=== PATIENT | male | born 1990 | race American Indian/Alaskan Native ===

== ENCOUNTER 2022-11-25 15:42 | Outpatient (CLI) | payer MEDICAID, SELFPAY | END 2022-11-25 15:43 | disposition home or self-care (01) | LOC: AMB 11-27 09:21 | PROVIDERS: Visit Provider Family Medicine | DX: F10.129 Alcohol abuse with intoxication, unspecified (principal) | CPT/HCPCS: A0425; A0429 ==

== ENCOUNTER 2022-11-25 16:01 | Emergency (ER) | payer MEDICAID, SELFPAY ==
[2022-11-25 16:06] VITALS: BP 152/95; PULSE 106; RESP 20; TEMP 36.8; O2SAT 96; BMI 63.7
--- NOTE | 2022-11-25 16:23 | ED_ITS ---
HPI - Alcohol General Chief Complaint: Alcohol/Intoxication Stated Complaint: ETOH Withdrawal Time Seen by Provider: 11/25/22 16:15 History of Present Illness HPI narrative: 32-year-old man presenting to the emergency department with concern of alcohol withdrawal. Is rather committed to alcohol and drinking nearly 2 L of rum a day. Last treatment was last year March. He is not interested in cessation at this time as he says it just does not work. Lives alone in [facility] apartments locally. Family in [place] mother in [place]. Other diagnoses include hypertension. Last drink was yesterday evening. He started to have some shakes and feeling nauseated, tremulous and due to history also of seizures with withdrawal he thought he should contact us and come to the ER. He has run out of alcohol. I asked him again about pain, he just says that he has a little nausea as noted above. I discussed potential plan and he acknowledges that magnesium has been off in the past as well as calcium. Did have a little loose to diarrheal stools. Clarifying further it sounds like episodic alcohol binges. Most recently was 3- 4 days. Prior to that had probably been alcohol free about a week. He says he drinks out of boredom in maybe some mental health difficulties. Later conversation he does have some pain particular in his right knee. Has had surgery on it before. Anticipating knee replacement at some point. Describes [id number]. Used to have a provider in [place] who prescribed him naproxen which he admits did help. Related Data Home Medications Medication Instructions Recorded Confirmed buspirone .ROUTE 11/25/22 lisinopril .ROUTE 11/25/22 metoprolol succinate PO 11/25/22 venlafaxine besylate PO 11/25/22 Previous Rx's Medication Instructions Recorded magnesium oxide 400 mg PO DAILY #45 caps 11/25/22 naproxen 500 mg tablet 500 mg PO BID PRN pain #60 tabs 11/25/22 prenat.vits,jamar,hzq-bpic-aatiw 1 tab PO DAILY #90 tabs 11/25/22 Allergies Allergy/AdvReac Type Severity Reaction Status Date / Time No Known Drug Allergies Allergy Verified 11/25/22 16:10 Review of Systems Status of ROS Reports: 6 or more systems reviewed and unremarkable except as noted in History and below PFSH PFS Social History Do you use any of these nicotine containing products: None How often do you have a drink containing alcohol: 4 or more times a week How many standard drinks containing alcohol do you have on a typical day: 10 or more How often do you have six or more drinks on one occasion: Daily or almost daily AUDIT-C Alcohol total score: 12 Non-prescribed substance use: denies use service: No Exam Narrative: Exam Narrative: Is pleasant. Little tremulous. Cranial nerves 2-12 look to be intact there is some mild ptosis of the right eye. Large maroon polo is broadly stained. Skin is warm and dry. Are scratches and excoriations consistent with mild picking. Otherwise tattoo on the inner right forearm looks like dream catcher of sorts. Abdomen in is obese soft and nontender. Heart with elevated to tachycardic rate appears to be in regular rhythm. Rather distant though. Lungs appear to be clear. Oropharynx is sticky. Extremities are thick consistent with obesity with mild lower extremity dependent edema. Const: Vital Signs, click to edit/add: Vital Signs - 24 hr 11/25/22 16:06 11/25/22 16:52 Temperature 98.2 F Pulse Rate [Pulse Oximeter] 106 H Respiratory Rate 20 Blood Pressure [Ri ght Upper Arm] 152/95 H Pulse Oximetry 96 93 Oxygen Delivery Me thod Room Air Documenting provider has reviewed patient's vital signs: yes Course Vital Signs Vital signs: Initial Vital Signs Temperature 98.2 F 11/25/22 16:06 Temperature Source Oral 11/25/22 16:06 Pulse Rate 106 H 11/25/22 16:06 Pulse Rhythm 11/25/22 16:06 Respiratory Rate 20 11/25/22 16:06 Blood Pressure 152/95 H 11/25/22 16:06 Blood Pressure Mean 114 11/25/22 16:06 Blood Pressure Position Sitting 11/25/22 16:06 Pulse Oximetry 96 11/25/22 16:06 Oxygen Delivery Method 11/25/22 16:06 Vital Signs Temperature 98.2 F 11/25/22 16:06 Pulse Rate 106 H 11/25/22 16:06 Respiratory Rate 20 11/25/22 16:06 Blood Pressure 152/95 H 11/25/22 16:06 Pulse Oximetry 96 11/25/22 16:06 Oxygen Delivery Method 11/25/22 16:06 Temperature 97.9 F 11/25/22 19:23 Pulse Rate 99 11/25/22 19:23 Respiratory Rate 20 11/25/22 19:23 Blood Pressure 148/62 H 11/25/22 19:23 Pulse Oximetry 95 11/25/22 19:23 Oxygen Delivery Method 11/25/22 19:23 MDM - Alcohol MDM Narrative Medical decision making narrative: Presumably still significant alcohol in system. Would think that would not be pending seizure then. Will check alcohol level. Hydrate, vitamins. Monitor. Continue to discuss treatment/detox if perhaps he might change his mind. Have further clarified drinking behavior as noted in HPI. etoh level is undetectable. Banana bag given. Already reports feeling better mid-bag. Replacing low magnesium as well. wanted a little pain relief for right knee. ordered initially for naproxen but changed to ketorolac as more readily available in department. overall improved. prescribing naproxen on discharge. some further concerns of chronic nsaids in someone with some degree of alcoholism. options should be discussed in primary care. Lab Data Attestation: I reviewed the patient's lab results. Labs: Lab Results 11/25/22 11/25/22 11/25/22 Range/Units 16:20 16:20 16:20 WBC 7.11 (4.50-11.00) K/uL RBC 5.47 (4.30-5.90) m/uL Hgb 16.8 (13.5-17.5) gm/dL Hct 50.6 (37.0-53.0) % MCV 93 (80-100) fL MCH 31 (26-34) pg MCHC 33 (32-36) gm/dL RDW Coeff of Dhara 13.1 (11.5-15.5) % Plt Count 270 (140-440) K/uL Neut % (Auto) 58.0 (42.0-72.0) % Lymph % (Auto) 34.7 (20-44) % [place] % (Auto) 6.9 (0.0-11.0) % Eos % (Auto) 0.3 (0.0-7.0) % Baso % (Auto) 0.0 (0.0-3.0) % Neut # (Auto) 4.12 (1.7-7.0) K/uL Lymph # (Auto) 2.47 (0.90-2.90) K/uL [place] # (Auto) 0.50 (0.00-0.90) K/UL Eos # (Auto) 0.02 (0.00-0.50) K/uL Baso # (Auto) 0.00 (0.00-0.30) K/uL Sodium 139 (135-149) mmol/L Potassium 3.9 (3.6-5.1) mmol/L Chloride 107 (96-114) mmol/L Carbon Dioxide 20 (20-32) mmol/L BUN 9 (5-24) mg/dL Creatinine 0.9 (0.5-1.5) mg/dL Estimated Creat Clear 138.23 Estimated GFR 115 ml/min Glucose 128 H (60-115) mg/dL Calcium 8.7 (8.4-10.6) mg/dL Magnesium 1.3 L Cancelled (1.5-2.6) mg/dL Total Bilirubin 0.7 (0.1-1.5) mg/dL Direct Bilirubin 0.2 (0.0-0.5) mg/dL AST 61 H (12-35) U/L ALT 50 (4-50) U/L Alkaline Phosphatase 64 (40-150) U/L C-Reactive Protein 0.5 (0.5-1.0) mg/dL NT-Pro-B Natriuret Pep 139 Cancelled pg/mL Total Protein 8.0 (6.0-8.3) g/dL Albumin 4.3 (3.3-5.0) g/dL Lipase 108 Cancelled (23-300) U/L Ethyl Alcohol 0.01 (0.01-0.03) % Discharge Plan Discharge Clinical Impression: Alcohol withdrawal, Osteoarthritis, Chronic knee pain, Dehydration, Hypomagnesemia Patient Disposition: Home w/ Parent or Adult Condition: Improved Additional Instructions: Do focus on hydration; non-alcoholic please. I think it would be a good idea to take a multivitamin. I've also prescribed some magnesium. Even though it is here and there, that is a lot of alcohol you're putting away. Do what you can to markedly decrease that. It might be helpful to reconnect with AA. I would also consider reestablishing in primary care and staying in touch with orthopaedics given what you've told me. Prescriptions: Kun seymour.vits,jamar,efd-zlxd-foxbf Tablet 1 tab PO DAILY Qty: 90 0RF naproxen 500 mg tablet 500 mg PO BID PRN (Reason: pain) Qty: 60 0RF Rx Instructions: take with a little food magnesium oxide 400 mg magnesium capsule 400 mg PO DAILY Qty: 45 0RF Rx Instructions: take 400mg pain for 2 weeks and then to once daily dosing No Action lisinopril .ROUTE metoprolol succinate PO venlafaxine besylate PO buspirone .ROUTE Follow Up/Referrals: Provider,Not a Local [Primary Care Provider] - Stand Alone Forms: [employer] Info Instructions
[2022-11-25] MEDS: ONDANSETRON 2 MG/ML inj 4 MG IVP (16:50)
[2022-11-25 16:52] VITALS: O2SAT 93
[2022-11-25 16:52] LABS: Eosinophils Absolute Auto 0.02 K/uL (0.00-0.50); Eosinophils Percent Auto 0.3 % (0.0-7.0); Hematocrit 50.6 % (37.0-53.0); Hemoglobin* 16.8 gm/dL (13.5-17.5); Immature Granulocytes Abs Auto 0.01 K/uL (0.00-0.30); Immature Granulocytes Pct Auto 0.1 %; Lymphocytes Absolute Auto 2.47 K/uL (0.90-2.90); Lymphocytes Percent Auto 34.7 % (20-44); Mean Corpuscular HGB Conc 33 gm/dL (32-36); Mean Corpuscular Hemoglobin 31 pg (26-34); Mean Corpuscular Volume 93 fL (80-100); Monocytes Percent Auto 6.9 % (0.0-11.0); Neutrophils Absolute Auto 4.12 K/uL (1.7-7.0); Platelet Count* 270 K/uL (140-440); RDW Coefficient of Variation % 13.1 % (11.5-15.5); Red Blood Count 5.47 m/uL (4.30-5.90); White Blood Count* 7.11 K/uL (4.50-11.00)
[2022-11-25 16:53] LABS: Albumin* 4.3 g/dL (3.3-5.0); Chloride* 107 mmol/L (96-114); Sodium* 139 mmol/L (135-149)
[2022-11-25 16:54] LABS: Potassium* 3.9 mmol/L (3.6-5.1)
[2022-11-25 16:56] LABS: Creatinine* 0.9 mg/dL (0.5-1.5); Est. Creatinine Clearance* 138.23; Estimated Glomerular Filt Rate 115 ml/min
[2022-11-25 16:57] LABS: Alanine Aminotransferase* 50 U/L (4-50); Alkaline Phosphatase* 64 U/L (40-150); Aspartate Amino Transferase* 61 U/L (12-35); Bilirubin Direct* 0.2 mg/dL (0.0-0.5); Bilirubin Total* 0.7 mg/dL (0.1-1.5); Blood Urea Nitrogen* 9 mg/dL (5-24); Carbon Dioxide* 20 mmol/L (20-32); Glucose* 128 mg/dL (60-115); Lipase* 108 U/L (23-300)
[2022-11-25 16:58] LABS: Calcium* 8.7 mg/dL (8.4-10.6); Ethanol* 0.01 % (0.01-0.03); Magnesium* 1.3 mg/dL (1.5-2.6)
[2022-11-25 17:00] LABS: C Reactive Protein* 0.5 mg/dL (0.5-1.0)
[2022-11-25 17:07] LABS: NT Pro B Type NatriureticPept* 139 pg/mL; Slide Review Reflex No
[2022-11-25] MEDS: MAGNESIUM IV 2 GM/50 ML PIGGYBACK IVPB (17:56)
[2022-11-25] MEDS: KETOROLAC 30 MG/ML inj IVP (18:54)
[2022-11-25 19:23] VITALS: BP 148/62; PULSE 99; RESP 20; TEMP 36.6; O2SAT 95
== END 2022-11-25 19:25 | disposition home or self-care (01) ==
PROVIDERS: Emergency Provider Family Medicine
DX: F10.129 Alcohol abuse with intoxication, unspecified (principal); E83.42 Hypomagnesemia
CPT/HCPCS: 36415; 80048; 80076; 82077; 83690; 83735; 83880; 85025; 86140; 94761; 96372; 96374; 96375; 99283; 99284; J1885; J2060; J2405; J3411; J3475; J7030

== ENCOUNTER 2022-11-25 20:02 | Emergency (ER) | payer MEDICAID, SELFPAY ==
[2022-11-25 20:13] VITALS: BP 153/84; PULSE 80; RESP 20; TEMP 36.4; O2SAT 98
[2022-11-25] MEDS: LORazepam 2 MG/ML inj 1.5 MG IM (20:45)
[2022-11-25 21:13] VITALS: PULSE 86; RESP 20; O2SAT 98
--- NOTE | 2022-11-27 09:45 | ED.GENADULT ---
HPI - General Adult General Chief complaint: Shortness of Breath/Dyspnea Stated complaint: Trouble breathing shaking tingling Time Seen by Provider: 11/25/22 20:15 History of Present Illness HPI narrative: 32-year-old man returns to the emergency department accompanied by his mother with concern of general shakiness trouble breathing tingliness in his face hands, some lightheadedness. This started after leaving this department where I had just evaluated him. His concern is that this is how he felt before he had a seizure once in the past. This was the same concern they brought him to the department earlier today. Mr. Tejeda does drink episodically. He did not have any detectable alcohol in his system earlier. They were on their way to get the prescribed medication's. No chest pain. Related Data Home Medications Medication Instructions Recorded Confirmed buspirone .ROUTE 11/25/22 lisinopril .ROUTE 11/25/22 metoprolol succinate PO 11/25/22 venlafaxine besylate PO 11/25/22 Previous Rx's Medication Instructions Recorded magnesium oxide 400 mg PO DAILY #45 caps 11/25/22 naproxen 500 mg tablet 500 mg PO BID PRN pain #60 tabs 11/25/22 prenat.vits,jamar,cuh-jarn-pgted 1 tab PO DAILY #90 tabs 11/25/22 Allergies Allergy/AdvReac Type Severity Reaction Status Date / Time No Known Drug Allergies Allergy Verified 11/25/22 16:10 Review of Systems Status of ROS: Reports: 6 or more systems reviewed and unremarkable except as noted in History and below [facility] Social History Do you use any of these nicotine containing products: None How often do you have a drink containing alcohol: 4 or more times a week How many standard drinks containing alcohol do you have on a typical day: 10 or more How often do you have six or more drinks on one occasion: Daily or almost daily AUDIT-C Alcohol total score: 12 Non-prescribed substance use: denies use service: No Exam Narrative: Exam Narrative: Pleasant. Obese. Able to speak in full sentences. Mildly tachypneic though. Mildly labored. Moving all extremities without difficulty. Well-perfused. Lungs are clear. Heart is with regular rate and rhythm. Cranial nerves two through 12 looked to be intact. Sensation intact. Course Vital Signs Vital signs: Initial Vital Signs Temperature 97.6 F 11/25/22 20:13 Temperature Source Temporal Artery Scan 11/25/22 20:13 Pulse Rate 80 11/25/22 20:13 Pulse Rhythm 11/25/22 20:13 Respiratory Rate 20 11/25/22 20:13 Respiratory Effort Spontaneous 11/25/22 20:13 Respiratory Depth Normal 11/25/22 20:13 Respiratory Pattern 11/25/22 20:13 Blood Pressure 153/84 H 11/25/22 20:13 Blood Pressure Mean 107 11/25/22 20:13 Blood Pressure Position Semi-Fowlers 11/25/22 20:13 Pulse Oximetry 98 11/25/22 20:13 Oxygen Delivery Method 11/25/22 20:13 Vital Signs Temperature 97.6 F 11/25/22 20:13 Pulse Rate 80 11/25/22 20:13 Respiratory Rate 20 11/25/22 20:13 Blood Pressure 153/84 H 11/25/22 20:13 Pulse Oximetry 98 11/25/22 20:13 Oxygen Delivery Method 11/25/22 20:13 Temperature 97.6 F 11/25/22 20:13 Pulse Rate 86 11/25/22 21:13 Respiratory Rate 20 11/25/22 21:13 Blood Pressure 153/84 H 11/25/22 20:13 Pulse Oximetry 98 11/25/22 21:13 Oxygen Delivery Method 11/25/22 21:13 Medical Decision Making MDM Narrative Medical decision making narrative: I see no evidence of seizure disorder. Given recent evaluation here and underlying anxiety I suspect this is more of a panic attack. Ordered for 1.5 mg IM lorazepam. He had noted to nursing that Valium and helped him in the past. Lorazepam more readily available. Was markedly improved over period of observation in emergency department. Prior to receiving injection admitted that he had had a chance to feel a little bit better already. Discharge Plan Discharge Clinical Impression: Panic attack Patient Disposition: Home w/ Parent or Adult Condition: Improved Additional Instructions: See prior instructions. Good to see you again. Sorry you had come in. Prescriptions: No Action lisinopril .ROUTE metoprolol succinate PO venlafaxine besylate PO buspirone .ROUTE prenat.vits,jamar,zdb-nhjl-rgjmo Tablet 1 tab PO DAILY Qty: 90 0RF naproxen 500 mg tablet 500 mg PO BID PRN (Reason: pain) Qty: 60 0RF Rx Instructions: take with a little food magnesium oxide 400 mg magnesium capsule 400 mg PO DAILY Qty: 45 0RF Rx Instructions: take 400mg pain for 2 weeks and then to once daily dosing Follow Up/Referrals: Provider,Not a Local [Primary Care Provider] - Stand Alone Forms: [employer] Info Instructions
== END 2022-11-25 21:29 | disposition home or self-care (01) ==
PROVIDERS: Emergency Provider Family Medicine
DX: F10.129 Alcohol abuse with intoxication, unspecified (principal); E83.42 Hypomagnesemia
CPT/HCPCS: 96372; 99283; J2060

== ENCOUNTER 2023-01-01 05:33 | Emergency (ER) | payer OTHER, SELFPAY ==
[2023-01-01 05:36] VITALS: O2SAT 98
--- NOTE | 2023-01-01 05:36 | ED.ALCOHOL ---
HPI - Alcohol General Time Seen by Provider: 05:36 Date Seen: 01/01/23 Chief Complaint: Alcohol/Intoxication Stated Complaint: Alcohol Withdrawal Time Seen by Provider: 01/01/23 05:36 Source: patient, EMS and RN notes reviewed Mode of arrival: EMS Limitations: no limitations History of Present Illness HPI narrative: [place] is a very pleasant 32-year-old gentleman with a history of significant alcohol use, hypertension, morbid obesity who comes to the emergency room for evaluation regarding nausea, shakiness and worries about withdrawal. EMS reports that Ronnell called 911 for himself. They found him at his apartment at [facility] and he was able to walk to the [facility] in order to be transferred. They noted a normal blood sugar and had 1 failed IV attempt. Patient notes that he drinks large amounts of alcohol but then will quit for a few days. He states that last night he had a half a gal of rum. Since that time he has had shakiness and nausea. He states that he has had a seizure in the past in was worried about that. Notes that he has been a treatment in past but has no interest in that this evening. He agrees that he has some mild abdominal discomfort and diarrhea. Notes no difficulty breathing or chest pain. He has not had any recent trauma. Related Data Home Medications Medication Instructions Recorded Confirmed buspirone 15 mg tablet 15 mg PO BID 01/01/23 01/01/23 lisinopril 30 mg tablet 30 mg PO DAILY 01/01/23 01/01/23 magnesium oxide 400 mg (241.3 mg 400 mg PO DAILY 01/01/23 01/01/23 magnesium) tablet metoprolol succinate 50 mg 50 mg PO DAILY 01/01/23 01/01/23 tablet,extended release 24 hr venlafaxine 150 mg tablet,extended 150 mg PO DAILY 01/01/23 01/01/23 release 24 hr Previous Rx's Medication Instructions Recorded naproxen 500 mg tablet 500 mg PO BID PRN pain #60 tabs 11/25/22 Allergies Allergy/AdvReac Type Severity Reaction Status Date / Time No Known Drug Allergies Allergy Verified 01/01/23 05:53 Review of Systems Status of ROS Reports: 10 or more systems reviewed and unremarkable except as noted in History and below Const Reports: fatigue; Denies: fever or chills Eyes Denies: change in vision ENMT Denies: throat pain or difficulty swallowing Cardio Reports: swelling of feet/ankles; Denies: chest pain or shortness of breath with exertion Resp Denies: shortness of breath or cough GI Reports: abdominal pain (Mild), nausea, vomiting and diarrhea; Denies: difficulty swallowing or blood in stool Denies: painful urination or urinary frequency Musculo Denies: back pain Neuro Reports: headache and weakness in extremities Endo Reports: fatigue [facility] Medical History (Updated 01/01/23 @ 07:50 by Anabell Rubio MD) Alcohol dependence, binge pattern Anxiety Morbidly obese Right knee pain Social History Smoking Status: Current every day smoker Do you use any of these nicotine containing products: None Second hand tobacco smoke exposure: No How often do you have a drink containing alcohol: 2-3 times a week How many standard drinks containing alcohol do you have on a typical day: 10 or more How often do you have six or more drinks on one occasion: Daily or almost daily AUDIT-C Alcohol total score: 11 Non-prescribed substance use: denies use service: No Exam Narrative: Exam Narrative: Patient is alert and oriented. He is somewhat tremulous but it almost seems that this is more anxiety than withdrawal related. He is able to transfer himself from [facility] onto the bed. He is speaking and mentating normally. Eyes are clear. Oral cavity with tacky mucous membranes. Heart with a mildly tachycardic rate and normal rhythm. Lungs are clear in all lung flores. Abdomen is obese soft no significant tenderness. Scab healing on upper thoracic spine without evidence of surrounding erythema Const: Vital Signs, click to edit/add: Vital Signs - 24 hr 01/01/23 05:46 01/01/23 06:05 01/01/23 06:03 Temperature 98.0 F 98.2 F Pulse Rate 106 H Pulse Rate [Right Pulse Oximeter] 105 H 105 H Respiratory Rate 22 24 16 Blood Pressure 182/116 H Blood Pressure [Ri ght Upper Arm] 153/80 H 182/116 H Pulse Oximetry 97 95 94 Oxygen Delivery Me thod Room Air Room Air 01/01/23 05:36 01/01/23 06:32 Temperature Pulse Rate 96 Pulse Rate [Right Pulse Oximeter] Respiratory Rate 22 Blood Pressure 180/109 H Blood Pressure [Ri ght Upper Arm] Pulse Oximetry 98 94 Oxygen Delivery Me thod Documenting provider has reviewed patient's vital signs: yes Course Course Hospital Course: Differential diagnosis includes but is not limited to Hangover affect verses mild withdrawal, dehydration, anxiety.-patient does have a history of withdrawal seizures. However, he describes alcohol use is intermittent spanning a few days and then abstaining for a few days. Last night he did have significant amount of alcohol. Will give him normal saline bolus with Ativan 1 mg IV. Will check labs to include CBC, comprehensive, ETOH, lipase as well as urinalysis. At this time patient declines treatment. Reevaluation(s) Reevaluation #1: Patient notes that he is feeling much better after fluids and Ativan. Again declines treatment and feels use ready to go home. Vital Signs Vital signs: Initial Vital Signs Pulse Oximetry 98 01/01/23 05:36 Vital Signs Pulse Oximetry 98 01/01/23 05:36 Temperature 98.2 F 01/01/23 06:05 Pulse Rate 96 01/01/23 06:32 Respiratory Rate 22 01/01/23 06:32 Blood Pressure 180/109 H 01/01/23 06:32 Pulse Oximetry 94 01/01/23 06:32 Oxygen Delivery Method 01/01/23 06:05 MDM - Alcohol MDM Narrative Medical decision making narrative: 1. Hangover affect verses mild withdrawal-I believe this is likely more a hangover a factor even anxiety. Patient improved after 1 mg of Ativan and 1 L of normal saline. Again declines treatment and would like to go home. Does realize that if this was withdrawal it will likely can get worse again. Counseled on decreased alcohol intake 2. Hypertension-patient did not take his medication yesterday. Will give him a dose metoprolol 50 mg p.o. 3. Disposition-patient is able to secure himself for ride in the next 1/2 hour. Return as needed. Patient able to drink fluids without difficulty prior to departure Medical Records Attestation: I reviewed the patient's medical records. Lab Data Attestation: I reviewed the patient's lab results. Labs: Lab Results 01/01/23 01/01/23 01/01/23 Range/Units 05:40 05:40 06:50 WBC 4.74 (4.50-11.00) K/uL RBC 5.81 (4.30-5.90) m/uL Hgb 17.1 (13.5-17.5) gm/dL Hct 52.8 (37.0-53.0) % MCV 91 (80-100) fL MCH 29 (26-34) pg MCHC 32 (32-36) gm/dL RDW Coeff of Dhara 13.1 (11.5-15.5) % Plt Count 220 (140-440) K/uL Neut % (Auto) 43.6 (42.0-72.0) % Lymph % (Auto) 43.0 (20-44) % [place] % (Auto) 12.4 H (0.0-11.0) % Eos % (Auto) 0.8 (0.0-7.0) % Baso % (Auto) 0.2 (0.0-3.0) % Neut # (Auto) 2.06 (1.7-7.0) K/uL Lymph # (Auto) 2.04 (0.90-2.90) K/uL [place] # (Auto) 0.60 (0.00-0.90) K/UL Eos # (Auto) 0.04 (0.00-0.50) K/uL Baso # (Auto) 0.01 (0.00-0.30) K/uL Sodium 138 (135-149) mmol/L Potassium 4.0 (3.6-5.1) mmol/L Chloride 101 (96-114) mmol/L Carbon Dioxide 30 (20-32) mmol/L BUN 6 (5-24) mg/dL Creatinine 0.8 (0.5-1.5) mg/dL Estimated Creat Clear 155.50 Estimated GFR 119 ml/min Glucose 107 (60-115) mg/dL Calcium 8.6 (8.4-10.6) mg/dL Total Bilirubin 0.9 (0.1-1.5) mg/dL AST 49 H (12-35) U/L ALT 30 (4-50) U/L Alkaline Phosphatase 63 (40-150) U/L Total Protein 8.4 H (6.0-8.3) g/dL Albumin 4.4 (3.3-5.0) g/dL Lipase 125 (23-300) U/L Urine Color Yellow (Yellow) Urine Appearance Clear (Clear) Urine pH 6.0 (5.0-8.5) Ur Specific [place] 1.025 (1.000-1.030) Urine Protein 1+ A (Negative) Urine Glucose (UA) Negative (Negative) Urine Ketones Negative (Negative) Urine Blood Trace-intact A (Negative) Urine Nitrite Negative (Negative) Urine Bilirubin Negative (Negative) Urine Urobilinogen 0.2 (0.2-1.0) Ur Leukocyte Esterase Negative (Negative) Urine RBC 0-2 (0-2) Urine WBC 0-2 (0-5) Ur Squamous Epith Cells Few (None-Few) Urine Bacteria None (None) Ethyl Alcohol < 0.01 L (0.01-0.03) % Discharge Plan Discharge Clinical Impression: Alcohol abuse, Anxiety Patient Disposition: Home, Self-Care Condition: Improved Additional Instructions: Abstain from alcohol. If he do drink please limit amounts and drink in moderation. Push fluids as much as possible. Return to the ER as needed Prescriptions: No Action naproxen 500 mg tablet 500 mg PO BID PRN (Reason: pain) Qty: 60 0RF Rx Instructions: take with a little food metoprolol succinate 50 mg tablet extended release 24 hr 50 mg PO DAILY magnesium oxide 400 mg (241.3 mg magnesium) tablet 400 mg PO DAILY lisinopril 30 mg tablet 30 mg PO DAILY buspirone 15 mg tablet 15 mg PO BID venlafaxine 150 mg tablet extended release 24hr 150 mg PO DAILY Follow Up/Referrals: Provider,Not a Local [Primary Care Provider] - Stand Alone Forms: [employer] Info Instructions
[2023-01-01 05:46] VITALS: BP 153/80; PULSE 105; RESP 22; TEMP 36.7; O2SAT 97; BMI 62.5
[2023-01-01 05:49] LABS: Basophils Absolute Auto 0.01 K/uL (0.00-0.30); Basophils Percent Auto 0.2 % (0.0-3.0); Eosinophils Absolute Auto 0.04 K/uL (0.00-0.50); Eosinophils Percent Auto 0.8 % (0.0-7.0); Hematocrit 52.8 % (37.0-53.0); Hemoglobin* 17.1 gm/dL (13.5-17.5); Lymphocytes Absolute Auto 2.04 K/uL (0.90-2.90); Mean Corpuscular HGB Conc 32 gm/dL (32-36); Mean Corpuscular Hemoglobin 29 pg (26-34); Mean Corpuscular Volume 91 fL (80-100); Monocytes Percent Auto 12.4 % (0.0-11.0); Neutrophils Absolute Auto 2.06 K/uL (1.7-7.0); Neutrophils Percent Auto 43.6 % (42.0-72.0); Platelet Count* 220 K/uL (140-440); RDW Coefficient of Variation % 13.1 % (11.5-15.5); Red Blood Count 5.81 m/uL (4.30-5.90); White Blood Count* 4.74 K/uL (4.50-11.00)
[2023-01-01 05:50] LABS: Slide Review Reflex No
[2023-01-01] MEDS: LORazepam 2 MG/ML inj 1 MG IVP (05:50)
[2023-01-01] MEDS: 0.9 % SODIUM CHLORIDE 1000 ml 1,000 ML IV (05:50)
[2023-01-01 06:01] LABS: Albumin* 4.4 g/dL (3.3-5.0)
[2023-01-01 06:02] LABS: Chloride* 101 mmol/L (96-114); Sodium* 138 mmol/L (135-149)
[2023-01-01 06:03] VITALS: BP 182/116; PULSE 106; RESP 16; O2SAT 94
[2023-01-01 06:04] LABS: Alkaline Phosphatase* 63 U/L (40-150); Aspartate Amino Transferase* 49 U/L (12-35); Bilirubin Total* 0.9 mg/dL (0.1-1.5); Blood Urea Nitrogen* 6 mg/dL (5-24); Carbon Dioxide* 30 mmol/L (20-32); Creatinine* 0.8 mg/dL (0.5-1.5); Estimated Glomerular Filt Rate 119 ml/min; Total Protein* 8.4 g/dL (6.0-8.3)
[2023-01-01 06:05] VITALS: BP 182/116; PULSE 105; RESP 24; TEMP 36.8; O2SAT 95
[2023-01-01 06:05] LABS: Alanine Aminotransferase* 30 U/L (4-50); Calcium* 8.6 mg/dL (8.4-10.6); Glucose* 107 mg/dL (60-115); Lipase* 125 U/L (23-300)
[2023-01-01 06:06] LABS: Ethanol* < 0.01 % (0.01-0.03)
[2023-01-01 06:32] VITALS: BP 180/109; PULSE 96; RESP 22; O2SAT 94
[2023-01-01 07:01] LABS: Appearance Urine Clear (Clear); Bilirubin Urine Negative (Negative); Blood Urine Trace-intact (Negative); Color Urine Yellow (Yellow); Glucose Urine Negative (Negative); Ketones Urine Negative (Negative); Leukocyte Esterase Urine Negative (Negative); Nitrite Urine Negative (Negative); Protein Urine 1+ (Negative); Specific Gravity Urine 1.025 (1.000-1.030); Urobilinogen Urine 0.2 (0.2-1.0)
[2023-01-01 07:05] LABS: RBC Urine 0-2 (0-2); Squamous Epithelial Cell Urine Few (None-Few); WBC Urine 0-2 (0-5)
--- NOTE | 2023-01-01 07:31 | ED.NURSE ---
alert and oriented. drinking water and juice eating a sandwich
[2023-01-01] MEDS: METOPROLOL SUCCINATE (XL) 50 MG TAB PO (07:37)
== END 2023-01-01 08:14 | disposition home or self-care (01) ==
PROVIDERS: Emergency Provider Family Medicine
DX: F10.10 Alcohol abuse, uncomplicated (principal); F41.9 Anxiety disorder, unspecified
CPT/HCPCS: 36415; 80053; 81001; 82077; 83690; 85025; 94761; 96374; 99283; 99284; A0425; A0429; A9270; J2060; J7030

== ENCOUNTER 2023-01-13 15:36 | Emergency (ER) | payer OTHER, SELFPAY ==
[2023-01-13 15:38] VITALS: BP 196/131; PULSE 76; RESP 18; TEMP 36.1; O2SAT 93; BMI 62.1
--- NOTE | 2023-01-13 15:58 | ED_ITS ---
HPI - Nausea/Vomiting/Diarrhea General Time Seen by Provider: 15:58 Date Seen: 01/13/23 Chief complaint: Nausea/Vomiting Stated complaint: Numbness, Anxiety Time Seen by Provider: 01/13/23 15:46 Source: patient, EMS and RN notes reviewed Mode of arrival: EMS Limitations: no limitations History of Present Illness HPI Narrative: Artemio is a 33-year-old male that called the ambulance from home when he was having full facial numbness. He felt some chest discomfort in context with that. When he awoke around 1:00 a.m. this afternoon he started to develop symptoms of anxiety. He admits that at this time all the symptoms are starting to go away. With the facial numbness in the chest discomfort, he did feel short of breath. He reported nausea vomiting as his chief complaint but never brought that up to me. He drank up until yesterday, had his last drink yesterday. He does note that he will often feel this way after he quits drinking. Denies any recent illness. He has been through treatment maybe 7 or 8 times before. He states he did take his blood pressure medicines this morning. Have reviewed with him that his blood pressure is certainly elevated, discussed ongoing affects that can contribute to hypertension with alcohol use. Overall, at this time he is feeling improved. Patient notes his eyes felt more swollen this morning. Did ask about obstructive sleep apnea and he states he knows he does have it but does not tolerate a mask. Related Data Home Medications Medication Instructions Recorded Confirmed buspirone 15 mg tablet 15 mg PO BID 01/01/23 01/01/23 lisinopril 30 mg tablet 30 mg PO DAILY 01/01/23 01/01/23 magnesium oxide 400 mg (241.3 mg 400 mg PO DAILY 01/01/23 01/01/23 magnesium) tablet metoprolol succinate 50 mg 50 mg PO DAILY 01/01/23 01/01/23 tablet,extended release 24 hr venlafaxine 150 mg tablet,extended 150 mg PO DAILY 01/01/23 01/01/23 release 24 hr Previous Rx's Medication Instructions Recorded naproxen 500 mg tablet 500 mg PO BID PRN pain #60 tabs 11/25/22 Allergies Allergy/AdvReac Type Severity Reaction Status Date / Time No Known Drug Allergies Allergy Verified 01/13/23 15:43 Review of Systems Status of ROS: Reports: 6 or more systems reviewed and unremarkable except as noted in History and below [facility] Medical History (Updated 01/13/23 @ 18:46 by Dorene Nicholson MD) Alcohol dependence, binge pattern ?F10.20 - Alcohol dependence, uncomplicated (ICD-10) Anxiety ?F41.9 - Anxiety disorder, unspecified (ICD-10) Morbidly obese ?E66.01 - Morbid (severe) obesity due to excess calories (ICD-10) Right knee pain ?M25.561 - Pain in right knee (ICD-10) Social History Smoking Status: Current every day smoker Do you use any of these nicotine containing products: None Second hand tobacco smoke exposure: No How often do you have a drink containing alcohol: 2-3 times a week How many standard drinks containing alcohol do you have on a typical day: 10 or more How often do you have six or more drinks on one occasion: Daily or almost daily AUDIT-C Alcohol total score: 11 Non-prescribed substance use: denies use service: No Exam Const: Vital Signs, click to edit/add: Vital Signs - 24 hr 01/13/23 15:38 01/13/23 16:07 Temperature 97.0 F L Pulse Rate [Pulse Oximeter] 76 Respiratory Rate 18 Blood Pressure [Le ft Upper Arm] 196/131 H Pulse Oximetry 93 94 Oxygen Delivery Me thod Room Air Documenting provider has reviewed patient's vital signs: yes Common normals: no apparent distress, oriented x3, no limitations and alert General appearance: cooperative and comfortable Nutritional appearance: obese morbidly obese Orientation/consciousness: Yes awake, Yes oriented to person, Yes oriented to place and Yes oriented to time HENMT: Common normals: normocephalic, head/scalp atraumatic and hearing grossly normal bilaterally Head and scalp: normocephalic and atraumatic Other: Only does have some symmetric periorbital swelling. No exudates noted sclera was some injection but not erythematous overall, no ciliary flush. Pupils are equal round reactive. Eye: Common normals: PERRL, EOMs intact bilaterally and no scleral icterus Pupil: PERRL Neck & C-Spine: Common normals: full ROM and supple Other: Neck is quite thick, difficult to assess any jugular venous distension but patient actually was sitting up when I was in the room. Certainly no masses noted no cervical adenopathy. Resp: Common normals: normal respiratory effort, no retractions, no use of accessory muscles and clear to auscultation bilaterally Auscultation: clear to auscultation bilaterally Cardio: Common normals: regular rate, regular rhythm, S1 normal heart sound, S2 normal heart sound, no gallops, no clicks and no murmurs Rate: regular rate Rhythm: regular rhythm Heart sounds: S1 normal and S2 normal GI: Common normals: Normal to inspection, nondistended, normoactive bowel sounds present, soft to palpation and non-tender Palpation: soft Neuro: Common normals: oriented x3 Sensorium/orientation: awake, alert, oriented to person, oriented to place and oriented to time Course Course Hospital Course: Patient's arrival EKG looks quite normal. He seems to be in no distress. Will look at appropriate labs including his magnesium. Will follow him clinically here, obtain a two view chest x-ray. Blood pressure is elevated but I think this is likely hypertension, not acute withdrawal at this time. He has morbid obesity, untreated sleep apnea and alcoholism which are all likely contributing to escalating his blood pressure. Reevaluation(s) Reevaluation #1: Reviewed magnesium low at 1.3. Will replace with 2 g IV magnesium. Time: 16:45 Reevaluation #2: Patient has remained stable here. Did review his normal troponins. He is feeling fine at this time. He has completed his IV magnesium. We have discussed the importance of follow-up in clinic. He really needs to try to abstain from alcohol, attempt at some weight loss for ongoing future health. He does understand that. He states he had a primary care provider in [place] and is trying to get 1 scheduled here. I urged him to get follow-up in 1 of the clinics here in [place]. Time: 18:43 Vital Signs Vital signs: Initial Vital Signs Temperature 97.0 F L 01/13/23 15:38 Temperature Source Temporal Artery Scan 01/13/23 15:38 Pulse Rate 76 01/13/23 15:38 Pulse Rhythm Regular 01/13/23 15:38 Pulse Strength 3+ Normal 01/13/23 15:38 Respiratory Rate 18 01/13/23 15:38 Blood Pressure 196/131 H 01/13/23 15:38 Blood Pressure Mean 152 01/13/23 15:38 Blood Pressure Position Sitting 01/13/23 15:38 Pulse Oximetry 93 01/13/23 15:38 Oxygen Delivery Method Room Air 01/13/23 15:38 Vital Signs Temperature 97.0 F L 01/13/23 15:38 Pulse Rate 76 01/13/23 15:38 Respiratory Rate 18 01/13/23 15:38 Blood Pressure 196/131 H 01/13/23 15:38 Pulse Oximetry 93 01/13/23 15:38 Oxygen Delivery Method Room Air 01/13/23 15:38 Temperature 97.0 F L 01/13/23 15:38 Pulse Rate 76 01/13/23 15:38 Respiratory Rate 18 01/13/23 15:38 Blood Pressure 196/131 H 01/13/23 15:38 Pulse Oximetry 94 01/13/23 16:07 Oxygen Delivery Method Room Air 01/13/23 15:38 MDM - Nausea/Vomiting/Diarrhea Lab Data Attestation: I reviewed the patient's lab results. Labs: Lab Results 01/13/23 01/13/23 01/13/23 Range/Units 13:52 13:52 17:58 WBC 5.15 (4.50-11.00) K/uL RBC 5.79 (4.30-5.90) m/uL Hgb 16.8 (13.5-17.5) gm/dL Hct 51.2 (37.0-53.0) % MCV 88 (80-100) fL MCH 29 (26-34) pg MCHC 33 (32-36) gm/dL RDW Coeff of Dhara 13.3 (11.5-15.5) % Plt Count 228 (140-440) K/uL Neut % (Auto) 65.2 (42.0-72.0) % Lymph % (Auto) 25.8 (20-44) % Robertson % (Auto) 8.2 (0.0-11.0) % Eos % (Auto) 0.6 (0.0-7.0) % Baso % (Auto) 0.0 (0.0-3.0) % Neut # (Auto) 3.36 (1.7-7.0) K/uL Lymph # (Auto) 1.33 (0.90-2.90) K/uL Robertson # (Auto) 0.40 (0.00-0.90) K/UL Eos # (Auto) 0.03 (0.00-0.50) K/uL Baso # (Auto) 0.00 (0.00-0.30) K/uL VBG pH 7.507 H (7.32-7.43) VBG pCO2 37 L (40-50) mmHG VBG pO2 68.0 H (25-47) mmHG VBG HCO3 29 H (21-28) mmol/L Sodium 135 (135-149) mmol/L Potassium 4.5 (3.6-5.1) mmol/L Chloride 102 (96-114) mmol/L Carbon Dioxide 27 (20-32) mmol/L BUN 10 (5-24) mg/dL Creatinine 0.7 (0.5-1.5) mg/dL Estimated Creat Clear 180.83 Estimated GFR 123 ml/min Glucose 113 (60-115) mg/dL Lactate 1.9 (0.5-1.9) mmol/L Calcium 8.3 L (8.4-10.6) mg/dL Magnesium 1.3 L (1.5-2.6) mg/dL Total Bilirubin 1.5 (0.1-1.5) mg/dL AST 37 H (12-35) U/L ALT 23 (4-50) U/L Alkaline Phosphatase 53 (40-150) U/L Troponin I 0.03 Cancelled 0.02 (0.01-0.04) ng/mL NT-Pro-B Natriuret Pep 3170 pg/mL Total Protein 8.4 H (6.0-8.3) g/dL Albumin 4.2 (3.3-5.0) g/dL Lipase 85 (23-300) U/L Ethyl Alcohol < 0.01 L (0.01-0.03) % POC Troponin I Cancelled Imaging Data Chest x-ray: Attestation: I have reviewed the pertinent imaging results. Radiologist's impression: Patient: RYAN TURNER Facility:?[facility] Patient ID:?[id number] Site Patient ID:?[id number]. Site :?[id number] Study:?XRay Chest 2V-01/13/2023 4:22:47 PM Ordering Physician:Esvin Catherine Final Report: INDICATION: Chest discomfort and shortness of breath. TECHNIQUE: Chest 2 views. COMPARISON: None. FINDINGS: Cardiovascular and mediastinum: Heart size and vasculature are normal in caliber and appearance. Lungs and pleural spaces: Lungs are clear. No sign of infiltrate or mass. No sign of pleural effusion. No pneumothorax. Bones and soft tissues: No significant findings. IMPRESSION: No acute or significant findings. Dictated by Home Ibarra MD @ 01/13/2023 4:46:42 PM (Electronic Signature) ECG Data Attestation: I personally reviewed and interpreted this ECG as follows: (Normal sinus rhythm, 73 beats per minute. No ischemic change. QT corrected 471 milliseconds.) ECG interpretation date: 01/13/23 ECG interpretation time: 15:59 Prior ECG tracings: not available for review Interpretation: Repeat EKG timed 6:02 p.m. shows normal sinus rhythm, 62 beats per minute. No ischemia. Discharge Plan Discharge Clinical Impression: Alcohol abuse, Anxiety, Hypertension Patient Disposition: Home, Self-Care Condition: Stable Instructions: Heart Healthy Diet (ED), Hypertension (ED), Anxiety (ED), Alcohol Use Disorder (ED) Additional Instructions: You absolutely need to get established with a primary care provider here in [place] or return back to [place] to your primary care provider. I would like you seen within the next week if at all possible. Your blood pressure, alcohol issues really need further addressing. Activity Level: Activity as Tolerated Discharge Diet: Heart Healthy (2 gm sodium, low fat) Prescriptions: No Action naproxen 500 mg tablet 500 mg PO BID PRN (Reason: pain) Qty: 60 0RF Rx Instructions: take with a little food metoprolol succinate 50 mg tablet extended release 24 hr 50 mg PO DAILY magnesium oxide 400 mg (241.3 mg magnesium) tablet 400 mg PO DAILY lisinopril 30 mg tablet 30 mg PO DAILY buspirone 15 mg tablet 15 mg PO BID venlafaxine 150 mg tablet extended release 24hr 150 mg PO DAILY Follow Up/Referrals: Provider,Not a Local [Primary Care Provider] - Stand Alone Forms: MyHealth Info Instructions Critical Care Time Critical Care Time Critical Care Time: No
[2023-01-13 16:07] VITALS: O2SAT 94
--- NOTE | 2023-01-13 16:08 | CRLHL7_ITS ---
For Patients: As a result of the Century Cures Act, medical imaging exams and procedure reports are released immediately into your electronic medical record. You may view this report before your referring provider. If you have questions, please contact your health care provider. INDICATION: Chest discomfort and shortness of breath. TECHNIQUE: Chest 2 views. COMPARISON: None. FINDINGS: Cardiovascular and mediastinum: Heart size and vasculature are normal in caliber and appearance. Lungs and pleural spaces: Lungs are clear. No sign of infiltrate or mass. No sign of pleural effusion. No pneumothorax. Bones and soft tissues: No significant findings. IMPRESSION: No acute or significant findings. Dictated by Home Ibarra MD @ 01/13/2023 4:46:42 PM (Electronically Signed)
[2023-01-13 16:16] LABS: Eosinophils Absolute Auto 0.03 K/uL (0.00-0.50); Eosinophils Percent Auto 0.6 % (0.0-7.0); Hematocrit 51.2 % (37.0-53.0); Hemoglobin* 16.8 gm/dL (13.5-17.5); Immature Granulocytes Abs Auto 0.01 K/uL (0.00-0.30); Immature Granulocytes Pct Auto 0.2 %; Lymphocytes Absolute Auto 1.33 K/uL (0.90-2.90); Lymphocytes Percent Auto 25.8 % (20-44); Mean Corpuscular HGB Conc 33 gm/dL (32-36); Mean Corpuscular Hemoglobin 29 pg (26-34); Mean Corpuscular Volume 88 fL (80-100); Monocytes Percent Auto 8.2 % (0.0-11.0); Neutrophils Absolute Auto 3.36 K/uL (1.7-7.0); Neutrophils Percent Auto 65.2 % (42.0-72.0); Platelet Count* 228 K/uL (140-440); RDW Coefficient of Variation % 13.3 % (11.5-15.5); Red Blood Count 5.79 m/uL (4.30-5.90); White Blood Count* 5.15 K/uL (4.50-11.00)
[2023-01-13 16:17] LABS: Albumin* 4.2 g/dL (3.3-5.0); Chloride* 102 mmol/L (96-114); HCO3 VBG 29 mmol/L (21-28); Lactate* 1.9 mmol/L (0.5-1.9); PCO2 VBG 37 mmHG (40-50); Sodium* 135 mmol/L (135-149); pH VBG 7.507 (7.32-7.43)
[2023-01-13 16:18] LABS: Potassium* 4.5 mmol/L (3.6-5.1)
[2023-01-13 16:20] LABS: Alanine Aminotransferase* 23 U/L (4-50); Alkaline Phosphatase* 53 U/L (40-150); Aspartate Amino Transferase* 37 U/L (12-35); Bilirubin Total* 1.5 mg/dL (0.1-1.5); Blood Urea Nitrogen* 10 mg/dL (5-24); Calcium* 8.3 mg/dL (8.4-10.6); Carbon Dioxide* 27 mmol/L (20-32); Creatinine* 0.7 mg/dL (0.5-1.5); Est. Creatinine Clearance* 180.83; Estimated Glomerular Filt Rate 123 ml/min; Glucose* 113 mg/dL (60-115); Lipase* 85 U/L (23-300); Total Protein* 8.4 g/dL (6.0-8.3)
[2023-01-13 16:21] LABS: Magnesium* 1.3 mg/dL (1.5-2.6); Slide Review Reflex No
[2023-01-13 16:36] LABS: Ethanol* < 0.01 % (0.01-0.03); NT Pro B Type NatriureticPept* 3170 pg/mL
[2023-01-13 16:45] LABS: Troponin I* 0.03 ng/mL (0.01-0.04)
[2023-01-13] MEDS: MAGNESIUM IV 2 GM/50 ML PIGGYBACK IVPB (16:50)
[2023-01-13 18:28] LABS: Troponin I* 0.02 ng/mL (0.01-0.04)
== END 2023-01-13 18:55 | disposition home or self-care (01) ==
PROVIDERS: Emergency Provider Family Medicine
DX: F10.10 Alcohol abuse, uncomplicated (principal); F41.9 Anxiety disorder, unspecified; I10 Essential (primary) hypertension
CPT/HCPCS: 36415; 71046; 80053; 82077; 82803; 83605; 83690; 83735; 83880; 84484; 85025; 93005; 94761; 99284; 99285; A0425; A0427; J3475

== ENCOUNTER 2023-02-11 08:03 | Observation (INO) | payer OTHER, SELFPAY ==
[2023-02-11] VITALS (51 sets, daily range): BP systolic 135–181; BP diastolic 63–114; PULSE 72–115; RESP 20–34; TEMP 36.4–37.2; O2SAT 81–97; BMI 63.7; BMI 63.0
--- NOTE | 2023-02-11 08:39 | ED.ALCOHOL ---
HPI - Alcohol General Time Seen by Provider: 08:39 Date Seen: 02/11/23 Chief Complaint: Alcohol/Intoxication Stated Complaint: Alcohol Withdrawal Time Seen by Provider: 02/11/23 08:38 Source: patient, RN notes reviewed and old records reviewed Mode of arrival: EMS Limitations: no limitations History of Present Illness HPI narrative: Ronnell is a very pleasant 33-year-old gentleman with history of morbid obesity, hypertension, alcohol abuse who comes to the emergency room via EMS for evaluation regarding possible withdrawal. Patient notes that he had his last drink at approximately 2200 hours last night. Notes he has been drinking approximately a half a gal of rum daily. States that he had a recent loss of his friend and that has increased his use. He states he woke at 0400 hours and was feeling flushed numb face and was breathing fast. He notes no chest pain but did have nausea at that time. He was retching but there was nothing to throw up he states. No diarrhea. He notes that he was extremely shaky. Normally he relates this to withdrawal from alcohol. He denies any chest pain. EMS was noted to have given him fluids and Ativan and he states he is feeling somewhat improved. He notes that he has been dealing with some knee pain and states that he has arthritis in it. Notes that it is hard for him to get comfortable sometimes. This has not changed recently. Ready denies any recent cough congestion or fever. He does think maybe he has lost a little bit of weight recently. He notes that he has not eaten solid foods in a few days. Related Data Home Medications Medication Instructions Recorded Confirmed buspirone 15 mg tablet 15 mg PO BID 01/01/23 02/11/23 lisinopril 30 mg tablet 30 mg PO DAILY 01/01/23 02/11/23 metoprolol succinate 50 mg 50 mg PO DAILY 01/01/23 02/11/23 tablet,extended release 24 hr venlafaxine 150 mg tablet,extended 150 mg PO DAILY 01/01/23 02/11/23 release 24 hr Previous Rx's Medication Instructions Recorded naproxen 500 mg tablet 500 mg PO BID PRN pain #60 tabs 11/25/22 Allergies Allergy/AdvReac Type Severity Reaction Status Date / Time No Known Drug Allergies Allergy Verified 01/13/23 15:43 Review of Systems Status of ROS Reports: 10 or more systems reviewed and unremarkable except as noted in History and below Const Reports: change in weight (Slight decreased); Denies: fever, chills or fatigue Eyes Denies: change in vision ENMT Denies: throat pain, neck pain or difficulty swallowing Cardio Reports: lightheadedness and shortness of breath with exertion; Denies: chest pain, palpitations or swelling of feet/ankles Resp Reports: shortness of breath; Denies: cough or wheezing GI Reports: nausea; Denies: abdominal pain, vomiting, diarrhea or difficulty swallowing Denies: painful urination or urinary frequency Musculo Reports: joint pain (Right knee pain currently treated with naproxen); Denies: back pain or neck pain Integ/Breast Denies: rash Neuro Denies: headache or numbness in extremities Psych Reports: anxiety and panic attacks Endo Denies: fatigue Allergy/Immuno Denies: wheezing PFSH PFSH Medical History Alcohol dependence, binge pattern ?F10.20 - Alcohol dependence, uncomplicated (ICD-10) Anxiety ?F41.9 - Anxiety disorder, unspecified (ICD-10) Morbidly obese ?E66.01 - Morbid (severe) obesity due to excess calories (ICD-10) Right knee pain ?M25.561 - Pain in right knee (ICD-10) Social History Smoking Status: Current every day smoker Do you use any of these nicotine containing products: None Second hand tobacco smoke exposure: No How often do you have a drink containing alcohol: 2-3 times a week How many standard drinks containing alcohol do you have on a typical day: 10 or more How often do you have six or more drinks on one occasion: Daily or almost daily AUDIT-C Alcohol total score: 11 Non-prescribed substance use: denies use service: No Exam Narrative: Exam Narrative: Ronnell is alert and oriented. He is mentating normally and speaking to me normally. EOM is full. Oral cavity with poor dentition. Neck is supple without lymphadenopathy. Heart with a tachycardic rate normal rhythm. Lungs are clear bilaterally. Abdomen is obese soft nontender. Lower extremity show scant peripheral edema. Left and right knee are symmetrical. Moving all extremities. Const: Vital Signs, click to edit/add: Vital Signs - 24 hr 04/24/23 08:08 02/11/23 09:32 02/11/23 09:51 Temperature 98.2 F Pulse Rate 100 Pulse Rate [Right Pulse Oximeter] 115 H Respiratory Rate 20 Blood Pressure 175/104 H 148/94 H Blood Pressure [Ri ght Upper Arm] 181/71 H Pulse Oximetry 94 93 Oxygen Delivery Me thod Room Air 02/11/23 09:52 02/11/23 10:00 02/11/23 10:02 Temperature Pulse Rate 109 H 101 H 103 H Pulse Rate [Right Pulse Oximeter] Respiratory Rate Blood Pressure 153/100 H Blood Pressure [Ri ght Upper Arm] Pulse Oximetry 95 92 92 Oxygen Delivery Me thod 02/11/23 10:15 02/11/23 10:30 02/11/23 10:31 Temperature Pulse Rate 104 H 97 104 H Pulse Rate [Right Pulse Oximeter] Respiratory Rate Blood Pressure 167/100 H Blood Pressure [Ri ght Upper Arm] Pulse Oximetry 92 92 92 Oxygen Delivery Me thod 02/11/23 10:45 02/11/23 11:00 02/11/23 11:02 Temperature Pulse Rate 99 102 H 99 Pulse Rate [Right Pulse Oximeter] Respiratory Rate Blood Pressure 158/103 H Blood Pressure [Ri ght Upper Arm] Pulse Oximetry 91 94 93 Oxygen Delivery Me thod 02/11/23 11:15 02/11/23 11:30 02/11/23 11:32 Temperature Pulse Rate 103 H 106 H 103 H Pulse Rate [Right Pulse Oximeter] Respiratory Rate Blood Pressure 155/106 H Blood Pressure [Ri ght Upper Arm] Pulse Oximetry 94 97 93 Oxygen Delivery Me thod 02/11/23 11:45 02/11/23 12:00 02/11/23 12:02 Temperature Pulse Rate 102 H 101 H 102 H Pulse Rate [Right Pulse Oximeter] Respiratory Rate Blood Pressure 149/105 H Blood Pressure [Ri ght Upper Arm] Pulse Oximetry 95 93 96 Oxygen Delivery Me thod 02/11/23 12:27 02/11/23 12:30 02/11/23 12:32 Temperature Pulse Rate 104 H 108 H 98 Pulse Rate [Right Pulse Oximeter] Respiratory Rate Blood Pressure 164/100 H Blood Pressure [Ri ght Upper Arm] Pulse Oximetry 93 92 93 Oxygen Delivery Me thod 02/11/23 12:45 02/11/23 13:00 02/11/23 13:02 Temperature Pulse Rate 87 95 102 H Pulse Rate [Right Pulse Oximeter] Respiratory Rate Blood Pressure 152/100 H Blood Pressure [Ri ght Upper Arm] Pulse Oximetry 92 93 92 Oxygen Delivery Me thod 02/11/23 13:15 02/11/23 13:30 02/11/23 13:32 Temperature Pulse Rate 85 93 87 Pulse Rate [Right Pulse Oximeter] Respiratory Rate Blood Pressure 146/99 H Blood Pressure [Ri ght Upper Arm] Pulse Oximetry 91 94 93 Oxygen Delivery Me thod 02/11/23 13:45 02/11/23 14:06 Temperature Pulse Rate 98 Pulse Rate [Right Pulse Oximeter] Respiratory Rate Blood Pressure Blood Pressure [Ri ght Upper Arm] Pulse Oximetry 94 81 L Oxygen Delivery Me thod Documenting provider has reviewed patient's vital signs: yes Course Course Hospital Course: Differential diagnosis includes panic attack, alcohol withdrawal, acute coronary syndrome, tachyarrhythmia. At this time patient is improved after Ativan and saline by EMS. Will continue with additional L of saline, thiamin, folic acid and multivitamin as well as additional dose of Ativan. Given the short length of no alcohol use will also add a troponin and EKG to patient's tests this morning to ensure there was no other underlying event that may have precipitated the symptoms. Will add a CBC, comprehensive, lipase, urinalysis to labs as well. Chest x-ray to be added Reevaluation(s) Reevaluation #1: Patient noted to be feeling better. We were able to obtain bariatric bed and he is now moved from room 2 to room 6. He is hungry and requesting food. Initial troponin 0.07 with an EKG that does show T-wave inversion in the anterior leads. Consultations Consultation #1: Dr. Tyler consult on this patient. Agrees with repeat EKG and troponins. Vital Signs Vital signs: Initial Vital Signs Temperature 98.2 F 02/11/23 08:08 Temperature Source Temporal Artery Scan 02/11/23 08:08 Pulse Rate 115 H 02/11/23 08:08 Respiratory Rate 20 02/11/23 08:08 Blood Pressure 181/71 H 02/11/23 08:08 Blood Pressure Mean 107 H 02/11/23 08:08 Blood Pressure Position Sitting 02/11/23 08:08 Pulse Oximetry 94 02/11/23 08:08 Oxygen Delivery Method Room Air 02/11/23 08:08 Vital Signs Temperature 98.2 F 02/11/23 08:08 Pulse Rate 115 H 02/11/23 08:08 Respiratory Rate 20 02/11/23 08:08 Blood Pressure 181/71 H 02/11/23 08:08 Pulse Oximetry 94 02/11/23 08:08 Oxygen Delivery Method Room Air 02/11/23 08:08 Temperature 98.2 F 02/11/23 08:08 Pulse Rate 98 02/11/23 13:45 Respiratory Rate 20 02/11/23 08:08 Blood Pressure 146/99 H 02/11/23 13:32 Pulse Oximetry 81 L 02/11/23 14:06 Oxygen Delivery Method Room Air 02/11/23 08:08 MDM - Alcohol MDM Narrative Medical decision making narrative: 1. Alcohol withdrawal-ETOH level 0.02. I would have expected it to be higher given the amount of alcohol use and last drink being 2200 hours last night. Patient has required doses of Ativan. Does state he has a history of seizures but no such as seizure activity today. 2. Elevated troponin-initial troponin 0.07 and subsequent troponin 0.06 x 2. EKG does show changes in the anterior leads. Patient has not had any chest pain during his stay here. I did speak with Dr. Tyler of [facility]. 3. Disposition-admit to [facility]. Plan on using CIWA scale at this time. Will speak to hospitalist regarding echocardiogram tomorrow. ProBNP currently pending. Dictation done with voice recognition, and as a result, wrong word or [id number] substitutions may have occurred.? There may be errors in the script that have gone undetected.? Please consider this when interpreting information found in this chart. Medical Records Attestation: I reviewed the patient's medical records. Lab Data Attestation: I reviewed the patient's lab results. Labs: Lab Results 02/11/23 02/11/23 02/11/23 Range/Units 08:47 09:48 10:27 WBC 6.17 (4.50-11.00) K/uL RBC 6.12 H (4.30-5.90) m/uL Hgb 17.6 H (13.5-17.5) gm/dL Hct 53.6 H (37.0-53.0) % MCV 88 (80-100) fL MCH 29 (26-34) pg MCHC 33 (32-36) gm/dL RDW Coeff of Dhara 13.9 (11.5-15.5) % Plt Count 195 (140-440) K/uL Neut % (Auto) 52.7 (42.0-72.0) % Lymph % (Auto) 32.7 (20-44) % [place]borne % (Auto) 13.3 H (0.0-11.0) % Eos % (Auto) 0.8 (0.0-7.0) % Baso % (Auto) 0.3 (0.0-3.0) % Neut # (Auto) 3.25 (1.7-7.0) K/uL Lymph # (Auto) 2.02 (0.90-2.90) K/uL [place]borne # (Auto) 0.80 (0.00-0.90) K/UL Eos # (Auto) 0.05 (0.00-0.50) K/uL Baso # (Auto) 0.02 (0.00-0.30) K/uL Sodium 137 (135-149) mmol/L Potassium 3.8 (3.6-5.1) mmol/L Chloride 101 (96-114) mmol/L Carbon Dioxide 26 (20-32) mmol/L BUN 5 (5-24) mg/dL Creatinine 0.7 (0.5-1.5) mg/dL Estimated Creat Clear 176.04 Estimated GFR 123 ml/min Glucose 91 (60-115) mg/dL Calcium 8.6 (8.4-10.6) mg/dL Total Bilirubin 1.2 (0.1-1.5) mg/dL AST 125 H (12-35) U/L ALT 71 H (4-50) U/L Alkaline Phosphatase 66 (40-150) U/L Troponin I 0.07 H* (0.01-0.04) ng/mL NT-Pro-B Natriuret Pep 262 pg/mL Total Protein 8.1 (6.0-8.3) g/dL Albumin 4.3 (3.3-5.0) g/dL Lipase 96 (23-300) U/L Urine Color Yellow (Yellow) Urine Appearance Clear (Clear) Urine pH 6.0 (5.0-8.5) Ur Specific [place] 1.025 (1.000-1.030) Urine Protein 3+ A (Negative) Urine Glucose (UA) Negative (Negative) Urine Ketones Trace A (Negative) Urine Blood Trace-intact A (Negative) Urine Nitrite Negative (Negative) Urine Bilirubin 1+ A (Negative) Urine Urobilinogen 1.0 (0.2-1.0) Ur Leukocyte Esterase Negative (Negative) Urine RBC 2-5 A (0-2) Urine WBC 0-2 (0-5) Ur Squamous Epith Cells Moderate A (None-Few) Urine Bacteria None (None) Urine Opiates Screen Negative (Negative) Ur Oxycodone Screen Negative (Negative) Urine Methadone Screen Negative (Negative) Ur Propoxyphene Screen Negative (Negative) Ur Barbiturates Screen Negative (Negative) U Tricyclic Antidepress Negative (Negative) Ur Phencyclidine Scrn Negative (Negative) Ur Amphetamines Screen Negative (Negative) U Methamphetamines Scrn Negative (Negative) U Benzodiazepines Scrn Negative (Negative) Urine Cocaine Screen Negative (Negative) U Marijuana (THC) Screen Negative (Negative) Ur Drug Screen Comment See Note Ethyl Alcohol 0.02 (0.01-0.03) % POC Troponin I 0.06 H (0.01-0.04) ng/ml 02/11/23 Range/Units 13:05 WBC (4.50-11.00) K/uL RBC (4.30-5.90) m/uL Hgb (13.5-17.5) gm/dL Hct (37.0-53.0) % MCV (80-100) fL MCH (26-34) pg MCHC (32-36) gm/dL RDW Coeff of Dhara (11.5-15.5) % Plt Count (140-440) K/uL Neut % (Auto) (42.0-72.0) % Lymph % (Auto) (20-44) % Osborne % (Auto) (0.0-11.0) % Eos % (Auto) (0.0-7.0) % Baso % (Auto) (0.0-3.0) % Neut # (Auto) (1.7-7.0) K/uL Lymph # (Auto) (0.90-2.90) K/uL [place] # (Auto) (0.00-0.90) K/UL Eos # (Auto) (0.00-0.50) K/uL Baso # (Auto) (0.00-0.30) K/uL Sodium (135-149) mmol/L Potassium (3.6-5.1) mmol/L Chloride (96-114) mmol/L Carbon Dioxide (20-32) mmol/L BUN (5-24) mg/dL Creatinine (0.5-1.5) mg/dL Estimated Creat Clear Estimated GFR ml/min Glucose (60-115) mg/dL Calcium (8.4-10.6) mg/dL Total Bilirubin (0.1-1.5) mg/dL AST (12-35) U/L ALT (4-50) U/L Alkaline Phosphatase (40-150) U/L Troponin I (0.01-0.04) ng/mL NT-Pro-B Natriuret Pep pg/mL Total Protein (6.0-8.3) g/dL Albumin (3.3-5.0) g/dL Lipase (23-300) U/L Urine Color (Yellow) Urine Appearance (Clear) Urine pH (5.0-8.5) Ur Specific [place] (1.000-1.030) Urine Protein (Negative) Urine Glucose (UA) (Negative) Urine Ketones (Negative) Urine Blood (Negative) Urine Nitrite (Negative) Urine Bilirubin (Negative) Urine Urobilinogen (0.2-1.0) Ur Leukocyte Esterase (Negative) Urine RBC (0-2) Urine WBC (0-5) Ur Squamous Epith Cells (None-Few) Urine Bacteria (None) Urine Opiates Screen (Negative) Ur Oxycodone Screen (Negative) Urine Methadone Screen (Negative) Ur Propoxyphene Screen (Negative) Ur Barbiturates Screen (Negative) U Tricyclic Antidepress (Negative) Ur Phencyclidine Scrn (Negative) Ur Amphetamines Screen (Negative) U Methamphetamines Scrn (Negative) U Benzodiazepines Scrn (Negative) Urine Cocaine Screen (Negative) U Marijuana (THC) Screen (Negative) Ur Drug Screen Comment Ethyl Alcohol (0.01-0.03) % POC Troponin I 0.06 H (0.01-0.04) ng/ml Imaging Data Chest x-ray: Attestation: I have reviewed the pertinent imaging results. My impression: No obvious infiltrates Radiologist's impression: There is mild interstitial prominence somewhat increased from comparison. There is no focal consolidation, effusion, or pneumothorax. The cardiac silhouette is mildly prominent. The bony thorax is grossly intact. Impression: Mildly increased interstitial markings which may represent minimal pulmonary edema. No dense consolidation. ECG Data Attestation: I personally reviewed and interpreted this ECG as follows: Interpretation: EKG 1. By my read shows sinus tachycardia at a rate of 106 T-wave inversion noted in 1, 2, and aVL. Flattening of the T-waves noted in the lateral leads. QT 470 corrected Second EKG by my read shows some slight improvement in the lateral leads but persisting T-wave inversion in 1, 2 and aVL. QT prolonged at 482. Discharge Plan Discharge Clinical Impression: Alcohol withdrawal syndrome, Elevated troponin Patient Disposition: Admitted As Inpatient Condition: Improved
[2023-02-11] MEDS: LORazepam 2 MG/ML inj 1 MG IVP ×2 (09:03→14:20)
[2023-02-11] MEDS: 0.9 % SODIUM CHLORIDE 1000 ml 1,000 ML IV (09:05)
[2023-02-11 09:08] LABS: Basophils Absolute Auto 0.02 K/uL (0.00-0.30); Basophils Percent Auto 0.3 % (0.0-3.0); Eosinophils Absolute Auto 0.05 K/uL (0.00-0.50); Eosinophils Percent Auto 0.8 % (0.0-7.0); Hematocrit 53.6 % (37.0-53.0); Hemoglobin* 17.6 gm/dL (13.5-17.5); Immature Granulocytes Abs Auto 0.01 K/uL (0.00-0.30); Immature Granulocytes Pct Auto 0.2 %; Lymphocytes Absolute Auto 2.02 K/uL (0.90-2.90); Lymphocytes Percent Auto 32.7 % (20-44); Mean Corpuscular HGB Conc 33 gm/dL (32-36); Mean Corpuscular Hemoglobin 29 pg (26-34); Mean Corpuscular Volume 88 fL (80-100); Monocytes Percent Auto 13.3 % (0.0-11.0); Neutrophils Absolute Auto 3.25 K/uL (1.7-7.0); Neutrophils Percent Auto 52.7 % (42.0-72.0); Platelet Count* 195 K/uL (140-440); RDW Coefficient of Variation % 13.9 % (11.5-15.5); Red Blood Count 6.12 m/uL (4.30-5.90); White Blood Count* 6.17 K/uL (4.50-11.00)
[2023-02-11] MEDS: THIAMINE 100 MG TABLET PO (09:10)
[2023-02-11] MEDS: FOLIC ACID 1 MG TABLET PO (09:10)
[2023-02-11] MEDS: MULTIVITAMIN/MINERALS 1 TABLET 1 TAB PO (09:10)
[2023-02-11 09:11] LABS: Slide Review Reflex No
[2023-02-11 09:21] LABS: Albumin* 4.3 g/dL (3.3-5.0); Chloride* 101 mmol/L (96-114); Potassium* 3.8 mmol/L (3.6-5.1); Sodium* 137 mmol/L (135-149)
[2023-02-11 09:23] LABS: Bilirubin Total* 1.2 mg/dL (0.1-1.5); Creatinine* 0.7 mg/dL (0.5-1.5); Est. Creatinine Clearance* 176.04; Estimated Glomerular Filt Rate 123 ml/min
[2023-02-11 09:24] LABS: Alanine Aminotransferase* 71 U/L (4-50); Alkaline Phosphatase* 66 U/L (40-150); Aspartate Amino Transferase* 125 U/L (12-35); Blood Urea Nitrogen* 5 mg/dL (5-24); Calcium* 8.6 mg/dL (8.4-10.6); Carbon Dioxide* 26 mmol/L (20-32); Glucose* 91 mg/dL (60-115); Lipase* 96 U/L (23-300); Total Protein* 8.1 g/dL (6.0-8.3)
[2023-02-11 09:25] LABS: Ethanol* 0.02 % (0.01-0.03)
[2023-02-11 09:41] LABS: Troponin I* 0.07 ng/mL (0.01-0.04)
--- NOTE | 2023-02-11 09:52 | ED.NURSE ---
was moved to room 6 due to the need for a bariatric bed, which was placed in the larger room. was able to walk from w/c to br to void and ua obtained. dr bashir aware of trop I of 0.07.
[2023-02-11 10:03] LABS: Appearance Urine Clear (Clear); Bilirubin Urine 1+ (Negative); Blood Urine Trace-intact (Negative); Color Urine Yellow (Yellow); Glucose Urine Negative (Negative); Ketones Urine Trace (Negative); Leukocyte Esterase Urine Negative (Negative); Nitrite Urine Negative (Negative); Protein Urine 3+ (Negative); Specific Gravity Urine 1.025 (1.000-1.030)
[2023-02-11 10:10] LABS: Amphetamine Screen Urine Negative (Negative); Barbiturate Screen Urine Negative (Negative); Benzodiazepines Screen Urine Negative (Negative); Cannabinoid Screen Urine Negative (Negative); Cocaine Screen Urine Negative (Negative); Methadone Screen Urine Negative (Negative); Methamphetamines Screen Urine Negative (Negative); Opiate Screen Urine Negative (Negative); Oxycodone Screen Urine Negative (Negative); Phencyclidine Screen Urine Negative (Negative); Tricyclic Antidepressant Urine Negative (Negative)
[2023-02-11 10:24] LABS: Squamous Epithelial Cell Urine Moderate (None-Few); WBC Urine 0-2 (0-5)
--- NOTE | 2023-02-11 10:42 | ED.NURSE ---
asking for food. trop 0.06. has been resting on large bed.
[2023-02-11 10:44] LABS: Troponin, Point-of-Care* 0.06 ng/ml (0.01-0.04)
--- NOTE | 2023-02-11 10:49 | PC.SOCIAL ---
Pt has case management through [employer] @ [phone]. They can assist if pt. needs additional services at discharge such as home care. They would like an update when pt. is discharged.
[2023-02-11 10:57] LABS: NT Pro B Type NatriureticPept* 262 pg/mL
--- NOTE | 2023-02-11 11:15 | ED.NURSE ---
[facility] cristopher aware of probable admission. meal ordered. was asking for a nicotine patch.
[2023-02-11] MEDS: ASPIRIN 81 MG TAB.CHEW 324 MG PO (11:20)
[2023-02-11] MEDS: NICOTINE 21 MG PATCH 1 PATCH TRANSDERMA (11:20)
--- NOTE | 2023-02-11 11:31 | CRLHL7_ITS ---
For Patients: As a result of the Cures Act, medical imaging exams and procedure reports are released immediately into your electronic medical record. You may view this report before your referring provider. If you have questions, please contact your health care provider. Indication: Chest discomfort, shortness of breath Comparison: Two-view chest January 13, 2023 Technique: Single AP view chest Findings: There is mild interstitial prominence somewhat increased from comparison. There is no focal consolidation, effusion, or pneumothorax. The cardiac silhouette is mildly prominent. The bony thorax is grossly intact. Impression: Mildly increased interstitial markings which may represent minimal pulmonary edema. No dense consolidation. Dictated by Liam Cardenas MD @ 02/11/2023 12:42:24 PM (Electronically Signed)
[2023-02-11 13:33] LABS: Troponin, Point-of-Care* 0.06 ng/ml (0.01-0.04)
--- NOTE | 2023-02-11 15:15 | ED.NURSE ---
has been sitting up and has chronic knee pain. 04/29-depending on his movements.
[2023-02-11 15:27] LABS: SARS PCR* Negative SARS-CoV-2 (Negative)
--- NOTE | 2023-02-11 15:45 | ED.NURSE ---
report was given to nelia de león. will go to [facility].
[2023-02-11] MEDS: PHENobarbitaL 260 MG in 0.9 % SODIUM CHLORIDE 100 ml 100 ML 208 MG IVPB (16:26)
[2023-02-11 16:59] LABS: Lactate* 1.8 mmol/L (0.5-1.9)
[2023-02-11] MEDS: ACETAMINOPHEN 325 MG TABLET 650 MG PO (17:00)
[2023-02-11] MEDS: LORazepam 2 MG/ML inj IVP (17:01)
[2023-02-11] MEDS: SODIUM CHLORIDE 0.9 % (FLUSH) 10 ML SYRINGE 5 ML IVF ×2 (17:02→20:08)
[2023-02-11 17:46] LABS: Troponin I* 0.07 ng/mL (0.01-0.04)
--- NOTE | 2023-02-11 18:22 | PC.NURSE ---
End of Shift: Patient pleasant and cooperative. Patient hypertensive but stable, lungs clear, BS WNL, IV intact. Patient independent in room. Patient rates right knee pain a 6/10, tylenol given. Patient first CIWA scored 9, 1 mg of ativan given, second CIWA patient scored 2. Patient has visible tremors with arms extended. Patient had a headache but no longer has a headache. Patient tolerating regular diet, blood sugar was 111. Tele=NSR.
[2023-02-11] MEDS: BUSPIRONE 10 MG TABLET 15 MG PO (20:07)
[2023-02-11] MEDS: ENOXAPARIN 40 MG/0.4 ML INJ SUBCUT (20:07)
[2023-02-11] MEDS: MELATONIN 3 MG TABLET PO (20:08)
--- NOTE | 2023-02-11 22:45 | PM.IMHP1 ---
Hospitalist- H&P: HPI History of Present Illness Time Seen by Provider: 15:00 Date Seen: 02/11/23 Chief complaint: Alcohol Withdrawal Narrative: Jus Tejeda is a 33 year old man who presents to our emergency department for further assessment of concerned that he has going through alcohol withdrawals. He ordinarily drinks about half a gal of rum daily. He ran out of ROM last night. He awoke this morning with tremors, tingling in his face, rapid heart rate, sweating. Does he presents to our emergency department. Denies chest heaviness, pressure, tightness, or pain. Denies syncope or near-syncope. Notes a sense of orthostasis. Denies vertigo. Denies dizziness or lightheadedness. Denies cough or shortness of breath. Acknowledges smoking 1 pack of cigarettes daily. Denies chest palpitations or fluttering. Denies claudication. Longstanding history of alcohol abuse alcoholism. Historically he has binge drink. Has been in chemical dependency treatment in the past, but has been unable to sustain his sobriety. Has been in and out of emergency departments to try to receive help for various reasons. Has been in the [facility] Emergency Department as well as the [facility] Emergency Department. Review of Systems Status of ROS: Reports: 10 or more systems reviewed and unremarkable except as noted in History and below Narrative: He lives alone. His mother lives nearby. Much of his family lives in the [facility]. He is considering moving back to [facility] close to other family members. He is concerned that he might not be able to care for himself anymore due to ongoing issues with physical limitations and inability to maintain his sobriety. He indicates is becoming increasingly difficult for him to care for himself due to pain and weakness. Is becoming more difficult for him to keep his apartment, cook for himself, clean up after himself, and so forth. No recent trauma, injury, or acute infectious illness. [facility] Medical History (Updated 02/11/23 @ 23:16 by Morgan Bass MD) Agoraphobia with panic attacks ?F40.01 - Agoraphobia with panic disorder (ICD-10) Alcohol dependence, binge pattern ?F10.20 - Alcohol dependence, uncomplicated (ICD-10) Alcoholism ?F10.20 - Alcohol dependence, uncomplicated (ICD-10) Anxiety ?F41.9 - Anxiety disorder, unspecified (ICD-10) Anxiety disorder ?F41.9 - Anxiety disorder, unspecified (ICD-10) Current smoker ?F17.200 - Nicotine dependence, unspecified, uncomplicated (ICD-10) Essential hypertension ?I10 - Essential (primary) hypertension (ICD-10) History of alcohol withdrawal syndrome ?Z86.59 - Personal history of other mental and behavioral disorders (ICD-10) History of panic attacks ?Z86.59 - Personal history of other mental and behavioral disorders (ICD-10) History of seizure due to alcohol withdrawal ?Z87.898 - Personal history of other specified conditions (ICD-10) ?Z86.59 - Personal history of other mental and behavioral disorders (ICD-10) Major depressive disorder ?F32.9 - Major depressive disorder, single episode, unspecified (ICD-10) Morbidly obese ?E66.01 - Morbid (severe) obesity due to excess calories (ICD-10) Obstructive sleep apnea ?G47.33 - Obstructive sleep apnea (adult) (pediatric) (ICD-10) Right knee pain ?M25.561 - Pain in right knee (ICD-10) Synovial cyst of popliteal space [Palmer], right knee ?M71.21 - Synovial cyst of popliteal space [Palmer], right knee (ICD-10) Surgical History S/P right knee arthroscopy ?Z98.890 - Other specified postprocedural states (ICD-10) Social History Highest level of school completed/degree received: high school graduate Smoking Status: Current every day smoker Do you use any of these nicotine containing products: None Second hand tobacco smoke exposure: No How often do you have a drink containing alcohol: 4 or more times a week Alcohol type: hard liquor How many standard drinks containing alcohol do you have on a typical day: 10 or more How often do you have six or more drinks on one occasion: Daily or almost daily AUDIT-C Alcohol total score: 12 Non-prescribed substance use: denies use Caffeine: Yes (6-10 cans) service: No Meds Home Medications and Allergies Home Medications Medication Instructions Recorded Confirmed Type buspirone 15 mg tablet 15 mg PO BID 01/01/23 02/11/23 History lisinopril 30 mg tablet 30 mg PO DAILY 01/01/23 02/11/23 History metoprolol succinate 50 mg 50 mg PO DAILY 01/01/23 02/11/23 History tablet,extended release 24 hr venlafaxine 150 mg tablet,extended 150 mg PO DAILY 01/01/23 02/11/23 History release 24 hr Allergies Allergy/AdvReac Type Severity Reaction Status Date / Time No Known Drug Allergies Allergy Verified 01/13/23 15:43 Exam Narrative: Exam Narrative: Disheveled with strong body odor. Anxious, but friendly and cooperative. Seems afraid. Alert, oriented to self, place, time, situation. Mood and affect are congruent. Vision and hearing are grossly normal. External auditory canals are clear. Midline nasal septum. Dentition in only fair repair. Mallampati class 3 airway. Large neck. Neck supple. Midline trachea. No adenopathy. Lungs clear to auscultation, without wheezing, rhonchi, or rales. No CVA tenderness to thumping. Heart tones with regular rhythm, normal S1-S2, without murmur, gallop, or rub. Distant tones. Abdomen is morbidly obese. Active bowel sounds, soft, nontender. Extremities with edema. Skin is intact. Cranial nerves 3-12 grossly normal. Minimal tremor of hands. No asterixis or ataxia. No focal motor neurologic deficits. Const: Vital Signs, click to edit/add: Vital Signs - 24 hr 02/11/23 08:08 02/11/23 09:32 02/11/23 09:51 Temperature 98.2 F Pulse Rate 100 Pulse Rate [Pulse Oximeter] Pulse Rate [Right Pulse Oximeter] 115 H Respiratory Rate 20 Blood Pressure 175/104 H 148/94 H Blood Pressure [Le ft Arm] Blood Pressure [Ri ght Arm] Blood Pressure [Ri ght Upper Arm] 181/71 H Pulse Oximetry 94 93 Oxygen Delivery Me thod Room Air 02/11/23 09:52 02/11/23 10:00 02/11/23 10:02 Temperature Pulse Rate 109 H 101 H 103 H Pulse Rate [Pulse Oximeter] Pulse Rate [Right Pulse Oximeter] Respiratory Rate Blood Pressure 153/100 H Blood Pressure [Le ft Arm] Blood Pressure [Ri ght Arm] Blood Pressure [Ri ght Upper Arm] Pulse Oximetry 95 92 92 Oxygen Delivery Me thod 02/11/23 10:15 02/11/23 10:30 02/11/23 10:31 Temperature Pulse Rate 104 H 97 104 H Pulse Rate [Pulse Oximeter] Pulse Rate [Right Pulse Oximeter] Respiratory Rate Blood Pressure 167/100 H Blood Pressure [Le ft Arm] Blood Pressure [Ri ght Arm] Blood Pressure [Ri ght Upper Arm] Pulse Oximetry 92 92 92 Oxygen Delivery Me thod 02/11/23 10:45 02/11/23 11:00 02/11/23 11:02 Temperature Pulse Rate 99 102 H 99 Pulse Rate [Pulse Oximeter] Pulse Rate [Right Pulse Oximeter] Respiratory Rate Blood Pressure 158/103 H Blood Pressure [Le ft Arm] Blood Pressure [Ri ght Arm] Blood Pressure [Ri ght Upper Arm] Pulse Oximetry 91 94 93 Oxygen Delivery Me thod 02/11/23 11:15 02/11/23 11:30 02/11/23 11:32 Temperature Pulse Rate 103 H 106 H 103 H Pulse Rate [Pulse Oximeter] Pulse Rate [Right Pulse Oximeter] Respiratory Rate Blood Pressure 155/106 H Blood Pressure [Le ft Arm] Blood Pressure [Ri ght Arm] Blood Pressure [Ri ght Upper Arm] Pulse Oximetry 94 97 93 Oxygen Delivery Me thod 02/11/23 11:45 02/11/23 12:00 02/11/23 12:02 Temperature Pulse Rate 102 H 101 H 102 H Pulse Rate [Pulse Oximeter] Pulse Rate [Right Pulse Oximeter] Respiratory Rate Blood Pressure 149/105 H Blood Pressure [Le ft Arm] Blood Pressure [Ri ght Arm] Blood Pressure [Ri ght Upper Arm] Pulse Oximetry 95 93 96 Oxygen Delivery Me thod 02/11/23 12:27 02/11/23 12:30 02/11/23 12:32 Temperature Pulse Rate 104 H 108 H 98 Pulse Rate [Pulse Oximeter] Pulse Rate [Right Pulse Oximeter] Respiratory Rate Blood Pressure 164/100 H Blood Pressure [Le ft Arm] Blood Pressure [Ri ght Arm] Blood Pressure [Ri ght Upper Arm] Pulse Oximetry 93 92 93 Oxygen Delivery Me thod 02/11/23 12:45 02/11/23 13:00 02/11/23 13:02 Temperature Pulse Rate 87 95 102 H Pulse Rate [Pulse Oximeter] Pulse Rate [Right Pulse Oximeter] Respiratory Rate Blood Pressure 152/100 H Blood Pressure [Le ft Arm] Blood Pressure [Ri ght Arm] Blood Pressure [Ri ght Upper Arm] Pulse Oximetry 92 93 92 Oxygen Delivery Me thod 02/11/23 13:15 02/11/23 13:30 02/11/23 13:32 Temperature Pulse Rate 85 93 87 Pulse Rate [Pulse Oximeter] Pulse Rate [Right Pulse Oximeter] Respiratory Rate Blood Pressure 146/99 H Blood Pressure [Le ft Arm] Blood Pressure [Ri ght Arm] Blood Pressure [Ri ght Upper Arm] Pulse Oximetry 91 94 93 Oxygen Delivery Me thod 02/11/23 13:45 02/11/23 14:06 02/11/23 14:25 Temperature Pulse Rate 98 97 Pulse Rate [Pulse Oximeter] Pulse Rate [Right Pulse Oximeter] Respiratory Rate Blood Pressure Blood Pressure [Le ft Arm] Blood Pressure [Ri ght Arm] Blood Pressure [Ri ght Upper Arm] Pulse Oximetry 94 81 L 91 Oxygen Delivery Me thod 02/11/23 14:30 02/11/23 14:32 02/11/23 14:45 Temperature Pulse Rate 101 H 94 100 Pulse Rate [Pulse Oximeter] Pulse Rate [Right Pulse Oximeter] Respiratory Rate Blood Pressure 145/114 H Blood Pressure [Le ft Arm] Blood Pressure [Ri ght Arm] Blood Pressure [Ri ght Upper Arm] Pulse Oximetry 94 94 93 Oxygen Delivery Me thod 02/11/23 15:00 02/11/23 15:02 02/11/23 15:03 Temperature Pulse Rate 94 94 94 Pulse Rate [Pulse Oximeter] Pulse Rate [Right Pulse Oximeter] Respiratory Rate Blood Pressure 155/110 H Blood Pressure [Le ft Arm] Blood Pressure [Ri ght Arm] Blood Pressure [Ri ght Upper Arm] Pulse Oximetry 92 94 94 Oxygen Delivery Me thod 02/11/23 15:15 02/11/23 15:30 02/11/23 15:32 Temperature Pulse Rate 81 86 86 Pulse Rate [Pulse Oximeter] Pulse Rate [Right Pulse Oximeter] Respiratory Rate Blood Pressure 135/81 Blood Pressure [Le ft Arm] Blood Pressure [Ri ght Arm] Blood Pressure [Ri ght Upper Arm] Pulse Oximetry 93 89 90 Oxygen Delivery Me thod 02/11/23 15:45 02/11/23 16:08 02/11/23 16:08 Temperature 98.9 F Pulse Rate 89 Pulse Rate [Pulse Oximeter] 92 Pulse Rate [Right Pulse Oximeter] Respiratory Rate 34 H Blood Pressure Blood Pressure [Le ft Arm] 159/113 H Blood Pressure [Ri ght Arm] Blood Pressure [Ri ght Upper Arm] Pulse Oximetry 87 L 94 Oxygen Delivery Me thod Room Air Room Air 02/11/23 16:14 02/11/23 17:14 02/11/23 19:01 Temperature 98.4 F 98.4 F Pulse Rate 85 Pulse Rate [Pulse Oximeter] 90 88 Pulse Rate [Right Pulse Oximeter] Respiratory Rate 24 20 Blood Pressure Blood Pressure [Le ft Arm] 137/63 Blood Pressure [Ri ght Arm] 163/81 H Blood Pressure [Ri ght Upper Arm] Pulse Oximetry 93 94 Oxygen Delivery Me thod Room Air Room Air 02/11/23 19:04 02/11/23 20:00 02/11/23 20:56 Temperature 98.4 F 98.4 F 98.4 F Pulse Rate Pulse Rate [Pulse Oximeter] 88 88 86 Pulse Rate [Right Pulse Oximeter] Respiratory Rate 20 20 20 Blood Pressure Blood Pressure [Le ft Arm] 137/63 137/63 137/63 Blood Pressure [Ri ght Arm] Blood Pressure [Ri ght Upper Arm] Pulse Oximetry 94 94 94 Oxygen Delivery Me thod Room Air Room Air Room Air Hospitalist - H&P: Result Labs Labs: Short CBC 02/11/23 Range/Units 08:47 WBC 6.17 (4.50-11.00) K/uL Hgb 17.6 H (13.5-17.5) gm/dL Hct 53.6 H (37.0-53.0) % Plt Count 195 (140-440) K/uL BMP 02/11/23 08:47 Sodium 137 Potassium 3.8 Chloride 101 Carbon Dioxide 26 BUN 5 Creatinine 0.7 Glucose 91 Calcium 8.6 Cardiac Enzymes 02/11/23 02/11/23 Range/Units 08:47 16:55 Troponin I 0.07 H* 0.07 H* (0.01-0.04) ng/mL Liver Function 02/11/23 Range/Units 08:47 Total Bilirubin 1.2 (0.1-1.5) mg/dL AST 125 H (12-35) U/L ALT 71 H (4-50) U/L Alkaline Phosphatase 66 (40-150) U/L Albumin 4.3 (3.3-5.0) g/dL Urine 02/11/23 Range/Units 09:48 Urine Color Yellow (Yellow) Urine Appearance Clear (Clear) Urine pH 6.0 (5.0-8.5) Ur Specific [place] 1.025 (1.000-1.030) Urine Protein 3+ A (Negative) Urine Glucose (UA) Negative (Negative) ECG Attestation: I personally reviewed and interpreted this ECG as follows: ECG interpretation date: 02/11/23 Prior ECG tracings: not available for review Interpretation: New T-wave inversions in the inferior lateral leads. Imaging Chest x-ray: Attestation: I have reviewed the pertinent imaging results. Radiologist's impression: Mildly increased interstitial markings which may represent minimal pulmonary edema. No dense consolidation. My own sense is that the increased interstitial markings may be related to his morbid obesity and technique of obtaining the x-ray. Assessment and Plan Assessment and plan (1) Alcohol withdrawal syndrome: Status: Acute (2) Elevated troponin: Status: Acute (3) Electrocardiogram showing T wave abnormalities: Status: Acute (4) Essential hypertension: Status: Acute (5) Current smoker: Status: Acute (6) Morbidly obese: Problem comment: BMI 60-69.9 Status: Acute (7) Abnormal AST and ALT: Status: Acute (8) Physical debility: Status: Acute (9) Alcoholism: Status: Acute (10) History of seizure due to alcohol withdrawal: Status: Acute (11) Anxiety disorder: Status: Acute (12) History of panic attacks: Status: Acute (13) Agoraphobia with panic attacks: Status: Acute (14) Major depressive disorder: Status: Acute Plan 1. Reviewed my impression with the patient and his mother. Answered their questions. 2. Recommended admission to the hospital for observation. 3. Single dose of phenobarbital. CIWA driven lorazepam administration for alcohol withdrawal. 4. Thiamine, folate, multivitamin. 5. Again discussed chemical dependency treatment options with him. Suggested he consider treatment options available in the state directed more toward [place], addressing [place] spirituality. 6. Telemetry, serial echocardiogram and troponin I. Try to get an echocardiogram to assess for regional wall motion abnormality. Consider the possibility of outpatient stress testing with nuclear imaging. If his condition worsens then consider transfer to a tertiary medical facility. 7. Continue with the supportive medications. 8. Add nicotine, patch as well as inhaler. 9. PT and OT to assist in assessing his physical debility that appears to be evolving rather rapidly. 10. Will have our hospital social worker school try to make contact with his [facility] social worker school to work together in establishing a safe discharge disposition plan for the patient. 11. Patient and mother agreeable to above stated plans and recommendations.
[2023-02-12 02:35] VITALS: BP 168/87; PULSE 97; RESP 20; TEMP 36.4; O2SAT 93
[2023-02-12 02:39] VITALS: BP 159/96; BP 168/87; PULSE 97; RESP 20; TEMP 36.4; O2SAT 93
--- NOTE | 2023-02-12 04:09 | PC.NURSE ---
Pt rested well this night. Mild Trembling with hands extended. No signs of anxiety. Pt had to placed on 2L NC while asleep. Reporting Chronic Knee pain. Has trouble getting comfortable in bed. Did sleep well throughout the night. Afebrile. No N/V. Up IND but preferred not to get up this night. Pleasant and cooperative.
[2023-02-12 05:25] VITALS: TEMP 36.4
[2023-02-12] MEDS: ACETAMINOPHEN 325 MG TABLET 650 MG PO (05:25)
[2023-02-12 05:34] VITALS: BP 142/100; BP 158/97; BP 168/87; PULSE 100; PULSE 129; PULSE 97
[2023-02-12 07:00] VITALS: BP 148/57; PULSE 94; RESP 16; TEMP 36.6; O2SAT 90
[2023-02-12 07:27] LABS: HCO3 VBG 33 mmol/L (21-28); Lactate* 1.5 mmol/L (0.5-1.9); PCO2 VBG 58 mmHG (40-50); PO2 VBG 53.4 mmHG (25-47); pH VBG 7.355 (7.32-7.43)
[2023-02-12 07:31] LABS: Hematocrit 50.4 % (37.0-53.0); Hemoglobin* 16.4 gm/dL (13.5-17.5); Mean Corpuscular HGB Conc 33 gm/dL (32-36); Mean Corpuscular Hemoglobin 29 pg (26-34); Mean Corpuscular Volume 90 fL (80-100); Platelet Count* 143 K/uL (140-440); Red Blood Count 5.61 m/uL (4.30-5.90); White Blood Count* 4.08 K/uL (4.50-11.00)
[2023-02-12 07:37] LABS: Slide Review Reflex No
[2023-02-12 07:47] LABS: Chloride* 102 mmol/L (96-114); Potassium* 3.9 mmol/L (3.6-5.1); Sodium* 136 mmol/L (135-149)
[2023-02-12 07:50] LABS: Blood Urea Nitrogen* 6 mg/dL (5-24); Carbon Dioxide* 30 mmol/L (20-32); Creatinine* 0.8 mg/dL (0.5-1.5); Est. Creatinine Clearance* 154.04; Estimated Glomerular Filt Rate 118 ml/min
[2023-02-12 07:51] LABS: Calcium* 8.3 mg/dL (8.4-10.6); Glucose* 108 mg/dL (60-115); Magnesium* 1.3 mg/dL (1.5-2.6); Phosphorus* 3.9 mg/dL (2.5-4.5)
[2023-02-12 08:10] LABS: Troponin I* 0.07 ng/mL (0.01-0.04)
[2023-02-12] MEDS: BUSPIRONE 10 MG TABLET 15 MG PO (08:47)
[2023-02-12] MEDS: lisinopriL 10 MG TABLET 30 MG PO (08:47)
[2023-02-12] MEDS: MULTIVITAMIN/MINERALS 1 TABLET 1 TAB PO (08:48)
[2023-02-12] MEDS: VENLAFAXINE ER 75 MG CAPSULE 150 MG PO (08:48)
[2023-02-12] MEDS: METOPROLOL SUCCINATE (XL) 50 MG TAB PO (08:48)
[2023-02-12] MEDS: SODIUM CHLORIDE 0.9 % (FLUSH) 10 ML SYRINGE 5 ML IVF (08:48)
[2023-02-12] MEDS: FOLIC ACID 1 MG TABLET PO (08:48)
[2023-02-12] MEDS: MAGNESIUM IV 2 GM/50 ML PIGGYBACK IVPB (09:48)
--- NOTE | 2023-02-12 10:38 | REH.OT ---
Per hospitalist, no need for PT/OT evaluations today. Patient to discharge.
[2023-02-12 11:00] VITALS: BP 163/78; PULSE 77; RESP 14; TEMP 36.6; O2SAT 93
[2023-02-12] MEDS: PERFLUTREN LIPID MICROSPHERES 2 ML VIAL IV (12:05)
--- NOTE | 2023-02-12 13:21 | PC.NURSE ---
Patient alert and oriented x 4, on RA, vss with exception of BP elevation. Patient showed no s/s of CIWA during my shift. He was visited by manager social work who recommended outpatient tx for alcohol abuse. Patient discharged at 1316 following discussion of discharge instructions and PIV removal. Patient left the unit via wheelchair and NA to be picked up by family member.
--- NOTE | 2023-02-12 14:42 | PC.SOCIAL ---
Met with pt. to discuss CD treatment options. Pt. has been to CD Treatment 7-8 times in the past. The last place he left due to his anxiety and he had a panic attack being round all the people at the Tx facility. Pt. has a case assistant, Gladys through [employer] @ [phone]. They are contracted case management through [employer]. Pt. states he has difficulty getting around due to his health an getting places so that hinders treatment for him as well. Pt. is 500lb. Pt. thought his case assistant was working on getting [employer] help for pt. Discussed [facility] facility in [place], [place] that specializes in dual dx and works specifically with culture. Pt. was interested in this information but would need another Rule 25 from [employer] for funding. Left a message for Gladys for pt.'s case assistant per consent from pt. for request for another Rule 25 assessment and assistance getting [employer] help due to pt. having difficulty bathing himself, cleaning, and getting out for appointments.
--- NOTE | 2023-02-12 15:51 | PM.DS1 ---
DS: Providers Provider Date Seen: 02/12/23 Date of admission: 02/11/23 15:08 Primary care physician: Not a Local Provider Admitting Clinician: Morgan Bass MD Consults: 02/11/23 16:14 Consult to [employer] [CONS] Routine Comment: Working with a [facility] social media content manager Reason for Consult:: Discharge Planning Needs Attending Physician on discharge: TRICE DALY MD [facility] Date of Discharge: 02/12/23 DS: Diagnosis Discharge Diagnosis (1) Alcohol withdrawal syndrome: Status: Acute Problem details: No seizures. Minimal medicinal intervention needed. (2) Elevated troponin: Status: Acute Problem details: Flat. Cardiology workup as an outpatient. (3) Electrocardiogram showing T wave abnormalities: Status: Acute Problem details: As above (4) Current smoker: Status: Acute Problem details: Recommended cessation (5) Essential hypertension: Status: Acute Problem details: Recommended weight loss and a cardiac diet. (6) Morbidly obese: Status: Acute Problem details: BMI 60-69.9 (7) Alcoholism: Status: Acute Problem details: Recommended cessation. (8) Low magnesium level: Status: Acute Problem details: Replace 2 g IV bolus this morning. DS: Summary Hospital Course Hospital Course: HOSPITALIST DISCHARGE SUMMARY ATTENDING PHYSICIAN: Trice Daly MD FINAL DIAGNOSIS: Acute alcohol withdrawal Agoraphobia, depression Morbid obesity T-wave inversion with mildly elevated troponin Poor self-care HOSPITAL FOLLOWUP ISSUES: Cardiology - trans thoracic echocardiogram completed. Very difficult study, technically. Troponin was stable i.e. flat. Patient should be seen at an outpatient cardiology appointment for further evaluation. Alcohol dependence - patient was encouraged and supported for complete sobriety. Patient has a social media content manager with [facility] and she was involved in his admission. REFERRALS WHILE ADMITTED: PT and OT REFERRALS AFTER DISCHARGE: Cardiology BRIEF HOSPITAL COURSE: Ronnell is a 33-year-old who drinks daily. He had tried to stop a couple days ago and felt withdrawals start yesterday. Lives alone and was worried about going through withdrawal alone. He was brought to our ER. He was admitted for observation overnight. He only received 1 dose of phenobarbital and 1 dose of Ativan. He rested comfortably overnight. He felt normal this morning and would like to be discharged. We did note T-wave inversion and a mild elevation in his troponin at 0.07. It stated 0.07 x 3 checks. He did receive a transthoracic echocardiogram which was a technically difficult study given his body habitus. In discussion with Ronnell we decided it was best for him to discharge home and with the support of his family continue to pursue sobriety and follow-up with cardiology as an outpatient. SUBSTANTIVE NOTATIONS ON IMAGING, LAB, MICROBIOLOGY/PATHOLOGY STUDIES: 163/78. Pulse 77. Respirations 14. Afebrile. O2 sat 93% on room air. 233 kilos CBC and follow-up this morning is unremarkable. PCO2 is elevated but his pH is normal. A1c 5.7 Unremarkable electrolytes this morning I did note a 1.3 magnesium and this was replaced with 2 g IV bolus TSH normal Troponin is 0.07 over 3 draws almost 24 hours ECHO TODAY 02/12 Final Impressions: 1. Technically limited exam. 2. Right ventricular cavity size is not well visualized, global systolic RV function is not well visualized. 3. The aortic valve is not well visualized, no stenosis and regurgitation not well visualized regurgitation. 4. Tricuspid valve is normal. 5. Echo contrast was administrered to enhance visualization of all left ventricular segments. 6. Poorly visualized LV. Cannot determine LVEF. DISCHARGE MEDICATIONS: See Reconciled list - SIGNIFICANT CHANGES: REVIEW OF SYSTEMS No new chest pain or dyspnea Pain controlled No voiding difficulties Tolerating diet challenge PHYSICAL EXAM: CONSTITUTIONAL: Alert. Eating breakfast. Ambulating in the room independently. VITAL SIGNS: see record. HEENT: Normocephalic, atraumatic. PERRL, EOMI, conjunctivae pink, no scleral icterus. Ears and nose externally normal. Pharynx normal. NECK: No JVD. No carotid bruit, no thyromegaly, no adenopathy. CHEST: Clear to auscultation bilaterally. HEART: S1 and S2 normal. Edema ABDOMEN: Soft, nontender. Normal bowel sounds. MUSCULOSKELETAL: No gross joint deformity or swelling. NEURO: Cranial nerves intact. Grossly intact. No asymmetric findings. SKIN: No rashes, petechiae, concerning changes PSYCHIATRIC: Mood euthymic. DISPOSITION: Home with family Time spent on discharge 37 minutes. Status at Discharge Functional status at discharge: uses cane/walker Overall status at discharge: patient is progressing back to baseline Time Spent with Patient Time attestation: Total time spent providing and/or coordinating discharge services: Time spent: Greater than 30 minutes Exam Const: Vital Signs, click to edit/add: Vital Signs - 24 hr 02/11/23 16:08 02/11/23 16:08 02/11/23 16:14 Temperature 98.9 F Pulse Rate 85 Pulse Rate [Pulse Oximeter] 92 Pulse Rate [orthos tatic lying Pulse Oximeter] Pulse Rate [orthos tatic sitting Righ t Pulse Oximeter] Pulse Rate [orthos tatic standing Rig ht Pulse Oximeter] Respiratory Rate 34 H Blood Pressure [Le ft Arm] 159/113 H Blood Pressure [Ri ght Arm] Blood Pressure [or thostatic lying Le ft Arm] Blood Pressure [or thostatic sitting Left Arm] Blood Pressure [or thostatic standing Left Arm] Pulse Oximetry 94 Oxygen Delivery Me thod Room Air Room Air Oxygen Flow Rate 02/11/23 17:14 02/11/23 19:01 02/11/23 19:04 Temperature 98.4 F 98.4 F 98.4 F Pulse Rate Pulse Rate [Pulse Oximeter] 90 88 88 Pulse Rate [orthos tatic lying Pulse Oximeter] Pulse Rate [orthos tatic sitting Righ t Pulse Oximeter] Pulse Rate [orthos tatic standing Rig ht Pulse Oximeter] Respiratory Rate 24 20 20 Blood Pressure [Le ft Arm] 137/63 137/63 Blood Pressure [Ri ght Arm] 163/81 H Blood Pressure [or thostatic lying Le ft Arm] Blood Pressure [or thostatic sitting Left Arm] Blood Pressure [or thostatic standing Left Arm] Pulse Oximetry 93 94 94 Oxygen Delivery Me thod Room Air Room Air Room Air Oxygen Flow Rate 02/11/23 20:00 02/11/23 20:56 02/11/23 22:48 Temperature 98.4 F 98.4 F 97.5 F L Pulse Rate Pulse Rate [Pulse Oximeter] 88 86 72 Pulse Rate [orthos tatic lying Pulse Oximeter] Pulse Rate [orthos tatic sitting Righ t Pulse Oximeter] Pulse Rate [orthos tatic standing Rig ht Pulse Oximeter] Respiratory Rate 20 20 20 Blood Pressure [Le ft Arm] 137/63 137/63 159/96 H Blood Pressure [Ri ght Arm] Blood Pressure [or thostatic lying Le ft Arm] Blood Pressure [or thostatic sitting Left Arm] Blood Pressure [or thostatic standing Left Arm] Pulse Oximetry 94 94 95 Oxygen Delivery Me thod Room Air Room Air Room Air Oxygen Flow Rate 02/11/23 22:49 02/11/23 22:50 02/11/23 22:51 Temperature 97.5 F L Pulse Rate Pulse Rate [Pulse Oximeter] 72 72 Pulse Rate [orthos tatic lying Pulse Oximeter] Pulse Rate [orthos tatic sitting Righ t Pulse Oximeter] Pulse Rate [orthos tatic standing Rig ht Pulse Oximeter] Respiratory Rate 20 20 Blood Pressure [Le ft Arm] 159/96 H Blood Pressure [Ri ght Arm] Blood Pressure [or thostatic lying Le ft Arm] Blood Pressure [or thostatic sitting Left Arm] Blood Pressure [or thostatic standing Left Arm] Pulse Oximetry 95 95 Oxygen Delivery Me thod Room Air Room Air Oxygen Flow Rate 02/12/23 02:35 02/12/23 02:39 02/12/23 05:25 Temperature 97.6 F 97.6 F 97.6 F Pulse Rate Pulse Rate [Pulse Oximeter] 97 97 Pulse Rate [orthos tatic lying Pulse Oximeter] Pulse Rate [orthos tatic sitting Righ t Pulse Oximeter] Pulse Rate [orthos tatic standing Rig ht Pulse Oximeter] Respiratory Rate 20 20 Blood Pressure [Le ft Arm] 159/96 H Blood Pressure [Ri ght Arm] 168/87 H 168/87 H Blood Pressure [or thostatic lying Le ft Arm] Blood Pressure [or thostatic sitting Left Arm] Blood Pressure [or thostatic standing Left Arm] Pulse Oximetry 93 93 Oxygen Delivery Me thod Nasal Cannula Nasal Cannula Oxygen Flow Rate 2 2 02/12/23 05:34 02/12/23 07:00 02/12/23 07:00 Temperature 97.9 F Pulse Rate Pulse Rate [Pulse Oximeter] 94 Pulse Rate [orthos tatic lying Pulse Oximeter] 97 Pulse Rate [orthos tatic sitting Righ t Pulse Oximeter] 100 Pulse Rate [orthos tatic standing Rig ht Pulse Oximeter] 129 H Respiratory Rate 16 Blood Pressure [Le ft Arm] Blood Pressure [Ri ght Arm] 148/57 H Blood Pressure [or thostatic lying Le ft Arm] 168/87 H Blood Pressure [or thostatic sitting Left Arm] 158/97 H Blood Pressure [or thostatic standing Left Arm] 142/100 H Pulse Oximetry 90 90 Oxygen Delivery Me thod Room Air Room Air Oxygen Flow Rate 02/12/23 11:00 Temperature 97.9 F Pulse Rate Pulse Rate [Pulse Oximeter] 77 Pulse Rate [orthos tatic lying Pulse Oximeter] Pulse Rate [orthos tatic sitting Righ t Pulse Oximeter] Pulse Rate [orthos tatic standing Rig ht Pulse Oximeter] Respiratory Rate 14 Blood Pressure [Le ft Arm] Blood Pressure [Ri ght Arm] 163/78 H Blood Pressure [or thostatic lying Le ft Arm] Blood Pressure [or thostatic sitting Left Arm] Blood Pressure [or thostatic standing Left Arm] Pulse Oximetry 93 Oxygen Delivery Me thod Nasal Cannula Oxygen Flow Rate DS: Data Data Completed and Pending Labs on day of discharge: Labs from last 24 hours 02/12/23 02/11/23 06:41 16:55 WBC 4.08 L RBC 5.61 Hgb 16.4 Hct 50.4 MCV 90 MCH 29 MCHC 33 Plt Count 143 VBG pH 7.355 VBG pCO2 58 H VBG pO2 53.4 H VBG HCO3 33 H Sodium 136 Potassium 3.9 Chloride 102 Carbon Dioxide 30 BUN 6 Creatinine 0.8 Estimated Creat Clear 154.04 Estimated GFR 118 Glucose 108 Hemoglobin A1c 5.70 H Lactate 1.5 1.8 Calcium 8.3 L Phosphorus 3.9 Magnesium 1.3 L Troponin I 0.07 H* 0.07 H* TSH 1.580 Discharge Plan Discharge Disposition: Home w/ Parent or Adult Date of Admission: 02/11/23 15:08 Attending Provider on Discharge: Trice Daly Primary Care Provider: Provider,Not a Local Condition: Improved Anticipated Discharge Date/Time: 02/12/23 10:14 Discharge Medications: New folic acid 1 mg Tablet 1 mg PO DAILY Qty: 30 0RF thiamine mononitrate (vit B1) [Vitamin B-1 (mononitrate)] 100 mg Tablet 100 mg PO Q24H Qty: 30 0RF Continued naproxen 500 mg tablet 500 mg PO BID PRN (Reason: pain) Qty: 60 0RF Rx Instructions: take with a little food metoprolol succinate 50 mg tablet extended release 24 hr 50 mg PO DAILY lisinopril 30 mg tablet 30 mg PO DAILY buspirone 15 mg tablet 15 mg PO BID venlafaxine 150 mg tablet extended release 24hr 150 mg PO DAILY Discharge Orders: Discharge Order (Routine); Ordered 02/12/23 Ordered By: Trice Daly Patient Education: Thiamine (By mouth), Folic Acid (By mouth) Additional Instructions: Please stop drinking. You are killing yourself slowly. Please see Dr. Morin to discuss the plan going forward Please see the educational program director for a stress test. Activity Level: Activity as Tolerated Discharge Diet: Heart Healthy (2 gm sodium, low fat) Follow Up Appointments: [facility] [Provider Group] - 02/19/23 11:00 am (Cardiology consult for elevated troponin during hospitalization. Establish this at the [facility] in [place].) Erna Morin DO [Staff Physician] - 02/19/23 11:00 am ([facility] with ENEDELIA for /f/u hospitalization ) Forms: [employer] Info Instructions
== END 2023-02-12 15:22 | disposition home or self-care (01) ==
LOC: ED 13:56 → MEDSURG 15:09
PROVIDERS: Admitting Provider Internal Medicine; Emergency Provider Family Medicine; Visit Provider Internal Medicine
DX: F10.230 Alcohol dependence with withdrawal, uncomplicated (principal); R77.8 Other specified abnormalities of plasma proteins; R74.01 Elevation of levels of liver transaminase levels; R94.31 Abnormal electrocardiogram [ECG] [EKG]; R00.0 Tachycardia, unspecified; F17.200 Nicotine dependence, unspecified, uncomplicated; I10 Essential (primary) hypertension; E66.01 Morbid (severe) obesity due to excess calories; Z68.44 Body mass index [BMI] 60.0-69.9, adult; F40.01 Agoraphobia with panic disorder; F10.229 Alcohol dependence with intoxication, unspecified; E83.42 Hypomagnesemia; F32.A Depression, unspecified; R79.81 Abnormal blood-gas level; M19.90 Unspecified osteoarthritis, unspecified site; R63.4 Abnormal weight loss; R42 Dizziness and giddiness; R06.02 Shortness of breath; R11.0 Nausea; M25.561 Pain in right knee; F41.9 Anxiety disorder, unspecified; Z86.69 Personal history of other diseases of the nervous system and sense organs; Z87.898 Personal history of other specified conditions; F32.9 Major depressive disorder, single episode, unspecified; R60.0 Localized edema; Z98.890 Other specified postprocedural states; Z86.59 Personal history of other mental and behavioral disorders
CPT/HCPCS: 36415; 71045; 80048; 80053; 80306; 81001; 82077; 82803; 82962; 83036; 83605; 83690; 83735; 83880; 84100; 84443; 84484; 85025; 85027; 87635; 93005; 93306; 96361; 96365; 96366; 96367; 96372; 96375; 96376; 99285; G0378; A0425; A0427; A9153; A9270; J1650; J2060; J2560; J3475; J7030; Q9957; S4990

== ENCOUNTER 2023-07-06 02:30 | Emergency (ER) | payer OTHER, SELFPAY ==
[2023-07-06 02:36] VITALS: BP 173/91; PULSE 88; RESP 32; TEMP 36.6; O2SAT 97; BMI 63.9
--- NOTE | 2023-07-06 03:07 | CRLHL7_ITS ---
For Patients: As a result of the Century Cures Act, medical imaging exams and procedure reports are released immediately into your electronic medical record. You may view this report before your referring provider. If you have questions, please contact your health care provider. INDICATION: Chest pain. TECHNIQUE: Chest 1 views. COMPARISON: Chest x-ray February 11, 2023 FINDINGS: Cardiovascular and mediastinum: Heart size and vasculature are normal in caliber and appearance. Lungs and pleural spaces: Mild central vascular congestion and interstitial prominence which may relate to low lung volumes or mild interstitial edema. No evidence of focal consolidation. No sign of pleural effusion. No pneumothorax. Bones and soft tissues: No significant findings. IMPRESSION: Mild central vascular congestion and interstitial prominence which may relate to low lung volumes or mild interstitial edema. Dictated by Rudy Monteiro MD @ 07/06/2023 5:45:35 AM (Electronically Signed)
[2023-07-06 03:16] LABS: Basophils Absolute Auto 0.01 K/uL (0.00-0.30); Basophils Percent Auto 0.1 % (0.0-3.0); Eosinophils Absolute Auto 0.12 K/uL (0.00-0.50); Eosinophils Percent Auto 1.5 % (0.0-7.0); Hematocrit 48.9 % (37.0-53.0); Hemoglobin* 16.1 gm/dL (13.5-17.5); Immature Granulocytes Abs Auto 0.02 K/uL (0.00-0.30); Immature Granulocytes Pct Auto 0.3 %; Lymphocytes Absolute Auto 2.13 K/uL (0.90-2.90); Lymphocytes Percent Auto 26.9 % (20-44); Mean Corpuscular HGB Conc 33 gm/dL (32-36); Mean Corpuscular Hemoglobin 31 pg (26-34); Mean Corpuscular Volume 94 fL (80-100); Monocytes Percent Auto 8.6 % (0.0-11.0); Neutrophils Absolute Auto 4.97 K/uL (1.7-7.0); Neutrophils Percent Auto 62.6 % (42.0-72.0); Platelet Count* 292 K/uL (140-440); RDW Coefficient of Variation % 14.4 % (11.5-15.5); Red Blood Count 5.21 m/uL (4.30-5.90); White Blood Count* 7.93 K/uL (4.50-11.00)
[2023-07-06 03:20] LABS: Slide Review Reflex No
[2023-07-06 03:37] LABS: Albumin* 4.3 g/dL (3.3-5.0); Chloride* 106 mmol/L (96-114); Sodium* 141 mmol/L (135-149)
[2023-07-06 03:38] LABS: Potassium* 4.7 mmol/L (3.6-5.1)
[2023-07-06 03:39] LABS: D Dimer Quantitative* 0.49 ug/ml (0.00-0.50)
[2023-07-06 03:40] LABS: Alkaline Phosphatase* 45 U/L (40-150); Anion Gap 9 mEq/L (7-15); Aspartate Amino Transferase* 23 U/L (12-35); Bilirubin Total* 0.7 mg/dL (0.1-1.5); Blood Urea Nitrogen* 13 mg/dL (5-24); Carbon Dioxide* 26 mmol/L (20-32); Est. Creatinine Clearance* 123.23; Estimated Glomerular Filt Rate 101 ml/min; Total Protein* 8.5 g/dL (6.0-8.3)
[2023-07-06 03:41] LABS: Alanine Aminotransferase* 20 U/L (4-50); Calcium* 9.6 mg/dL (8.4-10.6); Glucose* 107 mg/dL (60-115)
[2023-07-06 03:53] LABS: Troponin I* 0.04 ng/mL (0.01-0.04)
[2023-07-06 05:23] LABS: Troponin I* 0.04 ng/mL (0.01-0.04)
--- NOTE | 2023-07-06 05:38 | ED_ITS ---
HPI - Chest Pain General Chief Complaint: Chest Pain Stated Complaint: Chest Pain Time Seen by Provider: 07/06/23 02:53 History of Present Illness HPI narrative: Patient is a 33-year-old gentleman who approximate 2 hours prior to arrival developed anterior chest pain. There did not appear to be any radiation. He has had no fevers no chills no night sweats no diaphoresis no nausea no vomiting. Pain was dull and not associated with any shortness of breath. Patient states the pain was moderate. Patient has a similar presentations in the past and no significant history of heart disease. He is a smoker. Does unfortunately have chronic anxiety as well. Patient had been in his usual state of health prior to the onset of his symptoms. Related Data Home Medications Medication Instructions Recorded Confirmed buspirone 15 mg tablet 15 mg PO BID 01/01/23 07/06/23 lisinopril 30 mg tablet 30 mg PO DAILY 01/01/23 07/06/23 metoprolol succinate 50 mg 50 mg PO DAILY 01/01/23 07/06/23 tablet,extended release 24 hr amlodipine 10 mg tablet 10 mg PO DAILY 07/06/23 07/06/23 Previous Rx's Medication Instructions Recorded naproxen 500 mg tablet 500 mg PO BID PRN pain #60 tabs 11/25/22 folic acid 1 mg tablet 1 mg PO DAILY #30 tabs 02/12/23 Allergies Allergy/AdvReac Type Severity Reaction Status Date / Time No Known Drug Allergies Allergy Verified 07/06/23 02:36 Review of Systems Status of ROS Reports: 10 or more systems reviewed and unremarkable except as noted in History and below [facility] Medical History Alcoholism ?F10.20 - Alcohol dependence, uncomplicated (ICD-10) Obstructive sleep apnea ?G47.33 - Obstructive sleep apnea (adult) (pediatric) (ICD-10) Agoraphobia with panic attacks ?F40.01 - Agoraphobia with panic disorder (ICD-10) History of panic attacks ?Z86.59 - Personal history of other mental and behavioral disorders (ICD-10) Anxiety disorder ?F41.9 - Anxiety disorder, unspecified (ICD-10) Major depressive disorder ?F32.9 - Major depressive disorder, single episode, unspecified (ICD-10) Essential hypertension ?I10 - Essential (primary) hypertension (ICD-10) Synovial cyst of popliteal space [Palmer], right knee ?M71.21 - Synovial cyst of popliteal space [Palmer], right knee (ICD-10) Current smoker ?F17.200 - Nicotine dependence, unspecified, uncomplicated (ICD-10) History of seizure due to alcohol withdrawal ?Z87.898 - Personal history of other specified conditions (ICD-10) ?Z86.59 - Personal history of other mental and behavioral disorders (ICD-10) History of alcohol withdrawal syndrome ?Z86.59 - Personal history of other mental and behavioral disorders (ICD-10) Right knee pain ?M25.561 - Pain in right knee (ICD-10) Alcohol dependence, binge pattern ?F10.20 - Alcohol dependence, uncomplicated (ICD-10) Anxiety ?F41.9 - Anxiety disorder, unspecified (ICD-10) Morbidly obese ?E66.01 - Morbid (severe) obesity due to excess calories (ICD-10) Surgical History S/P right knee arthroscopy ?Z98.890 - Other specified postprocedural states (ICD-10) Social History Highest level of school completed/degree received: high school graduate Smoking Status: Current every day smoker Do you use any of these nicotine containing products: None Second hand tobacco smoke exposure: No How often do you have a drink containing alcohol: 4 or more times a week Alcohol type: hard liquor How many standard drinks containing alcohol do you have on a typical day: 10 or more How often do you have six or more drinks on one occasion: Daily or almost daily AUDIT-C Alcohol total score: 12 Non-prescribed substance use: denies use Caffeine: Yes (6-10 cans) service: No Exam Narrative Exam Narrative: EXAM GENERAL: Patient appears comfortable and well. EYES: No scleral icterus. ENT: Tympanic membranes and oropharynx normal. THYROID: no thyroid nodules or thyromegaly. LYMPH: No supraclavicular or cervical lymphadenopathy. SKIN: Visible skin seen during exam normal or with benign process only. EXT: No dependent lower extremity pedal edema. HEART: Regular rate and rhythm with no murmurs, rubs, or gallops. LUNGS: Clear to auscultation bilaterally with no crackles or wheezes. ABD: Soft, non tender, non distended. PSYCH: Good eye contact, speech is not pressured. Const Vital Signs, click to edit/add: Vital Signs - 24 hr 07/06/23 02:36 Temperature 97.9 F Pulse Rate [Pulse Oximeter] 88 Respiratory Rate 32 H Blood Pressure [Right Forearm] 173/91 H Pulse Oximetry 97 Oxygen Delivery Method Room Air Course Course ED Course: Patient seen examined. Laboratory and chest x-ray ordered. Vital Signs Vital signs: Initial Vital Signs Temperature 97.9 F 07/06/23 02:36 Temperature Source Temporal Artery Scan 07/06/23 02:36 Pulse Rate 88 07/06/23 02:36 Pulse Strength 3+ Normal 07/06/23 02:36 Respiratory Rate 32 H 07/06/23 02:36 Blood Pressure 173/91 H 07/06/23 02:36 Blood Pressure Mean 118 H 07/06/23 02:36 Pulse Oximetry 97 07/06/23 02:36 Oxygen Delivery Method Room Air 07/06/23 02:36 Vital Signs Temperature 97.9 F 07/06/23 02:36 Pulse Rate 88 07/06/23 02:36 Respiratory Rate 32 H 07/06/23 02:36 Blood Pressure 173/91 H 07/06/23 02:36 Pulse Oximetry 97 07/06/23 02:36 Oxygen Delivery Method Room Air 07/06/23 02:36 Temperature 97.9 F 07/06/23 02:36 Pulse Rate 88 07/06/23 02:36 Respiratory Rate 32 H 07/06/23 02:36 Blood Pressure 173/91 H 07/06/23 02:36 Pulse Oximetry 97 07/06/23 02:36 Oxygen Delivery Method Room Air 07/06/23 02:36 MDM - Chest Pain MDM Narrative Medical decision making narrative: Patient is a 33-year-old gentleman with history of hypertension and tobacco use who presents with chest pain. EKG upon my review shows no acute ST or T-wave changes with sinus rhythm. Chest x-ray is unremarkable upon my review. Troponin negative at time 0 and 90 minutes. Electrolytes D-dimer CBC all unremarkable. This time I did herb counselor on smoking cessation and recommended outpatient follow-up as needed. He feels well and will follow-up with his doctor. Differential Diagnosis Differential diagnosis: Likely fracture of rib, pneumothorax, stable angina, unstable angina pectoris, atypical chest pain, st elevation myocardial infarction, costochondritis and chest pain Lab Data Labs: Lab Results 07/06/23 07/06/23 Range/Units 03:13 04:50 WBC 7.93 (4.50-11.00) K/uL RBC 5.21 (4.30-5.90) m/uL Hgb 16.1 (13.5-17.5) gm/dL Hct 48.9 (37.0-53.0) % MCV 94 (80-100) fL MCH 31 (26-34) pg MCHC 33 (32-36) gm/dL RDW Coeff of Dhara 14.4 (11.5-15.5) % Plt Count 292 (140-440) K/uL Neut % (Auto) 62.6 (42.0-72.0) % Lymph % (Auto) 26.9 (20-44) % Benton % (Auto) 8.6 (0.0-11.0) % Eos % (Auto) 1.5 (0.0-7.0) % Baso % (Auto) 0.1 (0.0-3.0) % Neut # (Auto) 4.97 (1.7-7.0) K/uL Lymph # (Auto) 2.13 (0.90-2.90) K/uL Benton # (Auto) 0.70 (0.00-0.90) K/UL Eos # (Auto) 0.12 (0.00-0.50) K/uL Baso # (Auto) 0.01 (0.00-0.30) K/uL Abs Immat Gran (auto) 0.02 (0.00-0.30) K/uL Imm/Tot Granulo (auto) 0.3 % D-Dimer Quant (PE/DVT) 0.49 (0.00-0.50) ug/ml Sodium 141 (135-149) mmol/L Potassium 4.7 (3.6-5.1) mmol/L Chloride 106 (96-114) mmol/L Carbon Dioxide 26 (20-32) mmol/L Anion Gap 9 (7-15) mEq/L BUN 13 (5-24) mg/dL Creatinine 1.0 (0.5-1.5) mg/dL Estimated Creat Clear 123.23 Estimated GFR 101 ml/min Glucose 107 (60-115) mg/dL Calcium 9.6 (8.4-10.6) mg/dL Total Bilirubin 0.7 (0.1-1.5) mg/dL AST 23 (12-35) U/L ALT 20 (4-50) U/L Alkaline Phosphatase 45 (40-150) U/L Troponin I 0.04 0.04 (0.01-0.04) ng/mL Total Protein 8.5 H (6.0-8.3) g/dL Albumin 4.3 (3.3-5.0) g/dL Discharge Plan Discharge Clinical Impression: Chest pain Condition: Stable Instructions: Chest Pain (ED) Additional Instructions: Continue current medication Stop smoking Follow-up with your doctor as needed. Activity Level: No Restrictions Discharge Diet: Regular Prescriptions: No Action amlodipine 10 mg tablet 10 mg PO DAILY naproxen 500 mg tablet 500 mg PO BID PRN (Reason: pain) Qty: 60 0RF Rx Instructions: take with a little food metoprolol succinate 50 mg tablet extended release 24 hr 50 mg PO DAILY lisinopril 30 mg tablet 30 mg PO DAILY buspirone 15 mg tablet 15 mg PO BID folic acid 1 mg Tablet 1 mg PO DAILY Qty: 30 0RF Follow Up/Referrals: Provider,Not a Local [Primary Care Provider] - Stand Alone Forms: [employer] Info Instructions
[2023-07-06 05:44] VITALS: BP 170/85; PULSE 90; RESP 30; O2SAT 96
== END 2023-07-06 05:47 | disposition home or self-care (01) ==
PROVIDERS: Emergency Provider Internal Medicine
DX: R07.9 Chest pain, unspecified (principal)
CPT/HCPCS: 36415; 71045; 80053; 84484; 85025; 85379; 93005; 99283; 99284; 99285

== ENCOUNTER 2023-09-27 05:47 | Emergency (ER) | payer OTHER, SELFPAY ==
[2023-09-27 05:54] VITALS: BP 157/79; PULSE 105; RESP 24; TEMP 37.2; O2SAT 98; BMI 63.7
--- NOTE | 2023-09-27 06:14 | ED.GENADULT ---
HPI - General Adult General Chief complaint: Alcohol/Intoxication Stated complaint: alcohol withdrawls Source: patient Mode of arrival: ambulatory Limitations: no limitations History of Present Illness HPI narrative: 33-year-old male with a known history of alcoholism presents for his 7th visit to the emergency department of the year today. He has a history of alcoholism and continues to drink rum daily. Reports that his last drink was around 4:00 p.m. last night. When he awoke this morning around 430 in the morning, he felt nauseated, shaky and anxious. He reports that this is typically his initial pattern for alcohol withdrawal. He reports that he does have a history of alcohol withdrawal seizures in 2019. He has been hospitalized for alcohol withdrawal monitoring at our facility in the past. Most recently this was in January. He did not progress to seizures and was given a single dose of phenobarbital and a dose of Ativan with no further care is needed. He is not interested in quitting alcohol at this time, declines transfer to detox or and alcohol treatment program. Reports that these have not gone well for him in the past. Denies suicidality or intent of self-harm. Has had low magnesium and other abnormalities when he presents in the past. He would like these checked today. No fever, no difficulty breathing, no recent falls or injury. He does not take any blood thinners. Is not currently in any type of alcohol treatment program. Past medical history notable for morbid obesity, hypertension, alcoholism. Current home medications lisinopril, hydrochlorothiazide, amlodipine, metoprolol. Smokes cigarettes, no marijuana or opiate use. ROS notable for the generalized symptoms as described above, otherwise denies times 12 systems today Related Data Home Medications Medication Instructions Recorded Confirmed buspirone 15 mg tablet 15 mg PO BID 01/01/23 09/27/23 metoprolol succinate 50 mg 50 mg PO DAILY 01/01/23 09/27/23 tablet,extended release 24 hr amlodipine 10 mg tablet 10 mg PO DAILY 07/06/23 09/27/23 hydroxyzine HCl 25 mg tablet 25 mg PO DIRECTED 09/27/23 09/27/23 lisinopril 20 1 tab PO DAILY 09/27/23 09/27/23 mg-hydrochlorothiazide 25 mg tablet Previous Rx's Medication Instructions Recorded folic acid 1 mg tablet 1 mg PO DAILY #30 tabs 02/12/23 Allergies Allergy/AdvReac Type Severity Reaction Status Date / Time No Known Drug Allergies Allergy Verified 09/27/23 05:58 [facility] Medical History Alcoholism ?F10.20 - Alcohol dependence, uncomplicated (ICD-10) Obstructive sleep apnea ?G47.33 - Obstructive sleep apnea (adult) (pediatric) (ICD-10) Agoraphobia with panic attacks ?F40.01 - Agoraphobia with panic disorder (ICD-10) History of panic attacks ?Z86.59 - Personal history of other mental and behavioral disorders (ICD-10) Anxiety disorder ?F41.9 - Anxiety disorder, unspecified (ICD-10) Major depressive disorder ?F32.9 - Major depressive disorder, single episode, unspecified (ICD-10) Essential hypertension ?I10 - Essential (primary) hypertension (ICD-10) Synovial cyst of popliteal space [Palmer], right knee ?M71.21 - Synovial cyst of popliteal space [Palmer], right knee (ICD-10) Current smoker ?F17.200 - Nicotine dependence, unspecified, uncomplicated (ICD-10) History of seizure due to alcohol withdrawal ?Z87.898 - Personal history of other specified conditions (ICD-10) ?Z86.59 - Personal history of other mental and behavioral disorders (ICD-10) History of alcohol withdrawal syndrome ?Z86.59 - Personal history of other mental and behavioral disorders (ICD-10) Right knee pain ?M25.561 - Pain in right knee (ICD-10) Alcohol dependence, binge pattern ?F10.20 - Alcohol dependence, uncomplicated (ICD-10) Anxiety ?F41.9 - Anxiety disorder, unspecified (ICD-10) Morbidly obese ?E66.01 - Morbid (severe) obesity due to excess calories (ICD-10) Surgical History S/P right knee arthroscopy ?Z98.890 - Other specified postprocedural states (ICD-10) Social History Highest level of school completed/degree received: high school graduate Smoking Status: Current every day smoker Do you use any of these nicotine containing products: None Second hand tobacco smoke exposure: No How often do you have a drink containing alcohol: 4 or more times a week Alcohol type: hard liquor How many standard drinks containing alcohol do you have on a typical day: 10 or more How often do you have six or more drinks on one occasion: Daily or almost daily AUDIT-C Alcohol total score: 12 Non-prescribed substance use: denies use Caffeine: Yes (6-10 cans) service: No Exam Const: Vital Signs, click to edit/add: Vital Signs - 24 hr 09/27/23 05:54 09/27/23 06:15 Temperature 99.0 F Pulse Rate [Right Pulse Oximeter] 105 H Respiratory Rate 24 Blood Pressure [Ri ght Upper Arm] 157/79 H Pulse Oximetry 98 95 Oxygen Delivery Me thod Room Air Documenting provider has reviewed patient's vital signs: yes Other: Anxious but does not seem intoxicated. Answers questions appropriately, seems to be a good historian. Cooperative. HENMT: Common normals: normocephalic, moist oral mucous membranes and oropharynx normal Head and scalp: normocephalic Eye: General eye: normal appearance of both eyes Neck & C-Spine: Common normals: full ROM and no lymphadenopathy Resp: Common normals: normal respiratory effort, no use of accessory muscles and clear to auscultation bilaterally Effort & inspection: able to speak in complete sentences Auscultation: clear to auscultation bilaterally Cardio: Common normals: regular rate, regular rhythm, S1 normal heart sound, S2 normal heart sound and no murmurs Rate: regular rate Rhythm: regular rhythm Heart sounds: S1 normal and S2 normal GI: Other: Morbidly obese, cannot palpate organ edges. No obvious tenderness. Extremity: Common normals: normal to inspection Neuro: Other: Mild tremor of arms only. No other signs of severe alcohol withdrawal. Psych: Attitude: engaged Activity/motor behavior: appropriate eye contact Insight: insight good Judgement: fair Skin: Common normals: no rashes or lesions noted Narrative: No signs of self injury or trauma General skin exam: no rashes or lesions noted Course Course ED Course: Alcoholism with history of electrolyte abnormalities. Symptoms of mild early alcohol withdrawal without severe features at this time but does have a reported history of alcohol withdrawal seizures. Will administer to 160 mg of IV phenobarbital x1, basic labs to check magnesium, CBC, liver function. We have lots of comparisons for this. He declines referral to detox or treatment at this time. Await findings. May be able to be managed outpatient. Reevaluation(s) Time of Reevaluation #1: 07:01 Reevaluation #1: Inform patient of lab findings. Magnesium is borderline low, do recommend replacement with 800 mg p.o. and 1 g IV, he was agreeable to this. We discussed hospitalization versus outpatient management. At this time he thinks he can manage outpatient would like to go home. He feels much better after the phenobarbital. He is not interested in alcohol cessation. He is not interested in quitting drinking. He would like to go home after his IV infusions and I think this is reasonable. He did not experience any alcohol related seizures with his last few episodes or his last hospitalization. The phenobarbital will be somewhat protective. We discussed signs and symptoms of worsening alcohol withdrawal and he verbalized that he can come back to the ED if these occur. I think this is reasonable. Tremors are now gone. Hospital beds are quite scarce right now and if he is not in need of outpatient treatment coordination and is not very high risk for seizure, we can consider outpatient management. Vital Signs Vital signs: Initial Vital Signs Temperature 99.0 F 09/27/23 05:54 Temperature Source Temporal Artery Scan 09/27/23 05:54 Pulse Rate 105 H 09/27/23 05:54 Respiratory Rate 24 09/27/23 05:54 Blood Pressure 157/79 H 09/27/23 05:54 Blood Pressure Mean 105 09/27/23 05:54 Blood Pressure Position Sitting 09/27/23 05:54 Pulse Oximetry 98 09/27/23 05:54 Oxygen Delivery Method Room Air 09/27/23 05:54 Vital Signs Temperature 99.0 F 09/27/23 05:54 Pulse Rate 105 H 09/27/23 05:54 Respiratory Rate 24 09/27/23 05:54 Blood Pressure 157/79 H 09/27/23 05:54 Pulse Oximetry 98 09/27/23 05:54 Oxygen Delivery Method Room Air 09/27/23 05:54 Temperature 99.0 F 09/27/23 05:54 Pulse Rate 105 H 09/27/23 05:54 Respiratory Rate 24 09/27/23 05:54 Blood Pressure 157/79 H 09/27/23 05:54 Pulse Oximetry 95 09/27/23 06:15 Oxygen Delivery Method Room Air 09/27/23 05:54 Medications Administered Medications: Generic Name Dose Route Start Last Admin Trade Name Freq PRN Reason Stop Dose Admin Magnesium Sulfate/Dextrose 1 gm in 100 mls @ 100 mls/hr 09/27/23 06:57 09/27/23 07:05 Magnesium Sulf 1 G/100 [id number] IVPB 09/27/23 07:56 100 mls/hr ONCE ONE Administration Discontinued Medications Generic Name Dose Route Start Last Admin Trade Name Freq PRN Reason Stop Dose Admin Sodium Chloride 1,000 mls @ 1,000 mls/hr 09/27/23 06:11 09/27/23 06:20 0.9 % Sodium Chloride 1000 Ml IV 09/27/23 07:10 1,000 mls/hr .Q1H SUKI Administration Phenobarbital 260 mg/ Sodium 104 mls @ 208 mls/hr 09/27/23 06:11 09/27/23 07:05 Chloride IVPB 09/27/23 06:12 Infused ONCE ONE Infusion Medical Decision Making Lab Data Labs: Lab Results 09/27/23 Range/Units 06:17 WBC 6.69 (4.50-11.00) K/uL RBC 5.57 (4.30-5.90) m/uL Hgb 16.9 (13.5-17.5) gm/dL Hct 51.8 (37.0-53.0) % MCV 93 (80-100) fL MCH 30 (26-34) pg MCHC 33 (32-36) gm/dL RDW Coeff of Dhara 13.6 (11.5-15.5) % Plt Count 270 (140-440) K/uL Neut % (Auto) 58.2 (42.0-72.0) % Lymph % (Auto) 31.5 (20-44) % [place] % (Auto) 8.5 (0.0-11.0) % Eos % (Auto) 1.0 (0.0-7.0) % Baso % (Auto) 0.1 (0.0-3.0) % Neut # (Auto) 3.88 (1.7-7.0) K/uL Lymph # (Auto) 2.11 (0.90-2.90) K/uL [place] # (Auto) 0.60 (0.00-0.90) K/UL Eos # (Auto) 0.07 (0.00-0.50) K/uL Baso # (Auto) 0.01 (0.00-0.30) K/uL Abs Immat Gran (auto) 0.05 (0.00-0.30) K/uL Imm/Tot Granulo (auto) 0.7 % Sodium 137 (135-149) mmol/L Potassium 4.7 (3.6-5.1) mmol/L Chloride 104 (96-114) mmol/L Carbon Dioxide 20 (20-32) mmol/L Anion Gap 13 (7-15) mEq/L BUN 20 (5-24) mg/dL Creatinine 1.7 H (0.5-1.5) mg/dL Estimated Creat Clear 72.49 Estimated GFR 53 ml/min Glucose 93 (60-115) mg/dL Calcium 8.3 L (8.4-10.6) mg/dL Magnesium 1.3 L (1.5-2.6) mg/dL Total Bilirubin 0.8 (0.1-1.5) mg/dL AST 31 (12-35) U/L ALT 20 (4-50) U/L Alkaline Phosphatase 57 (40-150) U/L Total Protein 8.9 H (6.0-8.3) g/dL Albumin 4.6 (3.3-5.0) g/dL Ethyl Alcohol < 0.01 L (0.01-0.03) % Discharge Plan Discharge Clinical Impression: Alcohol withdrawal syndrome, Low magnesium level Patient Disposition: Home, Self-Care Condition: Improved Instructions: Alcohol Withdrawal (DC) Additional Instructions: As we discussed, your not exhibiting any symptoms of severe alcohol withdrawal at this time. Your alcohol level is 0. Your given phenobarbital to help with seizure prevention and also to help with your anxiety, I am glad that this has been helpful for you. Your given IV and oral magnesium. Please continue to eat a well-rounded diet once you get home. I do recommend you stop drinking alcohol, you are not interested in cessation at this time. This is certainly your right. If you do decide that you want assistance with alcohol cessation, I recommend esla your [facility] social secretary Department for further resources. If your tremors, shakiness, anxiety worsened significantly, please come back to the emergency department for further treatment. Activity Level: Activity as Tolerated Discharge Diet: Regular Prescriptions: No Action amlodipine 10 mg tablet 10 mg PO DAILY lisinopril-hydrochlorothiazide 20-25 mg tablet 1 tab PO DAILY hydroxyzine HCl 25 mg tablet 25 mg PO DIRECTED metoprolol succinate 50 mg tablet extended release 24 hr 50 mg PO DAILY buspirone 15 mg tablet 15 mg PO BID folic acid 1 mg Tablet 1 mg PO DAILY Qty: 30 0RF Follow Up/Referrals: Provider,Not a Local [Primary Care Provider] - Stand Alone Forms: [email or web address] Info Instructions
[2023-09-27 06:15] VITALS: O2SAT 95
[2023-09-27] MEDS: 0.9 % SODIUM CHLORIDE 1000 ml 1,000 ML IV (06:20)
[2023-09-27] MEDS: PHENobarbitaL 260 MG in 0.9 % SODIUM CHLORIDE 100 ml 100 ML 208 MG IVPB (06:27)
[2023-09-27 06:33] LABS: Basophils Absolute Auto 0.01 K/uL (0.00-0.30); Basophils Percent Auto 0.1 % (0.0-3.0); Eosinophils Absolute Auto 0.07 K/uL (0.00-0.50); Hematocrit 51.8 % (37.0-53.0); Hemoglobin* 16.9 gm/dL (13.5-17.5); Immature Granulocytes Abs Auto 0.05 K/uL (0.00-0.30); Immature Granulocytes Pct Auto 0.7 %; Lymphocytes Absolute Auto 2.11 K/uL (0.90-2.90); Lymphocytes Percent Auto 31.5 % (20-44); Mean Corpuscular HGB Conc 33 gm/dL (32-36); Mean Corpuscular Hemoglobin 30 pg (26-34); Mean Corpuscular Volume 93 fL (80-100); Monocytes Percent Auto 8.5 % (0.0-11.0); Neutrophils Absolute Auto 3.88 K/uL (1.7-7.0); Neutrophils Percent Auto 58.2 % (42.0-72.0); Platelet Count* 270 K/uL (140-440); RDW Coefficient of Variation % 13.6 % (11.5-15.5); Red Blood Count 5.57 m/uL (4.30-5.90); White Blood Count* 6.69 K/uL (4.50-11.00)
[2023-09-27 06:34] LABS: Slide Review Reflex No
[2023-09-27 06:35] LABS: Albumin* 4.6 g/dL (3.3-5.0); Chloride* 104 mmol/L (96-114); Sodium* 137 mmol/L (135-149)
[2023-09-27 06:36] LABS: Potassium* 4.7 mmol/L (3.6-5.1)
[2023-09-27 06:37] LABS: Bilirubin Total* 0.8 mg/dL (0.1-1.5); Creatinine* 1.7 mg/dL (0.5-1.5); Est. Creatinine Clearance* 72.49; Estimated Glomerular Filt Rate 53 ml/min
[2023-09-27 06:38] LABS: Alanine Aminotransferase* 20 U/L (4-50); Alkaline Phosphatase* 57 U/L (40-150); Anion Gap 13 mEq/L (7-15); Aspartate Amino Transferase* 31 U/L (12-35); Blood Urea Nitrogen* 20 mg/dL (5-24); Carbon Dioxide* 20 mmol/L (20-32); Glucose* 93 mg/dL (60-115); Total Protein* 8.9 g/dL (6.0-8.3)
[2023-09-27 06:39] LABS: Calcium* 8.3 mg/dL (8.4-10.6); Magnesium* 1.3 mg/dL (1.5-2.6)
[2023-09-27 06:55] LABS: Ethanol* < 0.01 % (0.01-0.03)
[2023-09-27 07:50] VITALS: BP 129/80; PULSE 86; RESP 18; TEMP 37.4; O2SAT 93
[2023-09-27] MEDS: MAGNESIUM OXIDE 400 MG TABLET 800 MG PO (07:57)
== END 2023-09-27 08:08 | disposition home or self-care (01) ==
PROVIDERS: Emergency Provider Family Medicine
DX: F10.239 Alcohol dependence with withdrawal, unspecified (principal); R79.0 Abnormal level of blood mineral
CPT/HCPCS: 36415; 80053; 82077; 83735; 85025; 94761; 96365; 96366; 99284; A9270; J2560; J3475; J7030

== ENCOUNTER 2023-10-24 06:24 | Emergency (ER) | payer OTHER, SELFPAY ==
[2023-10-24] VITALS (12 sets, daily range): BP systolic 137–163; BP diastolic 79–88; PULSE 89–99; RESP 16–20; TEMP 37; O2SAT 90–95; BMI 63.7
--- NOTE | 2023-10-24 06:44 | ED.GENADULT ---
HPI - General Adult General Chief complaint: Anxiety Stated complaint: panic attack, shortness of breath Time Seen by Provider: 10/24/23 06:26 Source: patient Mode of arrival: ambulatory Limitations: no limitations History of Present Illness HPI narrative: 33-year-old male presents for his 8th visit of the year to the emergency department with alcohol related withdrawal and anxiety concerns. Reports that he had been drinking heavily for 3 days, last drink was about 36 hours ago. Typically drinks about a 0.5 gal of rum per day. Does report a history of alcohol withdrawal seizures, though remote. Last visit was about 4 weeks ago. At that time, he received IV phenobarbital and felt much better. Patient is wondering if he needs that again. He declines a referral to detox, alcohol treatment or any other alcohol-related program today. He is not interested in discussing alcohol cessation. He reports that he has been eating and drinking normally. No vomiting or bloody stools. No falls, injury or trauma. He does not take any anticoagulants. He reports anxiety and a feeling of racing heart for the past 12 hours. No chest pain. States that his panic attack is already getting much better since he has been to the emergency department and is now around other people. No seizure-like activity at home. No recent changes to his medications. Past medical history notable for morbid obesity, hypertension, chronic alcoholism and tobacco use. Home meds are lisinopril, metoprolol and amlodipine. No known drug allergies. ROS is notable for the neurological, mental health and cardiac symptoms as described above, otherwise denies times 12 systems. Related Data Home Medications Medication Instructions Recorded Confirmed buspirone 15 mg tablet 15 mg PO BID 01/01/23 09/27/23 metoprolol succinate 50 mg 50 mg PO DAILY 01/01/23 10/24/23 tablet,extended release 24 hr amlodipine 10 mg tablet 10 mg PO DAILY 07/06/23 10/24/23 hydroxyzine HCl 25 mg tablet 25 mg PO DIRECTED 09/27/23 09/27/23 lisinopril 20 1 tab PO DAILY 09/27/23 10/24/23 mg-hydrochlorothiazide 25 mg tablet Previous Rx's Medication Instructions Recorded folic acid 1 mg tablet 1 mg PO DAILY #30 tabs 02/12/23 Allergies Allergy/AdvReac Type Severity Reaction Status Date / Time No Known Drug Allergies Allergy Verified 09/27/23 05:58 [facility] Medical History Alcoholism ?F10.20 - Alcohol dependence, uncomplicated (ICD-10) Obstructive sleep apnea ?G47.33 - Obstructive sleep apnea (adult) (pediatric) (ICD-10) Agoraphobia with panic attacks ?F40.01 - Agoraphobia with panic disorder (ICD-10) History of panic attacks ?Z86.59 - Personal history of other mental and behavioral disorders (ICD-10) Anxiety disorder ?F41.9 - Anxiety disorder, unspecified (ICD-10) Major depressive disorder ?F32.9 - Major depressive disorder, single episode, unspecified (ICD-10) Essential hypertension ?I10 - Essential (primary) hypertension (ICD-10) Synovial cyst of popliteal space [Palmer], right knee ?M71.21 - Synovial cyst of popliteal space [Palmer], right knee (ICD-10) Current smoker ?F17.200 - Nicotine dependence, unspecified, uncomplicated (ICD-10) History of seizure due to alcohol withdrawal ?Z87.898 - Personal history of other specified conditions (ICD-10) ?Z86.59 - Personal history of other mental and behavioral disorders (ICD-10) History of alcohol withdrawal syndrome ?Z86.59 - Personal history of other mental and behavioral disorders (ICD-10) Right knee pain ?M25.561 - Pain in right knee (ICD-10) Alcohol dependence, binge pattern ?F10.20 - Alcohol dependence, uncomplicated (ICD-10) Anxiety ?F41.9 - Anxiety disorder, unspecified (ICD-10) Morbidly obese ?E66.01 - Morbid (severe) obesity due to excess calories (ICD-10) Surgical History S/P right knee arthroscopy ?Z98.890 - Other specified postprocedural states (ICD-10) Social History Highest level of school completed/degree received: high school graduate Smoking Status: Current every day smoker Do you use any of these nicotine containing products: None Second hand tobacco smoke exposure: No How often do you have a drink containing alcohol: 4 or more times a week Alcohol type: hard liquor How many standard drinks containing alcohol do you have on a typical day: 10 or more How often do you have six or more drinks on one occasion: Daily or almost daily AUDIT-C Alcohol total score: 12 Non-prescribed substance use: denies use Caffeine: Yes (6-10 cans) service: No Exam Const: Vital Signs, click to edit/add: Vital Signs - 24 hr 10/24/23 06:31 10/24/23 06:46 10/24/23 06:54 Temperature 98.6 F Pulse Rate Pulse Rate [Pulse Oximeter] 99 98 Respiratory Rate 18 16 Blood Pressure Blood Pressure [Ri ght Upper Arm] 143/85 H 144/88 H Pulse Oximetry 95 91 95 Oxygen Delivery Me thod Room Air Room Air 10/24/23 07:00 10/24/23 07:13 10/24/23 07:15 Temperature Pulse Rate 95 90 Pulse Rate [Pulse Oximeter] 95 Respiratory Rate 16 Blood Pressure Blood Pressure [Ri ght Upper Arm] 139/79 Pulse Oximetry 91 90 90 Oxygen Delivery Me thod Room Air 10/24/23 07:30 10/24/23 07:32 Temperature Pulse Rate 96 93 Pulse Rate [Pulse Oximeter] Respiratory Rate 20 Blood Pressure 137/79 Blood Pressure [Ri ght Upper Arm] Pulse Oximetry 95 92 Oxygen Delivery Me thod Documenting provider has reviewed patient's vital signs: yes Common normals: alert Other: Anxious but with normal mentation. HENMT: Common normals: normocephalic Head and scalp: normocephalic Mouth: oral and palatal mucosa normal Eye: Common normals: conjunctivae normal and no scleral icterus Conjunctiva: conjunctiva(e) normal Neck & C-Spine: Common normals: no lymphadenopathy Resp: Common normals: normal respiratory effort, no use of accessory muscles and clear to auscultation bilaterally Effort & inspection: able to speak in complete sentences Auscultation: clear to auscultation bilaterally Cardio: Common normals: regular rate, regular rhythm, S1 normal heart sound, S2 normal heart sound and no murmurs Rate: regular rate Rhythm: regular rhythm Heart sounds: S1 normal and S2 normal GI: Other: Cannot easily palpate any of the edges of the organs, obese. Belly is nice and soft, liver does seem enlarged but difficult to determine based on body habitus Neuro: Sensorium/orientation: alert Speech: speech normal Gait (neuro): normal gait Motor exam: no tremor noted Psych: Attitude: engaged Mood and affect: anxious Insight: insight good Judgement: fair Skin: Common normals: no rashes or lesions noted General skin exam: no rashes or lesions noted Course Course ED Course: 33-year-old known alcoholic male presenting with panic attack and mild alcohol withdrawal. No symptoms of severe withdrawal at this time. He is not interested in referral for detox, alcohol cessation program or admission at this time. Will give 1 mg of oral Ativan, oral thiamin and 160 mg of IV phenobarbital as these have worked well for him in the past. Re-evaluate after phenobarbital infusion and see how things are doing, will then further discuss alcohol treatment and see if he is receptive. He does tend to have low potassium and magnesium, will recheck these with basic labs. Low suspicion for acute coronary syndrome contributing to anxiety, but will check troponin and EKG. Reevaluation(s) Time of Reevaluation #1: 08:07 Reevaluation #1: Patient feeling moderately better after the phenobarbital and Ativan. Not interested in hospitalization at this time. Would like to go home. I reviewed the normal labs with him, normal EKG and troponin. He is not interested in referral for alcohol treatment, hospitalization or detox at this time. I do not feel comfortable giving him additional doses of anti seizure medication or antianxiety medicine to have outpatient since he is still drinking heavy amounts of alcohol and has significant risk factors for sleep apnea. I have encouraged him to discontinue alcohol together and have encouraged primary care follow-up for further management of his anxiety. Vital Signs Vital signs: Initial Vital Signs Respiratory Effort Normal, Spontaneous, Non-Labored 10/24/23 06:26 Respiratory Depth Normal 10/24/23 06:26 Respiratory Pattern Normal 10/24/23 06:26 Vital Signs Temperature 98.6 F 10/24/23 06:31 Pulse Rate 99 10/24/23 06:31 Respiratory Rate 18 10/24/23 06:31 Blood Pressure 143/85 H 10/24/23 06:31 Pulse Oximetry 95 10/24/23 06:31 Oxygen Delivery Method Room Air 10/24/23 06:31 Temperature 98.6 F 10/24/23 06:31 Pulse Rate 93 10/24/23 07:32 Respiratory Rate 20 10/24/23 07:32 Blood Pressure 137/79 10/24/23 07:32 Pulse Oximetry 92 10/24/23 07:32 Oxygen Delivery Method Room Air 10/24/23 07:00 Medications Administered Medications: Discontinued Medications Generic Name Dose Route Start Last Admin Trade Name Tish PRN Reason Stop Dose Admin Phenobarbital 130 mg/ Sodium 102 mls @ 204 mls/hr 10/24/23 06:42 10/24/23 07:31 Chloride IVPB 10/24/23 06:43 204 mls/hr ONCE ONE Administration Lorazepam 1 mg 10/24/23 06:42 10/24/23 06:52 Lorazepam 1 Mg Tablet PO 10/24/23 06:43 1 mg ONCE ONE Administration Thiamine HCl 100 mg 10/24/23 06:42 10/24/23 06:52 Thiamine 100 Mg Tablet PO 10/24/23 06:43 100 mg ONCE ONE Administration Medical Decision Making Lab Data Labs: Lab Results 10/24/23 Range/Units 06:45 WBC 7.89 (4.50-11.00) K/uL RBC 5.75 (4.30-5.90) m/uL Hgb 16.7 (13.5-17.5) gm/dL Hct 51.8 (37.0-53.0) % MCV 90 (80-100) fL MCH 29 (26-34) pg MCHC 32 (32-36) gm/dL RDW Coeff of Dhara 13.3 (11.5-15.5) % Plt Count 308 (140-440) K/uL Neut % (Auto) 62.4 (42.0-72.0) % Lymph % (Auto) 28.4 (20-44) % Bullock % (Auto) 8.0 (0.0-11.0) % Eos % (Auto) 0.8 (0.0-7.0) % Baso % (Auto) 0.1 (0.0-3.0) % Neut # (Auto) 4.93 (1.7-7.0) K/uL Lymph # (Auto) 2.24 (0.90-2.90) K/uL Bullock # (Auto) 0.60 (0.00-0.90) K/UL Eos # (Auto) 0.06 (0.00-0.50) K/uL Baso # (Auto) 0.01 (0.00-0.30) K/uL Abs Immat Gran (auto) 0.02 (0.00-0.30) K/uL Imm/Tot Granulo (auto) 0.3 % Sodium 136 (135-149) mmol/L Potassium 4.5 (3.6-5.1) mmol/L Chloride 101 (96-114) mmol/L Carbon Dioxide 21 (20-32) mmol/L Anion Gap 14 (7-15) mEq/L BUN 23 (5-24) mg/dL Creatinine 1.4 (0.5-1.5) mg/dL Estimated Creat Clear 88.02 Estimated GFR 67 ml/min Glucose 96 (60-115) mg/dL Calcium 9.4 (8.4-10.6) mg/dL Magnesium 1.6 (1.5-2.6) mg/dL POC Troponin I 0.00 L (0.01-0.04) ng/ml ECG Data Attestation: I personally reviewed and interpreted this ECG as follows: Prior ECG tracings: available for review Interpretation: Comparison is 07/06/2023, completely unchanged. Current rate is 86, sinus rhythm. Slightly leftward axis with normal intervals. No acute ischemia. 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 It may temporarily make you feel slightly better and numb the effects of your anxiety but the withdrawal factor last much longer than the facts of the alcohol, ultimately causing you more anxiety. I strongly recommend that you completely quit drinking any alcohol. You have declined alcohol treatment, hospitalization or detox at this time. This is within your rights. To help reduce her chance of seizure, I have given you a small dose of Ativan and a large dose of phenobarbital, on anti seizure medicine that will also help with your anxiety. It will not completely eliminate your risk of seizure but it will reduce it. If your feelings of alcohol withdrawal worsen significantly, please come back to the emergency department, you may require more medication. The remainder of your blood work otherwise looked normal. No electrolyte abnormalities, low potassium, low magnesium or heart abnormalities today. This is good news. I did not check your liver functions as that would not affected our management today. Activity Level: Activity as Tolerated Discharge Diet: Regular Prescriptions: No Action amlodipine 10 mg tablet 10 mg PO DAILY lisinopril-hydrochlorothiazide 20-25 mg tablet 1 tab PO DAILY hydroxyzine HCl 25 mg tablet 25 mg PO DIRECTED metoprolol succinate 50 mg tablet extended release 24 hr 50 mg PO DAILY buspirone 15 mg tablet 15 mg PO BID folic acid 1 mg Tablet 1 mg PO DAILY Qty: 30 0RF Follow Up/Referrals: Provider,Not a Local [Primary Care Provider] - Stand Alone Forms: [employer] Info Instructions
[2023-10-24] MEDS: LORazepam 1 MG TABLET PO (06:52)
[2023-10-24] MEDS: THIAMINE 100 MG TABLET PO (06:52)
[2023-10-24 06:58] LABS: Basophils Absolute Auto 0.01 K/uL (0.00-0.30); Basophils Percent Auto 0.1 % (0.0-3.0); Eosinophils Absolute Auto 0.06 K/uL (0.00-0.50); Eosinophils Percent Auto 0.8 % (0.0-7.0); Hematocrit 51.8 % (37.0-53.0); Hemoglobin* 16.7 gm/dL (13.5-17.5); Immature Granulocytes Abs Auto 0.02 K/uL (0.00-0.30); Immature Granulocytes Pct Auto 0.3 %; Lymphocytes Absolute Auto 2.24 K/uL (0.90-2.90); Lymphocytes Percent Auto 28.4 % (20-44); Mean Corpuscular HGB Conc 32 gm/dL (32-36); Mean Corpuscular Hemoglobin 29 pg (26-34); Mean Corpuscular Volume 90 fL (80-100); Neutrophils Absolute Auto 4.93 K/uL (1.7-7.0); Neutrophils Percent Auto 62.4 % (42.0-72.0); Platelet Count* 308 K/uL (140-440); RDW Coefficient of Variation % 13.3 % (11.5-15.5); Red Blood Count 5.75 m/uL (4.30-5.90); White Blood Count* 7.89 K/uL (4.50-11.00)
[2023-10-24 06:59] LABS: Slide Review Reflex No
[2023-10-24 07:08] LABS: Chloride* 101 mmol/L (96-114)
[2023-10-24 07:09] LABS: Potassium* 4.5 mmol/L (3.6-5.1); Sodium* 136 mmol/L (135-149)
[2023-10-24 07:11] LABS: Creatinine* 1.4 mg/dL (0.5-1.5); Est. Creatinine Clearance* 88.02; Estimated Glomerular Filt Rate 67 ml/min
[2023-10-24 07:12] LABS: Anion Gap 14 mEq/L (7-15); Blood Urea Nitrogen* 23 mg/dL (5-24); Calcium* 9.4 mg/dL (8.4-10.6); Carbon Dioxide* 21 mmol/L (20-32); Glucose* 96 mg/dL (60-115); Magnesium* 1.6 mg/dL (1.5-2.6)
[2023-10-24] MEDS: PHENobarbitaL 130 MG in 0.9 % SODIUM CHLORIDE 100 ml 100 ML 204 MG IVPB (07:31)
== END 2023-10-24 08:14 | disposition home or self-care (01) ==
PROVIDERS: Emergency Provider Family Medicine
DX: F10.239 Alcohol dependence with withdrawal, unspecified (principal); F41.9 Anxiety disorder, unspecified
CPT/HCPCS: 36415; 80048; 83735; 84484; 85025; 93005; 94761; 96365; 99284; A9270; J2560

== ENCOUNTER 2024-03-08 14:30 | Emergency (ER) | payer OTHER, SELFPAY ==
[2024-03-08 14:39] VITALS: BP 161/74; PULSE 89; RESP 22; TEMP 37; O2SAT 94; BMI 63.7
--- NOTE | 2024-03-08 14:46 | ED_ITS ---
HPI - Dental/Oral General Time Seen by Provider: 14:46 Date Seen: 03/08/24 Chief complaint: Dental/Oral/Mouth Injury/Pain Stated complaint: Toothache R side Time Seen by Provider: 03/08/24 14:44 Source: patient, RN notes reviewed and old records reviewed Mode of arrival: ambulatory Limitations: no limitations History of Present Illness HPI Narrative: 34-year-old male who comes in today with dental pain. Patient presents with 3 days of left upper tooth pain, now with some facial swelling as well. Denies fever chills, no breathing or swallowing difficulty. Has been taking Tylenol and ibuprofen for this Related Data Home Medications Medication Instructions Recorded Confirmed buspirone 15 mg tablet 15 mg PO BID 01/01/23 09/27/23 metoprolol succinate 50 mg 50 mg PO DAILY 01/01/23 10/24/23 tablet,extended release 24 hr amlodipine 10 mg tablet 10 mg PO DAILY 07/06/23 10/24/23 hydroxyzine HCl 25 mg tablet 25 mg PO DIRECTED 09/27/23 09/27/23 lisinopril 20 1 tab PO DAILY 09/27/23 10/24/23 mg-hydrochlorothiazide 25 mg tablet Previous Rx's Medication Instructions Recorded folic acid 1 mg tablet 1 mg PO DAILY #30 tabs 02/12/23 Allergies Allergy/AdvReac Type Severity Reaction Status Date / Time No Known Drug Allergies Allergy Verified 09/27/23 05:58 [facility] Medical History Alcoholism ?F10.20 - Alcohol dependence, uncomplicated (ICD-10) Obstructive sleep apnea ?G47.33 - Obstructive sleep apnea (adult) (pediatric) (ICD-10) Agoraphobia with panic attacks ?F40.01 - Agoraphobia with panic disorder (ICD-10) History of panic attacks ?Z86.59 - Personal history of other mental and behavioral disorders (ICD-10) Anxiety disorder ?F41.9 - Anxiety disorder, unspecified (ICD-10) Major depressive disorder ?F32.9 - Major depressive disorder, single episode, unspecified (ICD-10) Essential hypertension ?I10 - Essential (primary) hypertension (ICD-10) Synovial cyst of popliteal space [Palmer], right knee ?M71.21 - Synovial cyst of popliteal space [Palmer], right knee (ICD-10) Current smoker ?F17.200 - Nicotine dependence, unspecified, uncomplicated (ICD-10) History of seizure due to alcohol withdrawal ?Z87.898 - Personal history of other specified conditions (ICD-10) ?Z86.59 - Personal history of other mental and behavioral disorders (ICD-10) History of alcohol withdrawal syndrome ?Z86.59 - Personal history of other mental and behavioral disorders (ICD-10) Right knee pain ?M25.561 - Pain in right knee (ICD-10) Alcohol dependence, binge pattern ?F10.20 - Alcohol dependence, uncomplicated (ICD-10) Anxiety ?F41.9 - Anxiety disorder, unspecified (ICD-10) Morbidly obese ?E66.01 - Morbid (severe) obesity due to excess calories (ICD-10) Surgical History S/P right knee arthroscopy ?Z98.890 - Other specified postprocedural states (ICD-10) Social History Highest level of school completed/degree received: high school graduate Smoking Status: Current every day smoker Do you use any of these nicotine containing products: None Second hand tobacco smoke exposure: No How often do you have a drink containing alcohol: 4 or more times a week Alcohol type: hard liquor How many standard drinks containing alcohol do you have on a typical day: 10 or more How often do you have six or more drinks on one occasion: Daily or almost daily AUDIT-C Alcohol total score: 12 Non-prescribed substance use: denies use Caffeine: Yes (6-10 cans) service: No Exam Narrative: Exam Narrative: General: well nourished , NAD Head: Atraumatic and normocephalic ENT: 1 x 2 cm flocculence of the hard palate on the left, diffuse for dentition with gingival erythema next to eroded teeth 10, 11, 12. Mild left zygomatic and cheek swelling with no palpable fluid collection in this area. Eyes: Conjunctiva clear, pupils are equal reactive, external ocular motions are intact Neck: Full spontaneous range of motion of the neck Lungs: No respiratory distress Musculoskeletal: No tenderness or deformity Neurologic: No gross focal neurologic deficits Skin: No rashes Psych: Mood and affect are appropriate Const: Vital Signs, click to edit/add: Vital Signs - 24 hr 03/08/24 14:39 Temperature 98.6 F Pulse Rate [Right Pulse Oximeter] 89 Respiratory Rate 22 Blood Pressure [Ri ght Upper Arm] 161/74 H Pulse Oximetry 94 Oxygen Delivery Me thod Room Air Course Course ED Course: Patient seen and examined, reviewed prior emergency department visit from October 24 when patient was seen with alcohol withdrawal and anxiety, treated and discharged from the department. Patient presents with dental pain and some swelling of the left cheek as well as an abscess on the hard palate. Discussed risks and benefits of drainage of this abscess, patient is agreeable to proceed. Procedure: Incision and drainage, abscess, left hard palate. Risks and tj efits discussed with patient, verbal consent was obtained. Lidocaine 1% with epi was injected into the mucosa of the hard palate. A stab incision with a 11 blade was performed anteriorly with small amount of purulent material obtained. Due to continued swelling, 2nd stab incision was made posterior to this with moderate purulent material obtained. Patient tolerated this well, hemostasis controlled with cold water swish and spit. Vital Signs Vital signs: Initial Vital Signs Temperature 98.6 F 03/08/24 14:39 Temperature Source Temporal Artery Scan 03/08/24 14:39 Pulse Rate 89 03/08/24 14:39 Respiratory Rate 22 03/08/24 14:39 Blood Pressure 161/74 H 03/08/24 14:39 Blood Pressure Mean 103 03/08/24 14:39 Blood Pressure Position Sitting 03/08/24 14:39 Pulse Oximetry 94 03/08/24 14:39 Oxygen Delivery Method Room Air 03/08/24 14:39 Vital Signs Temperature 98.6 F 03/08/24 14:39 Pulse Rate 89 03/08/24 14:39 Respiratory Rate 22 03/08/24 14:39 Blood Pressure 161/74 H 03/08/24 14:39 Pulse Oximetry 94 03/08/24 14:39 Oxygen Delivery Method Room Air 03/08/24 14:39 Temperature 98.6 F 03/08/24 14:39 Pulse Rate 89 03/08/24 14:39 Respiratory Rate 22 03/08/24 14:39 Blood Pressure 161/74 H 03/08/24 14:39 Pulse Oximetry 94 03/08/24 14:39 Oxygen Delivery Method Room Air 03/08/24 14:39 Discharge Plan Discharge Prescriptions: No Action amlodipine 10 mg tablet 10 mg PO DAILY lisinopril-hydrochlorothiazide 20-25 mg tablet 1 tab PO DAILY hydroxyzine HCl 25 mg tablet 25 mg PO DIRECTED metoprolol succinate 50 mg tablet extended release 24 hr 50 mg PO DAILY buspirone 15 mg tablet 15 mg PO BID folic acid 1 mg Tablet 1 mg PO DAILY Qty: 30 0RF Follow Up/Referrals: Provider,Not a Local [Referring] -
--- OUTSIDE RECORDS SUMMARY | 2024-03-08 15:09 | XMS_ITS | Clinical Summary ---
Author Name Unknown Organization [facility] Address [place], [place] [address] Care Team Providers Care Precision Agriculture Specialist Name Role Phone Pcp, No Unavailable Unavailable Arlette Conde DO Primary Care Provider [phone] Mandeep Menjivar Unavailable Allergies No known active allergies Medications Medication Sig Dispensed Refills Start Date End Date Status CPAPIndications:LULU (obstructive sleep apnea) CPAP machine for home use at pressure 5-20 cmw, full face mask x1/3month with a full face cushion x1/mo Length of Need: 99 months Frequency of Use: Daily 1 Each 11 02/23/2022 Active naltrexone (REVIA) 50 mg tabletIndications:Al cohol use disorder in remission Take 1 Tablet (50 mg) by mouth once daily. 90 Tablet 07/26/2022 Active naproxen (NAPROSYN) 500 mg tabletIndications:Ch ronic pain of both knees Take 1 Tablet (500 mg) by mouth every 12 hours if needed for Pain. 90 Tablet 07/26/2022 Active emollient (VANICREAM,NEUTRAGEN A) creamIndications:Alhaji ateral lower extremity edema Apply topically to affected area(s) each time if needed for Dry Skin. 453 g 3 07/26/2022 Active folic acid 1 mg tablet Take 1 mg by mouth once daily. 02/12/2023 Active magnesium oxide (MAG-OX 400) 400 mg tablet TAKE 1 TABSULE BY MOUTH DAILY DIRECTED 11/26/2022 Active amLODIPine (NORVASC) 10 mg tabletIndications:HT N (hypertension) Take 1 Tablet (10 mg) by mouth once daily. 90 Tablet 3 02/26/2023 Active Walker - 4 wheelsIndications:Mo rbid obesity with BMI of 60.0-69.9, adult (HC),Chronic pain of right knee For home use. Length of need: 99 Weight: 225.6kg 1 Each 03/08/2023 Active busPIRone (BUSPAR) 30 mg tablet Take 30 mg by mouth two times daily. 03/25/2023 Active amoxicillin (AMOXIL) 500 mg capsule Take 500 mg by mouth three times daily. 09/05/2023 Active ibuprofen (ADVIL; MOTRIN) 600 mg tablet Take 600 mg by mouth three times daily with meals. 09/05/2023 Active hydrOXYzine HCL (ATARAX) 25 mg tabletIndications:Ge neralized anxiety disorder with panic attacks Take 1 Tablet (25 mg) by mouth every 6 hours if needed for Anxiety. 25 Tablet 11/22/2023 Active metoprolol succinate (TOPROL XL) 50 mg sustained-release tabletIndications:Es sential hypertension Take 1 Tablet (50 mg) by mouth once daily. 90 Tablet 3 11/22/2023 Active venlafaxine (EFFEXOR XR) 150 mg Extended-Release capsuleIndications:A nxiety and depression Take 1 Capsule (150 mg) by mouth once daily with evening meal. Total 225mg daily 90 Capsule 3 11/22/2023 Active magnesium oxide (MAG-OX 400) 400 mg tabletIndications:Lo w magnesium level Take 1 Tablet (400 mg) by mouth once daily. 90 Tablet 1 11/27/2023 Active lisinopril-hydrochlo rothiazide, 20-25 mg, (PRINZIDE, ZESTORETIC) 20-25 mg per tabletIndications:HT N (hypertension) Take 1 Tablet by mouth once daily. 90 Tablet 3 01/27/2024 Active Active Problems Problem Noted Date Diagnosed Date LULU (obstructive sleep apnea) 02/16/2022 Anxiety and depression 08/03/2021 Overview: Venlafaxine and buspirone Alcohol withdrawal syndrome without complication 02/15/2021 Alcohol dependence 02/15/2021 Essential hypertension 02/15/2021 Overview: Lisinopril and metoprolol Hypomagnesemia 02/15/2021 Overview: 01/22/2022 Magnesium 1.1 Current smoker 11/05/2018 Overview: 02/15/2021 smoking 1 ppd of cigarettes. Morbid obesity with BMI of 60.0-69.9, adult 07/22 Overview: 01/22/2022 Body mass index is 60 kg/m??. BMI>40, which is consistent with MORBID OBESITY. This is clinically significant due to increased nursing cares, use of resources and specialty equipment. Palmer cyst, right 08/11/2018 Resolved Problems Problem Noted Date Diagnosed Date Resolved Date Hypocalcemia 02/15/2021 01/22/2022 Overview: 02/15/2021 associated with tetany. Ionized calcium 0.86. Anxiety 09/05/2018 01/22/2022 Encounters Date Type Department Care Team Description 01/17/2024 Patient Outreach [facility] [address] [place] [id number] Geni Cheng [facility] Care Coordination- [facility] (Member refusal letter mailed.) 01/16/2024 Patient Outreach [facility] [address] [place] [id number] Mandeep Menjivar MOCLIPS Care Coordination- [facility] (Administrative Activity Decline) 01/15/2024 Patient Outreach [facility] [address] [place] [id number] Mandeep Menjivar MOCLIPS Care Coordination- [facility] (Annual Outreach) from Last 3 Months Immunizations Name Administration Dates Next Due COVID-19 vaccine (Moderna 100mcg/0.5mL) PF, MDV 08/01/2021,07/04/2021 COVID-19 vaccine (Pfizer-Bio NTech 30mcg/0.3mL) 12YO+ BIVALENT PF, MDV 07/26/2022 COVID-19 vaccine (Pfizer-Bio NTech 30mcg/0.3mL) 12YO+ COLIN-SUCROSE PF, MDV 01/29/2022 DTP 05/31/1993, 9,1988,1987,1988 Hepatitis B, Unspecified 06/07/1999 MMR 06/07/1999,05/31/1993,06/19/1989 Oral Polio Vaccine 05/31/1993, 9,1988,1987 Td (Age >=7 Years) 07/24/2000,06/07/1999 Tdap 08/14/2012 Family History Medical History Relation Name Comments Unknown Father Diabetes Mother Hypertension Mother Hypertension Paternal Grandmother Relation Name Status Comments Father Mother Paternal Grandmother Social History Tobacco Use Types Packs/Day Years Used Date Smoking Tobacco: Every Day Cigarettes Smokeless Tobacco: Never Tobacco Cessation:Ready to Q uit: Not Asked; Counseling Given: Not Answered Alcohol Use Standard Drinks/Week Comments Yes 0 (1 standard drink = 0.6 oz pur e alcohol) PHQ-2 Answer Date Recorded PHQ-2 TOTAL SCORE 5 11/22/2023 Social Connections Answer Date Recorded Frequency of Communication with Friends and Fami ly Not on file 01/02/2023 Financial Resource Strain Answer Date R ecorded Difficulty of Paying Living Expenses 3 12/27/2021 Difficulty of Paying Living Expenses Not on file 12/27/2021 Food Insecurity Answer Date Recorded Worried About Running Out of Food in the Last Ye ar 1 12/27/2021 Transportation Needs Answer Date Record ed Lack of Transportation (Medical) 1 12/27/2021 Housing Stability Answer Date Recorded Unable to Pay for Housing in the Last Year 3 12/27/2021 Sex and Gender Information Value Date Recorded Sex Assigned at Not on file Gender Identity Not on file Sexual Orientation Not on file Obstetrics History Last Filed Vital Signs Vital Sign Reading Time Taken Comments Blood Pressure 130/82 11/22/2023 2:53 PM RECONCILER Pulse 84 11/22/2023 2:53 PM RECONCILER Temperature 37.3 ??C (99.1 ??F) 07/22/2022 9:00 PM CD T Respiratory Rate 20 07/22/2022 9:00 PM CDT Oxygen Saturation 94% 11/22/2023 2:53 PM RECONCILER Inhaled Oxygen Concentration - - Weight 234.7 kg (517 lb 6.4 oz) 11/22/2023 2:53 PM RECONCILER Height 190.5 cm (6' 3) 11/22/2023 2:53 PM RECONCILER Body Mass Index 64.67 11/22/2023 2:53 PM RECONCILER Plan of Treatment Upcoming Encounters Date Type Department Care Team (Late st Contact Info) Description 03/25/2024 3:25 PM CDT Office [facility] [address] [facility] [address] Erna Morin Aubree, DO [address] [facility] [place] [address] Health Maintenance Due Date Last Done Comments Pneumococcal series for age 6-64 (1 of 2 - PCV) 01/08/1994 Tetanus booster 08/14/2022 08/14/2012, 01/2000, 06/07/1999 COVID-19 vaccine series (2022- season) 2023 07/26/2022, 01/29/2022, 08/01/2021, Additional history exists Influenza for age 9-49 06/21/2024 BMI (ht and wt on same day) for age 18+ 11/22/2024 11/22/2023, 11/05/2018, 09/29/2018, Additional history exists Depression screening for age 12+ 11/22/2024 11/22/2023, 02/26/2023, 08/03/2021, Additional history exists Lipids for age 35-44 11/22/2028 11/22/2023 Tdap Completed 08/14/2012 HIV for age 15-65 Completed 08/11/2018 Hepatitis C screening for ag e 18-79 Completed 08/11/2018 Goals Goal Patient Goal Type Associated Problems Recent Progress Patient-Stated? Author [facility]: Decline General Yes Mandeep Menjivar Note: Health Risk Assessment (HRA) Declined - [facility] Member Goal Statement: Jus Reynaga will be offered an HRA and care coordination support annually, according to [facility], CMS, and health plan guidelines. Date HRA Declined: 01/16/24 Goal Start Date: 01/16/24 Goal End Date: 01/14/25 Goal Priority: High Care Coordination Actions: Care Guide (CG) contact information provided to Jus Reynaga: Yes Preventive care needs addressed: Yes Notes on preventive care needs gaps: N/A Member offered assistance to coordinate visit with primary care provider (PCP): No - member declined PCP confirmed: Yes Name of PCP: Erna Morin DO [facility] Provider Engagement Letter sent (Enhanced members only): No - not enhanced member [facility] Member Refusal Letter sent: Yes - sent via mail on 01/16/24 [facility] Leave Behind documents and Self-Report Health Assessment sent: Yes - sent via mail on 01/16/24 Plan/Next Steps: Administrative activity tasks completed since HRA is due; see separate Encounter. Attempt next outreach/HRA scheduling calls in 1 year. Timeline for next outreach scheduled through Track Patient Outreach. Continue outreach to contact and engage member, per health plan requirement. MANDEEP MENJIVAR..........01/16/2024 4:17 PM Procedures Procedure Name Priority Date/Time Associated Diagnosis Comments LIPID PANEL W REFLEX MEASURED LDL Routine 11/22/2023 3:38 PM RECONCILER Screening for lipid disorders ANTI HIV 1/2 Routine 08/11/2018 5:52 PM CDT Screening for STD (sexually transmitted disease) ANTI HCV Routine 08/11/2018 5:52 PM CDT Screening for STD (sexually transmitted disease) from Last 3 Months or Most Recently Relevant to Health Maintenance Results * (ABNORMAL) LIPID PANEL W REFLEX MEASURED LDL [[id number]] (11/22/2023 3:38 PM RECONCILER) CHOLESTEROL,TOTAL 169 100 - 199 mg/dL 11/22/2023 9:17 PM RECONCILER [facility] Comment: Cholesterol, Total Reference Ranges Desirable <200 mg/dL Borderline 200-239 mg/dL High >=240 mg/dL TRIGLYCERIDES 258(H) <150 mg/dL 11/22/2023 9:17 PM RECONCILER [facility] HDL CHOLESTEROL 34(L) >40 mg/dL 9:17 PM RECONCILER [facility] NON-HDL CHOLESTEROL 135 <145 mg/dl 11/22/2023 9:17 PM RECONCILER [facility] CHOL/HDL RATIO 4.97(H) <4.50 11/22/2023 9:17 PM RECONCILER [facility] LDL CHOLESTEROL 83 <=130 mg/dL 11/22/2023 9:17 PM RECONCILER [facility] VLDL CHOLESTEROL 52(H) <=30 mg/dL 11/22/2023 9:17 PM RECONCILER [facility] PROVIDER ORDERED STATUS RANDOM 11/22/2023 9:17 PM RECONCILER [facility] Blood BLOOD SPECIMEN / Unknown Venipuncture / Unknown 11/22/2023 3:38 PM RECONCILER 11/22/2023 3:39 PM RECONCILER Erna Morin DO CHEMISTRY [facility] [address] [place] [address], * ANTI HCV (08/11/2018 5:52 PM CDT) HEPATITIS C ANTIBODY Non-React amisha Non-React amisha 08/11/2018 10:51 PM CDT [facility] Comment:Antibodies to HCV no t detected; does not exclude the possibility of exposure to HCV. Blood BLOOD SPECIMEN / Unknown Venipuncture / Unknown 08/11/2018 5:52 PM CDT 08/11/2018 5:53 PM CDT Silvano Ortega RIM ROLLER OPERATOR SEND OUTS [facility] [address] [place] [address], [place] * ANTI HIV 1/2 (08/11/2018 5:52 PM CDT) HIV-1/HIV-2 ANTIBODY Non-Reacti ve Non-Reacti ve 08/11/2018 10:54 PM CDT [facility] Comment:HIV-1 p24 and HIV-1/ HIV-2 Ab not detected. Blood BLOOD SPECIMEN / Unknown Venipuncture / Unknown 08/11/2018 5:52 PM CDT 08/11/2018 5:53 PM CDT Silvano Ortega RIM ROLLER OPERATOR SEND OUTS [facility] [address] [place] [address], [place] from Last 3 Months or Most Recently Relevant to Health Maintenance Advance Directives * Full Code (Latest Code Status on File) Date Activated Date Inactivated Comments 01/22/2022 11:48 PM 01/23/2022 1:39 PM Question Answer Comments Code Status Discussion: Reviewed Preferences * Full Code Date Activated Date Inactivated Comments 02/15/2021 1:04 PM 02/16/2021 2:47 PM Question Answer Comments Code Status Discussion: Not Discussed * Full Code Date Activated Date Inactivated Comments 10/01/2018 11:12 AM 10/01/2018 9:31 PM Care Teams Precision Agriculture Specialist Relationship Specialty Start Date End Date Arlette Conde DO [address] [place] [address] PCP - General Family Practice 06/20/21 Pcp, No . 04/01/18 Mandeep Menjivar [address] [place] [address] [facility] Care Coordination Care Guide 07/12/23
== END 2024-03-08 15:40 | disposition home or self-care (01) ==
PROVIDERS: Emergency Provider Family Medicine; PCP Family Medicine
DX: K04.7 Periapical abscess without sinus (principal)
CPT/HCPCS: 41800; 99283; 99284

== ENCOUNTER 2024-05-28 18:43 | Emergency (ER) | payer OTHER, SELFPAY ==
[2024-05-28] VITALS (17 sets, daily range): BP systolic 118–139; BP diastolic 85–103; PULSE 81–100; RESP 22; TEMP 36.2; O2SAT 88–95; BMI 63.7
[2024-05-28] MEDS: 0.9 % SODIUM CHLORIDE 1000 ml 1,000 ML IV (19:18)
[2024-05-28 19:19] LABS: Lactate* 2.7 mmol/L (0.5-1.9)
[2024-05-28 19:25] LABS: Basophils Absolute Auto 0.01 K/uL (0.00-0.30); Basophils Percent Auto 0.2 % (0.0-3.0); Eosinophils Absolute Auto 0.05 K/uL (0.00-0.50); Eosinophils Percent Auto 0.8 % (0.0-7.0); Hematocrit 52.2 % (37.0-53.0); Hemoglobin* 16.7 gm/dL (13.5-17.5); Immature Granulocytes Abs Auto 0.01 K/uL (0.00-0.30); Immature Granulocytes Pct Auto 0.2 %; Lymphocytes Percent Auto 22.8 % (20-44); Mean Corpuscular HGB Conc 32 gm/dL (32-36); Mean Corpuscular Hemoglobin 28 pg (26-34); Mean Corpuscular Volume 87 fL (80-100); Monocytes Percent Auto 7.3 % (0.0-11.0); Neutrophils Absolute Auto 4.21 K/uL (1.7-7.0); Neutrophils Percent Auto 68.7 % (42.0-72.0); Platelet Count* 158 K/uL (140-440); RDW Coefficient of Variation % 17.5 % (11.5-15.5); Red Blood Count 6.02 m/uL (4.30-5.90); White Blood Count* 6.13 K/uL (4.50-11.00)
--- OUTSIDE RECORDS SUMMARY | 2024-05-28 19:27 | XMS_ITS | Clinical Summary ---
Author Organization [facility] Address [place], [place] [address] Care Team Providers Care Heating Operators Engineer Name Role Phone Pcp, No Unavailable Unavailable Arlette Conde DO Primary Care Provider [phone] Apoorva Menjivar RN Student Unavailable [phone] Allergies No known active allergies Medications Medication [...] TABSULE BY MOUTH DAILY DIRECTED 11/26/2022 Active Walker - 4 wheelsIndications:Mo rbid obesity [...] once daily. 90 Tablet 3 01/27/2024 Active amLODIPine (NORVASC) 10 mg tabletIndications:HT N (hypertension) Take 1 Tablet (10 mg) by mouth once daily. 90 Tablet 03/22/2024 Active Active Problems Problem Noted Date Diagnosed [...] Encounters Date Type Department Care Team Description 03/20/2024 Refill [facility] [address] [place] [address] Erna Morin, DO Refill Request (Amlodipine) from Last 3 Months Immunizations Name Administration Dates Next Due COVID-19 vaccine (Moderna 100mcg/0.5mL) PF, MDV 08/01/2021,07/04/2021 COVID-19 vaccine (Nuve-Bio NTech 30mcg/0.3mL) 12YO+ BIVALENT PF, MDV 07/26/2022 COVID-19 vaccine (Nuve-Bio NTech 30mcg/0.3mL) 12YO+ COLIN-SUCROSE PF, MDV 01/29/2022 [...] Comments Blood Pressure 130/82 11/22/2023 2:53 PM LAB SUPPORT TECH Pulse 84 11/22/2023 2:53 PM LAB SUPPORT TECH Temperature 37.3 ??C (99.1 ??F) 07/22/2022 9:00 PM CD T Respiratory Rate 20 07/22/2022 9:00 PM CDT Oxygen Saturation 94% 11/22/2023 2:53 PM LAB SUPPORT TECH Inhaled Oxygen Concentration - - Weight 234.7 kg (517 lb 6.4 oz) 11/22/2023 2:53 PM LAB SUPPORT TECH Height 190.5 cm (6' 3) 11/22/2023 2:53 PM LAB SUPPORT TECH Body Mass Index 64.67 11/22/2023 2:53 PM LAB SUPPORT TECH Plan of Treatment Health Maintenance Due Date Last Done Comments [...] Patient-Stated? Author [facility]: Decline General Yes Apoorva Menjivar, RN Student Note: Health Risk Assessment (HRA) Declined - [facility] Member Goal Statement: Jus Reynaga will be offered an HRA and care coordination support annually, according to [facility], CMS, and health plan guidelines. Date HRA [...] and engage member, per health plan requirement. APOORVA MENJIVAR..........01/16/2024 4:17 PM Procedures Procedure Name Priority Date/Time Associated Diagnosis Comments LIPID PANEL W REFLEX MEASURED LDL Routine 11/22/2023 3:38 PM LAB SUPPORT TECH Screening for lipid disorders ANTI HIV 1/2 Routine 08/11/2018 5:52 PM CDT Screening for STD (sexually transmitted disease) ANTI HCV Routine 08/11/2018 5:52 PM CDT Screening for STD (sexually transmitted disease) from Last 3 Months or Most Recently Relevant to Health Maintenance Results * (ABNORMAL) LIPID PANEL W REFLEX MEASURED LDL [[id number]] (11/22/2023 3:38 PM LAB SUPPORT TECH) CHOLESTEROL,TOTAL 169 100 - 199 mg/dL 11/22/2023 9:17 PM LAB SUPPORT TECH [facility] Comment: Cholesterol, Total Reference Ranges Desirable <200 mg/dL Borderline 200-239 mg/dL High >=240 mg/dL TRIGLYCERIDES 258(H) <150 mg/dL 11/22/2023 9:17 PM LAB SUPPORT TECH [facility] HDL CHOLESTEROL 34(L) >40 mg/dL 9:17 PM LAB SUPPORT TECH [facility] NON-HDL CHOLESTEROL 135 <145 mg/dl 11/22/2023 9:17 PM LAB SUPPORT TECH [facility] CHOL/HDL RATIO 4.97(H) <4.50 11/22/2023 9:17 PM LAB SUPPORT TECH [facility] LDL CHOLESTEROL 83 <=130 mg/dL 11/22/2023 9:17 PM LAB SUPPORT TECH [facility] VLDL CHOLESTEROL 52(H) <=30 mg/dL 11/22/2023 9:17 PM LAB SUPPORT TECH [facility] PROVIDER ORDERED STATUS RANDOM 11/22/2023 9:17 PM LAB SUPPORT TECH [facility] Blood BLOOD SPECIMEN / Unknown Venipuncture / Unknown 11/22/2023 3:38 PM LAB SUPPORT TECH 11/22/2023 3:39 PM LAB SUPPORT TECH Erna Aubree Shaqra DO CHEMISTRY Performing Organization Address [facility]/ZIP Co de Phone Number [facility] [address] [place] [address], * ANTI HCV (08/11/2018 5:52 PM CDT) HEPATITIS C ANTIBODY Non-React amisha Non-React amisha 08/11/2018 10:51 PM CDT [facility] Comment:Antibodies to HCV no t detected; does not exclude the possibility of exposure to HCV. Blood BLOOD SPECIMEN / Unknown Venipuncture / Unknown 08/11/2018 5:52 PM CDT 08/11/2018 5:53 PM CDT Silvano Ortega NP SEND OUTS Performing Organization Address [facility] Co de Phone Number [facility] [address] [place] [phone], [place] * ANTI HIV 1/2 (08/11/2018 5:52 PM CDT) Pathologist [facility] HIV-1/HIV-2 ANTIBODY Non-Reacti ve Non-Reacti ve 08/11/2018 10:54 PM CDT [facility] Comment:HIV-1 p24 and HIV-1/ HIV-2 Ab not detected. Blood BLOOD SPECIMEN / Unknown Venipuncture / Unknown 08/11/2018 5:52 PM CDT 08/11/2018 5:53 PM CDT Silvano Ortega NP SEND OUTS [facility] [address] [place] [phone], from Last 3 Months or Most Recently [...] 11:12 AM 10/01/2018 9:31 PM Care Teams Heating Operators Engineer Relationship Specialty Start Date End Date Arlette Conde DO [address] [place] [address] PCP - General Family Practice 06/20/21 Pcp, No . 04/01/18 Apoorva Menjivar, RN Student [address] [place] [address] [facility] Care Coordination Care Guide 07/12/23
[2024-05-28] MEDS: LORazepam 2 MG/ML inj 0.5 MG IVP (19:28)
[2024-05-28 19:38] LABS: Albumin* 4.4 g/dL (3.3-5.0); Chloride* 98 mmol/L (96-114); Potassium* 4.6 mmol/L (3.6-5.1); Sodium* 129 mmol/L (135-149)
[2024-05-28 19:40] LABS: Anion Gap 9 mEq/L (7-15); Carbon Dioxide* 22 mmol/L (20-32); Creatinine* 1.8 mg/dL (0.5-1.5); Est. Creatinine Clearance* 67.81; Estimated Glomerular Filt Rate 49 ml/min
[2024-05-28 19:41] LABS: Alanine Aminotransferase* 19 U/L (4-50); Alkaline Phosphatase* 94 U/L (40-150); Aspartate Amino Transferase* 40 U/L (12-35); Bilirubin Total* 1.1 mg/dL (0.1-1.5); Calcium* 8.9 mg/dL (8.4-10.6); Glucose* 107 mg/dL (60-115); Magnesium* 1.3 mg/dL (1.5-2.6); Total Protein* 8.5 g/dL (6.0-8.3)
[2024-05-28 19:43] LABS: Blood Urea Nitrogen* 17 mg/dL (5-24)
[2024-05-28 19:50] LABS: Ethanol* < 0.01 % (0.01-0.03)
[2024-05-28 19:57] LABS: Slide Review Reflex No
[2024-05-28] MEDS: PHENobarbitaL 130 MG in 0.9 % SODIUM CHLORIDE 100 ml 100 ML 204 MG IVPB (19:57)
[2024-05-28 20:24] LABS: Bilirubin Direct* 0.5 mg/dL (0.0-0.5)
--- NOTE | 2024-05-28 22:33 | ED.GENADULT ---
HPI - General Adult General Chief complaint: Anxiety Stated complaint: Withdrawals Time Seen by Provider: 05/28/24 18:52 Source: patient Limitations: no limitations History of Present Illness HPI narrative: 34-year-old male with alcohol use disorder presenting today with concerns about withdrawal and anxiety. Patient states that he had his last drink around 2:00 a.m. today. He feels very anxious, jittery. He does have a history of significant withdrawals including seizures although nothing in the recent past. He is here today to help him get through his symptoms. He does frequent the ER with the same chief complaint, his last visit for this particular issue was in October of this year. He usually requires phenobarbital and Ativan which makes him feel better. Today he states that he does not wish to do detox or I recovery program patient states he has done both of those many times. Related Data Home Medications ?Medication ?Instructions ?Recorded ?Confirmed buspirone 15 mg tablet 15 mg PO BID 01/01/23 09/27/23 metoprolol succinate 50 mg 50 mg PO DAILY 01/01/23 10/24/23 tablet,extended release 24 hr amlodipine 10 mg tablet 10 mg PO DAILY 07/06/23 10/24/23 hydroxyzine HCl 25 mg tablet 25 mg PO DIRECTED 09/27/23 09/27/23 lisinopril 20 1 tab PO DAILY 09/27/23 10/24/23 mg-hydrochlorothiazide 25 mg tablet Previous Rx's ?Medication ?Instructions ?Recorded folic acid 1 mg tablet 1 mg PO DAILY #30 tabs 02/12/23 Allergies Allergy/AdvReac Type Severity Reaction Status Date / Time No Known Drug Allergies Allergy Verified 09/27/23 05:58 Review of Systems Status of ROS: Reports: 10 or more systems reviewed and unremarkable except as noted in History and below [facility] Medical History Alcoholism ?F10.20 - Alcohol dependence, uncomplicated (ICD-10) Obstructive sleep apnea ?G47.33 - Obstructive sleep apnea (adult) (pediatric) (ICD-10) Agoraphobia with panic attacks ?F40.01 - Agoraphobia with panic disorder (ICD-10) History of panic attacks ?Z86.59 - Personal history of other mental and behavioral disorders (ICD-10) Anxiety disorder ?F41.9 - Anxiety disorder, unspecified (ICD-10) Major depressive disorder ?F32.9 - Major depressive disorder, single episode, unspecified (ICD-10) Essential hypertension ?I10 - Essential (primary) hypertension (ICD-10) Synovial cyst of popliteal space [Palmer], right knee ?M71.21 - Synovial cyst of popliteal space [Palmer], right knee (ICD-10) Current smoker ?F17.200 - Nicotine dependence, unspecified, uncomplicated (ICD-10) History of seizure due to alcohol withdrawal ?Z87.898 - Personal history of other specified conditions (ICD-10) ?Z86.59 - Personal history of other mental and behavioral disorders (ICD-10) History of alcohol withdrawal syndrome ?Z86.59 - Personal history of other mental and behavioral disorders (ICD-10) Right knee pain ?M25.561 - Pain in right knee (ICD-10) Alcohol dependence, binge pattern ?F10.20 - Alcohol dependence, uncomplicated (ICD-10) Anxiety ?F41.9 - Anxiety disorder, unspecified (ICD-10) Morbidly obese ?E66.01 - Morbid (severe) obesity due to excess calories (ICD-10) Surgical History S/P right knee arthroscopy ?Z98.890 - Other specified postprocedural states (ICD-10) Social History Highest level of school completed/degree received: high school graduate Smoking Status: Current every day smoker What tobacco products do you use: cigarettes Do you use any of these nicotine containing products: None Second hand tobacco smoke exposure: No How often do you have a drink containing alcohol: 4 or more times a week Alcohol type: hard liquor How many standard drinks containing alcohol do you have on a typical day: 10 or more How often do you have six or more drinks on one occasion: Daily or almost daily AUDIT-C Alcohol total score: 12 Non-prescribed substance use: denies use Caffeine: Yes (6-10 cans) service: No Exam Narrative: Exam Narrative: Obese patient, very anxious and jittery. Alert and oriented x3. Answers questions appropriately. Mood and affect are appropriate. Thoughts are goal oriented and rational. No tangential or magical thinking noted. Patient speaks in full sentences without needing to catch his breath. Patient is disheveled and has not bathed in quite some time HEENT: Normocephalic atraumatic. Pupils are equally round reactive to light. Extraocular muscles are intact. Conjunctivae are moist without any icterus noted. Moist mucous membranes. Cardiovascular: Heart is regular rate and rhythm S1 and S2 are present without any murmurs. Lungs: Clear to auscultation bilaterally no wheezes rhonchi or rales are appreciated. Patient takes deep breaths without any discomfort. Abdomen: Soft and nontender nondistended with normal bowel sounds. Difficult to assess for organomegaly secondary to body habitus. Extremities: Bilateral lower extremities are without edema. Skin: Well perfused. Const: Vital Signs, click to edit/add: Vital Signs - 24 hr 05/28/24 18:51 05/28/24 19:27 05/28/24 19:30 Temperature 97.1 F L Pulse Rate 89 91 Pulse Rate [Pulse Oximeter] Pulse Rate [Right Pulse Oximeter] 91 Respiratory Rate 22 Blood Pressure [Le ft Forearm] 139/85 Pulse Oximetry 95 95 [facility] 05/28/24 19:45 05/28/24 20:00 05/28/24 20:02 Temperature Pulse Rate 92 82 Pulse Rate [Pulse Oximeter] 81 Pulse Rate [Right Pulse Oximeter] Respiratory Rate Blood Pressure [Le ft Forearm] Pulse Oximetry 90 90 95 [facility] 05/28/24 20:15 05/28/24 20:30 05/28/24 20:45 Temperature Pulse Rate 86 85 88 Pulse Rate [Pulse Oximeter] Pulse Rate [Right Pulse Oximeter] Respiratory Rate Blood Pressure [Le ft Forearm] Pulse Oximetry 91 88 95 [facility] 05/28/24 21:09 05/28/24 21:15 05/28/24 21:30 Temperature Pulse Rate 93 86 88 Pulse Rate [Pulse Oximeter] Pulse Rate [Right Pulse Oximeter] Respiratory Rate Blood Pressure [Le ft Forearm] Pulse Oximetry 92 93 90 [facility] 05/28/24 21:45 05/28/24 22:00 Temperature Pulse Rate 87 90 Pulse Rate [Pulse Oximeter] Pulse Rate [Right Pulse Oximeter] Respiratory Rate Blood Pressure [Le ft Forearm] Pulse Oximetry 91 93 Oxygen Delivery Me thod Course Course ED Course: IV was established and patient received phenobarbital, Ativan and a L of normal saline. CBC was unremarkable. Sodium was low 129. Creatinine elevated at 1.8. Lactate elevated 2.7. Magnesium low 1.3. LFTs are unremarkable. Alcohol is less than 0.01. We also treated the patient with 1 g of IV magnesium. EKG, read by me, shows normal sinus rhythm with a pulse of 85. After treatment patient is feeling better and requests to go home. Did not want any repeat lab work done. We discussed his lab abnormalities. Patient is not intoxicated otherwise holdable. He is discharged home with this time. Vital Signs Vital signs: Initial Vital Signs Temperature 97.1 F L 05/28/24 18:51 Temperature Source Temporal Artery Scan 05/28/24 18:51 Pulse Rate 91 05/28/24 18:51 Pulse Rhythm Regular 05/28/24 18:51 Pulse Strength 3+ Normal 05/28/24 18:51 Respiratory Rate 22 05/28/24 18:51 Blood Pressure 139/85 05/28/24 18:51 Blood Pressure Mean 103 05/28/24 18:51 Blood Pressure Position Sitting 05/28/24 18:51 Pulse Oximetry 95 05/28/24 18:51 Oxygen Delivery Method Room Air 05/28/24 18:51 Vital Signs Temperature 97.1 F L 05/28/24 18:51 Pulse Rate 91 05/28/24 18:51 Respiratory Rate 22 05/28/24 18:51 Blood Pressure 139/85 05/28/24 18:51 Pulse Oximetry 95 05/28/24 18:51 Oxygen Delivery Method Room Air 05/28/24 18:51 Temperature 97.1 F L 05/28/24 18:51 Pulse Rate 90 05/28/24 22:00 Respiratory Rate 22 05/28/24 18:51 Blood Pressure 139/85 05/28/24 18:51 Pulse Oximetry 93 05/28/24 22:00 Oxygen Delivery Method Room Air 05/28/24 20:02 Medications Administered Medications: Discontinued Medications Generic Name Dose Route Start Last Admin Trade Name Freq PRN Reason Stop Dose Admin Sodium Chloride 1,000 mls @ 1,000 mls/hr 05/28/24 19:15 05/28/24 20:20 0.9 % Sodium Chloride 1000 Ml IV 05/28/24 20:14 Infused .Q1H SUKI Infusion Phenobarbital 130 mg/ Sodium 102 mls @ 204 mls/hr 05/28/24 19:05 05/28/24 20:27 Chloride IVPB 05/28/24 19:06 Infused ONCE ONE Infusion Magnesium Sulfate/Dextrose 1 gm in 100 mls @ 100 mls/hr 05/28/24 19:55 05/28/24 21:40 Magnesium Sulf 1 G/100 Ml-D5w IVPB 05/28/24 20:54 Infused ONCE ONE Infusion Lorazepam 0.5 mg 05/28/24 19:05 05/28/24 19:28 Lorazepam 2 Mg/Ml Inj IVP 05/28/24 19:06 0.5 mg ONCE ONE Administration Medical Decision Making MDM Narrative Medical decision making narrative: 34-year-old male with alcohol use disorder, anxiety. Treatment for acute symptoms per above. Hyponatremia and hypomagnesemia treated with normal saline and magnesium. Medical Records Medical records reviewed: Yes I reviewed the patient's medical records Lab Data Lab results reviewed: Yes I reviewed the patient's lab results Labs: Lab Results 05/28/24 Range/Units 19:16 WBC 6.13 (4.50-11.00) K/uL RBC 6.02 H (4.30-5.90) m/uL Hgb 16.7 (13.5-17.5) gm/dL Hct 52.2 (37.0-53.0) % MCV 87 (80-100) fL MCH 28 (26-34) pg MCHC 32 (32-36) gm/dL RDW Coeff of Dhara 17.5 H (11.5-15.5) % Plt Count 158 (140-440) K/uL Neut % (Auto) 68.7 (42.0-72.0) % Lymph % (Auto) 22.8 (20-44) % [place] % (Auto) 7.3 (0.0-11.0) % Eos % (Auto) 0.8 (0.0-7.0) % Baso % (Auto) 0.2 (0.0-3.0) % Neut # (Auto) 4.21 (1.7-7.0) K/uL Lymph # (Auto) 1.40 (0.90-2.90) K/uL [place] # (Auto) 0.40 (0.00-0.90) K/UL Eos # (Auto) 0.05 (0.00-0.50) K/uL Baso # (Auto) 0.01 (0.00-0.30) K/uL Abs Immat Gran (auto) 0.01 (0.00-0.30) K/uL Imm/Tot Granulo (auto) 0.2 % Sodium 129 L (135-149) mmol/L Potassium 4.6 (3.6-5.1) mmol/L Chloride 98 (96-114) mmol/L Carbon Dioxide 22 (20-32) mmol/L Anion Gap 9 (7-15) mEq/L BUN 17 (5-24) mg/dL Creatinine 1.8 H (0.5-1.5) mg/dL Estimated Creat Clear 67.81 Estimated GFR 49 ml/min Glucose 107 (60-115) mg/dL Lactate 2.7 H (0.5-1.9) mmol/L Calcium 8.9 (8.4-10.6) mg/dL Magnesium 1.3 L (1.5-2.6) mg/dL Total Bilirubin 1.1 (0.1-1.5) mg/dL Direct Bilirubin 0.5 (0.0-0.5) mg/dL AST 40 H (12-35) U/L ALT 19 (4-50) U/L Alkaline Phosphatase 94 (40-150) U/L Total Protein 8.5 H (6.0-8.3) g/dL Albumin 4.4 (3.3-5.0) g/dL Ethyl Alcohol < 0.01 L (0.01-0.03) % ECG Data Attestation: I personally reviewed and interpreted this ECG as follows: Discharge Plan Discharge Clinical Impression: Alcohol use disorder, Anxiety, Electrolyte abnormality Patient Disposition: Home, Self-Care Condition: Stable Additional Instructions: Recommend alcohol cessation. If you need help with this I recommend you call [facility] social media senior associate or your primary care provider. Your electrolytes were abnormal today, this is due to the alcohol use. Make sure you are eating nutritious foods and cutting back on alcohol intake. Prescriptions: No Action amlodipine 10 mg tablet 10 mg PO DAILY lisinopril-hydrochlorothiazide 20-25 mg tablet 1 tab PO DAILY hydroxyzine HCl 25 mg tablet 25 mg PO DIRECTED metoprolol succinate 50 mg tablet extended release 24 hr 50 mg PO DAILY buspirone 15 mg tablet 15 mg PO BID folic acid 1 mg Tablet 1 mg PO DAILY Qty: 30 0RF Follow Up/Referrals: Erna Morin DO [Primary Care Provider] - Stand Alone Forms: [facility] Info Instructions
== END 2024-05-28 22:55 | disposition home or self-care (01) ==
PROVIDERS: Emergency Provider Family Medicine; PCP Family Medicine
DX: F10.10 Alcohol abuse, uncomplicated (principal); F41.9 Anxiety disorder, unspecified; E87.8 Other disorders of electrolyte and fluid balance, not elsewhere classified
CPT/HCPCS: 36415; 80048; 80076; 80306; 81001; 82077; 83605; 83735; 85025; 93005; 94761; 96365; 96366; 96375; 99284; A0425; A0427; J2060; J2560; J3475; J7030

== ENCOUNTER 2024-07-16 15:16 | Emergency (ER) | payer OTHER, SELFPAY ==
[2024-07-16] VITALS (11 sets, daily range): BP systolic 72–121; BP diastolic 31–93; PULSE 78–106; RESP 28; TEMP 36.7; O2SAT 87–92; BMI 62.5
--- NOTE | 2024-07-16 15:34 | CRLHL7_ITS ---
For Patients: As a result of the Century Cures Act, medical imaging exams and procedure reports are released immediately into your electronic medical record. You may view this report before your referring provider. If you have questions, please contact your health care provider. Indication: SOB Technique: AP view of the chest. Comparison: 07/06/2023 Findings: Suboptimal examination secondary to habitus. Low lung volumes. Normal cardiomediastinal silhouette. Mild interstitial prominence. No focal consolidation, pleural effusions, or visualized pneumothorax. Impression: Suboptimal examination secondary to habitus. Mild interstitial prominence may relate to low lung volumes or represent mild pulmonary edema. Dictated by Vasu John MD @ 07/16/2024 5:30:27 PM (Electronically Signed)
--- NOTE | 2024-07-16 15:35 | ED_ITS ---
HPI - General Adult General Date Seen: 07/16/24 Chief complaint: Dizziness/Vertigo Stated complaint: Dizzy, loss of vision, chest pains, LOC Time Seen by Provider: 07/16/24 15:17 Source: patient Mode of arrival: ambulatory Limitations: no limitations History of Present Illness HPI narrative: Patient is a 34-year-old male presenting to the emergency department for lightheadedness, chest pain. Patient states he went to a doctor's appointment today for some lab work is is concerned she could be having some worsening kidney function. He states while he was getting lab work done he started to feel very lightheaded and felt like his vision was going in and out. Also states he started getting chest pain and shortness of breath. Symptoms got worse after he left his appointment and then they came to the emergency department. On the drive here he states he lost consciousness for a short amount of time. The person the room with him states she was driving and she says he just kind of slumped over to the side of his seat in the car and then woke up right away. Patient does states he has a history of anxiety and is feeling anxious right now. He has a history of panic attacks and agoraphobia. Does have history of alcohol use but states he has not had a drink in over a week. Denies fevers, chills, abdominal pain, nausea, weakness. States he feels like his vision is going in and out. Related Data Home Medications ?Medication ?Instructions ?Recorded ?Confirmed buspirone 15 mg tablet 15 mg PO BID 01/01/23 09/27/23 metoprolol succinate 50 mg 50 mg PO DAILY 01/01/23 10/24/23 tablet,extended release 24 hr amlodipine 10 mg tablet 10 mg PO DAILY 07/06/23 10/24/23 hydroxyzine HCl 25 mg tablet 25 mg PO DIRECTED 09/27/23 09/27/23 lisinopril 20 1 tab PO DAILY 09/27/23 10/24/23 mg-hydrochlorothiazide 25 mg tablet Previous Rx's ?Medication ?Instructions ?Recorded folic acid 1 mg tablet 1 mg PO DAILY #30 tabs 02/12/23 Allergies Allergy/AdvReac Type Severity Reaction Status Date / Time No Known Drug Allergies Allergy Verified 09/27/23 05:58 Review of Systems Status of ROS: Reports: 10 or more systems reviewed and unremarkable except as noted in History and below PFSH PFS Medical History Alcoholism ?F10.20 - Alcohol dependence, uncomplicated (ICD-10) Obstructive sleep apnea ?G47.33 - Obstructive sleep apnea (adult) (pediatric) (ICD-10) Agoraphobia with panic attacks ?F40.01 - Agoraphobia with panic disorder (ICD-10) History of panic attacks ?Z86.59 - Personal history of other mental and behavioral disorders (ICD-10) Anxiety disorder ?F41.9 - Anxiety disorder, unspecified (ICD-10) Major depressive disorder ?F32.9 - Major depressive disorder, single episode, unspecified (ICD-10) Essential hypertension ?I10 - Essential (primary) hypertension (ICD-10) Synovial cyst of popliteal space [Palmer], right knee ?M71.21 - Synovial cyst of popliteal space [Palmer], right knee (ICD-10) Current smoker ?F17.200 - Nicotine dependence, unspecified, uncomplicated (ICD-10) History of seizure due to alcohol withdrawal ?Z87.898 - Personal history of other specified conditions (ICD-10) ?Z86.59 - Personal history of other mental and behavioral disorders (ICD-10) History of alcohol withdrawal syndrome ?Z86.59 - Personal history of other mental and behavioral disorders (ICD-10) Right knee pain ?M25.561 - Pain in right knee (ICD-10) Alcohol dependence, binge pattern ?F10.20 - Alcohol dependence, uncomplicated (ICD-10) Anxiety ?F41.9 - Anxiety disorder, unspecified (ICD-10) Morbidly obese ?E66.01 - Morbid (severe) obesity due to excess calories (ICD-10) Surgical History S/P right knee arthroscopy ?Z98.890 - Other specified postprocedural states (ICD-10) Social History Highest level of school completed/degree received: high school graduate Smoking Status: Current every day smoker What tobacco products do you use: cigarettes Do you use any of these nicotine containing products: None Second hand tobacco smoke exposure: No How often do you have a drink containing alcohol: 4 or more times a week Alcohol type: hard liquor How many standard drinks containing alcohol do you have on a typical day: 10 or more How often do you have six or more drinks on one occasion: Daily or almost daily AUDIT-C Alcohol total score: 12 Non-prescribed substance use: denies use Caffeine: Yes (6-10 cans) service: No Exam Narrative: Exam Narrative: Const: Well-nourished, Well-developed, in mild distress, anxious Eyes: PERRL, no conjunctival injection, and symmetrical lids HENT: Atraumatic external nose and ears. Moist mucous membranes. Neck: Symmetric, trachea midline, No thyromegaly. CVS: RRR, No murmurs or gallops. Peripheral pulses 2+ and equal in all extremities RESP: Unlabored respiratory effort. Clear to auscultation bilaterally. GI: Nontender/Nondistended, No rebound or guarding. MSK:Extremities w/o deformity, Normal Active ROM Skin: Warm, Dry. No rashes or lesions. Neuro: Normal Muscle tone, No focal neurological deficits. Psych: Awake, Alert, & Oriented x3. Const: Vital Signs, click to edit/add: Vital Signs - 24 hr 07/16/24 15:25 07/16/24 16:03 07/16/24 16:04 Temperature 98.0 F Pulse Rate 86 86 Pulse Rate [Right Pulse Oximeter] 106 H Respiratory Rate 28 H Blood Pressure 72/31 L Blood Pressure [Ri ght Upper Arm] 121/93 H Pulse Oximetry 91 87 L 88 [facility] 07/16/24 16:07 07/16/24 16:15 07/16/24 16:30 Temperature Pulse Rate 91 97 89 Pulse Rate [Right Pulse Oximeter] Respiratory Rate Blood Pressure 85/37 L Blood Pressure [Ri ght Upper Arm] Pulse Oximetry 88 89 92 [facility] 07/16/24 16:37 07/16/24 16:45 07/16/24 17:00 Temperature Pulse Rate 93 85 78 Pulse Rate [Right Pulse Oximeter] Respiratory Rate Blood Pressure Blood Pressure [Ri ght Upper Arm] Pulse Oximetry [facility] 07/16/24 17:02 07/16/24 17:13 Temperature Pulse Rate 88 Pulse Rate [Right Pulse Oximeter] Respiratory Rate Blood Pressure 119/65 111/65 Blood Pressure [Ri ght Upper Arm] Pulse Oximetry 92 Oxygen Delivery Me thod Course Vital Signs Vital signs: Initial Vital Signs Temperature 98.0 F 07/16/24 15:25 Temperature Source Temporal Artery Scan 07/16/24 15:25 Pulse Rate 106 H 07/16/24 15:25 Respiratory Rate 28 H 07/16/24 15:25 Blood Pressure 121/93 H 07/16/24 15:25 Blood Pressure Mean 102 07/16/24 15:25 Blood Pressure Position Sitting 07/16/24 15:25 Pulse Oximetry 91 07/16/24 15:25 Oxygen Delivery Method Room Air 07/16/24 15:25 Vital Signs Temperature 98.0 F 07/16/24 15:25 Pulse Rate 106 H 07/16/24 15:25 Respiratory Rate 28 H 07/16/24 15:25 Blood Pressure 121/93 H 07/16/24 15:25 Pulse Oximetry 91 07/16/24 15:25 Oxygen Delivery Method Room Air 07/16/24 15:25 Temperature 98.0 F 07/16/24 15:25 Pulse Rate 88 07/16/24 17:02 Respiratory Rate 28 H 07/16/24 15:25 Blood Pressure 111/65 07/16/24 17:13 Pulse Oximetry 92 07/16/24 17:02 Oxygen Delivery Method Room Air 07/16/24 15:25 Medications Administered Medications: Discontinued Medications Generic Name Dose Route Start Last Admin Trade Name Freq PRN Reason Stop Dose Admin Lactated Ringer's 1,000 mls @ 1,000 mls/hr 07/16/24 15:33 07/16/24 17:22 Lactated Ringers 1000 Ml IV 07/16/24 16:32 Infused .Q1H ONE Infusion Lorazepam 1 mg 07/16/24 15:34 07/16/24 15:52 Lorazepam 2 Mg/Ml Inj IVP 07/16/24 15:35 1 mg ONCE ONE Administration Medical Decision Making MDM Narrative Medical decision making narrative: Patient is a 34-year-old male presenting to emergency department for chest pain, lightheadedness. He does have a history of agoraphobia and panic attacks and this time seems most likely to be a panic attack but I will evaluate other causes of chest pain. Seems unlikely has a blood clot as he has no history of blood clots and symptoms started pretty consistently with when he was getting his blood draw. I will order EKG, troponin, chest x-ray, CBC, BMP, COVID/flu, given 1 L of lactated Ringer. 1 mg of Ativan ordered. Before patient got Ativan discharged to home down his heart rate came down into the 90s. Patient's lab work all returned without any concerning abnormalities. His creatinine is elevated 1.7 but this has been consistent with previous lab work and is why he got his lab work recheck today. Chest x-ray was suboptimal due to his size but overall does not show any concerning findings. He did have some hypotensive blood pressures but was asymptomatic at that time and I believe it is more likely due to cuff tear due to his habitus rather than actual hypertension as he was again asymptomatic. He states he feels back to normal and will be discharged. Symptoms are most likely from panic attack Lab Data Labs: Lab Results 07/16/24 07/16/24 07/16/24 Range/Units 14:03 15:34 15:44 WBC 12.02 H (4.50-11.00) K/uL RBC 5.87 (4.30-5.90) m/uL Hgb 17.1 (13.5-17.5) gm/dL Hct 53.6 H (37.0-53.0) % MCV 91 (80-100) fL MCH 29 (26-34) pg MCHC 32 (32-36) gm/dL RDW Coeff of Dhara 17.4 H (11.5-15.5) % Plt Count 267 (140-440) K/uL Neut % (Auto) 66.6 (42.0-72.0) % Lymph % (Auto) 23.2 (20-44) % [place] % (Auto) 7.2 (0.0-11.0) % Eos % (Auto) 2.2 (0.0-7.0) % Baso % (Auto) 0.1 (0.0-3.0) % Neut # (Auto) 8.00 H (1.7-7.0) K/uL Lymph # (Auto) 2.80 (0.90-2.90) K/uL [place] # (Auto) 0.90 (0.00-0.90) K/UL Eos # (Auto) 0.30 (0.00-0.50) K/uL Baso # (Auto) 0.00 (0.00-0.30) K/uL Abs Immat Gran (auto) 0.10 (0.00-0.30) K/uL Imm/Tot Granulo (auto) 0.7 % Sodium 135 (135-149) mmol/L Potassium 4.5 (3.6-5.1) mmol/L Chloride 104 (96-114) mmol/L Carbon Dioxide 17 L (20-32) mmol/L Anion Gap 14 (7-15) mEq/L BUN 26 H (5-24) mg/dL Creatinine 1.7 H (0.5-1.5) mg/dL Estimated Creat Clear 71.80 Estimated GFR 53 ml/min Glucose 103 (60-115) mg/dL Calcium 9.8 (8.4-10.6) mg/dL SARS-CoV-2 (PCR) Negative SARS-CoV-2 (Negative) Influenza Type A (PCR) Negative PCR FLU A (Negative) Influenza Type B (PCR) Negative PCR FLU B (Negative) POC Troponin I 0.00 L (0.01-0.04) ng/ml Imaging Data Chest x-ray: Attestation: I have reviewed the pertinent imaging results. Radiologist's impression: Suboptimal examination secondary to habitus. Mild interstitial prominence may relate to low lung volumes or represent mild pulmonary edema. Dictated by Vasu John MD @ 07/16/2024 5:30:27 PM ECG Data Attestation: I personally reviewed and interpreted this ECG as follows: Prior ECG tracings: available for review Interpretation: Sinus tachycardia with rate of 114 beats per minute, normal intervals, normal axis, no ST or T-wave abnormalities. Appears similar previous EKGs on file Discharge Plan Discharge Clinical Impression: Panic attack Patient Disposition: Home, Self-Care Condition: Improved Instructions: Panic Disorder (ED) Additional Instructions: I believe your symptoms today were from a panic attack but if they do return and do not go way return for re-evaluation. Prescriptions: No Action amlodipine 10 mg tablet 10 mg PO DAILY lisinopril-hydrochlorothiazide 20-25 mg tablet 1 tab PO DAILY hydroxyzine HCl 25 mg tablet 25 mg PO DIRECTED metoprolol succinate 50 mg tablet extended release 24 hr 50 mg PO DAILY buspirone 15 mg tablet 15 mg PO BID folic acid 1 mg Tablet 1 mg PO DAILY Qty: 30 0RF Follow Up/Referrals: Erna Morin DO [Primary Care Provider] - Stand Alone Forms: [employer] Info Instructions
[2024-07-16] MEDS: LACTATED RINGERS 1000 ML 1,000 ML IV (15:52)
[2024-07-16] MEDS: LORazepam 2 MG/ML inj 1 MG IVP (15:52)
[2024-07-16 16:04] LABS: Basophils Percent Auto 0.1 % (0.0-3.0); Eosinophils Percent Auto 2.2 % (0.0-7.0); Hematocrit 53.6 % (37.0-53.0); Hemoglobin* 17.1 gm/dL (13.5-17.5); Immature Granulocytes Pct Auto 0.7 %; Lymphocytes Percent Auto 23.2 % (20-44); Mean Corpuscular HGB Conc 32 gm/dL (32-36); Mean Corpuscular Hemoglobin 29 pg (26-34); Mean Corpuscular Volume 91 fL (80-100); Monocytes Percent Auto 7.2 % (0.0-11.0); Neutrophils Percent Auto 66.6 % (42.0-72.0); Platelet Count* 267 K/uL (140-440); RDW Coefficient of Variation % 17.4 % (11.5-15.5); Red Blood Count 5.87 m/uL (4.30-5.90); White Blood Count* 12.02 K/uL (4.50-11.00)
[2024-07-16 16:15] LABS: Slide Review Reflex No
[2024-07-16 16:16] LABS: Chloride* 104 mmol/L (96-114); Potassium* 4.5 mmol/L (3.6-5.1); Sodium* 135 mmol/L (135-149)
[2024-07-16 16:19] LABS: Anion Gap 14 mEq/L (7-15); Blood Urea Nitrogen* 26 mg/dL (5-24); Carbon Dioxide* 17 mmol/L (20-32); Creatinine* 1.7 mg/dL (0.5-1.5); Estimated Glomerular Filt Rate 53 ml/min; Glucose* 103 mg/dL (60-115)
[2024-07-16 16:20] LABS: Calcium* 9.8 mg/dL (8.4-10.6)
--- OUTSIDE RECORDS SUMMARY | 2024-07-16 16:31 | XMS_ITS | Clinical Summary ---
Author Organization [facility] Address [place], [place] [address] Care Team Providers Care Practicing Dermatologist Name Role Phone Pcp, No Unavailable Unavailable Apoorva Menjivar RN Student Unavailable Erna Morin DO Primary Care Provider Allergies No known active allergies Medications Medication Sig Dispensed Refills Start Date End Date Status CPAPIndications:O SA (obstructive sleep apnea) CPAP machine for home use at pressure 5-20 cmw, full face mask x1/3month with a full face cushion x1/mo Length of Need: 99 months Frequency of Use: Daily 1 Each 11 2 Active naltrexone (REVIA) 50 mg tabletIndications :Alcohol use disorder in remission Take 1 Tablet (50 mg) by mouth once daily. 90 Tablet 2 Active naproxen (NAPROSYN) 500 mg tabletIndications :Chronic pain of both knees Take 1 Tablet (500 mg) by mouth every 12 hours if needed for Pain. 90 Tablet 2 Active emollient (VANICREAM,NEUTRA CARRIE) creamIndications: Bilateral lower extremity edema Apply topically to affected area(s) each time if needed for Dry Skin. 453 g 3 2 Active folic acid 1 mg tablet Take 1 mg by mouth once daily. 3 Active magnesium oxide (MAG-OX 400) 400 mg tablet TAKE 1 TABSULE BY MOUTH DAILY DIRECTED 3 Active Walker - 4 wheelsIndications :Morbid obesity with BMI of 60.0-69.9, adult (HC),Chronic pain of right knee For home use. Length of need: 99 Weight: 225.6kg 1 Each 3 Active amoxicillin (AMOXIL) 500 mg capsule Take 500 mg by mouth three times daily. 3 Active ibuprofen (ADVIL; MOTRIN) 600 mg tablet Take 600 mg by mouth three times daily with meals. 3 Active metoprolol succinate (TOPROL XL) 50 mg sustained-release tabletIndications :Essential hypertension Take 1 Tablet (50 mg) by mouth once daily. 90 Tablet 3 4 Active venlafaxine (EFFEXOR XR) 150 mg Extended-Release capsuleIndication s:Anxiety and depression Take 1 Capsule (150 mg) by mouth once daily with evening meal. Total 225mg daily 90 Capsule 3 4 Active magnesium oxide (MAG-OX 400) 400 mg tabletIndications :Low magnesium level Take 1 Tablet (400 mg) by mouth once daily. 90 Tablet 1 4 Active lisinopril-hydroc hlorothiazide, 20-25 mg, (PRINZIDE, ZESTORETIC) 20-25 mg per tabletIndications :HTN (hypertension) Take 1 Tablet by mouth once daily. 90 Tablet 3 4 Active hydrOXYzine HCL (ATARAX) 25 mg tabletIndications :Generalized anxiety disorder with panic attacks Take 1 Tablet (25 mg) by mouth every 6 hours if needed for Anxiety. 25 Tablet 4 Active amLODIPine (NORVASC) 10 mg tabletIndications :HTN (hypertension) Take 1 Tablet (10 mg) by mouth once daily. 90 Tablet 3 4 Active busPIRone (BUSPAR) 15 mg tabletIndications :Generalized anxiety disorder Take 1 Tablet (15 mg) by mouth two times daily. 60 Tablet 4 Active busPIRone (BUSPAR) 30 mg tablet Take 30 mg by mouth two times daily. 3 06/30/20 24 Discontinued(Reo rder (E-cancel not sent)) hydrOXYzine HCL (ATARAX) 25 mg tabletIndications :Generalized anxiety disorder with panic attacks Take 1 Tablet (25 mg) by mouth every 6 hours if needed for Anxiety. 25 Tablet 4 06/24/20 24 Discontinued(Reo rder (E-cancel not sent)) amLODIPine (NORVASC) 10 mg tabletIndications :HTN (hypertension) Take 1 Tablet (10 mg) by mouth once daily. 90 Tablet 4 06/24/20 24 Discontinued amLODIPine (NORVASC) 10 mg tabletIndications :HTN (hypertension) TAKE 1 TABLET(10 MG) BY MOUTH DAILY 90 Tablet 4 06/30/20 24 Discontinued(*Me dication adjustment) Active Problems Problem Noted Date Diagnosed Date LULU (obstructive sleep apnea) 02/16/2022 Anxiety and depression 08/03/2021 Overview (01/22/2022): Venlafaxine and buspirone Alcohol withdrawal syndrome without complication 02/15/2021 Alcohol dependence 02/15/2021 Essential hypertension 02/15/2021 Overview (01/22/2022): Lisinopril and metoprolol Hypomagnesemia 02/15/2021 Overview (01/22/2022): 01/22/2022 Magnesium 1.1 Current smoker 11/05/2018 Overview (02/15/2021): 02/15/2021 smoking 1 ppd of cigarettes. Morbid obesity with BMI of 60.0-69.9, adult 07/22 Overview (01/22/2022): 01/22/2022 Body mass index is 60 kg/m??. BMI>40, which is consistent with MORBID OBESITY. This is clinically significant due to increased nursing cares, use of resources and specialty equipment. Palmer cyst, right 08/11/2018 Resolved Problems Problem Noted Date Diagnosed Date Resolved Date Hypocalcemia 02/15/2021 01/22/2022 Overview (02/15/2021): 02/15/2021 associated with tetany. Ionized calcium 0.86. Anxiety 09/05/2018 01/22/2022 Encounters Date Type Department Care Team Description 07/16/2024 2:45 PM CDT Orders Only [facility] [address] [place] [address] Lab, [place] [facility] 07/15/2024 Travel 06/30/2024 2:10 PM CDT Office Visit [facility] [address] [place] [address] Sir Morini Aubree, DO Blood Pressure (Follow up blood pressure/medication check); Anxiety (Increase in anxiety) 06/30/2024 Travel 06/21/2024 Refill [facility] [address] [place] [address] [address] Sir Morini Aubree, DO Refill Request (Amlodipine) from Last 3 Months Immunizations Name Administration Dates Next Due COVID-19 vaccine (Moderna 100mcg/0.5mL) PF, MDV 08/01/2021,07/04/2021 COVID-19 vaccine ([employer] NTech 30mcg/0.3mL) 12YO+ BIVALENT PF, MDV 07/26/2022 [...] PHQ-2 Answer Date Recorded PHQ-2 TOTAL SCORE 3 06/30/2024 Social Connections Answer Date Recorded Frequency of Communication with Friends and Fami ly 0 06/30/2024 Financial Resource Strain Answer Date R ecorded Difficulty of Paying Living Expenses 3 06/30/2024 Difficulty of Paying Living Expenses Not on file 06/30/2024 Food Insecurity Answer Date Recorded Worried About Running Out of Food in the Last Ye ar 1 06/30/2024 Transportation Needs Answer Date Record ed Lack of Transportation (Medical) 1 06/30/2024 Housing Stability Answer Date Recorded Unable to Pay for Housing in the Last Year 1 06/30/2024 Sex and Gender Information Value Date Recorded Sex Assigned at Not on file Gender Identity Not on file Sexual Orientation Not on file Obstetrics History Last Filed Vital Signs Vital Sign Reading Time Taken Comments Blood Pressure 106/72 06/30/2024 2:13 PM CDT Pulse 90 06/30/2024 2:13 PM CDT Temperature 37.3 ??C (99.1 ??F) 07/22/2022 9:00 PM CD T Respiratory Rate 20 07/22/2022 9:00 PM CDT Oxygen Saturation 94% 06/30/2024 2:13 PM CDT Inhaled Oxygen Concentration - - Weight 223.8 kg (493 lb 6.4 oz) 06/30/2024 2:13 PM CDT Height 190.5 cm (6' 3) 11/22/2023 2:53 PM MANAGER INPATIENT Body Mass Index 61.67 11/22/2023 2:53 PM MANAGER INPATIENT Plan of Treatment Health Maintenance Due Date Last Done Comments Pneumococcal series for age 6-64 (1 of 2 - PCV) 01/08/1994 Tetanus booster 08/14/2022 08/14/2012, 01/2000, 06/07/1999 COVID-19 vaccine series ( season) 2024 07/26/2022, 01/29/2022, 08/01/2021, Additional history exists Influenza for age 9-49 06/21/2024 BMI (ht and wt on same day) for age 18+ 11/22/2024 11/22/2023, 11/05/2018, 09/29/2018, Additional history exists Depression screening for age 12+ 06/30/2025 06/30/2024, 11/22/2023, 02/26/2023, Additional history exists Lipids for age 35-44 [...] and care coordination support annually, according to [facility], CMS, and health plan guidelines. Date HRA [...] Procedure Name Priority Date/Time Associated Diagnosis Comments MAGNESIUM Routine 06/30/2024 2:35 PM CDT Hypomagnesemia BASIC METABOLIC PANEL Routine 06/30/2024 2:35 PM CDT Hyponatremia JASON (acute kidney injury) (HC) LIPID PANEL W REFLEX MEASURED LDL Routine 11/22/2023 3:38 PM MANAGER INPATIENT Screening for lipid disorders ANTI HIV 1/2 Routine 08/11/2018 5:52 PM CDT Screening for STD (sexually transmitted disease) ANTI HCV Routine 08/11/2018 5:52 PM CDT Screening for STD (sexually transmitted disease) from Last 3 Months or Most Recently Relevant to Health Maintenance Results * MAGNESIUM (06/30/2024 2:35 PM CDT) MAGNESIUM 1.7 1.6 - 2.6 mg/dL 07/01/2024 3:45 AM CDT [facility] Blood BLOOD SPECIMEN / Unknown Venipuncture / Unknown 06/30/2024 2:35 PM CDT 06/30/2024 2:37 PM CDT Erna Morin DO CHEMISTRY [facility] [address] [place] [id number], * (ABNORMAL) BASIC METABOLIC PANEL (06/30/2024 2:35 PM CDT) SODIUM 138 136 - 145 mmol/L 07/01/2024 3:45 AM CDT [facility] POTASSIUM 4.9 3.5 - 5.1 mmol/L 07/01/2024 3:45 AM CDT [facility] CHLORIDE 100 98 - 107 mmol/L 07/01/2024 3:45 AM CDT [facility] CO2,TOTAL 24 22 - 29 mmol/L 07/01/2024 3:45 AM CDT [facility] ANION GAP 14 5 - 18 07/01/2024 3:45 AM CDT [facility] GLUCOSE 87 70 - 99 mg/dL 07/01/2024 3:45 AM CDT [facility] CALCIUM 9.7 8.6 - 10.0 mg/dL 07/01/2024 3:45 AM CDT [facility] BUN 27(H) 6 - 20 mg/dL 07/01/2024 3:45 AM CDT [facility] CREATININE 1.80(H) 0.70 - 1.20 mg/dL 07/01/2024 3:45 AM CDT [facility] BUN/CREAT RATIO 15 10 - 20 4 3:45 AM CDT [facility] eGFR 49(L) >90 mL/min/1.7 3m2 07/01/2024 3:45 AM T [facility] Comment:As of 2022, eG FR is calculated by the CKD-EPI creatinine equation without race adjustment. ??eGFR can be influenced by muscle mass, exercise, and diet. ??The reported eGFR is an estimation only and is only applicable if the renal function is stable. Blood BLOOD SPECIMEN / Unknown Venipuncture / Unknown 06/30/2024 2:35 PM CDT 06/30/2024 2:37 PM CDT Erna Morin DO [facility] [address] [place] [address], * (ABNORMAL) LIPID PANEL W REFLEX MEASURED LDL [[id number]] (11/22/2023 3:38 PM MANAGER INPATIENT) CHOLESTEROL,TOTAL 169 100 - 199 mg/dL 11/22/2023 9:17 PM MANAGER INPATIENT [facility] Comment: Cholesterol, Total Reference Ranges Desirable <200 mg/dL Borderline 200-239 mg/dL High >=240 mg/dL TRIGLYCERIDES 258(H) <150 mg/dL 11/22/2023 9:17 PM MANAGER INPATIENT [facility] HDL CHOLESTEROL 34(L) >40 mg/dL 9:17 PM MANAGER INPATIENT [facility] NON-HDL CHOLESTEROL 135 <145 mg/dl 11/22/2023 9:17 PM MANAGER INPATIENT [facility] CHOL/HDL RATIO 4.97(H) <4.50 11/22/2023 9:17 PM MANAGER INPATIENT [facility] LDL CHOLESTEROL 83 <=130 mg/dL 11/22/2023 9:17 PM MANAGER INPATIENT [facility] VLDL CHOLESTEROL 52(H) <=30 mg/dL 11/22/2023 9:17 PM MANAGER INPATIENT [facility] PROVIDER ORDERED STATUS RANDOM 11/22/2023 9:17 PM MANAGER INPATIENT [facility] Blood BLOOD SPECIMEN / Unknown Venipuncture / Unknown 11/22/2023 3:38 PM MANAGER INPATIENT 11/22/2023 3:39 PM MANAGER INPATIENT Erna Morin DO CHEMISTRY [facility] [address] [place] [address], * ANTI HCV (08/11/2018 5:52 PM CDT) HEPATITIS C ANTIBODY Non-React amisha Non-React amisha 08/11/2018 10:51 PM CDT [facility] Comment:Antibodies to HCV no t detected; does not exclude the possibility of exposure to HCV. Blood BLOOD SPECIMEN / Unknown Venipuncture / Unknown 08/11/2018 5:52 PM CDT 08/11/2018 5:53 PM CDT Silvano Ortega NP SEND OUTS [facility] [address] [place] [address], * ANTI HIV 1/2 (08/11/2018 5:52 PM CDT) HIV-1/HIV-2 ANTIBODY Non-Reacti ve Non-Reacti ve 08/11/2018 10:54 PM CDT [facility] Comment:HIV-1 p24 and HIV-1/ HIV-2 Ab not detected. Blood BLOOD SPECIMEN / Unknown Venipuncture / Unknown 08/11/2018 5:52 PM CDT 08/11/2018 5:53 PM CDT Silvano M Kummer MANAGER ADMINISTRATIVE SEND OUTS [employer] [facility] [address] [place] [address], from Last 3 Months or Most Recently [...] 11:12 AM 10/01/2018 9:31 PM Care Teams Practicing Dermatologist Relationship Specialty Start Date End Date Erna Morin DO [address] [place] [address] PCP - General Family Practice 06/30/24 Pcp, No . 04/01/18 Apoorva Menjivar, RN Student [address] [place] [address] AXIS Care Coordination Care Guide 07/12/23
[2024-07-16 17:04] LABS: PCR FLU A Negative PCR FLU A (Negative); PCR FLU B Negative PCR FLU B (Negative); SARS PCR* Negative SARS-CoV-2 (Negative)
== END 2024-07-16 18:01 | disposition home or self-care (01) ==
PROVIDERS: Emergency Provider Student in an Organized Health Care Education/Training Program; PCP Family Medicine
DX: F41.0 Panic disorder [episodic paroxysmal anxiety] (principal)
CPT/HCPCS: 36415; 71045; 80048; 84484; 85025; 87631; 93005; 96361; 96374; 99283; 99284; 99285; J2060; J7120

== ENCOUNTER 2024-07-20 18:32 | Emergency (ER) | payer OTHER, SELFPAY ==
[2024-07-20 18:39] VITALS: BP 133/105; PULSE 105; RESP 20; TEMP 35.8; O2SAT 92; BMI 62.5
--- NOTE | 2024-07-20 19:15 | CRLHL7_ITS ---
For Patients: As a result of the Century Cures Act, medical imaging exams and procedure reports are released immediately into your electronic medical record. You may view this report before your referring provider. If you have questions, please contact your health care provider. Indication: Swelling and pain. Technique: Ultrasound venous duplex left upper extremity. Compression venous exam was performed using ng-scale, color Doppler, and spectral Doppler imaging. Comparison: None. Findings: Extremely limited exam due to patient body habitus. Within these limits: LEFT Internal jugular: Not visualized. Subclavian: No thrombus visualized on grayscale, but noncompressible. No color flow detected, but Doppler flow present. Axillary: No thrombus visualized on grayscale, but noncompressible. No color flow detected, but Doppler flow present. Brachial: No thrombus visualized on grayscale, but noncompressible. No color flow detected, but Doppler flow present. Basilic: No thrombus visualized on grayscale, but noncompressible. No color flow detected, but Doppler flow present. Cephalic: Not visualized. Radial: Patent and compressible with color flow and phasic Doppler pattern. Ulnar: Patent and compressible with color flow and phasic Doppler pattern. RIGHT Internal jugular: Patent and compressible. Impression: Extremely limited exam due to patient body habitus. Within these limits: No definite evidence of thrombus (detail above). Dictated by Ian Mccormick MD @ 07/20/2024 9:11:46 PM (Electronically Signed)
--- OUTSIDE RECORDS SUMMARY | 2024-07-20 22:01 | XMS_ITS | Clinical Summary ---
Author Organization [facility] Address [place], [place] [address] Care Team Providers Care Studio Potter Name Role Phone Pcp, No Unavailable Unavailable Mandeep Menjivar RN Student Unavailable Erna Morin DO Primary Care Provider [phone] Allergies No known active allergies Medications Medication [...] Description 07/16/2024 2:45 PM CDT Orders Only [facility] [address] [place] [address] Lab, [place] Lab 07/16/[address] [facility] Scanner 1 scan: (1-Ord) PADMAJA, EKG, 07/16/2024 07/16/[address] [facility] Scanner 1 scan: (1-Ord) JO ANN, XR CHEST 1V PORTABLE, 07/16/2024 07/16/[address] [facility] Scanner 1 scan: (1-Ord) JO ANN, MULTIPLE LAB, 07/16/2024 07/15/2024 Travel 06/30/2024 2:10 PM CDT Office Visit [facility] [address] [place] [address] [address] Erna Moirn, DO Blood Pressure (Follow up blood pressure/medication check); Anxiety (Increase in anxiety) 06/30/2024 Travel 06/21/2024 Refill [facility] [address] [place] [address] [address] Erna Morin Aubree, DO Refill Request (Amlodipine) from Last 3 Months Immunizations Name Administration Dates Next Due COVID-19 vaccine (Moderna 100mcg/0.5mL) PF, MDV 08/01/2021,07/04/2021 COVID-19 vaccine ([employer]-Bio NTech 30mcg/0.3mL) 12YO+ BIVALENT PF, MDV 07/26/2022 [...] 190.5 cm (6' 3) 11/22/2023 2:53 PM WEAVER AXMINSTER Body Mass Index 61.67 11/22/2023 2:53 PM WEAVER AXMINSTER Plan of Treatment Health Maintenance Due Date [...] Author AXIS CC: Decline General Yes Mandeep Menjivar, RN Student Note: Health Risk Assessment (HRA) Declined - [employer] Member Goal Statement: Jus Reynaga will be offered an HRA and care coordination support annually, according to [facility], CMS, and health plan guidelines. Date [...] PCP confirmed: Yes Name of PCP: Erna Marshall Provider Engagement Letter sent (Enhanced members only): [...] Procedure Name Priority Date/Time Associated Diagnosis Comments BASIC METABOLIC PANEL Routine 07/16/2024 2:48 PM CDT JASON (acute kidney injury) (HC) SCAN-ELECTROCARDIOG LIBRADO EKG 07/16/2024 12:00 AM CDT SCAN-LABORATORY REPORT 07/16/2024 12:00 AM CDT SCAN-RADIOLOGY REPORT 07/16/2024 12:00 AM CDT MAGNESIUM Routine 06/30/2024 2:35 PM CDT Hypomagnesemia BASIC METABOLIC PANEL Routine 06/30/2024 2:35 PM CDT Hyponatremia JASON (acute kidney injury) (HC) LIPID PANEL W REFLEX MEASURED LDL Routine 11/22/2023 3:38 PM WEAVER AXMINSTER Screening for lipid disorders ANTI HIV 1/2 Routine 08/11/2018 5:52 PM CDT Screening for STD (sexually transmitted disease) ANTI HCV Routine 08/11/2018 5:52 PM CDT Screening for STD (sexually transmitted disease) from Last 3 Months or Most Recently Relevant to Health Maintenance Results * (ABNORMAL) BASIC METABOLIC PANEL (07/16/2024 2:48 PM CDT) Only the most recent of2 resultswithin the time period is included. GLUCOSE 107(H) 65 - 99 mg/dL [facility] Comment: ? Fasting reference interval For someone without known diabetes, a glucose value between 100 and 125 mg/dL is consistent with prediabetes and should be confirmed with a follow-up test. UREA NITROGEN (BUN) 25 7 - 25 mg/dL [facility] CREATININE 1.62(H) 0.60 - 1.26 mg/dL [facility] EGFR 56(L) > OR = 60 mL/min/1.7 3m2 [facility] BUN/CREATININE RATIO 15 6 - 22 (calc) [facility] SODIUM 135 135 - 146 mmol/L [facility] POTASSIUM 4.6 3.5 - 5.3 mmol/L [facility] CHLORIDE 98 98 - 110 mmol/L [facility] CARBON DIOXIDE 19(L) 20 - 32 mmol/L [facility] ELECTROLYTE BALANCE 18(H) 7 - 17 mmol/L (calc) [facility] CALCIUM 9.7 8.6 - 10.3 mg/dL [facility] Blood BLOOD SPECIMEN / Unknown 07/16/2024 2:48 PM CDT 07/16/2024 2:48 PM CDT Narrative [facility] - 07/17/2024 7:44 AM CDT COLLECTION KIT GIVEN TO PATIENT. PATIENT ADVISED TO RETURN. Erna Morin DO CHEMISTRY [facility] [address] [place] [address], [facility] [address] [place] [address] * SCAN-RADIOLOGY REPORT (07/16/2024 12:00 AM CDT) Anatomical Region Laterality Modality Other Scanner OTHER * SCAN-LABORATORY REPORT (07/16/2024 12:00 AM CDT) Scanner OTHER * SCAN-ELECTROCARDIOGRAM EKG (07/16/2024 12:00 AM CDT) Scanner OTHER * MAGNESIUM (06/30/2024 2:35 PM CDT) MAGNESIUM 1.7 1.6 - 2.6 mg/dL 07/01/2024 3:45 AM CDT [facility] Blood BLOOD SPECIMEN / Unknown Venipuncture / Unknown 06/30/2024 2:35 PM CDT 06/30/2024 2:37 PM CDT Erna Morin [employer] [facility] [address] [place] [address], * (ABNORMAL) LIPID PANEL W REFLEX MEASURED LDL [[id number]] (11/22/2023 3:38 PM WEAVER AXMINSTER) CHOLESTEROL,TOTAL 169 100 - 199 mg/dL 11/22/2023 9:17 PM WEAVER AXMINSTER [facility] Comment: Cholesterol, Total Reference Ranges Desirable <200 mg/dL Borderline 200-239 mg/dL High >=240 mg/dL TRIGLYCERIDES 258(H) <150 mg/dL 11/22/2023 9:17 PM WEAVER AXMINSTER [facility] HDL CHOLESTEROL 34(L) >40 mg/dL 9:17 PM WEAVER AXMINSTER [facility] NON-HDL CHOLESTEROL 135 <145 mg/dl 11/22/2023 9:17 PM WEAVER AXMINSTER [facility] CHOL/HDL RATIO 4.97(H) <4.50 11/22/2023 9:17 PM WEAVER AXMINSTER [facility] LDL CHOLESTEROL 83 <=130 mg/dL 11/22/2023 9:17 PM WEAVER AXMINSTER [facility] VLDL CHOLESTEROL 52(H) <=30 mg/dL 11/22/2023 9:17 PM WEAVER AXMINSTER [facility] PROVIDER ORDERED STATUS RANDOM 11/22/2023 9:17 PM WEAVER AXMINSTER [facility] Blood BLOOD SPECIMEN / Unknown Venipuncture / Unknown 11/22/2023 3:38 PM WEAVER AXMINSTER 11/22/2023 3:39 PM WEAVER AXMINSTER [employer] CHEMISTRY [facility] [address] [place] [address], * ANTI HCV (08/11/2018 5:52 PM CDT) HEPATITIS C ANTIBODY Non-React amisha Non-React amisha 08/11/2018 10:51 PM CDT [facility] Comment:Antibodies to HCV no t detected; does not exclude the possibility of exposure to HCV. Blood BLOOD SPECIMEN / Unknown Venipuncture / Unknown 08/11/2018 5:52 PM CDT 08/11/2018 5:53 PM CDT Silvano Ortega MANUFACTURING ASSOCIATE SEND OUTS [facility] [address] [place] [address], * ANTI HIV 1/2 (08/11/2018 5:52 PM CDT) HIV-1/HIV-2 ANTIBODY Non-Reacti ve Non-Reacti ve 08/11/2018 10:54 PM CDT [facility] Comment:HIV-1 p24 and HIV-1/ HIV-2 Ab not detected. Blood BLOOD SPECIMEN / Unknown Venipuncture / Unknown 08/11/2018 5:52 PM CDT 08/11/2018 5:53 PM CDT Silvano Ortega NP SEND OUTS [facility] [address] [place] [phone], from Last 3 Months or Most Recently [...] 11:12 AM 10/01/2018 9:31 PM Care Teams Studio Potter Relationship Specialty Start Date End Date Erna Morin DO [address] [place] [address] PCP - General Family Practice 06/30/24 Pcp, No . 04/01/18 Mandeep Menjivar, RN Student [address] [place] [id number] AXIS Care Coordination Care Guide 07/12/23
[2024-07-20] MEDS: cephALEXin 500 MG CAPSULE PO (22:13)
[2024-07-20 22:15] VITALS: BP 125/74; PULSE 89; RESP 20; TEMP 36.7; O2SAT 92
[2024-07-20 22:42] VITALS: BP 125/74; PULSE 89; RESP 20; TEMP 36.7
--- NOTE | 2024-07-20 22:51 | ED.UPPEXIN ---
HPI - Extremity Injury (Upper) General Date Seen: 07/20/24 Chief Complaint: Extremity Pain/Injury, Upper Stated Complaint: Possible blood clot L arm Time Seen by Provider: 07/20/24 20:07 Source: patient, family, RN notes reviewed and old records reviewed Mode of arrival: ambulatory Limitations: no limitations History of Present Illness HPI narrative: Ronnell is a very pleasant 34-year-old gentleman with a history of morbid obesity, hypertension, anxiety and panic attacks, alcohol use who comes to the emergency room for evaluation regarding left arm redness and swelling. Jus notes that this area seemed to have some swelling over the past week but now he notes that also appears to be red. He describes discomfort across the top of his arm and shows this to be the shoulder and the deltoid area. Now it seems to be more painful on the medial aspect of the humeral arm. He did have an IV a week ago. He is worried about a blood clot although he has never had a blood clot in the past. He is not currently on any blood thinners. He has not had fever or chills. No unusual shortness of breath or chest pain. Related Data Home Medications ?Medication ?Instructions ?Recorded ?Confirmed buspirone 15 mg tablet 15 mg PO BID 01/01/23 07/20/24 metoprolol succinate 50 mg 50 mg PO DAILY 01/01/23 07/20/24 tablet,extended release 24 hr amlodipine 10 mg tablet 10 mg PO DAILY 07/06/23 07/20/24 hydroxyzine HCl 25 mg tablet 25 mg PO DIRECTED 09/27/23 07/20/24 lisinopril 20 1 tab PO DAILY 09/27/23 07/20/24 mg-hydrochlorothiazide 25 mg tablet Previous Rx's ?Medication ?Instructions ?Recorded cephalexin 500 mg capsule 500 mg PO TID #20 caps 07/20/24 Allergies Allergy/AdvReac Type Severity Reaction Status Date / Time No Known Drug Allergies Allergy Verified 07/20/24 16:41 [facility] Medical History Alcoholism ?F10.20 - Alcohol dependence, uncomplicated (ICD-10) Obstructive sleep apnea ?G47.33 - Obstructive sleep apnea (adult) (pediatric) (ICD-10) Agoraphobia with panic attacks ?F40.01 - Agoraphobia with panic disorder (ICD-10) History of panic attacks ?Z86.59 - Personal history of other mental and behavioral disorders (ICD-10) Anxiety disorder ?F41.9 - Anxiety disorder, unspecified (ICD-10) Major depressive disorder ?F32.9 - Major depressive disorder, single episode, unspecified (ICD-10) Essential hypertension ?I10 - Essential (primary) hypertension (ICD-10) Synovial cyst of popliteal space [Palmer], right knee ?M71.21 - Synovial cyst of popliteal space [Palmer], right knee (ICD-10) Current smoker ?F17.200 - Nicotine dependence, unspecified, uncomplicated (ICD-10) History of seizure due to alcohol withdrawal ?Z87.898 - Personal history of other specified conditions (ICD-10) ?Z86.59 - Personal history of other mental and behavioral disorders (ICD-10) History of alcohol withdrawal syndrome ?Z86.59 - Personal history of other mental and behavioral disorders (ICD-10) Right knee pain ?M25.561 - Pain in right knee (ICD-10) Alcohol dependence, binge pattern ?F10.20 - Alcohol dependence, uncomplicated (ICD-10) Anxiety ?F41.9 - Anxiety disorder, unspecified (ICD-10) Morbidly obese ?E66.01 - Morbid (severe) obesity due to excess calories (ICD-10) Surgical History S/P right knee arthroscopy ?Z98.890 - Other specified postprocedural states (ICD-10) Social History Highest level of school completed/degree received: high school graduate Smoking Status: Current every day smoker What tobacco products do you use: cigarettes Do you use any of these nicotine containing products: None Second hand tobacco smoke exposure: No How often do you have a drink containing alcohol: 4 or more times a week Alcohol type: hard liquor How many standard drinks containing alcohol do you have on a typical day: 10 or more How often do you have six or more drinks on one occasion: Daily or almost daily AUDIT-C Alcohol total score: 12 Non-prescribed substance use: denies use Caffeine: Yes (6-10 cans) service: No Exam Narrative: Exam Narrative: Alert and oriented. No acute distress. Talkative. Breathing without difficulty. Heart with regular rate and rhythm. Lungs are clear bilaterally although breath sounds are distant. Examination of the arms show very slight erythema on the skin above the medial elbow. I do not palpate any masses there is no significant tenderness. He has a healing ecchymosis in the antecubital fossa from recent IV placement. I do not feel any ropy type firmness in the vein. Const: Vital Signs, click to edit/add: Vital Signs - 24 hr 07/20/24 18:39 07/20/24 22:15 07/20/24 22:42 Temperature 96.4 F L 98.0 F 98.0 F Pulse Rate [Pulse Oximeter] 105 H 89 89 Respiratory Rate 20 20 20 Blood Pressure [Ri ght Upper Arm] 133/105 H 125/74 125/74 Pulse Oximetry 92 92 Oxygen Delivery Me thod Room Air Room Air Documenting provider has reviewed patient's vital signs: yes Course Course ED Course: Patient has no history of DVT but had some swelling in his arm. At this time differential diagnosis is phlebitis versus cellulitis. He is afebrile. Repeat vital signs are all normal. He has no history of DVT. Ultrasound was challenging secondary to body habitus but there is no evidence of DVT. Vital Signs Vital signs: Initial Vital Signs Temperature 96.4 F L 07/20/24 18:39 Temperature Source Temporal Artery Scan 07/20/24 18:39 Pulse Rate 105 H 07/20/24 18:39 Respiratory Rate 20 07/20/24 18:39 Blood Pressure 133/105 H 07/20/24 18:39 Blood Pressure Mean 114 H 07/20/24 18:39 Blood Pressure Position Sitting 07/20/24 18:39 Pulse Oximetry 92 07/20/24 18:39 Oxygen Delivery Method Room Air 07/20/24 18:39 Vital Signs Temperature 96.4 F L 07/20/24 18:39 Pulse Rate 105 H 07/20/24 18:39 Respiratory Rate 20 07/20/24 18:39 Blood Pressure 133/105 H 07/20/24 18:39 Pulse Oximetry 92 07/20/24 18:39 Oxygen Delivery Method Room Air 07/20/24 18:39 Temperature 98.0 F 07/20/24 22:42 Pulse Rate 89 07/20/24 22:42 Respiratory Rate 20 07/20/24 22:42 Blood Pressure 125/74 07/20/24 22:42 Pulse Oximetry 92 07/20/24 22:15 Oxygen Delivery Method Room Air 07/20/24 22:15 Medications Administered Medications: Discontinued Medications Generic Name Dose Route Start Last Admin Trade Name Oscarq PRN Reason Stop Dose Admin Cephalexin HCl 500 mg 07/20/24 22:05 07/20/24 22:13 Cephalexin 500 Mg Capsule PO 07/20/24 22:06 500 mg ONCE ONE Administration MDM - Extremity Injury (Upper) MDM Narrative Medical decision making narrative: 1. Left arm pain-I do believe this most likely represents a superficial phlebitis but could also be cellulitis. Will treat P patient with Keflex 500 mg p.o. t.i.d. x7 days. First dose given tonight and remainder of prescription sent to the [facility]. Warm packs to area of discomfort. Follow-up with primary MD. Of course return for worsening symptoms to the ED. voices understanding. Ready is currently taking ibuprofen as needed for discomfort. 2. Disposition-home at this time. Return for worsening symptoms and as needed. Medical Records Attestation: I reviewed the patient's medical records. Imaging Data Venous US: Attestation: I have reviewed the pertinent imaging results. Radiologist's impression: Internal jugular: Not visualized. Subclavian: No thrombus visualized on grayscale, but noncompressible. No color flow detected, but Doppler flow present. Axillary: No thrombus visualized on grayscale, but noncompressible. No color flow detected, but Doppler flow present. Brachial: No thrombus visualized on grayscale, but noncompressible. No color flow detected, but Doppler flow present. Basilic: No thrombus visualized on grayscale, but noncompressible. No color flow detected, but Doppler flow present. Cephalic: Not visualized. Radial: Patent and compressible with color flow and phasic Doppler pattern. Ulnar: Patent and compressible with color flow and phasic Doppler pattern. RIGHT Internal jugular: Patent and compressible. Impression: Extremely limited exam due to patient body habitus. Within these limits: No definite evidence of thrombus (detail above). Discharge Plan Discharge Clinical Impression: Arm pain, left Patient Disposition: Home, Self-Care Condition: Unchanged Additional Instructions: Continue Keflex for treatment of possible phlebitis versus cellulitis. The remainder of your prescription is sent to [facility] in [place]. Warm packs note not hot packs to the arm to increase circulation. Follow-up with your primary as scheduled on Saturday. Return to the emergency room for worsening symptoms. Prescriptions: New cephalexin 500 mg capsule 500 mg PO TID Qty: 20 0RF No Action amlodipine 10 mg tablet 10 mg PO DAILY lisinopril-hydrochlorothiazide 20-25 mg tablet 1 tab PO DAILY hydroxyzine HCl 25 mg tablet 25 mg PO DIRECTED metoprolol succinate 50 mg tablet extended release 24 hr 50 mg PO DAILY buspirone 15 mg tablet 15 mg PO BID Follow Up/Referrals: Erna Morin DO [Primary Care Provider] - Stand Alone Forms: [employer] Info Instructions
== END 2024-07-20 22:42 | disposition home or self-care (01) ==
PROVIDERS: Emergency Provider Family Medicine; PCP Family Medicine
DX: M79.602 Pain in left arm (principal)
CPT/HCPCS: 93971; 99283; 99284; A9270

== ENCOUNTER 2024-07-26 13:35 | Outpatient (CLI) | payer OTHER, SELFPAY ==
--- OUTSIDE RECORDS SUMMARY | 2024-07-30 04:11 | XMS_ITS | Clinical Summary ---
Author Organization [email or web address] [facility] Address [place], [place] [address] Care Team Providers Care Aviation Technician Name Role Phone Pcp, No Unavailable Unavailable Mandeep Menjivar RN Student Unavailable Erna Morin DO Primary Care Provider [phone] Allergies No known active allergies Medications Medication [...] mg by mouth once daily. 02/12/2023 Active Walker - 4 wheelsIndications: Morbid obesity with BMI of 60.0-69.9, adult (HC),Chronic pain of right knee For home use. Length of need: 99 Weight: 225.6kg 1 Each 03/08/2023 Active ibuprofen (ADVIL; MOTRIN) 600 mg tablet [...] two times daily. 60 Tablet 06/30/2024 Active apixaban (ELIQUIS) 5 mg tabletIndications: deep venous thrombosis Take 1 Tablet (5 mg) by mouth two times daily. 60 Tablet 1 08/26/2024 Active lisinopril-hydroch lorothiazide, 20-25 mg, (PRINZIDE, ZESTORETIC) 20-25 mg per tabletIndications: HTN (hypertension) Take 1 Tablet by mouth once daily. 07/29/2024 Active magnesium oxide (MAG-OX 400) 400 mg tablet TAKE 1 TABSULE BY MOUTH DAILY DIRECTED 11/26/2022 4 Discontinued (Duplicate therapy (E-cancel not sent)) amoxicillin (AMOXIL) 500 mg capsule Take 500 mg by mouth three times daily. 09/05/2023 4 Discontinued (*Med complete/Reg imen complete/Lev el of care change) lisinopril-hydroch lorothiazide, 20-25 mg, (PRINZIDE, ZESTORETIC) 20-25 mg per tabletIndications: HTN (hypertension) Take 1 Tablet by mouth once daily. 90 Tablet 3 01/27/2024 4 Discontinued (*Medication adjustment) lisinopril-hydroch lorothiazide, 20-25 mg, (PRINZIDE, ZESTORETIC) 20-25 mg per tabletIndications: HTN (hypertension) Take 0.5 Tablets by mouth once daily. 07/21/2024 4 Discontinued (*Medication adjustment) Active Problems Problem Noted Date Diagnosed [...] Encounters Date Type Department Care Team Description 07/29/2024 11:00 AM CDT Office Visit [facility] [address] [facility] [address] Erna Morin DO ER Follow up (blood clot, anxiety ) 07/29/2024 Travel 07/16/2024 2:45 PM CDT Orders Only [facility] [address] [facility] [address] Lab, [place] Lab 07/16/2024 Orders Only [facility] Scanner 1 scan: (1-Ord) [facility], MULTIPLE LABS, 07/16/2024 07/16/2024 Orders Only [facility] Scanner 1 scan: (1-Ord) [place], EKG, 07/16/2024 07/16/2024 Orders Only [facility] Scanner 1 scan: (1-Ord) [place] XR CHEST 1V PORTABLE, 07/16/2024 07/16/2024 Orders Only [facility] Scanner 1 scan: (1-Ord) [place] MULTIPLE LAB, 07/16/2024 07/15/2024 Travel 06/30/2024 2:10 PM CDT Office Visit [facility] [address] [place] [address] Erna Morin DO Blood Pressure (Follow up blood pressure/medication check); Anxiety (Increase in anxiety) 06/30/2024 Travel 06/21/2024 Refill [facility] [address] [place] [address] Erna Morin DO Refill Request (Amlodipine) from Last 3 [...] drink = 0.6 oz pur e alcohol) 10/22 [place] PHQ-2 Answer Date Recorded PHQ-2 TOTAL SCORE 2 07/29/2024 Social Connections Answer Date Recorded Frequency of [...] Sign Reading Time Taken Comments Blood Pressure 132/89 07/29/2024 12:14 PM CDT Pulse 91 07/29/2024 12:14 PM CDT Temperature 37.3 ??C (99.1 ??F) 07/22/2022 9:00 PM CD T Respiratory Rate 20 07/22/2022 9:00 PM CDT Oxygen Saturation 93% 07/29/2024 11: 27 AM CDT Inhaled Oxygen Concentration - - Weight 226.5 kg (499 lb 6.4 oz) 024 11:27 AM CDT Height 190.5 cm (6' 3) 11/22/2023 2:53 PM [employer]ACLE DATA WAREHOUSE DEVELOPER Body Mass Index 62.42 11/22/2023 2:53 PM [employer]ACLE DATA WAREHOUSE DEVELOPER Plan of Treatment Upcoming Encounters Date Type Department Care Team (Late st Contact Info) Description 09/04/2024 12:55 PM ORACLE DATA WAREHOUSE DEVELOPER Office Visit [facility] [address] [place] [address] Erna Morin Aubree, DO [address] [place] [address] Health Maintenance Due Date Last Done Comments Pneumococcal series for age 6-64 (1 of 2 - PCV) 01/08/1994 Tetanus booster 08/14/2022 08/14/2012, 01/2000, 06/07/1999 COVID-19 vaccine series (2023- season) 2024 07/26/2022, 01/29/2022, 08/01/2021, Additional history exists Influenza for age 9-49 06/21/2024 BMI (ht and wt on same day) for age 18+ 11/22/2024 11/22/2023, 11/05/2018, 09/29/2018, Additional history exists Depression screening for age 12+ 07/29/2025 07/29/2024, 06/30/2024, 11/22/2023, Additional history exists Lipids for age 35-44 [...] and care coordination support annually, according to [facility], CMS, and health plan guidelines. Date HRA Declined: 01/16/24 Goal Start Date: 01/16/24 Goal End Date: 01/14/25 Goal Priority: High Care Coordination Actions: Care Guide (CG) contact information provided to Jsu Ronnell: Yes Preventive care needs addressed: Yes Notes [...] REFLEX MEASURED LDL Routine 11/22/2023 3:38 PM [employer]ACLE DATA WAREHOUSE DEVELOPER Screening for lipid disorders ANTI HIV 1/2 [...] included. GLUCOSE 107(H) 65 - 99 mg/dL [facility] Comment: ? Fasting reference interval For someone without known diabetes, a glucose value between 100 and 125 mg/dL is consistent with prediabetes and should be confirmed with a follow-up test. UREA NITROGEN (BUN) 25 7 - 25 mg/dL [facility] CREATININE 1.62(H) 0.60 - 1.26 mg/dL [facility] EGFR 56(L) > OR = 60 mL/min/1.7 3m2 [facility] BUN/CREATININE RATIO 15 6 [...] Ed CALCIUM 9.7 8.6 - 10.3 mg/dL [facility] Blood BLOOD SPECIMEN / Unknown 07/16/2024 2:48 PM CDT 07/16/2024 2:48 PM CDT Narrative [facility] - 07/17/2024 7:44 AM CDT COLLECTION KIT GIVEN TO PATIENT. PATIENT ADVISED TO RETURN. Erna Morin DO CHEMISTRY [facility] [address] [place] [address], [facility] [address] [place] [address] * SCAN-RADIOLOGY REPORT (07/16/2024 12:00 AM CDT) Anatomical Region Laterality Modality Other Scanner OTHER * SCAN-LABORATORY REPORT (07/16/2024 12:00 AM CDT) Only the most recent of2 resultswithin the time period is included. Scanner OTHER * SCAN-ELECTROCARDIOGRAM EKG (07/16/2024 12:00 AM CDT) Scanner OTHER * MAGNESIUM (06/30/2024 2:35 PM CDT) MAGNESIUM 1.7 1.6 - 2.6 mg/dL 07/01/2024 3:45 AM CDT [facility] Blood BLOOD SPECIMEN / Unknown Venipuncture / Unknown 06/30/2024 2:35 PM CDT 06/30/2024 2:37 PM CDT Erna Morin DO CHEMISTRY [facility] [address] [place] [address] * (ABNORMAL) LIPID PANEL W REFLEX MEASURED LDL [[id number]] (11/22/2023 3:38 PM [employer]ACLE DATA WAREHOUSE DEVELOPER) CHOLESTEROL,TOTAL 169 100 - 199 mg/dL 11/22/2023 9:17 PM [employer]ACLE DATA WAREHOUSE DEVELOPER [facility] Comment: Cholesterol, Total Reference Ranges Desirable <200 mg/dL Borderline 200-239 mg/dL High >=240 mg/dL TRIGLYCERIDES 258(H) <150 mg/dL 11/22/2023 9:17 PM ORACLE DATA WAREHOUSE DEVELOPER [facility] HDL CHOLESTEROL 34(L) >40 mg/dL 9:17 PM [employer]ACLE DATA WAREHOUSE DEVELOPER [facility] NON-HDL CHOLESTEROL 135 <145 mg/dl 11/22/2023 9:17 PM ORACLE DATA WAREHOUSE DEVELOPER [facility] CHOL/HDL RATIO 4.97(H) <4.50 11/22/2023 9:17 PM [employer]ACLE DATA WAREHOUSE DEVELOPER [facility] LDL CHOLESTEROL 83 <=130 mg/dL 11/22/2023 9:17 PM ORACLE DATA WAREHOUSE DEVELOPER [facility] VLDL CHOLESTEROL 52(H) <=30 mg/dL 11/22/2023 9:17 PM ORACLE DATA WAREHOUSE DEVELOPER [facility] PROVIDER ORDERED STATUS RANDOM 11/22/2023 9:17 PM ORACLE DATA WAREHOUSE DEVELOPER [facility] Blood BLOOD SPECIMEN / Unknown Venipuncture / Unknown 11/22/2023 3:38 PM ORACLE DATA WAREHOUSE DEVELOPER 11/22/2023 3:39 PM ORACLE DATA WAREHOUSE DEVELOPER Erna Morin DO CHEMISTRY [facility] [address] [place] [address], * ANTI HCV (08/11/2018 5:52 PM CDT) HEPATITIS C ANTIBODY Non-React amisha Non-React amisha 08/11/2018 10:51 PM CDT [facility] Comment:Antibodies to HCV no t detected; does not exclude the possibility of exposure to HCV. Blood BLOOD SPECIMEN / Unknown Venipuncture / Unknown 08/11/2018 5:52 PM CDT 08/11/2018 5:53 PM CDT Silvano Ortega [employer] [facility] [address] [place] [address], * ANTI HIV 1/2 (08/11/2018 5:52 PM CDT) HIV-1/HIV-2 ANTIBODY Non-Reacti ve Non-Reacti ve 08/11/2018 10:54 PM CDT [facility] Comment:HIV-1 p24 and HIV-1/ HIV-2 Ab not detected. Blood BLOOD SPECIMEN / Unknown Venipuncture / Unknown 08/11/2018 5:52 PM CDT 08/11/2018 5:53 PM CDT Silvano Ortega [employer] [facility] [address] [place] [address], [place] from Last 3 Months or Most [...] 11:12 AM 10/01/2018 9:31 PM Care Teams Aviation Technician Relationship Specialty Start Date End Date Erna Morin DO [address] [place] [address] PCP - General Family Practice 06/30/24 Pcp, No . 04/01/18 Mandeep Menjivar, RN Student [address] [place] [address] [facility] Care Coordination Care Guide 07/12/23
== END 2024-07-26 13:36 | disposition home or self-care (01) ==
LOC: AMB 07-30 04:09
PROVIDERS: PCP Family Medicine; Visit Provider Student in an Organized Health Care Education/Training Program
DX: R22.32 Localized swelling, mass and lump, left upper limb (principal)
CPT/HCPCS: A0425; A0429

== ENCOUNTER 2024-07-26 13:55 | Emergency (ER) | payer OTHER, SELFPAY ==
[2024-07-26 14:05] VITALS: BP 110/74; PULSE 100; RESP 20; TEMP 36.2; O2SAT 95; BMI 62.5
--- NOTE | 2024-07-26 14:51 | ED.GENADULT ---
HPI - General Adult General Date Seen: 07/26/24 Chief complaint: Unspecified Complaint, Adult Stated complaint: Arm swelling Time Seen by Provider: 07/26/24 14:24 History of Present Illness HPI narrative: 34-year-old male with a past medical history of elevated BMI, hypertension, anxiety/panic attacks, history of alcohol use. He was seen in the ER 1 week ago with concern for a red swollen area on his left upper arm. Per ER note he had had an IV in that area a week prior to the visit. DVT ultrasound was negative. Venous US: Attestation: I have reviewed the pertinent imaging results. Radiologist's impression: Internal jugular: Not visualized. Subclavian: No thrombus visualized on grayscale, but noncompressible. No color flow detected, but Doppler flow present. Axillary: No thrombus visualized on grayscale, but noncompressible. No color flow detected, but Doppler flow present. Brachial: No thrombus visualized on grayscale, but noncompressible. No color flow detected, but Doppler flow present. Basilic: No thrombus visualized on grayscale, but noncompressible. No color flow detected, but Doppler flow present. Cephalic: Not visualized. Radial: Patent and compressible with color flow and phasic Doppler pattern. Ulnar: Patent and compressible with color flow and phasic Doppler pattern. RIGHT Internal jugular: Patent and compressible. Impression: Extremely limited exam due to patient body habitus. Within these limits: No definite evidence of thrombus (detail above). He was put on a course of cellulitis for possible cellulitis but suspicion was for possible superficial thrombophlebitis. He describes the initial redness is being on the medial aspect of his arm at the elbow and a little bit on the medial side of his humerus. He recalls that when he was in the ER last Saturday he had had an IV start attempt repeat for her troponin order somewhere in that general area that was unsuccessful. He is not able to recall of the redness began specifically the IV start site or not. He says he has been taking the prescribed Keflex and only has about 1 or 2 more days left. He has been having some ongoing redness. It has not really been getting better. He has noticed a getting a lot worse until today. He says yesterday he was drinking so was not looking at his arm so it could have gotten worse yesterday but definitely when he woke up this morning he noticed that he had now had redness spreading on the forearm all the way down to his hand with swelling in the back of his hand and some ongoing swelling on the medial aspect of his upper arm. Because of the increased redness and swelling of his arm he came back to the ER today. It is not hurting very much. No numbness or weakness. He can not quite close his fingers all the way because he feels like his hand is just too swollen to completely close. He is not having any fever or chills. He has chronic shortness of breath that is not any worse than normal. No cough. No chest pain. No swelling of his other arm or legs. Related Data Home Medications ?Medication ?Instructions ?Recorded ?Confirmed buspirone 15 mg tablet 15 mg PO BID 01/01/23 07/26/24 metoprolol succinate 50 mg 50 mg PO DAILY 01/01/23 07/20/24 tablet,extended release 24 hr amlodipine 10 mg tablet 10 mg PO DAILY 07/06/23 07/20/24 hydroxyzine HCl 25 mg tablet 25 mg PO DIRECTED 09/27/23 07/20/24 lisinopril 20 1 tab PO DAILY 09/27/23 07/26/24 mg-hydrochlorothiazide 25 mg tablet Previous Rx's ?Medication ?Instructions ?Recorded cephalexin 500 mg capsule 500 mg PO TID #20 caps 07/20/24 Allergies Allergy/AdvReac Type Severity Reaction Status Date / Time No Known Drug Allergies Allergy Verified 07/26/24 14:08 [facility] Medical History Alcoholism ?F10.20 - Alcohol dependence, uncomplicated (ICD-10) Obstructive sleep apnea ?G47.33 - Obstructive sleep apnea (adult) (pediatric) (ICD-10) Agoraphobia with panic attacks ?F40.01 - Agoraphobia with panic disorder (ICD-10) History of panic attacks ?Z86.59 - Personal history of other mental and behavioral disorders (ICD-10) Anxiety disorder ?F41.9 - Anxiety disorder, unspecified (ICD-10) Major depressive disorder ?F32.9 - Major depressive disorder, single episode, unspecified (ICD-10) Essential hypertension ?I10 - Essential (primary) hypertension (ICD-10) Synovial cyst of popliteal space [Palmer], right knee ?M71.21 - Synovial cyst of popliteal space [Palmer], right knee (ICD-10) Current smoker ?F17.200 - Nicotine dependence, unspecified, uncomplicated (ICD-10) History of seizure due to alcohol withdrawal ?Z87.898 - Personal history of other specified conditions (ICD-10) ?Z86.59 - Personal history of other mental and behavioral disorders (ICD-10) History of alcohol withdrawal syndrome ?Z86.59 - Personal history of other mental and behavioral disorders (ICD-10) Right knee pain ?M25.561 - Pain in right knee (ICD-10) Alcohol dependence, binge pattern ?F10.20 - Alcohol dependence, uncomplicated (ICD-10) Anxiety ?F41.9 - Anxiety disorder, unspecified (ICD-10) Morbidly obese ?E66.01 - Morbid (severe) obesity due to excess calories (ICD-10) Surgical History S/P right knee arthroscopy ?Z98.890 - Other specified postprocedural states (ICD-10) Social History Highest level of school completed/degree received: high school graduate Smoking Status: Current every day smoker What tobacco products do you use: cigarettes Smoking packs per day: 1 Smoking cigarettes per day: 20.0 Do you use any of these nicotine containing products: None Second hand tobacco smoke exposure: No How often do you have a drink containing alcohol: 4 or more times a week Alcohol type: hard liquor How many standard drinks containing alcohol do you have on a typical day: 10 or more How often do you have six or more drinks on one occasion: Daily or almost daily AUDIT-C Alcohol total score: 12 Non-prescribed substance use: denies use Caffeine: Yes (6-10 cans) service: No Exam Narrative: Exam Narrative: Constitutional: Appears well-developed and well-nourished. With AC very heavyset. Alert. Conversant. Non toxic. HENT: Head: Atraumatic. Nose: Nose normal. Mouth/Throat: Oral mucosa is clear and moist. no trismus. Pharynx normal. Tonsils symmetric. No tonsillar enlargement, erythema, or exudate. Eyes: Conjunctivae normal. EOM normal. Pupils equal, round, and reactive to light. No scleral icterus. Neck: Normal range of motion. Neck supple. No tracheal deviation present. Cardiovascular: Normal rate, regular rhythm. No gallop. No friction rub. No murmur heard. Symmetric radial artery pulses . Normal brisk distal capillary refill in both upper extremities. Pulmonary/Chest: Effort normal. No stridor. No respiratory distress. No wheezes. No rales. No rhonchi . No tenderness. Musculoskeletal: RUE: Normal range of motion. No tenderness. No deformity LUE: Normal range of motion in his shoulder, elbow, wrist. He is not able to completely fold his hand into a fist because he has some swelling on the dorsum that says feels too tight to make a complete fist. edema and erythema affecting the skin of the patient's medial arm. It extends from the medial upper arm onto the medial aspect of the elbow and the medial/volar aspect of the forearm about [address] wrist[address] He also has some edema in the left dorsal wrist without any erythema there. Careful while patient reveals no palpable cords. No fluctuance. No crepitus or gas in the soft tissue.. Strong and symmetric radial pulses. RLE: Normal range of motion. No edema. No tenderness. No deformity LLE: Normal range of motion. No edema. No tenderness. No deformity Lymph: No definite axillary adenopathy but exam limited by body habitus. Neurological: Alert and oriented to person, place, and time. Normal strength. CN II-VII intact. No sensory deficit. GCS eye subscore is 4. GCS verbal subscore is 5. GCS motor subscore is 6. Normal coordination . Intact median, radial, ulnar, axillary nerve sensory and motor function. Skin: Skin is warm and dry. No rash noted. No pallor. Normal capillary refill. Psychiatric: Normal mood. Normal affect. Const: Vital Signs, click to edit/add: Vital Signs - 24 hr 07/26/24 14:05 07/26/24 16:05 Temperature 97.1 F L Pulse Rate [Pulse Oximeter] 100 78 Respiratory Rate 20 20 Blood Pressure [Ri ght Forearm] 110/74 104/49 L Pulse Oximetry 95 92 Oxygen Delivery Me thod Room Air Room Air Course Vital Signs Vital signs: Initial Vital Signs Temperature 97.1 F L 07/26/24 14:05 Temperature Source Temporal Artery Scan 07/26/24 14:05 Pulse Rate 100 07/26/24 14:05 Pulse Rhythm Regular 07/26/24 14:05 Respiratory Rate 20 07/26/24 14:05 Blood Pressure 110/74 07/26/24 14:05 Blood Pressure Mean 86 07/26/24 14:05 Pulse Oximetry 95 07/26/24 14:05 Oxygen Delivery Method Room Air 07/26/24 14:05 Vital Signs Temperature 97.1 F L 07/26/24 14:05 Pulse Rate 100 07/26/24 14:05 Respiratory Rate 20 07/26/24 14:05 Blood Pressure 110/74 07/26/24 14:05 Pulse Oximetry 95 07/26/24 14:05 Oxygen Delivery Method Room Air 07/26/24 14:05 Temperature 97.1 F L 07/26/24 14:05 Pulse Rate 78 07/26/24 16:05 Respiratory Rate 20 07/26/24 16:05 Blood Pressure 104/49 L 07/26/24 16:05 Pulse Oximetry 92 07/26/24 16:05 Oxygen Delivery Method Room Air 07/26/24 16:05 Medications Administered Medications: Discontinued Medications Generic Name Dose Route Start Last Admin Trade Name Freq PRN Reason Stop Dose Admin Trimethoprim/Sulfamethoxazole 1 tab 07/26/24 15:06 07/26/24 15:11 Sulfa/Trimethoprim 800/160 1 Tab PO 07/26/24 15:07 1 tab ONCE ONE Administration Medical Decision Making Lab Data Labs: Lab Results 07/26/24 Range/Units 15:21 WBC 7.15 (4.50-11.00) K/uL RBC 5.67 (4.30-5.90) m/uL Hgb 16.7 (13.5-17.5) gm/dL Hct 52.1 (37.0-53.0) % MCV 92 (80-100) fL MCH 30 (26-34) pg MCHC 32 (32-36) gm/dL RDW Coeff of Dhara 16.9 H (11.5-15.5) % Plt Count 291 (140-440) K/uL Neut % (Auto) 69.8 (42.0-72.0) % Lymph % (Auto) 22.5 (20-44) % [place]on % (Auto) 6.4 (0.0-11.0) % Eos % (Auto) 1.1 (0.0-7.0) % Baso % (Auto) 0.1 (0.0-3.0) % Neut # (Auto) 4.98 (1.7-7.0) K/uL Lymph # (Auto) 1.61 (0.90-2.90) K/uL Kenton # (Auto) 0.50 (0.00-0.90) K/UL Eos # (Auto) 0.08 (0.00-0.50) K/uL Baso # (Auto) 0.01 (0.00-0.30) K/uL Abs Immat Gran (auto) 0.01 (0.00-0.30) K/uL Imm/Tot Granulo (auto) 0.1 % Sodium 135 (135-149) mmol/L Potassium 5.0 (3.6-5.1) mmol/L Chloride 99 (96-114) mmol/L Carbon Dioxide 22 (20-32) mmol/L Anion Gap 14 (7-15) mEq/L BUN 17 (5-24) mg/dL Creatinine 1.2 (0.5-1.5) mg/dL Estimated Creat Clear 101.71 Estimated GFR 80 ml/min Glucose 88 (60-115) mg/dL Calcium 9.2 (8.4-10.6) mg/dL Imaging Data US venous LUE: Attestation: I have reviewed the pertinent imaging results. Radiologist's impression: FINDINGS: The visualized internal jugular, innominate, subclavian, axillary, basilic and brachial veins were patent and negative for thrombus. The right internal jugular vein was also patent and negative for thrombus where seen. Short-segment clot within the left cephalic vein noted with incomplete compressibility. IMPRESSION: No DVT in the left upper extremity and neck venous system. Short-segment superficial clot within the left cephalic vein. Discharge Plan Discharge Prescriptions: No Action amlodipine 10 mg tablet 10 mg PO DAILY lisinopril-hydrochlorothiazide 20-25 mg tablet 1 tab PO DAILY hydroxyzine HCl 25 mg tablet 25 mg PO DIRECTED cephalexin 500 mg capsule 500 mg PO TID Qty: 20 0RF metoprolol succinate 50 mg tablet extended release 24 hr 50 mg PO DAILY buspirone 15 mg tablet 15 mg PO BID Follow Up/Referrals: Erna Morin DO [Primary Care Provider] -
--- NOTE | 2024-07-26 15:06 | CRLHL7_ITS ---
For Patients: As a result of the Century Cures Act, medical imaging exams and procedure reports are released immediately into your electronic medical record. You may view this report before your referring provider. If you have questions, please contact your health care provider. INDICATION: continued pain and swelling of left upper extremity after 5 days antibiotics. COMPARISON: 07/20/2024 TECHNIQUE: Left upper extremity and neck venous ultrasound performed as well as ultrasound of right internal jugular vein including ng scale/2D, color Doppler, and spectral Doppler imaging including spectral waveform analysis. FINDINGS: The visualized internal jugular, innominate, subclavian, axillary, basilic and brachial veins were patent and negative for thrombus. The right internal jugular vein was also patent and negative for thrombus where seen. Short-segment clot within the left cephalic vein noted with incomplete compressibility. IMPRESSION: No DVT in the left upper extremity and neck venous system. Short-segment superficial clot within the left cephalic vein. Dictated by Ian Renee MD @ 07/26/2024 5:42:49 PM (Electronically Signed)
[2024-07-26] MEDS: SULFA/TRIMETHOPRIM 800/160 1 TAB PO (15:11)
--- OUTSIDE RECORDS SUMMARY | 2024-07-26 15:28 | XMS_ITS | Clinical Summary ---
Author Organization [employer] [facility] Address [place], [place] [address] Care Team Providers Care Santa'S Helper Name Role Phone Pcp, No Unavailable Unavailable Mandeep Menjivar RN Student Unavailable Erna Morin DO Primary Care Provider [phone] Allergies No known active allergies Medications Medication Sig Dispensed Refills Start Date End Date Status CPAPIndications:OS A (obstructive sleep apnea) CPAP machine for home use at pressure 5-20 cmw, full face mask x1/3month with a full face cushion x1/mo Length of Need: 99 months Frequency of Use: Daily 1 Each 11 02/23/2022 Active naltrexone (REVIA) 50 mg tabletIndications: Alcohol use disorder in remission Take 1 Tablet (50 mg) by mouth once daily. 90 Tablet 07/26/2022 Active naproxen (NAPROSYN) 500 mg tabletIndications: Chronic pain of both knees Take 1 Tablet (500 mg) by mouth every 12 hours if needed for Pain. 90 Tablet 07/26/2022 Active emollient (VANICREAM,NEUTRAG ARIADNE) creamIndications:B ilateral lower extremity edema Apply topically to affected area(s) each time if needed for Dry Skin. 453 g 3 07/26/2022 Active folic acid 1 mg tablet Take 1 mg by mouth once daily. 02/12/2023 Active magnesium oxide (MAG-OX 400) 400 mg tablet TAKE 1 TABSULE BY MOUTH DAILY DIRECTED 11/26/2022 Active Walker - 4 wheelsIndications: Morbid obesity with BMI of 60.0-69.9, adult (HC),Chronic pain of right knee For home use. Length of need: 99 Weight: 225.6kg 1 Each 03/08/2023 Active amoxicillin (AMOXIL) 500 mg capsule Take 500 mg by mouth three times daily. 09/05/2023 Active ibuprofen (ADVIL; MOTRIN) 600 mg tablet Take 600 mg by mouth three times daily with meals. 09/05/2023 Active metoprolol succinate (TOPROL XL) 50 mg sustained-release tabletIndications: Essential hypertension Take 1 Tablet (50 mg) by mouth once daily. 90 Tablet 3 11/22/2023 Active venlafaxine (EFFEXOR XR) 150 mg Extended-Release capsuleIndications :Anxiety and depression Take 1 Capsule (150 mg) by mouth once daily with evening meal. Total 225mg daily 90 Capsule 3 11/22/2023 Active magnesium oxide (MAG-OX 400) 400 mg tabletIndications: Low magnesium level Take 1 Tablet (400 mg) by mouth once daily. 90 Tablet 1 11/27/2023 Active hydrOXYzine HCL (ATARAX) 25 mg tabletIndications: Generalized anxiety disorder with panic attacks Take 1 Tablet (25 mg) by mouth every 6 hours if needed for Anxiety. 25 Tablet 06/25/2024 Active amLODIPine (NORVASC) 10 mg tabletIndications: HTN (hypertension) Take 1 Tablet (10 mg) by mouth once daily. 90 Tablet 3 06/30/2024 Active busPIRone (BUSPAR) 15 mg tabletIndications: Generalized anxiety disorder Take 1 Tablet (15 mg) by mouth two times daily. 60 Tablet 06/30/2024 Active lisinopril-hydroch lorothiazide, 20-25 mg, (PRINZIDE, ZESTORETIC) 20-25 mg per tabletIndications: HTN (hypertension) Take 0.5 Tablets by mouth once daily. 07/21/2024 Active busPIRone (BUSPAR) 30 mg tablet Take 30 mg by mouth two times daily. 03/25/2023 Discontinue d(Reorder (E-cancel not sent)) lisinopril-hydroch lorothiazide, 20-25 mg, (PRINZIDE, ZESTORETIC) 20-25 mg per tabletIndications: HTN (hypertension) Take 1 Tablet by mouth once daily. 90 Tablet 3 01/27/2024 4 Discontinue d(*Medicati on adjustment) amLODIPine (NORVASC) 10 mg tabletIndications: HTN (hypertension) TAKE 1 TABLET(10 MG) BY MOUTH DAILY 90 Tablet 06/24/2024 4 Discontinue d(*Medicati on adjustment) Active Problems Problem Noted Date Diagnosed [...] 07/16/2024 2:45 PM CDT Orders Only [facility] [address] [place] [address] Lab, [facility] 07/16/2024 Orders Only [facility] Scanner 1 scan: (1-Ord) [facility], MULTIPLE LABS, 07/16/2024 07/16/2024 Orders Only [facility] Scanner 1 scan: (1-Ord) [facility], EKG, 07/16/2024 07/16/2024 Orders Only [facility] Scanner 1 scan: (1-Ord) [facility], XR CHEST 1V PORTABLE, 07/16/2024 07/16/2024 Orders Only [facility] Scanner 1 scan: (1-Ord) [facility], MULTIPLE LAB, 07/16/2024 07/15/2024 Travel 06/30/2024 2:10 PM CDT Office Visit [facility] [address] [place] [address] Erna Morin, DO Blood Pressure (Follow up blood pressure/medication check); Anxiety (Increase in anxiety) 06/30/2024 Travel 06/21/2024 Refill [facility] [address] [place] [address] Erna Morin, DO Refill Request (Amlodipine) from Last 3 Months Immunizations Name Administration Dates Next Due COVID-19 vaccine (Moderna 100mcg/0.5mL) PF, MDV 08/01/2021,07/04/2021 COVID-19 vaccine ([employer]-Bio NTech 30mcg/0.3mL) 12YO+ BIVALENT PF, MDV 07/26/2022 COVID-19 vaccine (Opargo-[employer] NTech 30mcg/0.3mL) 12YO+ COLIN-SUCROSE PF, MDV 01/29/2022 [...] 190.5 cm (6' 3) 11/22/2023 2:53 PM WAREHOUSE OPERATIONS MANAGER Body Mass Index 61.67 11/22/2023 2:53 PM WAREHOUSE OPERATIONS MANAGER Plan of Treatment Upcoming Encounters Date Type Department Care Team (Late st Contact Info) Description 07/29/2024 11:00 AM CDT Office Visit [facility] [address] [place] [address] Erna Morin, DO [address] [place] [address] Health Maintenance Due Date Last Done Comments Pneumococcal series for age 6-64 (1 of 2 - PCV) 01/08/1994 Tetanus booster 08/14/2022 08/14/2012, 01/2000, 06/07/1999 COVID-19 vaccine series (5 - 2023- season) 2024 07/26/2022, 01/29/2022, 08/01/2021, Additional history [...] and care coordination support annually, according to [facility], CMS, and health plan guidelines. Date [...] CDT SCAN-LABORATORY REPORT 07/16/2024 12:00 AM CDT SCAN-LABORATORY REPORT 07/16/2024 12:00 AM CDT SCAN-RADIOLOGY REPORT 07/16/2024 12:00 AM CDT MAGNESIUM Routine 06/30/2024 2:35 PM CDT Hypomagnesemia BASIC METABOLIC PANEL Routine 06/30/2024 2:35 PM CDT Hyponatremia JASON (acute kidney injury) (HC) LIPID PANEL W REFLEX MEASURED LDL Routine 11/22/2023 3:38 PM WAREHOUSE OPERATIONS MANAGER Screening for lipid disorders ANTI HIV 1/2 [...] included. GLUCOSE 107(H) 65 - 99 mg/dL [facility] Comment: ? Fasting reference interval For someone without known diabetes, a glucose value between 100 and 125 mg/dL is consistent with prediabetes and should be confirmed with a follow-up test. UREA NITROGEN (BUN) 25 7 - 25 mg/dL [facility] CREATININE 1.62(H) 0.60 - 1.26 mg/dL [facility] EGFR 56(L) > OR = 60 mL/min/1.7 3m2 [facility] BUN/CREATININE RATIO 15 6 - 22 (calc) [facility] SODIUM 135 135 - 146 mmol/L [facility] POTASSIUM 4.6 3.5 - 5.3 mmol/L [facility] CHLORIDE 98 98 - 110 mmol/L [facility] CARBON DIOXIDE 19(L) 20 - 32 mmol/L [facility] ELECTROLYTE BALANCE 18(H) 7 - 17 mmol/L (calc) [facility] CALCIUM 9.7 8.6 - 10.3 mg/dL [facility] Blood BLOOD SPECIMEN / Unknown 07/16/2024 2:48 PM CDT 07/16/2024 2:48 PM CDT Narrative [facility] - 07/17/2024 7:44 AM CDT COLLECTION KIT GIVEN TO PATIENT. PATIENT ADVISED TO RETURN. Erna Morin DO CHEMISTRY Tweet Category [facility] [address] [place] [address], [facility] [address] [place] [address] * SCAN-RADIOLOGY REPORT (07/16/2024 12:00 AM CDT) Anatomical Region Laterality Modality Other Scanner OTHER * SCAN-LABORATORY REPORT (07/16/2024 12:00 AM CDT) Only the most recent of2 resultswithin the time period is included. Scanner OTHER * SCAN-ELECTROCARDIOGRAM EKG (07/16/2024 12:00 AM CDT) Scanner OTHER * MAGNESIUM (06/30/2024 2:35 PM CDT) MAGNESIUM 1.7 1.6 - 2.6 mg/dL 07/01/2024 3:45 AM CDT [facility] Blood BLOOD SPECIMEN / Unknown Venipuncture / Unknown 06/30/2024 2:35 PM CDT 06/30/2024 2:37 PM CDT Erna Morin DO CHEMISTRY [facility] [address] [place] [id number], * (ABNORMAL) LIPID PANEL W REFLEX MEASURED LDL [[id number]] (11/22/2023 3:38 PM WAREHOUSE OPERATIONS MANAGER) CHOLESTEROL,TOTAL 169 100 - 199 mg/dL 11/22/2023 9:17 PM WAREHOUSE OPERATIONS MANAGER [facility] Comment: Cholesterol, Total Reference Ranges Desirable <200 mg/dL Borderline 200-239 mg/dL High >=240 mg/dL TRIGLYCERIDES 258(H) <150 mg/dL 11/22/2023 9:17 PM WAREHOUSE OPERATIONS MANAGER [facility] HDL CHOLESTEROL 34(L) >40 mg/dL 9:17 PM WAREHOUSE OPERATIONS MANAGER [facility] NON-HDL CHOLESTEROL 135 <145 mg/dl 11/22/2023 9:17 PM WAREHOUSE OPERATIONS MANAGER [facility] CHOL/HDL RATIO 4.97(H) <4.50 11/22/2023 9:17 PM WAREHOUSE OPERATIONS MANAGER [facility] LDL CHOLESTEROL 83 <=130 mg/dL 11/22/2023 9:17 PM WAREHOUSE OPERATIONS MANAGER [facility] VLDL CHOLESTEROL 52(H) <=30 mg/dL 11/22/2023 9:17 PM WAREHOUSE OPERATIONS MANAGER [facility] PROVIDER ORDERED STATUS RANDOM 11/22/2023 9:17 PM WAREHOUSE OPERATIONS MANAGER [facility] Blood BLOOD SPECIMEN / Unknown Venipuncture / Unknown 11/22/2023 3:38 PM WAREHOUSE OPERATIONS MANAGER 11/22/2023 3:39 PM WAREHOUSE OPERATIONS MANAGER Erna Praterjc PORTER CHEMISTRY Performing Organization Address [facility]/ZIP Co de Phone Number [facility] [address] [place] [address], * ANTI HCV (08/11/2018 5:52 PM CDT) HEPATITIS C ANTIBODY Non-React amisha Non-React amisha 08/11/2018 10:51 PM CDT [facility] Comment:Antibodies to HCV no t detected; does not exclude the possibility of exposure to HCV. Blood BLOOD SPECIMEN / Unknown Venipuncture / Unknown 08/11/2018 5:52 PM CDT 08/11/2018 5:53 PM CDT Silvano Ortega NP SEND OUTS Performing Organization Address [facility]/[place]UST Co de Phone Number [facility] [address] [place] [address], [place] * ANTI HIV 1/2 (08/11/2018 5:52 PM CDT) Pathologist [facility] HIV-1/HIV-2 ANTIBODY Non-Reacti ve Non-Reacti ve 08/11/2018 10:54 PM CDT [facility] Comment:HIV-1 p24 and HIV-1/ HIV-2 Ab not detected. Blood BLOOD SPECIMEN / Unknown Venipuncture / Unknown 08/11/2018 5:52 PM CDT 08/11/2018 5:53 PM CDT Silvano Ortega NP SEND OUTS [facility] [address] [place] [address], from Last 3 Months or Most Recently [...] 11:12 AM 10/01/2018 9:31 PM Care Teams Santa'S Helper Relationship Specialty Start Date End Date Erna Morin DO [address] [place] [address] PCP - General Family Practice 06/30/24 Pcp, No . 04/01/18 Mandeep Menjivar, RN Student [address] [place] [address] AXIS Care Coordination Care Guide 07/12/23
[2024-07-26 15:45] LABS: Basophils Absolute Auto 0.01 K/uL (0.00-0.30); Basophils Percent Auto 0.1 % (0.0-3.0); Eosinophils Absolute Auto 0.08 K/uL (0.00-0.50); Eosinophils Percent Auto 1.1 % (0.0-7.0); Hematocrit 52.1 % (37.0-53.0); Hemoglobin* 16.7 gm/dL (13.5-17.5); Immature Granulocytes Abs Auto 0.01 K/uL (0.00-0.30); Immature Granulocytes Pct Auto 0.1 %; Lymphocytes Absolute Auto 1.61 K/uL (0.90-2.90); Lymphocytes Percent Auto 22.5 % (20-44); Mean Corpuscular HGB Conc 32 gm/dL (32-36); Mean Corpuscular Hemoglobin 30 pg (26-34); Mean Corpuscular Volume 92 fL (80-100); Monocytes Percent Auto 6.4 % (0.0-11.0); Neutrophils Absolute Auto 4.98 K/uL (1.7-7.0); Neutrophils Percent Auto 69.8 % (42.0-72.0); Platelet Count* 291 K/uL (140-440); RDW Coefficient of Variation % 16.9 % (11.5-15.5); Red Blood Count 5.67 m/uL (4.30-5.90); White Blood Count* 7.15 K/uL (4.50-11.00)
--- NOTE | 2024-07-26 15:45 | ED.NURSE ---
Left arm is appearing red and swollen.
[2024-07-26 15:54] LABS: Slide Review Reflex No
[2024-07-26 16:00] LABS: Chloride* 99 mmol/L (96-114); Sodium* 135 mmol/L (135-149)
[2024-07-26 16:03] LABS: Anion Gap 14 mEq/L (7-15); Blood Urea Nitrogen* 17 mg/dL (5-24); Calcium* 9.2 mg/dL (8.4-10.6); Carbon Dioxide* 22 mmol/L (20-32); Creatinine* 1.2 mg/dL (0.5-1.5); Est. Creatinine Clearance* 101.71; Estimated Glomerular Filt Rate 80 ml/min; Glucose* 88 mg/dL (60-115)
[2024-07-26 16:05] VITALS: BP 104/49; PULSE 78; RESP 20; O2SAT 92
--- NOTE | 2024-07-26 17:40 | ED.NURSE ---
Pt provided with meal tray.
--- NOTE | 2024-07-26 18:11 | ED_ITS ---
HPI - General Adult General Date Seen: 07/26/24 Chief complaint: Unspecified Complaint, Adult Stated complaint: Arm swelling Time Seen by Provider: 07/26/24 14:24 History of Present Illness HPI narrative: 34-year-old male with a past medical history of elevated BMI, hypertension, anxiety/panic attacks, history of alcohol use. He was seen in the ER 1 week ago with concern for a red swollen area on his left upper arm. Per ER note he had had an IV in that area a week prior to the visit. DVT ultrasound was negative. Venous US: Attestation: I have reviewed the pertinent imaging results. Radiologist's impression: Internal jugular: Not visualized. Subclavian: No thrombus visualized on grayscale, but noncompressible. No color flow detected, but Doppler flow present. Axillary: No thrombus visualized on grayscale, but noncompressible. No color flow detected, but Doppler flow present. Brachial: No thrombus visualized on grayscale, but noncompressible. No color flow detected, but Doppler flow present. Basilic: No thrombus visualized on grayscale, but noncompressible. No color flow detected, but Doppler flow present. Cephalic: Not visualized. Radial: Patent and compressible with color flow and phasic Doppler pattern. Ulnar: Patent and compressible with color flow and phasic Doppler pattern. RIGHT Internal jugular: Patent and compressible. Impression: Extremely limited exam due to patient body habitus. Within these limits: No definite evidence of thrombus (detail above). He was put on a course of cellulitis for possible cellulitis but suspicion was for possible superficial thrombophlebitis. He describes the initial redness is being on the medial aspect of his arm at the elbow and a little bit on the medial side of his humerus. He recalls that when he was in the ER last Saturday he had had an IV start attempt repeat for her troponin order somewhere in that general area that was unsuccessful. He is not able to recall of the redness began specifically the IV start site or not. He says he has been taking the prescribed Keflex and only has about 1 or 2 more days left. He has been having some ongoing redness. It has not really been getting better. He has noticed a getting a lot worse until today. He says yesterday he was drinking so was not looking at his arm so it could have gotten worse yesterday but definitely when he woke up this morning he noticed that he had now had redness spreading on the forearm all the way down to his hand with swelling in the back of his hand and some ongoing swelling on the medial aspect of his upper arm. Because of the increased redness and swelling of his arm he came back to the ER today. It is not hurting very much. No numbness or weakness. He can not quite close his fingers all the way because he feels like his hand is just too swollen to completely close. He is not having any fever or chills. He has chronic shortness of breath that is not any worse than normal. No cough. No chest pain. No swelling of his other arm or legs. Related Data Home Medications ?Medication ?Instructions ?Recorded ?Confirmed buspirone 15 mg tablet 15 mg PO BID 01/01/23 07/26/24 metoprolol succinate 50 mg 50 mg PO DAILY 01/01/23 07/20/24 tablet,extended release 24 hr amlodipine 10 mg tablet 10 mg PO DAILY 07/06/23 07/20/24 hydroxyzine HCl 25 mg tablet 25 mg PO DIRECTED 09/27/23 07/20/24 lisinopril 20 1 tab PO DAILY 09/27/23 07/26/24 mg-hydrochlorothiazide 25 mg tablet Previous Rx's ?Medication ?Instructions ?Recorded cephalexin 500 mg capsule 500 mg PO TID #20 caps 07/20/24 apixaban 5 mg (74 tabs) tablets in See Rx Instructions PO .COMPLEX 07/26/24 a dose pack (Eliquis DVT-PE Treat #74 ea 30D Start) Allergies Allergy/AdvReac Type Severity Reaction Status Date / Time No Known Drug Allergies Allergy Verified 07/26/24 14:08 [facility] Medical History Alcoholism ?F10.20 - Alcohol dependence, uncomplicated (ICD-10) Obstructive sleep apnea ?G47.33 - Obstructive sleep apnea (adult) (pediatric) (ICD-10) Agoraphobia with panic attacks ?F40.01 - Agoraphobia with panic disorder (ICD-10) History of panic attacks ?Z86.59 - Personal history of other mental and behavioral disorders (ICD-10) Anxiety disorder ?F41.9 - Anxiety disorder, unspecified (ICD-10) Major depressive disorder ?F32.9 - Major depressive disorder, single episode, unspecified (ICD-10) Essential hypertension ?I10 - Essential (primary) hypertension (ICD-10) Synovial cyst of popliteal space [[place]], right knee ?M71.21 - Synovial cyst of popliteal space [[place]], right knee (ICD-10) Current smoker ?F17.200 - Nicotine dependence, unspecified, uncomplicated (ICD-10) History of seizure due to alcohol withdrawal ?Z87.898 - Personal history of other specified conditions (ICD-10) ?Z86.59 - Personal history of other mental and behavioral disorders (ICD-10) History of alcohol withdrawal syndrome ?Z86.59 - Personal history of other mental and behavioral disorders (ICD-10) Right knee pain ?M25.561 - Pain in right knee (ICD-10) Alcohol dependence, binge pattern ?F10.20 - Alcohol dependence, uncomplicated (ICD-10) Anxiety ?F41.9 - Anxiety disorder, unspecified (ICD-10) Morbidly obese ?E66.01 - Morbid (severe) obesity due to excess calories (ICD-10) Surgical History S/P right knee arthroscopy ?Z98.890 - Other specified postprocedural states (ICD-10) Social History Highest level of school completed/degree received: high school graduate Smoking Status: Current every day smoker What tobacco products do you use: cigarettes Smoking packs per day: 1 Smoking cigarettes per day: 20.0 Do you use any of these nicotine containing products: None Second hand tobacco smoke exposure: No How often do you have a drink containing alcohol: 4 or more times a week Alcohol type: hard liquor How many standard drinks containing alcohol do you have on a typical day: 10 or more How often do you have six or more drinks on one occasion: Daily or almost daily AUDIT-C Alcohol total score: 12 Non-prescribed substance use: denies use Caffeine: Yes (6-10 cans) service: No Exam Narrative: Exam Narrative: Constitutional: Appears well-developed and well-nourished. With AC very heavyset. Alert. Conversant. Non toxic. HENT: Head: Atraumatic. Nose: Nose normal. Mouth/Throat: Oral mucosa is clear and moist. no trismus. Pharynx normal. Tonsils symmetric. No tonsillar enlargement, erythema, or exudate. Eyes: Conjunctivae normal. EOM normal. Pupils equal, round, and reactive to light. No scleral icterus. Neck: Normal range of motion. Neck supple. No tracheal deviation present. Cardiovascular: Normal rate, regular rhythm. No gallop. No friction rub. No murmur heard. Symmetric radial artery pulses . Normal brisk distal capillary refill in both upper extremities. Pulmonary/Chest: Effort normal. No stridor. No respiratory distress. No wheezes. No rales. No rhonchi . No tenderness Musculoskeletal: RUE: Normal range of motion. No tenderness. No deformity LUE: Normal range of motion in his shoulder, elbow, wrist. He is not able to completely fold his hand into a fist because he has some swelling on the dorsum that says feels too tight to make a complete fist. edema and erythema affecting the skin of the patient's medial arm. It extends from the medial upper arm onto the medial aspect of the elbow and the medial/volar aspect of the forearm about [address] wrist[address] He also has some edema in the left dorsal wrist without any erythema there. Careful while patient reveals no palpable cords. No fluctuance. No crepitus or gas in the soft tissue.. Strong and s ymmetric radial pulses. RLE: Normal range of motion. No edema. No tenderness. No deformity LLE: Normal range of motion. No edema. No tenderness. No deformity Lymph: No definite axillary adenopathy but exam limited by body habitus. Neurological: Alert and oriented to person, place, and time. Normal strength. CN II-VII intact. No sensory deficit. GCS eye subscore is 4. GCS verbal subscore is 5. GCS motor subscore is 6. Normal coordination . Intact median, radial, ulnar, axillary nerve sensory and motor function. Skin: Skin is warm and dry. No rash noted. No pallor. Normal capillary refill. Psychiatric: Normal mood. Normal affect. . Const: Vital Signs, click to edit/add: Vital Signs - 24 hr 07/26/24 14:05 07/26/24 16:05 Temperature 97.1 F L Pulse Rate [Pulse Oximeter] 100 78 Respiratory Rate 20 20 Blood Pressure [Ri ght Forearm] 110/74 104/49 L Pulse Oximetry 95 92 Oxygen Delivery Me thod Room Air Room Air Course Vital Signs Vital signs: Initial Vital Signs Temperature 97.1 F L 07/26/24 14:05 Temperature Source Temporal Artery Scan 07/26/24 14:05 Pulse Rate 100 07/26/24 14:05 Pulse Rhythm Regular 07/26/24 14:05 Respiratory Rate 20 07/26/24 14:05 Blood Pressure 110/74 07/26/24 14:05 Blood Pressure Mean 86 07/26/24 14:05 Pulse Oximetry 95 07/26/24 14:05 Oxygen Delivery Method Room Air 07/26/24 14:05 Vital Signs Temperature 97.1 F L 07/26/24 14:05 Pulse Rate 100 07/26/24 14:05 Respiratory Rate 20 07/26/24 14:05 Blood Pressure 110/74 07/26/24 14:05 Pulse Oximetry 95 07/26/24 14:05 Oxygen Delivery Method Room Air 07/26/24 14:05 Temperature 97.1 F L 07/26/24 14:05 Pulse Rate 78 07/26/24 16:05 Respiratory Rate 20 07/26/24 16:05 Blood Pressure 104/49 L 07/26/24 16:05 Pulse Oximetry 92 07/26/24 16:05 Oxygen Delivery Method Room Air 07/26/24 16:05 Medications Administered Medications: Discontinued Medications Generic Name Dose Route Start Last Admin Trade Name Freq PRN Reason Stop Dose Admin Apixaban 10 mg 07/26/24 18:03 07/26/24 18:18 Apixaban 5 Mg Tablet PO 07/26/24 18:04 10 mg ONCE ONE Administration Trimethoprim/Sulfamethoxazole 1 tab 07/26/24 15:06 07/26/24 15:11 Sulfa/Trimethoprim 800/160 1 Tab PO 07/26/24 15:07 1 tab ONCE ONE Administration Medical Decision Making MDM Narrative Medical decision making narrative: 34-year-old gentleman returns to the ER today for left upper arm redness and swelling. For a while he was here in the ER last Saturday for an evaluation apparently had an IV started attempt near the antecubital fossa there that was unsuccessful. He then developed pain and swelling in that area and was seen here 6 days ago on Saturday. At that time he had an ultrasound that was negative for any obvious clot but it sounds like the sonographic imaging was limited by his body habitus. For instance they were not able to confidently visualized his cephalic vein. He was put on cephalexin and has been taking it as prescribed, but his redness is not been getting better. In fact the redness and swelling of actually increased today. On my exam he does have redness extending from the inner side of the upper arm all the way down almost to his wrist and also does have some subtle swelling on the dorsum of his forearm and hand (without redness on the dorsum). This could be an infection but he has no fever, no leukocytosis. At this point no definitive evidence to clearly suggest that this is cellulitis. No evidence for any abscess. No sign of necrotizing infection. No shingles. With consideration for possible worsening infection we did give him a dose of Bactrim here in the ER while we initiated a workup in case this was MRSA. He is not otherwise febrile or toxic requiring IV antibiotics per We obtain repeat ultrasound to double check for possible DVT. Ultrasound today does show a segment of thrombosis within the cephalic vein of the left arm. This is superficial vein and not a deep vein. Verbal report from the lawn technician is that is a fairly long segment of clot. Will formal report from radiologist indicates that short cephalic vein clot. Either way it sounds like it is a gotten larger since Saturday (since it was not picked up on previous ultrasound) any definitely has increasing redness and swelling of the arm. At this point I do not think he is at high risk for embolism from the superficial thrombosis. However with expanding clot, potential exists for this to progress and become a deep vein thrombosis. Options at this point would be watchful waiting with typical treatment such as warm packs, nonsteroidal anti-inflammatories with follow-up ultrasound in 2 or 3 days. Alternatively we could 6 consider anticoagulation at this point (to prevent progression) with follow-up ultrasound in 2-3 days. Discussed the risks of anticoagulation with the patient especially the risk for bleeding if he has any trauma or the risk of spontaneous bleeding. Also discussed the risks of extension of the clot if we do not treat. Shared decision making. Patient expresses his strong preference to treat and wishes to start anticoagulation today. Overall I think that is reasonable. First dose of apixaban given here in the ER. Prescription for the apixaban starter pack (10 mg b.i.d. for 7 days, 5 mg b.i.d. thereafter) sent to his pharmacy at [facility]. He will be able to fill his prescription tomorrow morning and continue anticoagulation. He already has an appointment on Saturday with his primary c are provider at the [facility]. I asked him to follow up with that appointment and asked them to repeat the ultrasound to see if there is any sign of extension of clot. After the follow-up ultrasound, his primary care provider can help him determine whether not he needs to continue a full 3-6 months of anticoagulation or, since this is a superficial thrombosis, we could stop after short term. Certainly, I think it is reasonable to anticoagulate short term to prevent extension, but I would like to avoid long-term anticoagulation in this young man, due to the risk of bleeding. Lab Data Labs: Lab Results 07/26/24 Range/Units 15:21 WBC 7.15 (4.50-11.00) K/uL RBC 5.67 (4.30-5.90) m/uL Hgb 16.7 (13.5-17.5) gm/dL Hct 52.1 (37.0-53.0) % MCV 92 (80-100) fL MCH 30 (26-34) pg MCHC 32 (32-36) gm/dL RDW Coeff of Dhara 16.9 H (11.5-15.5) % Plt Count 291 (140-440) K/uL Neut % (Auto) 69.8 (42.0-72.0) % Lymph % (Auto) 22.5 (20-44) % [place] % (Auto) 6.4 (0.0-11.0) % Eos % (Auto) 1.1 (0.0-7.0) % Baso % (Auto) 0.1 (0.0-3.0) % Neut # (Auto) 4.98 (1.7-7.0) K/uL Lymph # (Auto) 1.61 (0.90-2.90) K/uL [place] # (Auto) 0.50 (0.00-0.90) K/UL Eos # (Auto) 0.08 (0.00-0.50) K/uL Baso # (Auto) 0.01 (0.00-0.30) K/uL Abs Immat Gran (auto) 0.01 (0.00-0.30) K/uL Imm/Tot Granulo (auto) 0.1 % Sodium 135 (135-149) mmol/L Potassium 5.0 (3.6-5.1) mmol/L Chloride 99 (96-114) mmol/L Carbon Dioxide 22 (20-32) mmol/L Anion Gap 14 (7-15) mEq/L BUN 17 (5-24) mg/dL Creatinine 1.2 (0.5-1.5) mg/dL Estimated Creat Clear 101.71 Estimated GFR 80 ml/min Glucose 88 (60-115) mg/dL Calcium 9.2 (8.4-10.6) mg/dL Imaging Data [place] venous, left upper extremity: Attestation: I have reviewed the pertinent imaging results. My impression: Discussed initial findings with the lawn technician. She indicates that there does appear to be in a thrombus that is not compressible in the cephalic vein. She indicates that it is a fairly long segment of the cephalic vein. Awaiting formal radiology interpretation. Radiologist's impression: IMPRESSION: No DVT in the left upper extremity and neck venous system. Short-segment superficial clot within the left cephalic vein. Discharge Plan Discharge Clinical Impression: Superficial thrombophlebitis of arm Patient Disposition: Home, Self-Care Condition: Stable Instructions: Superficial Thrombophlebitis (ED) Additional Instructions: As we discussed, your ultrasound today shows a clot in the cephalic vein of your left arm. This is considered a superficial thrombosis. This is not a deep vein thrombosis. However, since the clot has gotten bigger since Saturday and could continue to become larger and extended the deep veins, we will treat with blood thinners. Please take your blood thinner (which is called apixaban) 2 times per day. Follow-up with your regular doctor the [facility] on Saturday and have a follow-up ultrasound of your arm. Your doctor can help you decide how long to stay on the blood thinners. Typically, treatment for a deep vein blood clot would require 3-6 months of blood thinners. However, blood clots in the superficial veins typically do not require any anticoagulation, and as long as your blood clots does not get bigger, you may be able to stop the blood thinners. If you have worsening pain in your arm, increasing swelling of your arm, chest pain or trouble breathing, if you develops fever or other worsening symptoms, return to the ER right away. Be careful while on blood thinners. Avoid dangerous activities because even a minor injury can lead to serious bleeding while you are taking an anticoagulant. Prescriptions: [place] DVT-PE Treat 30D Start 5 mg (74 tabs) tablets,dose pack See Rx Instructions .ROUTE .COMPLEX Qty: 74 0RF Rx Instructions: orally per package directions No Action amlodipine 10 mg tablet 10 mg PO DAILY lisinopril-hydrochlorothiazide 20-25 mg tablet 1 tab PO DAILY hydroxyzine HCl 25 mg tablet 25 mg PO DIRECTED cephalexin 500 mg capsule 500 mg PO TID Qty: 20 0RF metoprolol succinate 50 mg tablet extended release 24 hr 50 mg PO DAILY buspirone 15 mg tablet 15 mg PO BID Follow Up/Referrals: Erna Morin DO [Primary Care Provider] - Stand Alone Forms: [employer] Info Instructions
[2024-07-26] MEDS: APIXABAN 5 MG TABLET 10 MG PO (18:18)
== END 2024-07-26 18:25 | disposition home or self-care (01) ==
PROVIDERS: Emergency Provider Emergency Medicine; PCP Family Medicine
DX: I80.8 Phlebitis and thrombophlebitis of other sites (principal)
CPT/HCPCS: 36415; 80048; 85025; 93971; 99284; A9270

== ENCOUNTER 2024-12-21 12:01 | Outpatient (CLI) | payer OTHER, SELFPAY | END 2024-12-21 12:02 | disposition home or self-care (01) | PROVIDERS: PCP Family Medicine; Visit Provider Family Medicine | DX: H53.8 Other visual disturbances (principal); F10.129 Alcohol abuse with intoxication, unspecified; R42 Dizziness and giddiness; R20.2 Paresthesia of skin | CPT/HCPCS: A0425; A0429 ==

== ENCOUNTER 2024-12-21 12:23 | Emergency (ER) | payer OTHER, SELFPAY ==
[2024-12-21 12:28] VITALS: BP 141/62; PULSE 118; RESP 18; TEMP 35.9; O2SAT 94; BMI 62.5
--- NOTE | 2024-12-21 12:42 | ED.GENADULT ---
HPI - General Adult General Time Seen by Provider: 12:43 Date Seen: 12/21/24 Chief complaint: Alcohol/Intoxication Stated complaint: ETOH withdrawl Time Seen by Provider: 12/21/24 12:30 Source: patient, EMS and RN notes reviewed Mode of arrival: EMS Limitations: no limitations History of Present Illness HPI narrative: This 34-year-old male is brought in by EMS with anxiety and alcohol withdrawal symptoms. Patient was at home, last drank about 10:00 p.m. last night. Has long-term issue with alcoholism. He drank about 1.7 L of rum yesterday. He this morning started to note that his whole face felt numb and tingly, felt like his vision was blackening, he endorses hyperventilation but felt like he was going to pass out. He did call 911. He felt dizzy with this, head neck pain with these symptoms. EMS found his blood sugar to be 137. Patient denies pain anywhere. He is concerned because he did have a left upper extremity DVT, states he recently finished a course of 3 months of blood thinner. Looks like he was on Eliquis. He notes that his left hand is just been feeling little more tight and swollen, feels like he can not close it completely. He does have a history of anxiety, alcoholism, alcohol withdrawal seizures. He does think that he feels like he is in withdrawal as well as having anxiety. Related Data Home Medications ?Medication ?Instructions ?Recorded ?Confirmed buspirone 15 mg tablet 15 mg PO BID 01/01/23 12/21/24 metoprolol succinate 50 mg 50 mg PO DAILY 01/01/23 12/21/24 tablet,extended release 24 hr amlodipine 10 mg tablet 10 mg PO DAILY 07/06/23 07/20/24 hydroxyzine HCl 25 mg tablet 25 mg PO DIRECTED 09/27/23 12/21/24 lisinopril 20 1 tab PO DAILY 09/27/23 12/21/24 mg-hydrochlorothiazide 25 mg tablet venlafaxine 75 mg capsule,extended 75 mg PO DAILY 12/21/24 12/21/24 release 24 hr Previous Rx's ?Medication ?Instructions ?Recorded apixaban 5 mg (74 tabs) tablets in See Rx Instructions PO .COMPLEX 07/26/24 a dose pack (Wengo DVT-PE Treat #74 ea 30D Start) magnesium 200 mg tablet 200 mg PO BID #60 tabs 12/21/24 Allergies Allergy/AdvReac Type Severity Reaction Status Date / Time No Known Drug Allergies Allergy Verified 12/21/24 12:33 Review of Systems Status of ROS: Reports: 6 or more systems reviewed and unremarkable except as noted in History and below [facility] Medical History Alcoholism ?F10.20 - Alcohol dependence, uncomplicated (ICD-10) Obstructive sleep apnea ?G47.33 - Obstructive sleep apnea (adult) (pediatric) (ICD-10) Agoraphobia with panic attacks ?F40.01 - Agoraphobia with panic disorder (ICD-10) History of panic attacks ?Z86.59 - Personal history of other mental and behavioral disorders (ICD-10) Anxiety disorder ?F41.9 - Anxiety disorder, unspecified (ICD-10) Major depressive disorder ?F32.9 - Major depressive disorder, single episode, unspecified (ICD-10) Essential hypertension ?I10 - Essential (primary) hypertension (ICD-10) Synovial cyst of popliteal space [Palmre], right knee ?M71.21 - Synovial cyst of popliteal space [Palmer], right knee (ICD-10) Current smoker ?F17.200 - Nicotine dependence, unspecified, uncomplicated (ICD-10) History of seizure due to alcohol withdrawal ?Z87.898 - Personal history of other specified conditions (ICD-10) ?Z86.59 - Personal history of other mental and behavioral disorders (ICD-10) History of alcohol withdrawal syndrome ?Z86.59 - Personal history of other mental and behavioral disorders (ICD-10) Right knee pain ?M25.561 - Pain in right knee (ICD-10) Alcohol dependence, binge pattern ?F10.20 - Alcohol dependence, uncomplicated (ICD-10) Anxiety ?F41.9 - Anxiety disorder, unspecified (ICD-10) Morbidly obese ?E66.01 - Morbid (severe) obesity due to excess calories (ICD-10) Surgical History S/P right knee arthroscopy ?Z98.890 - Other specified postprocedural states (ICD-10) Social History Highest level of school completed/degree received: high school graduate Smoking Status: Current every day smoker What tobacco products do you use: cigarettes Smoking packs per day: 1 Smoking cigarettes per day: 20.0 Do you use any of these nicotine containing products: None Second hand tobacco smoke exposure: No How often do you have a drink containing alcohol: 4 or more times a week Alcohol type: hard liquor How many standard drinks containing alcohol do you have on a typical day: 10 or more How often do you have six or more drinks on one occasion: Daily or almost daily AUDIT-C Alcohol total score: 12 Non-prescribed substance use: denies use Caffeine: Yes (6-10 cans) service: No Exam Const: Vital Signs, click to edit/add: Vital Signs - 24 hr 12/21/24 12:28 12/21/24 12:54 Temperature 96.7 F L Pulse Rate [Pulse Oximeter] 118 H Respiratory Rate 18 Blood Pressure [Ri ght Forearm] 141/62 H Pulse Oximetry 94 92 Oxygen Delivery Me thod Room Air This 34-year-old gentleman is seen in exam room 1. He is certainly very pleasant, sitting up on the edge of the bed but does seem anxious. He has morbid obesity. Eyelids, especially upper eyelids bilaterally, do seem puffy. Sclera slightly injected but no drainage noted, conjugate gaze. Speech is normal, symmetrical facial function. Very thick neck. Lungs are clear, good air entry, no wheezing or crackles, tachypnea or any accessory muscle use. CV is fast but regular, no murmur, normal S1-S2 . Abdomen is obese but soft nontender. His upper extremities seem to look symmetrical incised me come neurovascular intact this time. His left arm does feel warm, see him make a fist and fully open and close his fingers. Documenting provider has reviewed patient's vital signs: yes Course Course ED Course: This 34-year-old male has significant underlying anxiety complicating his alcoholism. He does not want an IV site given the history of the DVT in the left upper extremity. Will do a lab draw which he does agree to, does have a history of hypo magnesemia. Will also do an ultrasound of his left upper extremity to ensure that he does not have a DVT. Will give him 1 mg oral Ativan arm, encourage fluids. Will do appropriate lab work. Reevaluation(s) Time of Reevaluation #1: 14:08 Reevaluation #1: have reviewed with patient that the preliminary report from the gym teacher is negative for DVT in his left arm. He is happy about this. He is feeling a bit better. Still somewhat anxious, will give him another 1 mg oral Ativan. If his troponin comes back normal, likely discharge to home. He does not want detox, have discussed this with him again and he politely declines. We reviewed that his magnesium is low, he would shredder picker magnesium from the pharmacy. We are going to give him oral magnesium as well as dime in and multivitamin with folate in it. Time of Reevaluation #2: 14:22 Reevaluation #2: Ready overall is feeling better. He does not want treatment, feels ready to discharge to home. His labs are overall reassuring outside of the low magnesium. Have discussed with him that he really needs to try to stop drinking, he states he has been trying to cut down. Did discuss programs like alcoholics anonymous, he lives in [facility] and he could contact social media marketing manager from [facility] to start working on options for alcoholism and potential treatment. He does not really seem ready to endorse this or consider these options. Vital Signs Vital signs: Initial Vital Signs Temperature 96.7 F L 12/21/24 12:28 Temperature Source Temporal Artery Scan 12/21/24 12:28 Pulse Rate 118 H 12/21/24 12:28 Respiratory Rate 18 12/21/24 12:28 Blood Pressure 141/62 H 12/21/24 12:28 Blood Pressure Mean 88 12/21/24 12:28 Blood Pressure Position Sitting 12/21/24 12:28 Pulse Oximetry 94 12/21/24 12:28 Oxygen Delivery Method Room Air 12/21/24 12:28 Vital Signs Temperature 96.7 F L 12/21/24 12:28 Pulse Rate 118 H 12/21/24 12:28 Respiratory Rate 18 12/21/24 12:28 Blood Pressure 141/62 H 12/21/24 12:28 Pulse Oximetry 94 12/21/24 12:28 Oxygen Delivery Method Room Air 12/21/24 12:28 Temperature 96.7 F L 12/21/24 12:28 Pulse Rate 118 H 12/21/24 12:28 Respiratory Rate 18 12/21/24 12:28 Blood Pressure 141/62 H 12/21/24 12:28 Pulse Oximetry 92 12/21/24 12:54 Oxygen Delivery Method Room Air 12/21/24 12:28 Medications Administered Medications: Discontinued Medications Generic Name Dose Route Start Last Admin Trade Name Tish PRN Reason Stop Dose Admin Lorazepam 1 mg 12/21/24 12:54 12/21/24 13:06 Lorazepam 1 Mg Tablet PO 12/21/24 12:55 1 mg ONCE ONE Administration Medical Decision Making Lab Data Lab results reviewed: Yes I reviewed the patient's lab results Labs: Lab Results 12/21/24 Range/Units 13:14 WBC 7.47 (4.50-11.00) K/uL RBC 4.86 (4.30-5.90) m/uL Hgb 15.8 (13.5-17.5) gm/dL Hct 47.8 (37.0-53.0) % MCV 98 (80-100) fL MCH 33 (26-34) pg MCHC 33 (32-36) gm/dL RDW Coeff of Dhara 13.7 (11.5-15.5) % Plt Count 265 (140-440) K/uL Neut % (Auto) 63.7 (42.0-72.0) % Lymph % (Auto) 28.0 (20-44) % Nuckolls % (Auto) 6.8 (0.0-11.0) % Eos % (Auto) 1.1 (0.0-7.0) % Baso % (Auto) 0.3 (0.0-3.0) % Neut # (Auto) 4.76 (1.7-7.0) K/uL Lymph # (Auto) 2.09 (0.90-2.90) K/uL Nuckolls # (Auto) 0.50 (0.00-0.90) K/UL Eos # (Auto) 0.08 (0.00-0.50) K/uL Baso # (Auto) 0.02 (0.00-0.30) K/uL Abs Immat Gran (auto) 0.01 (0.00-0.30) K/uL Imm/Tot Granulo (auto) 0.1 % Sodium 137 (135-149) mmol/L Potassium 4.7 (3.6-5.1) mmol/L Chloride 104 (96-114) mmol/L Carbon Dioxide 23 (20-32) mmol/L Anion Gap 10 (7-15) mEq/L BUN 12 (5-24) mg/dL Creatinine 1.0 (0.5-1.5) mg/dL Estimated Creat Clear 122.06 Estimated GFR 100 ml/min Glucose 115 (60-115) mg/dL Lactate 2.1 H (0.5-1.9) mmol/L Calcium 8.8 (8.4-10.6) mg/dL Magnesium 1.3 L (1.5-2.6) mg/dL Total Bilirubin 0.5 (0.1-1.5) mg/dL AST 26 (12-35) U/L ALT 18 (4-50) U/L Alkaline Phosphatase 79 (40-150) U/L Troponin I 0.02 (0.01-0.04) ng/mL Total Protein 8.1 (6.0-8.3) g/dL Albumin 4.2 (3.3-5.0) g/dL Ethyl Alcohol < 0.01 L (0.01-0.03) % ECG Data Attestation: I personally reviewed and interpreted this ECG as follows: ( Sinus tachycardia with PVC, rate 103 beats per minute. Flipped T-waves lead [address] segment depression, same in V1. No ischemia or infarct noted.) Prior ECG tracings: available for review Discharge Plan Discharge Clinical Impression: Alcoholism, Low magnesium level Anxiety disorder Qualifiers: Anxiety disorder type: unspecified anxiety disorder Qualified Code(s): F41.9 - Anxiety disorder, unspecified Patient Disposition: Home, Self-Care Condition: Improved Instructions: Alcohol Withdrawal (ED), Anxiety (ED), Alcohol Use Disorder (ED) Additional Instructions: Highly encourage you to consider alcohol cessation. Recommend follow up in clinic within the next week. I have sent in magnesium that you should take, yours is low. Your magnesium level should be rechecked within the next 2-4 weeks. Activity Level: Activity as Tolerated Prescriptions: New magnesium 200 mg tablet 200 mg PO BID Qty: 60 0RF No Action amlodipine 10 mg tablet 10 mg PO DAILY lisinopril-hydrochlorothiazide 20-25 mg tablet 1 tab PO DAILY hydroxyzine HCl 25 mg tablet 25 mg PO DIRECTED Reilly DVT-PE Treat 30D Start 5 mg (74 tabs) tablets,dose pack See Rx Instructions .ROUTE .COMPLEX Qty: 74 0RF Rx Instructions: orally per package directions metoprolol succinate 50 mg tablet extended release 24 hr 50 mg PO DAILY buspirone 15 mg tablet 15 mg PO BID venlafaxine 75 mg capsule,extended release 24hr 75 mg PO DAILY Follow Up/Referrals: Erna Morin DO [Primary Care Provider] - Stand Alone Forms: [facility] Info Instructions
[2024-12-21 12:54] VITALS: O2SAT 92
[2024-12-21] MEDS: LORazepam 1 MG TABLET PO ×2 (13:06→14:26)
[2024-12-21 13:21] LABS: Lactate* 2.1 mmol/L (0.5-1.9)
[2024-12-21 13:23] LABS: Basophils Absolute Auto 0.02 K/uL (0.00-0.30); Basophils Percent Auto 0.3 % (0.0-3.0); Eosinophils Absolute Auto 0.08 K/uL (0.00-0.50); Eosinophils Percent Auto 1.1 % (0.0-7.0); Hematocrit 47.8 % (37.0-53.0); Hemoglobin* 15.8 gm/dL (13.5-17.5); Immature Granulocytes Abs Auto 0.01 K/uL (0.00-0.30); Immature Granulocytes Pct Auto 0.1 %; Lymphocytes Absolute Auto 2.09 K/uL (0.90-2.90); Mean Corpuscular HGB Conc 33 gm/dL (32-36); Mean Corpuscular Hemoglobin 33 pg (26-34); Mean Corpuscular Volume 98 fL (80-100); Monocytes Percent Auto 6.8 % (0.0-11.0); Neutrophils Absolute Auto 4.76 K/uL (1.7-7.0); Neutrophils Percent Auto 63.7 % (42.0-72.0); Platelet Count* 265 K/uL (140-440); RDW Coefficient of Variation % 13.7 % (11.5-15.5); Red Blood Count 4.86 m/uL (4.30-5.90); White Blood Count* 7.47 K/uL (4.50-11.00)
[2024-12-21 13:26] LABS: Slide Review Reflex No
[2024-12-21 13:52] LABS: Albumin* 4.2 g/dL (3.3-5.0)
[2024-12-21 13:53] LABS: Chloride* 104 mmol/L (96-114); Potassium* 4.7 mmol/L (3.6-5.1); Sodium* 137 mmol/L (135-149)
[2024-12-21 13:55] LABS: Alkaline Phosphatase* 79 U/L (40-150); Anion Gap 10 mEq/L (7-15); Aspartate Amino Transferase* 26 U/L (12-35); Bilirubin Total* 0.5 mg/dL (0.1-1.5); Blood Urea Nitrogen* 12 mg/dL (5-24); Carbon Dioxide* 23 mmol/L (20-32); Est. Creatinine Clearance* 122.06; Estimated Glomerular Filt Rate 100 ml/min; Total Protein* 8.1 g/dL (6.0-8.3)
[2024-12-21 13:56] LABS: Alanine Aminotransferase* 18 U/L (4-50); Calcium* 8.8 mg/dL (8.4-10.6); Glucose* 115 mg/dL (60-115); Magnesium* 1.3 mg/dL (1.5-2.6)
[2024-12-21 13:58] LABS: Ethanol* < 0.01 % (0.01-0.03)
[2024-12-21 14:07] LABS: Troponin I* 0.02 ng/mL (0.01-0.04)
[2024-12-21] MEDS: MULTIVITAMIN/MINERALS 1 TABLET 1 TAB PO (14:25)
[2024-12-21] MEDS: MAGNESIUM OXIDE 400 MG TABLET PO (14:26)
[2024-12-21] MEDS: THIAMINE 100 MG TABLET PO (14:26)
== END 2024-12-21 14:41 | disposition home or self-care (01) ==
PROVIDERS: Emergency Provider Family Medicine; PCP Family Medicine
DX: F10.129 Alcohol abuse with intoxication, unspecified (principal); E83.42 Hypomagnesemia; F41.9 Anxiety disorder, unspecified
CPT/HCPCS: 36415; 80053; 82077; 83605; 83735; 84484; 85025; 93005; 93971; 94761; 99284; A9153; A9270

== ENCOUNTER 2025-02-21 12:10 | Outpatient (CLI) | payer OTHER, SELFPAY | END 2025-02-21 12:11 | disposition home or self-care (01) | LOC: AMB 02-26 08:25 | PROVIDERS: PCP Family Medicine; Visit Provider Family Medicine | DX: F10.129 Alcohol abuse with intoxication, unspecified (principal); R10.31 Right lower quadrant pain | CPT/HCPCS: A0425; A0429 ==

== ENCOUNTER 2025-02-21 12:34 | Emergency (ER) | payer OTHER, SELFPAY ==
[2025-02-21] VITALS (10 sets, daily range): BP systolic 103–125; BP diastolic 34–82; PULSE 80–114; RESP 14–28; TEMP 36.1; O2SAT 88–99; BMI 63.1
--- NOTE | 2025-02-21 12:36 | ED.GENADULT ---
HPI - General Adult General Date Seen: 02/21/25 Chief complaint: Alcohol/Intoxication Stated complaint: ETOH Time Seen by Provider: 02/21/25 12:36 History of Present Illness HPI narrative: 35-year-old male with past medical history of alcoholism, anxiety, depression, hypertension, tobacco use, history of alcohol withdrawal seizures, morbid obesity, and history of a superficial thrombophlebitis with clot in his left upper extremity cephalic vein for which is saw him in July. We put him on prophylactic Eliquis to prevent progression to DVT. He is brought to the ER today from home by EMS. He presents to the ER today with concern for nausea abdominal pain in the right lower quadrant. History from the patient and from paramedics is that he is an alcoholic. It sounds like he has a pattern of binge drinking where he drinks heavy for a few days and sober for couple of days. He has been doing this for several years. He has been through treatment multiple times and he says he had about a 1 year period of sobriety in 2014 but since then has been drinking pretty regularly. His last binge of drinking started 2 days ago on Saturday and and yesterday on Saturday in the morning when he developed nausea and was simply too nauseous to keep drinking. He was quite nauseous yesterday and threw up a couple of times. Emesis was food, not blood. Says this morning when he woke up he was having pain in his right lower quadrant and on the right side of his abdomen and right back. He has had persistent nausea today but no further vomiting. No fever. He has had several normal brown bowel movements today but not really diarrhea. He is feeling a little bit shaky and seeing ?squeeze? in his eyes. He notes that he has had a history of alcohol withdrawal seizures. He says there was really nothing different about this particular binge of alcohol. He was drinking whiskey. He was not really drinking more less than normal. What was different is that yesterday he developed the nausea and today the pain. He has a history of a superficial thrombophlebitis in his left arm the for which I saw him for last July. He had been on a couple of months of Eliquis but has been off that now since October. He has been taking his for prescribed blood pressure medications (metoprolol, hydrochlorothiazide, lisinopril, amlodipine). No other meds. Most recent blood work in our system was December 2024. At that time he had a white count of 7.4, hemoglobin 15.8, platelet count 265. Sodium 137, potassium 4.7, chloride 1 0 far, bicarb 23, BUN 12, creatinine 1.0, glucose 115. Magnesium was low at 1.3. Bilirubin was 0.5, AST was 26, ALT was 18, alk-phos was 79. Troponin was 0.02. Alcohol level was less than 0.01. According to his ER note from 12/21 Related Data Home Medications ?Medication ?Instructions ?Recorded ?Confirmed buspirone 15 mg tablet 15 mg PO BID 01/01/23 12/21/24 metoprolol succinate 50 mg 50 mg PO DAILY 01/01/23 12/21/24 tablet,extended release 24 hr amlodipine 10 mg tablet 10 mg PO DAILY 07/06/23 07/20/24 hydroxyzine HCl 25 mg tablet 25 mg PO DIRECTED 09/27/23 12/21/24 lisinopril 20 1 tab PO DAILY 09/27/23 12/21/24 mg-hydrochlorothiazide 25 mg tablet venlafaxine 75 mg capsule,extended 75 mg PO DAILY 12/21/24 12/21/24 release 24 hr Previous Rx's ?Medication ?Instructions ?Recorded apixaban 5 mg (74 tabs) tablets in See Rx Instructions PO .COMPLEX 07/26/24 a dose pack ([email or web address]) DVT-PE Treat #74 ea 30D Start) magnesium 200 mg tablet 200 mg PO BID #60 tabs 12/21/24 Allergies Allergy/AdvReac Type Severity Reaction Status Date / Time No Known Drug Allergies Allergy Verified 12/21/24 12:33 [facility] Medical History Alcoholism ?F10.20 - Alcohol dependence, uncomplicated (ICD-10) Obstructive sleep apnea ?G47.33 - Obstructive sleep apnea (adult) (pediatric) (ICD-10) Agoraphobia with panic attacks ?F40.01 - Agoraphobia with panic disorder (ICD-10) History of panic attacks ?Z86.59 - Personal history of other mental and behavioral disorders (ICD-10) Anxiety disorder ?F41.9 - Anxiety disorder, unspecified (ICD-10) Major depressive disorder ?F32.9 - Major depressive disorder, single episode, unspecified (ICD-10) Essential hypertension ?I10 - Essential (primary) hypertension (ICD-10) Synovial cyst of popliteal space [Palmer], right knee ?M71.21 - Synovial cyst of popliteal space [Palmer], right knee (ICD-10) Current smoker ?F17.200 - Nicotine dependence, unspecified, uncomplicated (ICD-10) History of seizure due to alcohol withdrawal ?Z87.898 - Personal history of other specified conditions (ICD-10) ?Z86.59 - Personal history of other mental and behavioral disorders (ICD-10) History of alcohol withdrawal syndrome ?Z86.59 - Personal history of other mental and behavioral disorders (ICD-10) Right knee pain ?M25.561 - Pain in right knee (ICD-10) Alcohol dependence, binge pattern ?F10.20 - Alcohol dependence, uncomplicated (ICD-10) Anxiety ?F41.9 - Anxiety disorder, unspecified (ICD-10) Morbidly obese ?E66.01 - Morbid (severe) obesity due to excess calories (ICD-10) Surgical History S/P right knee arthroscopy ?Z98.890 - Other specified postprocedural states (ICD-10) Social History Highest level of school completed/degree received: high school graduate Smoking Status: Current every day smoker What tobacco products do you use: cigarettes Smoking packs per day: 1 Smoking cigarettes per day: 20.0 Do you use any of these nicotine containing products: None Second hand tobacco smoke exposure: No How often do you have a drink containing alcohol: 4 or more times a week Alcohol type: hard liquor How many standard drinks containing alcohol do you have on a typical day: 10 or more How often do you have six or more drinks on one occasion: Daily or almost daily AUDIT-C Alcohol total score: 12 Non-prescribed substance use: denies use Caffeine: Yes (6-10 cans) service: No Exam Narrative: Exam Narrative: Constitutional: Appears well-developed and over-nourished. Estimates he weighs 510 lb. Alert. Conversant. Non toxic. He remembers me from previous ER visit. HENT: Head: Atraumatic. Nose: Nose normal. Mouth/Throat: Oral mucosa is clear but dry, not desiccated or cracked.. no trismus. Pharynx normal. Tonsils symmetric. No tonsillar enlargement, erythema, or exudate. Eyes: Conjunctivae normal. EOM normal. Pupils equal, round, and reactive to light. No scleral icterus. Neck: Normal range of motion. Neck supple. No tracheal deviation present. Cardiovascular: Normal rate, regular rhythm. No gallop. No friction rub. No murmur heard. Symmetric radial artery pulses Pulmonary/Chest: Effort normal. No stridor. No respiratory distress. No wheezes. No rales. No rhonchi . No tenderness. Abdominal: Soft. Bowel sounds normal. Protuberant due to body habitus which limits exam. No tympany. No distension. No appreciable mass. Right lower quadrant> right upper quadrant tenderness. No rebound. No guarding. No CVA tenderness. Musculoskeletal: RUE: Normal range of motion. No tenderness. No deformity LUE: Normal range of motion. No tenderness. No deformity RLE: Normal range of motion. No edema. No tenderness. No deformity LLE: Normal range of motion. No edema. No tenderness. No deformity Neurological: Alert and oriented to person, place, and time. Normal strength. CN II-VII intact. No sensory deficit. GCS eye subscore is 4. GCS verbal subscore is 5. GCS motor subscore is 6. Normal coordination Skin: Skin is warm and dry. No rash noted. No pallor. Normal capillary refill. Psychiatric: Normal mood. Normal affect. Polite. Not really anxious or tremulous Const: Vital Signs, click to edit/add: Vital Signs - 24 hr 02/21/25 12:43 02/21/25 13:23 02/21/25 13:25 Temperature 97 F L Pulse Rate [Right Apical] 114 H Respiratory Rate 28 H Respiratory Rate [ Right Abdomen] Blood Pressure [Le ft Forearm] 103/34 L Pulse Oximetry 94 88 95 Oxygen Delivery Me thod Room Air Room Air Nasal Cannula Oxygen Flow Rate 2 02/21/25 13:41 02/21/25 15:00 02/21/25 15:02 Temperature Pulse Rate [Right Apical] 83 Respiratory Rate 26 H 26 H Respiratory Rate [ Right Abdomen] 14 Blood Pressure [Le ft Forearm] 108/73 Pulse Oximetry 99 94 Oxygen Delivery Me thod Nasal Cannula Room Air Oxygen Flow Rate 2 Course Course ED Course: Recheck-patient says he is feeling better after meds that were given but still having some pain. Nausea has temporarily improved. He is lying on his right side. He did develop hypoxia after Dilaudid so no his nasal cannula but is otherwise breathing easily and has normal level of alertness. No signs of significant respiratory compromise or airway compromise. Repeat abdominal exam still reveals some mild right lower quadrant tenderness. No definite CVA tenderness but he does say the right side of his low back hurts. Exam still somewhat limited by his body habitus. I do not appreciate any obvious hernias or masses. Discussed laboratory findings so far with the patient including an acute kidney injury with creatinine tripled from baseline. Unclear if this is due to dehydration or possibly something like an obstructing kidney stone. We need urinalysis to look for hematuria. Patient will do his best to prior provide a sample but simply does not feel the need to urinate right now. He would agree to hospitalization here in [place] if it was indicated and/or transfer to a facility that can get a CT scan if necessary. Discussed with the patient that we want to look at his urine to see if there is hematuria. If there is that suggest a kidney stone and therefore would require transfer so he can get a scan to see how big the stone is and have urologic intervention. Vital Signs Vital signs: Initial Vital Signs Temperature 97 F L 02/21/25 12:43 Temperature Source Temporal Artery Scan 02/21/25 12:43 Pulse Rate 114 H 02/21/25 12:43 Respiratory Rate 28 H 02/21/25 12:43 Blood Pressure 103/34 L 02/21/25 12:43 Blood Pressure Mean 57 L 02/21/25 12:43 Pulse Oximetry 94 02/21/25 12:43 Oxygen Delivery Method Room Air 02/21/25 12:43 Vital Signs Temperature 97 F L 02/21/25 12:43 Pulse Rate 114 H 02/21/25 12:43 Respiratory Rate 28 H 02/21/25 12:43 Blood Pressure 103/34 L 02/21/25 12:43 Pulse Oximetry 94 02/21/25 12:43 Oxygen Delivery Method Room Air 02/21/25 12:43 Temperature 97 F L 02/21/25 12:43 Pulse Rate 83 02/21/25 15:02 Respiratory Rate 26 H 02/21/25 15:02 Blood Pressure 108/73 02/21/25 15:02 Pulse Oximetry 94 02/21/25 15:02 Oxygen Delivery Method Room Air 02/21/25 15:02 Oxygen Flow Rate 2 02/21/25 15:00 Medications Administered Medications: Generic Name Dose Route Start Last Admin Trade Name Freq PRN Reason Stop Dose Admin Hydromorphone HCl 0.5 mg 02/21/25 12:50 02/21/25 13:23 Hydromorphone 0.5 Mg/0.5 Ml Inj IVP 0.5 mg Q1H PRN Administration Pain Magnesium Sulfate 2 gm in 50 mls @ 25 mls/hr 02/21/25 13:57 02/21/25 14:12 Magnesium Iv IVPB 02/21/25 15:56 25 mls/hr ONCE ONE Administration Discontinued Medications Generic Name Dose Route Start Last Admin Trade Name Freq PRN Reason Stop Dose Admin Sodium Chloride 1,000 mls @ 1,000 mls/hr 02/21/25 13:00 02/21/25 14:12 0.9 % Sodium Chloride 1000 Ml IV 02/21/25 13:59 Infused .Q1H SUKI Infusion Thiamine HCl 250 mg/ Sodium 102.5 mls @ 102.5 mls/hr 02/21/25 12:52 02/21/25 13:37 Chloride IVPB 02/21/25 12:53 102.5 mls/hr ONCE ONE Administration Lactated Ringer's 1,000 mls @ 1,000 mls/hr 02/21/25 13:57 02/21/25 14:12 Lactated Ringers 1000 Ml IV 02/21/25 14:56 1,000 mls/hr .Q1H ONE Administration Ketorolac Tromethamine 15 mg 02/21/25 12:50 02/21/25 13:22 Ketorolac 15 Mg/Ml Inj IVP 02/21/25 12:51 15 mg ONCE ONE Administration Lorazepam 1 mg 02/21/25 12:50 02/21/25 13:22 Lorazepam 2 Mg/Ml Inj IVP 02/21/25 12:51 1 mg ONCE ONE Administration Ondansetron HCl 4 mg 02/21/25 12:50 02/21/25 13:23 Ondansetron 2 Mg/Ml Inj IVP 02/21/25 12:51 4 mg ONCE ONE Administration Medical Decision Making MDM Narrative Medical decision making narrative: Very pleasant 35-year-old gentleman with a complex presentation to the ER. 1. His main presenting complaint was that he is having right lower quadrant abdominal pain and also some right-sided low back pain. Symptoms began yesterday with nausea and then pain involved this morning. He is not febrile. Differential here would include; Appendicitis, Bowel Obstruction, Ulcer, Ischemia, Cholecystitis, Diverticulitis, Pancreatitis, UTI, kidney stone, Enteritis/Colitis, amongst many other etiologies. Laboratory testing does not reveal a cause for the patient's pain. White blood cell count is normal. Liver function tests and lipase are normal. On serial abdominal exam the pain seems to localize to the right lower quadrant. I think CT imaging is indicated for this patient, unfortunately CT is not possible for this patient here in [place]. Our CT scanner can accommodate patient body weight up to 480 lb and the patient weighs 505 lb today. Therefore transfer to a facility with a bariatric CT scanner is indicated. The exact etiology of the abdominal pain is not clear at this time. 2. Renal. Patient does have an acute kidney injury. BUN is 32 and creatinine is 3.0 today. Previous creatinine from a couple months ago was normal at 1.0. Unclear what is causing this acute tripling in his creatinine. Could be prerenal from dehydration. However I am concerned about possible obstructive cause. Urinalysis shows hematuria but also pyuria. Hematuria would suggest that there may be an obstructing kidney stone contributing to his acute kidney injury. He certainly needs a CT scan to determine whether or not there is an obstructing stone, and if so how big it is and determine feasibility to place a stent or deal with the stone. Because the patient cannot undergo CT scan here, transfer is indicated. I do not think renal ultrasound would be sensitive enough to look for hydronephrosis or determine the size and position of any stones. Because of concomitant pyuria will also start him on IV Rocephin for possible UTI. Venous lactic is mildly elevated 2.6. He is not febrile. No clear sign of sepsis. 3. Electrolytes. Sodium is slightly low at 134. Potassium 5.1. Not dangerously elevated. Magnesium is low at 1.3. This is similar to previous visits to the ER related alcohol abuse. Potassium supplemented with IV Mag sulfate here in the ER. 4. Alcoholism. Patient does endorse ongoing alcohol abuse and he describes a pattern of bingeing where he drinks heavily for a couple of days and then his sober for couple of days. It sounds like this pattern is been going on for several years. He does have a history of alcohol withdrawal seizures but it sounds like he has never had delirium tremens. He does present with sinus tachycardia and mild anxiety but overall not overtly tremulous. Treated with IV Ativan here in the ER. Supplemented with IV thiamine. Patient is a little bit equivocal about whether not he wants alcohol treatment after medical stabilization. Should be reassessed by social Work or chemical dependency evaluation once his other acute medical conditions are stabilized. 5. Pulmonary. Patient was normal oxycodone he presented has not had any shortness of breath or cough recently. He did develop hypoxia after IV opiates for his abdominal pain and benzos for his alcohol withdrawal. He is currently stable on nasal cannula. At this point I suspect his hypoxia is related to the combination of his meds combined with his elevated BMI. I do not think he needs further workup with chest CT at this time. 6. Disposition. Discussed with the patient. He would be comfortable transferring to the [facility] such as soon line of facility. He has apparently had care through [facility] in the past and also his family lives in [place] where there is is also and [facility] facility. Patient understands that [place] would not have capability to get his CT or Urology so transferred to the [facility] with warranted. He agrees. [facility]. The be transferred by ground EMS. Lab Data Labs: Lab Results 02/21/25 02/21/25 Range/Units 13:05 14:18 WBC 10.29 (4.50-11.00) K/uL RBC 5.39 (4.30-5.90) m/uL Hgb 17.4 (13.5-17.5) gm/dL Hct 52.9 (37.0-53.0) % MCV 98 (80-100) fL MCH 32 (26-34) pg MCHC 33 (32-36) gm/dL RDW Coeff of Dhara 14.2 (11.5-15.5) % Plt Count 162 (140-440) K/uL Neut % (Auto) 67.1 (42.0-72.0) % Lymph % (Auto) 23.7 (20-44) % [place] % (Auto) 8.4 (0.0-11.0) % Eos % (Auto) 0.5 (0.0-7.0) % Baso % (Auto) 0.1 (0.0-3.0) % Neut # (Auto) 6.91 (1.7-7.0) K/uL Lymph # (Auto) 2.44 (0.90-2.90) K/uL [place] # (Auto) 0.90 (0.00-0.90) K/UL Eos # (Auto) 0.05 (0.00-0.50) K/uL Baso # (Auto) 0.01 (0.00-0.30) K/uL Abs Immat Gran (auto) 0.02 (0.00-0.30) K/uL Imm/Tot Granulo (auto) 0.2 % Sodium 134 L (135-149) mmol/L Potassium 5.1 (3.6-5.1) mmol/L Chloride 102 (96-114) mmol/L Carbon Dioxide 19 L (20-32) mmol/L Anion Gap 13 (7-15) mEq/L BUN 32 H (5-24) mg/dL Creatinine 3.0 H (0.5-1.5) mg/dL Estimated Creat Clear 40.29 Estimated GFR 27 ml/min Glucose 99 (60-115) mg/dL Lactate 2.6 H (0.5-1.9) mmol/L Calcium 8.5 (8.4-10.6) mg/dL Magnesium 1.3 L (1.5-2.6) mg/dL Total Bilirubin 0.8 (0.1-1.5) mg/dL AST 27 (12-35) U/L ALT 18 (4-50) U/L Alkaline Phosphatase 60 (40-150) U/L Total Protein 8.3 (6.0-8.3) g/dL Albumin 4.3 (3.3-5.0) g/dL Lipase 150 (23-300) U/L Urine Color Yellow (Yellow) Urine Appearance Clear (Clear) Urine pH 6.0 (5.0-8.5) Ur Specific [place] >= 1.030 (1.000-1.030) Urine Protein 3+ A (Negative) Urine Glucose (UA) Negative (Negative) Urine Ketones 1+ A (Negative) Urine Blood 2+ A (Negative) Urine Nitrite Negative (Negative) Urine Bilirubin 1+ A (Negative) Urine Urobilinogen 0.2 (0.2-1.0) Ur Leukocyte Esterase Negative (Negative) Urine RBC 10-25 A (0-2) Urine WBC 10-25 A (0-5) Ur Squamous Epith Cells Few (None-Few) Urine Bacteria Moderate A (None) Ethyl Alcohol < 0.01 (0.01-0.03) % Discharge Plan Discharge Clinical Impression: Acute kidney injury, Alcohol withdrawal, Hypomagnesemia, Abdominal pain, acute, right lower quadrant, Alcohol abuse, Hematuria, Pyuria Patient Disposition: er [facility]i [facility] Prescriptions: No Action amlodipine 10 mg tablet 10 mg PO DAILY lisinopril-hydrochlorothiazide 20-25 mg tablet 1 tab PO DAILY hydroxyzine HCl 25 mg tablet 25 mg [facility] Start 5 mg (74 tabs) tablets,dose pack See Rx Instructions .ROUTE .COMPLEX Qty: 74 0RF Rx Instructions: orally per package directions metoprolol succinate 50 mg tablet extended release 24 hr 50 mg PO DAILY buspirone 15 mg tablet 15 mg PO BID venlafaxine 75 mg capsule,extended release 24hr 75 mg PO DAILY magnesium 200 mg tablet 200 mg PO BID Qty: 60 0RF Stand Alone Forms: [facility] Instructions
--- OUTSIDE RECORDS SUMMARY | 2025-02-21 12:36 | XMS_ITS | Clinical Summary ---
Author Organization [facility] Address [facility] [place] [address] Care Team Providers Care Civil Engineering Professional Name Role Phone Erna Morin Aubree PORTER Primary Care Provider Nuria Monge RN Unavailable Allergies No known active allergies Medications naproxen (NAPROSYN) 500 mg tabletIndications :Chronic pain of both knees Take 1 Tablet (500 mg) by mouth every 12 hours if needed for Pain. 90 Tablet 2 Active Walker - 4 wheelsIndications :Morbid obesity with BMI of 60.0-69.9, adult (HC),Chronic pain of right knee For home use. Length of need: 99 Weight: 225.6kg 1 Each 3 Active ibuprofen (ADVIL; MOTRIN) 600 mg tablet Take 600 mg by mouth three times daily with meals. 3 Active venlafaxine (EFFEXOR XR) 150 mg Extended-Release capsuleIndication s:Anxiety and depression Take 1 Capsule (150 mg) by mouth once daily with evening meal. Total 225mg daily 90 Capsule 3 4 Active apixaban (ELIQUIS) 5 mg tabletIndications :deep venous thrombosis Take 1 Tablet (5 mg) by mouth two times daily. 60 Tablet 1 4 Active lisinopril-hydroc hlorothiazide, 20-25 mg, (PRINZIDE, ZESTORETIC) 20-25 mg per tabletIndications :HTN (hypertension) Take 1 Tablet by mouth once daily. 90 Tablet 3 4 Active hydrOXYzine HCL (ATARAX) 25 mg tabletIndications :Generalized anxiety disorder with panic attacks Take 1 Tablet (25 mg) by mouth every 6 hours if needed for Anxiety. 60 Tablet 2 4 Active venlafaxine (EFFEXOR XR) 75 mg cp24 Extended-Release capsuleIndication s:Generalized anxiety disorder with panic attacks Take 1 Capsule (75 mg) by mouth once daily with a meal. To be taken with 150 mg dose to total 225 mg. 90 Capsule 3 4 Active metoprolol succinate (TOPROL XL) 50 mg sustained-release tabletIndications :Essential hypertension Take 1 Tablet (50 mg) by mouth once daily. 90 Tablet 3 5 Active busPIRone 15 mg tabletIndications :Generalized anxiety disorder TAKE 1 TABLET(15 MG) BY MOUTH TWICE DAILY 60 Tablet 5 Active Active Problems Problem Noted Date Diagnosed [...] (01/22/2022): 01/22/2022 Body mass index is 60 kg/m . BMI>40, which is consistent with MORBID OBESITY. This is clinically significant due to increased nursing cares, use of resources and specialty equipment. Palmer cyst, right 08/11/2018 Resolved Problems Problem Noted Date Diagnosed Date Resolved Date Hypocalcemia 02/15/2021 01/22/2022 Overview (02/15/2021): 02/15/2021 associated with tetany. Ionized calcium 0.86. Anxiety 09/05/2018 01/22/2022 Encounters Date Type Department Care Team Description 02/08/2025 Patient Outreach [address] [address] Gill Morejon Care Coordination- [facility] (Assessment forms mailed 02/08/2025) 01/13/2025 1:00 PM CDT Patient Outreach [address] [address] Nuria Monge RN [facility] Care Coordination- [facility] ([facility] Health Risk Assessment) 01/13/2025 Refill [facility] [address] [place] [address] Erna Morin, DO Refill Request (Buspirone) 12/30/2024 2:00 PM CDT Patient Outreach [address] [address] Nuria Monge RN [facility] Care Coordination- [facility] (Health Risk Assessment Rescheduled/ER Visit on 12/21/24) 12/18/2024 Patient Outreach [address] [address] Nuria Monge RN [facility] Care Coordination- [facility] (Change in Line Therapist/Confirm HRA) 12/11/2024 Refill [facility] [address] [place] [address] Sir Morini Aubree, DO Refill Request (Buspirone, Metoprolol Succinate) 12/08/2024 Patient Outreach [address] [address] Melvin Razo Care Coordination- [facility] (Annual HRA Scheduling Outreach) from Last 3 Months Immunizations Immunization Administration Dates Next Due COVID-19 vaccine (Moderna 100mcg/0.5mL) PF, MDV 08/01/2021,07/04/2021 COVID-19 vaccine (Pfizer-Bio NTech 30mcg/0.3mL) 12YO+ BIVALENT PF, MDV 07/26/2022 COVID-19 vaccine (Pfizer-Bio NTech 30mcg/0.3mL) 12YO+ COLIN-SUCROSE PF, MDV 01/29/2022 DTP 05/31/1993, 9,1988,1987,1988 Dtap-5 Pertussis Antigens 05/31/1993,,1988,1987,1988 Hepatitis B (Adult) 06/07/1999 Hepatitis B, Unspecified 06/07/1999 Inactivated Polio Vaccine 05/31/1993,,1988,1987 MMR 06/07/1999,05/31/1993,06/19/1989 Oral Polio Vaccine 05/31/1993, 9,1988,1987 [...] = 0.6 oz pur e alcohol) 10/22 gallon PHQ-2 Answer Date Recorded PHQ-2 TOTAL SCORE 2 12/11/2024 Social Connections Answer Date Recorded Do you often feel lonely or isolated from those around you? 0 06/30/2024 Financial Resource Strain Answer Date R ecorded Difficulty of Paying Living Expenses 3 06/30/2024 Difficulty of Paying Living Expenses Not on file 06/30/2024 Food Insecurity Answer Date Recorded Do you worry your food will run out before you are able to buy more? 1 06/30/2024 Transportation Needs Answer Date Record ed Does lack of transportation keep you from medica l appointments? 1 06/30/2024 Does lack of transportation keep you from work, meetings or getting things that you need? 1 06/30/2024 Housing Stability Answer Date Recorded What is your housing situation today? 1 06/30/2024 Utilities Answer Date Recorded Do you have trouble paying f or utilities (for example, heat, electricity, water, phone)? 1 06/30/2024 Sex and Gender Information Value Date Recorded Sex Assigned at Not on file Legal Sex Male 4:56 PM CDT Gender Identity Not on file Sexual Orientation Not on file Obstetrics History Last Filed Vital Signs Vital Sign Reading Time Taken Comments Blood Pressure 132/89 07/29/2024 12:14 PM CDT Pulse 91 07/29/2024 12:14 PM CDT Temperature 37.3 C (99.1 F) 07/22/2022 9:00 PM CDT Respiratory Rate 20 07/22/2022 9:00 PM CDT Oxygen Saturation 93% 07/29/2024 11: 27 AM CDT Inhaled Oxygen Concentration - - Weight 226.5 kg (499 lb 6.4 oz) 024 11:27 AM CDT Height 190.5 cm (6' 3) 11/22/2023 2:53 PM IMPRESS ASSOCIATE Body Mass Index 62.42 11/22/2023 2:53 PM IMPRESS ASSOCIATE Plan of Treatment Upcoming Encounters Date Type Department Care Team (Late st Contact Info) Description 03/02/2025 3:25 PM CDT Office Visit [facility] [address] [place] [address] Erna Morin, [address] [place] [address] Health Maintenance Due Date Last Done Comments Pneumococcal series for age 6-49 (1 of 2 - PCV) 01/08/2007 Tetanus booster 08/14/2022 08/14/2012, 01/2000, 06/07/1999 COVID-19 vaccine series ( season) 2024 07/26/2022, 01/29/2022, 08/01/2021, Additional history exists BMI (ht and wt on same day) for age 18+ 11/22/2024 11/22/2023, 11/05/2018, 09/29/2018, Additional history exists Influenza Vaccine (Season Ended) 2025 Depression screening for age 12+ 12/11/2025 12/11/2024, 12/11/2024, 12/08/2024, Additional history exists Lipids for age 35-44 11/22/2028 11/22/2023 Tdap Completed 08/14/2012 HIV for age 15-65 Completed 08/11/2018 Hepatitis C screening for ag e 18-79 Completed 08/11/2018 Goals Goal Patient Goal Type Associated Problems Recent Progress Patient-Stated? Author [facility] CC-Preventative Healthcare General On track(2024 1:39 PM CDT) No Nuria Mo, RN Note: Health Maintenance Tracking Grid Jus Reynaga will engage in management of preventive needs to improve health & wellness. Health Screening Dates of Last Completion & Other Notes Annual Preventive Check-Up Due-He plans on scheduling Mammogram NA Colorectal Cancer Screening Reviewed Fall Risk Reviewed Flu Vaccine Declines Tetanus Booster (Every 10 Years) Reviewed COVID-19 Vaccine Reviewed Hearing Exam Reviewed Vision Exam Due-He plans on scheduling Dental Exam Due-He plans on scheduling Aspirin Use Reviewed Cholesterol Check Reviewed Routine Diabetes: NA Kidney Function Check NA Dilated Eye Exam NA A1C Check (Value) NA Blood Pressure Check Reviewed Other (Bone Density, Preventive Vaccines, etc.) NA [facility] Goals General On track(2024 1:40 PM CDT) Yes Nuria Mo, RN Note: Goal Title: [facility] CC - [place] Goals Goals Creation Date: 01/13/25 Goals End Date: 01/12/26 Jus Reynaga's [place] goal statements (SMART): I will have housing support as evidenced by initiating Housing Stabilization Services by end of target date. I will manage my overall health and discuss weight management plan as evidenced by having an annual physical exam by the end of target date. Actions my Line Therapist (CC) will take to support me in achieving these goals: CC will monitor goal progress at biannual Support Plan review and record updates in [place]ICES. Nuria Monge RN..........01/13/2025 1:39 PM [facility]IS CC-DME Grid General On track(2024 1:42 PM CDT) No Nuria Mo RN [facility] CC-Interdisciplinary Care Team (ICT) Communication General On track(2024 1:43 PM CDT) No Nuria Mo RN Note: Interdisciplinary Care Team (ICT) Communication Jus Reynaga will be supported in health and wellness goals as evidenced by interdisciplinary care team (ICT) collaboration and consultation. Goal Creation Date: 01/13/25 Goal End Date: 01/12/26 ICT Members: Member [facility]IS Line Therapist (CC) ICT Actions at HRA: Support Plan provided to ICT members per health plan requirement; see HRA Encounter note for details. Nuria Monge RN..........01/13/2025 1:43 PM Notes on Progress Towards Goal: Contact Type Date Recent ICT Actions Biannual Support Plan Review Year-End Summary Procedures Procedure Name Priority Date/Time Associated Diagnosis Comments LIPID PANEL W REFLEX MEASURED LDL Routine 11/22/2023 3:38 PM IMPRESS ASSOCIATE Screening for lipid disorders ANTI HIV 1/2 Routine 08/11/2018 5:52 PM CDT Screening for STD (sexually transmitted disease) ANTI HCV Routine 08/11/2018 5:52 PM CDT Screening for STD (sexually transmitted disease) from Last 3 Months or Most Recently Relevant to Health Maintenance Results * (ABNORMAL) LIPID PANEL W REFLEX MEASURED LDL [[id number]] (11/22/2023 3:38 PM IMPRESS ASSOCIATE) [facility] CHOLESTEROL,TOTAL 169 100 - 199 mg/dL 11/22/2023 9:17 PM IMPRESS ASSOCIATE [facility] Comment: Cholesterol, Total Reference Ranges Desirable <200 mg/dL Borderline 200-239 mg/dL High >=240 mg/dL TRIGLYCERIDES 258(H) <150 mg/dL 11/22/2023 9:17 PM IMPRESS ASSOCIATE [facility] HDL CHOLESTEROL 34(L) >40 mg/dL 9:17 PM IMPRESS ASSOCIATE [facility] NON-HDL CHOLESTEROL 135 <145 mg/dl 11/22/2023 9:17 PM [facility] CHOL/HDL RATIO 4.97(H) <4.50 11/22/2023 9:17 PM IMPRESS ASSOCIATE [facility] LDL CHOLESTEROL 83 <=130 mg/dL 11/22/2023 9:17 PM IMPRESS ASSOCIATE [facility] VLDL CHOLESTEROL 52(H) <=30 mg/dL 11/22/2023 9:17 PM IMPRESS ASSOCIATE [facility] PROVIDER ORDERED STATUS RANDOM 11/22/2023 9:17 PM [facility] Blood BLOOD SPECIMEN / Unknown Venipuncture / Unknown 11/22/2023 3:38 PM IMPRESS ASSOCIATE 11/22/2023 3:39 PM IMPRESS ASSOCIATE us Erna Morin DO CHEMISTRY Final Result [facility] [address] [place] [address], [place] * ANTI HCV (08/11/2018 5:52 PM CDT) HEPATITIS C ANTIBODY Non-React amisha Non-React amisha 08/11/2018 10:51 PM CDT [facility] Comment:Antibodies to HCV no t detected; does not exclude the possibility of exposure to HCV. Blood BLOOD SPECIMEN / Unknown Venipuncture / Unknown 08/11/2018 5:52 PM CDT 08/11/2018 5:53 PM CDT us Silvano Ortega CHARGE ACCOUNT AUTHORIZER SEND OUTS Final Result [facility] [address] [place] [address], [place] * ANTI HIV 1/2 (08/11/2018 5:52 PM CDT) HIV-1/HIV-2 ANTIBODY Non-Reacti ve Non-Reacti ve 08/11/2018 10:54 PM CDT [facility] Comment:HIV-1 p24 and HIV-1/ HIV-2 Ab not detected. Blood BLOOD SPECIMEN / Unknown Venipuncture / Unknown 08/11/2018 5:52 PM CDT 08/11/2018 5:53 PM CDT us Silvano Ortega CHARGE ACCOUNT AUTHORIZER SEND OUTS Final Result [facility] [address] [place] [address], from Last 3 Months or Most Recently Relevant to Health Maintenance Insurance [employer] Advance Directives * Full Code (Latest Code [...] 11:12 AM 10/01/2018 9:31 PM Care Teams Civil Engineering Professional Relationship Specialty Start Date End Date Enra Morin DO [address] [place] [address] PCP - General Family Practice 06/30/24 Nuria Monge, RN [address] [place] [address] [facility] Care Coordination Line Therapist 12/17/24 [facility] - General 01/13/25
--- OUTSIDE RECORDS SUMMARY | 2025-02-21 12:36 | XMS_ITS | Clinical Summary ---
Author Organization [facility] Address [address] [place] [address] Care Team Providers Care Electromechanical Technologist Name Role Phone Arlette Conde MD Primary Care Provider [phone] Allergies No known active allergies Medications No known medications Social History Tobacco Use Types Packs/Day Years Used Date Smoking Tobacco: Every Day Cigarettes Smokeless Tobacco: Never Alcohol Use Standard Drinks/Week Comments Yes 0 (1 standard drink = 0.6 oz pur e alcohol) Adolescent Education Answer Date Record ed Getting School Help Needed Not on file 07/13 Sex and Gender Information Value Date Recorded Sex Assigned at Not on file Legal Sex Male 2:26 PM CDT Gender Identity Not on file Sexual Orientation Not on file Last Filed Vital Signs Vital Sign Reading Time Taken Comments Blood Pressure 116/68 03/13/2022 3:12 PM CDT Pulse 89 03/13/2022 3:12 PM CDT Temperature 36.9 C (98.5 F) 03/13/2022 3:12 PM CDT Respiratory Rate 16 03/13/2022 3:12 PM CDT Oxygen Saturation 96% 03/13/2022 3:12 PM CDT Inhaled Oxygen Concentration - - Weight 229.5 kg (506 lb) 03/13/2022 3:12 PM CDT Height - - Body Mass Index - - Plan of Treatment Health Maintenance Due Date Last Done Comments ADVANCE CARE PLANNING 1988 ANNUAL REVIEW OF HM ORDERS 1988 DIABETES SCREENING 1988 YEARLY PREVENTIVE VISIT 01/08/1991 HEPATITIS B IMMUNIZATION (2 of 3 - 3-dose series) 07/05/1999 06/07/1999 Pneumococcal Vaccine: Pediatrics (0 to 5 Years) and At-Risk Patients (6 to 49 Years) (1 of 2 - PCV) 01/08/2007 DTAP/TDAP/TD IMMUNIZATION (4 - Td or Tdap) 08/14/2022 08/14/2012, 07/24/2000, 06/07/1999 COVID-19 Vaccine (4 - 2023-2 5 season) 2024 01/29/2022, 08/01/2021, 07/04/2021 INFLUENZA VACCINE (#1) 2024 PHQ-2 (once per calendar year) 2024 ZOSTER IMMUNIZATION (1 of 2) 01/08/2038 HEPATITIS C SCREENING Completed 02/19/2019 HIV SCREENING Completed 02/19/2019 HPV IMMUNIZATION Aged Out No longer e ligible based on patient's age to complete this topic MENINGITIS IMMUNIZATION Aged Out No l onger eligible based on patient's age to complete this topic Insurance [id number] [address] [place] [id number] [facility] Care Teams Electromechanical Technologist Relationship Specialty Start Date End Date Arlette Conde MD [address] [place] [address] PCP - General Student in organized health care education/training program 03/13/22
--- OUTSIDE RECORDS SUMMARY | 2025-02-21 12:36 | XMS_ITS | Continuity of Care Document ---
Author Organization [facility] Address [address] [place] [address] [place] [address] Care Team Providers Care Steel Fitter Name Role Phone Unavailable Unavailable Unavailable Allergies, Adverse Reactions, Alerts Substance Reaction Status Criticality No Known Drug Allergies Active No I nformation Advance Directives Directive Yes / No Effective Date File Name No Information Encounters Encounter Description Practice Location Reason(s) For Visit Diagnoses Date Provider Providers Copied on Encounter [facility] , [address] [place] [address], [id number], [facility] No Information [phone] No Information [facility] , [address] [place] [address], [id number], [facility] No Information [id number] No Information Family History Family Member Type Diagnosis Age At Onset No Information Payers Payer name Insurance type Covered constitution party ID Authoriza tion(s) No Information Social History [...]
--- OUTSIDE RECORDS SUMMARY | 2025-02-21 13:00 | XMS_ITS | Clinical Summary ---
Author Organization [facility] Address [facility] [place] [address] Care Team Providers Care Mechatronics Technologist Name Role Phone Erna Morin Aubree PORTER [...] Department Care Team Description 02/08/2025 Patient Outreach [address] [address] Gill Morejon Care Coordination- [facility] (Assessment forms mailed 02/08/2025) 01/13/2025 1:00 PM CDT Patient Outreach [address] [address] Nuria Monge RN AXIS Care Coordination- [facility] ([facility] Health Risk Assessment) 01/13/2025 Refill [facility] [address] [place] [address] Erna Morin, DO Refill Request (Buspirone) 12/30/2024 2:00 PM CDT Patient Outreach [address] [address] Nuria Monge RN AXIS Care Coordination- [facility] (Health Risk Assessment Rescheduled/ER Visit on 12/21/24) 12/18/2024 Patient Outreach [address] [address] Nuria Monge RN AXIS Care Coordination- [facility] (Change in Air Chipper/Confirm HRA) 12/11/2024 Refill [facility] [address] [place] [address] Sir Morini Aubree, DO Refill Request (Buspirone, Metoprolol Succinate) 12/08/2024 Patient Outreach [address] [address] Melvin Razo Care Coordination- [facility] (Annual HRA [...] 190.5 cm (6' 3) 11/22/2023 2:53 PM CALL OUT OPERATOR Body Mass Index 62.42 11/22/2023 2:53 PM CALL OUT OPERATOR Plan of Treatment Upcoming Encounters Date Type Department Care Team (Late st Contact Info) Description 03/02/2025 3:25 PM CDT Office Visit [facility] [address] [place] [address] Erna Morin, [address] [place] [address] Health Maintenance Due Date Last Done Comments [...] the end of target date. Actions my Air Chipper (CC) will take to support me in [...] End Date: 01/12/26 ICT Members: Member [employer] Air Chipper (CC) ICT Actions at HRA: Support Plan provided to ICT members per health plan requirement; see HRA Encounter note for details. Nuria Monge RN..........01/13/2025 1:43 PM Notes on Progress Towards Goal: Contact Type Date Recent ICT Actions Biannual Support Plan Review Year-End Summary Procedures Procedure Name Priority Date/Time Associated Diagnosis Comments LIPID PANEL W REFLEX MEASURED LDL Routine 11/22/2023 3:38 PM CALL OUT OPERATOR Screening for lipid disorders ANTI HIV 1/2 Routine 08/11/2018 5:52 PM CDT Screening for STD (sexually transmitted disease) ANTI HCV Routine 08/11/2018 5:52 PM CDT Screening for STD (sexually transmitted disease) from Last 3 Months or Most Recently Relevant to Health Maintenance Results * (ABNORMAL) LIPID PANEL W REFLEX MEASURED LDL [[id number]] (11/22/2023 3:38 PM CALL OUT OPERATOR) [facility] CHOLESTEROL,TOTAL 169 100 - 199 mg/dL 11/22/2023 9:17 PM CALL OUT OPERATOR [facility] Comment: Cholesterol, Total Reference Ranges Desirable <200 mg/dL Borderline 200-239 mg/dL High >=240 mg/dL TRIGLYCERIDES 258(H) <150 mg/dL 11/22/2023 9:17 PM CALL OUT OPERATOR [facility] HDL CHOLESTEROL 34(L) >40 mg/dL 9:17 PM CALL OUT OPERATOR [facility] NON-HDL CHOLESTEROL 135 <145 mg/dl 11/22/2023 9:17 PM [facility] CHOL/HDL RATIO 4.97(H) <4.50 11/22/2023 9:17 PM CALL OUT OPERATOR [facility] LDL CHOLESTEROL 83 <=130 mg/dL 11/22/2023 9:17 PM CALL OUT OPERATOR [facility] VLDL CHOLESTEROL 52(H) <=30 mg/dL 11/22/2023 9:17 PM CALL OUT OPERATOR [facility] PROVIDER ORDERED STATUS RANDOM 11/22/2023 9:17 PM [facility] Blood BLOOD SPECIMEN / Unknown Venipuncture / Unknown 11/22/2023 3:38 PM CALL OUT OPERATOR 11/22/2023 3:39 PM CALL OUT OPERATOR us Erna Morin DO CHEMISTRY Final Result [facility] [address] [place] [address], [place] * ANTI HCV (08/11/2018 5:52 PM CDT) HEPATITIS C ANTIBODY Non-React amisha Non-React amisha 08/11/2018 10:51 PM CDT [facility] Comment:Antibodies to HCV no t detected; does not exclude the possibility of exposure to HCV. Blood BLOOD SPECIMEN / Unknown Venipuncture / Unknown 08/11/2018 5:52 PM CDT 08/11/2018 5:53 PM CDT us Silvano Ortega REAL ESTATE REP SEND OUTS Final Result [facility] [address] [place] [address], [place] * ANTI HIV 1/2 (08/11/2018 5:52 PM CDT) HIV-1/HIV-2 ANTIBODY Non-Reacti ve Non-Reacti ve 08/11/2018 10:54 PM CDT [facility] Comment:HIV-1 p24 and HIV-1/ HIV-2 Ab not detected. Blood BLOOD SPECIMEN / Unknown Venipuncture / Unknown 08/11/2018 5:52 PM CDT 08/11/2018 5:53 PM CDT us Silvano Ortega REAL ESTATE REP SEND OUTS Final Result [facility] [address] [place] [address], from Last 3 Months or Most Recently Relevant to Health Maintenance Insurance [employer] Advance Directives * Full Code (Latest Code [...] 11:12 AM 10/01/2018 9:31 PM Care Teams Mechatronics Technologist Relationship Specialty Start Date End Date Erna Morin DO [address] [place] [address] PCP - General Family Practice 06/30/24 Nuria Monge, RN [address] [place] [address] [facility] Care Coordination Air Chipper 12/17/24 [facility] - General 01/13/25
--- OUTSIDE RECORDS SUMMARY | 2025-02-21 13:00 | XMS_ITS | Continuity of Care Document ---
Author Organization [facility] Address [address] [place] [address] [place] [address] Care Team Providers Care Surg Nurse Name Role Phone Unavailable Unavailable Unavailable Allergies, Adverse Reactions, Alerts Substance Reaction Status Criticality No Known Drug Allergies Active No I nformation Advance Directives Directive Yes / No Effective Date File Name No Information Encounters Encounter Description Practice Location Reason(s) For Visit Diagnoses Date Provider Providers Copied on Encounter [facility] , [address] [place] [address], [id number], [facility] No Information [phone] No Information [facility] , [address] [place] [address], [id number], [facility] No Information [phone] No Information [...]
[2025-02-21 13:11] LABS: Lactate* 2.6 mmol/L (0.5-1.9)
[2025-02-21 13:15] LABS: Basophils Absolute Auto 0.01 K/uL (0.00-0.30); Basophils Percent Auto 0.1 % (0.0-3.0); Eosinophils Absolute Auto 0.05 K/uL (0.00-0.50); Eosinophils Percent Auto 0.5 % (0.0-7.0); Hematocrit 52.9 % (37.0-53.0); Hemoglobin* 17.4 gm/dL (13.5-17.5); Immature Granulocytes Abs Auto 0.02 K/uL (0.00-0.30); Immature Granulocytes Pct Auto 0.2 %; Lymphocytes Absolute Auto 2.44 K/uL (0.90-2.90); Lymphocytes Percent Auto 23.7 % (20-44); Mean Corpuscular HGB Conc 33 gm/dL (32-36); Mean Corpuscular Hemoglobin 32 pg (26-34); Mean Corpuscular Volume 98 fL (80-100); Monocytes Percent Auto 8.4 % (0.0-11.0); Neutrophils Absolute Auto 6.91 K/uL (1.7-7.0); Neutrophils Percent Auto 67.1 % (42.0-72.0); Platelet Count* 162 K/uL (140-440); RDW Coefficient of Variation % 14.2 % (11.5-15.5); Red Blood Count 5.39 m/uL (4.30-5.90); Slide Review Reflex No; White Blood Count* 10.29 K/uL (4.50-11.00)
[2025-02-21] MEDS: KETOROLAC 15 MG/ML inj IVP (13:22)
[2025-02-21] MEDS: LORazepam 2 MG/ML inj 1 MG IVP (13:22)
[2025-02-21] MEDS: ONDANSETRON 2 MG/ML inj 4 MG IVP (13:23)
[2025-02-21] MEDS: HYDROmorphone 0.5 mg/0.5 ml inj IVP (13:23)
[2025-02-21] MEDS: 0.9 % SODIUM CHLORIDE 1000 ml 1,000 ML IV (13:23)
[2025-02-21 13:28] LABS: Albumin* 4.3 g/dL (3.3-5.0)
[2025-02-21 13:29] LABS: Chloride* 102 mmol/L (96-114); Potassium* 5.1 mmol/L (3.6-5.1); Sodium* 134 mmol/L (135-149)
[2025-02-21 13:31] LABS: Alanine Aminotransferase* 18 U/L (4-50); Alkaline Phosphatase* 60 U/L (40-150); Anion Gap 13 mEq/L (7-15); Aspartate Amino Transferase* 27 U/L (12-35); Bilirubin Total* 0.8 mg/dL (0.1-1.5); Blood Urea Nitrogen* 32 mg/dL (5-24); Carbon Dioxide* 19 mmol/L (20-32); Est. Creatinine Clearance* 40.29; Estimated Glomerular Filt Rate 27 ml/min
[2025-02-21 13:32] LABS: Calcium* 8.5 mg/dL (8.4-10.6); Glucose* 99 mg/dL (60-115); Lipase* 150 U/L (23-300); Magnesium* 1.3 mg/dL (1.5-2.6); Total Protein* 8.3 g/dL (6.0-8.3)
[2025-02-21] MEDS: THIAMINE 250 MG in 0.9 % SODIUM CHLORIDE 100 ml 100 ML 102.5 MG IVPB (13:37)
[2025-02-21 13:41] LABS: Ethanol* < 0.01 % (0.01-0.03)
[2025-02-21] MEDS: MAGNESIUM IV 2 GM/50 ML PIGGYBACK IVPB (14:12)
[2025-02-21] MEDS: LACTATED RINGERS 1000 ML 1,000 ML IV (14:12)
[2025-02-21 14:28] LABS: Appearance Urine Clear (Clear); Bilirubin Urine 1+ (Negative); Blood Urine 2+ (Negative); Color Urine Yellow (Yellow); Glucose Urine Negative (Negative); Ketones Urine 1+ (Negative); Leukocyte Esterase Urine Negative (Negative); Nitrite Urine Negative (Negative); Protein Urine 3+ (Negative); Specific Gravity Urine >= 1.030 (1.000-1.030); Urobilinogen Urine 0.2 (0.2-1.0)
[2025-02-21 14:51] LABS: Bacteria Urine Moderate; Squamous Epithelial Cell Urine Few (None-Few)
[2025-02-21] MEDS: cefTRIAXone 1 GM in 0.9 % SODIUM CHLORIDE Mini-bag 100 ML IVPB (15:52)
[2025-02-21] MEDS: NICOTINE 21 MG PATCH 1 PATCH TRANSDERMA (19:02)
== END 2025-02-21 19:11 | disposition short-term general hospital (02) ==
PROVIDERS: Emergency Provider Emergency Medicine; PCP Family Medicine
DX: F10.139 Alcohol abuse with withdrawal, unspecified (principal); N17.9 Acute kidney failure, unspecified; E83.42 Hypomagnesemia; R10.31 Right lower quadrant pain; R31.9 Hematuria, unspecified; R82.81 Pyuria
CPT/HCPCS: 36415; 80053; 81001; 82077; 83605; 83690; 83735; 85025; 87086; 96365; 96366; 96375; 99284; 99285; J0696; J1171; J1885; J2060; J2405; J3411; J3475; J7030; J7120; S4990

== ENCOUNTER 2025-02-21 19:05 | Outpatient (CLI) | payer OTHER, SELFPAY | END 2025-02-21 19:06 | disposition home or self-care (01) | LOC: AMB 02-22 14:42 | PROVIDERS: PCP Family Medicine; Visit Provider Family Medicine | DX: N17.9 Acute kidney failure, unspecified (principal); F10.939 Alcohol use, unspecified with withdrawal, unspecified; E83.42 Hypomagnesemia; R10.31 Right lower quadrant pain; F10.10 Alcohol abuse, uncomplicated; R82.91 Other chromoabnormalities of urine; R31.9 Hematuria, unspecified | CPT/HCPCS: A0425; A0429 ==

== ENCOUNTER 2025-05-18 12:31 | Outpatient (CLI) | payer OTHER, SELFPAY | END 2025-05-18 12:32 | disposition home or self-care (01) | LOC: AMB 05-24 15:24 | PROVIDERS: PCP Family Medicine; Visit Provider Family Medicine | DX: R53.1 Weakness (principal) | CPT/HCPCS: A0425; A0427 ==

== ENCOUNTER 2025-05-18 13:06 | Emergency (ER) | payer OTHER, SELFPAY ==
--- OUTSIDE RECORDS SUMMARY | 2015-11-15 13:38 | XMS_ITS | Continuity of Care Document ---
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 Phone Unavailable Unavailable Unavailable Allergies, Adverse Reactions, Alerts Substance Reaction Status Criticality No Known Drug Allergies Active No I nformation Advance Directives Directive Yes / No Effective Date File Name No Information Encounters Encounter Description Practice Location Reason(s) For Visit Diagnoses Date Provider Providers Copied on Encounter [facility] , [address] [place] [address], [id number], [facility] No Information [phone] No Information [facility] , [address] [place] [address], [id number], [facility] No Information [id number] 6 No Information Family History Family Member Type Diagnosis Age At Onset No Information Payers Payer name Insurance type Covered libertarian ID Authoriza tion(s) No Information Social History Type Description Quantity Date Captured Comments Sex Male Smoking Status No Information Chief Complaint And Reason For Visit No Information Reason For Referral Reason For Referral No Information History Of Present Illness Encounter Date Complaint History Of Prese nt Illness No Information Functional Status Date Functional Assessmen t No Information Instructions Date Instruction Additional Infor mation No Information Assessments Type Assessment Date No Information Patient Care Teams Name Effective Dates (start - stop) Status Members No Information
--- OUTSIDE RECORDS SUMMARY | 2025-05-18 13:10 | XMS_ITS | Clinical Summary ---
Author Organization [facility] Address [address] [place] [address] Care Team Providers Care Intensive Care Unit Nurse Name Role Phone Arlette Conde MD Primary Care Provider [phone] Allergies No known active allergies Medications No [...] 1988 YEARLY PREVENTIVE VISIT 01/08/1991 HEPATITIS B VACCINE (2 of 3 - 3-dose series) 07/05/1999 06/07/1999 DTAP/TDAP/TD VACCINE (4 - Td or Tdap) 08/14/2022 08/14/2012, 07/24/2000, 06/07/1999 COVID-19 VACCINE (4 - 2023-2 5 season) 2024 01/29/2022, 08/01/2021, 07/04/2021 PHQ-2 (once per calendar year) 2024 INFLUENZA VACCINE (#1) 2025 ZOSTER VACCINE (1 of 2) 01/08/2038 HEPATITIS C SCREENING Completed 02/19/2019 HIV SCREENING Completed 02/19/2019 HPV VACCINE (No Doses Required) Completed MENINGITIS VACCINE Aged Out No longer eligible based on patient's age to complete this topic PNEUMOCOCCAL VACCINE: PEDIATRICS (0 to 5 YEARS) AND AT-RISK PATIENTS (6 to 49 YEARS) Aged Out No longer eligible b ased on patient's age to complete this topic Insurance 52 [facility] [place] [address] [facility] Care Teams Intensive Care Unit Nurse Relationship Specialty Start Date End Date Arlette Conde MD [address] [place] [address] PCP - General Student in organized health care education/training program 03/13/22
--- OUTSIDE RECORDS SUMMARY | 2025-05-18 13:10 | XMS_ITS | Clinical Summary ---
Author Organization [employer] [facility] Address [facility] [place] [address] Care Team Providers Care Lime Plant Operator Name Role Phone Erna Morin Aubree PORTER Primary Care Provider [phone] Nuria Monge RN Unavailable [phone] Allergies No known active allergies Medications hydrOXYzine HCL (ATARAX) 25 mg tabletIndication s:Generalized anxiety disorder with panic attacks Take 1 Tablet (25 mg) by mouth every 6 hours if needed for Anxiety. 60 Tablet 2 10/09/20 24 Active metoprolol succinate (TOPROL XL) 50 mg sustained-releas e tabletIndication s:Essential hypertension Take 1 Tablet (50 mg) by mouth once daily. 90 Tablet 3 12/11/19 25 Active lisinopril-hydro chlorothiazide (20-25 mg) 20-25 mg per tabletIndication s:HTN (hypertension) Take 1 Tablet by mouth once daily. Do not take until blood work 03/02 and otherwise instructed by your doctor 90 Tablet 3 02/25/20 25 Active venlafaxine 75 mg cp24 Extended-Release capsuleIndicatio ns:Generalized anxiety disorder with panic attacks Take 2 Capsules (150 mg) by mouth once daily with a meal. Likely increase back to 225 mg on 03/02 when see your doctor 90 Capsule 3 02/25/20 25 Active acetaminophen 500 mg tabletIndication s:Chronic pain of both knees Take 2 Tablets (1,000 mg) by mouth every 6 hours if needed for Pain (For mild pain.). Max acetaminophen dose: 4000mg in 24 hrs. 02/25/20 25 Active tirzepatide (weight loss) (Zepbound) 7.5 mg/0.5 mL penIndications:M orbid obesity with BMI of 60.0-69.9, adult (HC),Alcohol use disorder,Prediab etes Inject 7.5 mg subcutaneous once weekly for 28 days. 2 mL 04/27/20 25 025 Active tirzepatide (weight loss) (Zepbound) 10 mg/0.5 mL penIndications:M orbid obesity with BMI of 60.0-69.9, adult (HC),Alcohol use disorder,Prediab etes Inject 10 mg subcutaneous once weekly for 28 days. 2 mL 05/25/20 25 025 Active tirzepatide (weight loss) (Zepbound) 12.5 mg/0.5 mL penIndications:M orbid obesity with BMI of 60.0-69.9, adult (HC),Alcohol use disorder,Prediab etes Inject 12.5 mg subcutaneous once weekly for 28 days. 2 mL 06/22/20 25 025 Active tirzepatide (weight loss) (Zepbound) 15 mg/0.5 mL penIndications:M orbid obesity with BMI of 60.0-69.9, adult (HC),Alcohol use disorder,Prediab etes Inject 15 mg subcutaneous once weekly. 6 mL 3 07/20/20 25 Active venlafaxine 150 mg Extended-Release capsuleIndicatio ns:Generalized anxiety disorder Take 1 Capsule (150 mg) by mouth once daily with evening meal. To be taken with 75 mg capsule to total 225 mg 90 Capsule 3 03/02/20 25 Active venlafaxine 75 mg cp24 Extended-Release capsuleIndicatio ns:Generalized anxiety disorder Take 1 Capsule (75 mg) by mouth once daily with a meal. To be taken with 150 mg capsule to total 225 mg 90 Capsule 3 03/02/20 25 Active busPIRone 15 mg tabletIndication s:Generalized anxiety disorder Take 1 Tablet (15 mg) by mouth two times daily. 180 Tablet 3 03/02/20 25 Active Walker - 4 wheelsIndication s:Morbid obesity with BMI of 60.0-69.9, adult (HC) Bariatric walker with wheels. Length of need: 99 1 Each 03/10/20 25 Active tirzepatide (weight loss) (Zepbound) 5 mg/0.5 mL penIndications:M orbid obesity with BMI of 60.0-69.9, adult (HC),Alcohol use disorder,Prediab etes Inject 5 mg subcutaneous once weekly for 28 days. 2 mL 03/30/20 25 025 Active Problems Problem Noted Date Diagnosed Date Acute right flank pain 02/22/2025 JASON (acute kidney injury) 02/21/2025 Right ureteral stone 02/21/2025 LULU (obstructive sleep apnea) 02/16/2022 Anxiety and [...] Encounters Date Type Department Care Team Description 03/24/2025 Nurse Triage [facility] [address] [place] [address] Erna Morin, Low Blood Pressure 03/05/2025 Telephone [facility] [address] [place] [address] Erna Morin, DO Prior Authorization (tirzepatide (weight loss) (Zepbound) 2.5 mg/0.5 mL pen APPEAL APPROVED 02/10/25-03/12/26) 03/02/2025 3:00 PM CDT Office Visit [facility] [address] [place] [address] Erna Morin, Hospital F/U (ETOH, Blood pressue); Knee Pain/problem (Cortisone injection in R knee? ); Weight (Discuss meds? ) 03/02/2025 Travel 02/25/2025 Patient Outreach [facility] [address] [place] [address] Isabel Mccormick, RN Primary RN Care Management; Hospital F/U (LACE 9) 02/23/2025 Travel 02/23/2025 Patient Outreach [facility] [place] [address] [place] [address] Nuria Monge RN [place] Care Coordination- [facility] ( Hospitalization 02/21/25-02/24/25-Unable to Reach) 02/21/2025 8:16 PM CDT - 02/24/2025 11:47 AM CDT Hospital Encounter [facility] [address] [place] [address] [facility], [facility] Hospitalists Of Roshan Grigsby MBBS Noble, Angela Joy, MD Chronic pain of both knees (Primary Dx); HTN (hypertension); Generalized anxiety disorder with panic attacks Discharge Disposition: Home Self Care from Last 3 Months Immunizations Immunization Administration Dates Next Due COVID-19 vaccine (Moderna 100mcg/0.5mL) MARYA PRETTY 08/01/2021,07/04/2021 COVID-19 vaccine (MetaModix-Bio NTech 30mcg/0.3mL) 12YO+ BIVALENT PF, MDV 07/26/2022 COVID-19 vaccine (Kalyra PharmaceuticalsBio NTech 30mcg/0.3mL) 12YO+ COLIN-SUCROSE PF, MDV 01/29/2022 [...] = 0.6 oz pur e alcohol) 10/22 allison PHQ-2 Answer Date Recorded PHQ-2 TOTAL SCORE 2 12/11/2024 Social Connections Answer Date Recorded Do you often feel lonely or isolated from those around you? 0 02/23/2025 Financial Resource Strain Answer Date R ecorded Difficulty of Paying Living Expenses 3 06/30/2024 Difficulty of Paying Living Expenses Not on file 06/30/2024 Food Insecurity Answer Date Recorded Do you worry your food will run out before you are able to buy more? 1 02/23/2025 Transportation Needs Answer Date Record ed Does lack of transportation keep you from medica l appointments? 2 02/23/2025 Does lack of transportation keep you from work, meetings or getting things that you need? 2 02/23/2025 Housing Stability Answer Date Recorded What is your housing situation today? 1 02/23/2025 Interpersonal Safety Answer Date Record ed Are you being hit, kicked, p ushed or yelled at (see row info)? No 02/23/2025 Interpersonal Safety Abuse 12 - 18 Not on file 02/23/2025 Interpersonal Safety Ambulatory Vulnerability No t on file 02/23/2025 Utilities Answer Date Recorded Do you have trouble paying f or utilities (for example, heat, electricity, water, phone)? 1 02/23/2025 Sex and Gender Information Value Date Recorded Sex Assigned at Not on file Legal Sex Male 4:56 PM CDT Gender Identity Not on file Sexual Orientation Not on file Obstetrics History Last Filed Vital Signs Vital Sign Reading Time Taken Comments Blood Pressure 155/94 03/02/2025 3:06 PM CDT Pulse 77 03/02/2025 3:06 PM CDT Temperature 36.8 C (98.2 F) 02/24/2025 8:45 AM CDT Respiratory Rate 18 02/24/2025 8:45 AM CDT Oxygen Saturation 96% 03/02/2025 3:06 PM CDT Inhaled Oxygen Concentration - - Weight 226.6 kg (499 lb 9.6 oz) 03/02/2025 3:06 PM CDT Height 190.5 cm (6' 3) 11/22/2023 2:53 PM ZINC PLATER Body Mass Index 62.45 11/22/2023 2:53 PM ZINC PLATER Plan of Treatment Upcoming Encounters Date Type Department Care Team (Late st Contact Info) Description 05/18/2025 3:25 PM CDT Office Visit [facility] [address] [place] [address] Erna Morin, DO [address] [place] [address] Health Maintenance Due Date Last Done Comments Hepatitis B series for 19+ ( 2 of 3 - 3-dose series) 07/05/1999 06/07/1999, 06/07/1999 Pneumococcal series for age 6-49 (1 of 2 - PCV) 01/08/2007 Tetanus booster 08/14/2022 08/14/2012, 01/2000, 06/07/1999 COVID-19 vaccine series ( season) 2024 07/26/2022, 01/29/2022, 08/01/2021, Additional history exists BMI (ht and wt on same day) for age 18+ 11/22/2024 11/22/2023, 11/05/2018, 09/29/2018, Additional history exists Influenza Vaccine (#1) 2025 Depression screening for age 12+ 12/11/2025 12/11/2024, 12/11/2024, 12/08/2024, Additional history exists Lipids for age 35-44 11/22/2028 11/22/2023 HIV for age 15-65 Completed 08/11/2018 Hepatitis [...] the end of target date. Actions my Systems Program Manager (CC) will take to support me in achieving these goals: CC will monitor goal progress at biannual Support Plan review and record updates in [place]. Nuria Monge RN..........01/13/2025 1:39 PM AXIS CC-DME Grid General On track(2024 1:42 PM CDT) No Greyson blackmon, Nuria Bryant RN [facility] CC-Interdisciplinary Care Team (ICT) Communication General On track(2024 1:43 PM CDT) No Nuria Mo RN Note: Interdisciplinary Care Team (ICT) Communication Jus Ronnell will be supported in health and wellness goals as evidenced by interdisciplinary care team (ICT) collaboration and consultation. Goal Creation Date: 01/13/25 Goal End Date: 01/12/26 ICT Members: Member AXIS Systems Program Manager (CC) ICT Actions at HRA: Support Plan provided to ICT members per health plan requirement; see HRA Encounter note for details. Nuria Monge RN..........01/13/2025 1:43 PM Notes on Progress Towards Goal: Contact Type Date Recent ICT Actions Biannual Support Plan Review Year-End Summary Procedures Procedure Name Priority Date/Time Associated Diagnosis Comments BASIC METABOLIC PANEL Routine 03/02/2025 3:56 PM CDT JASON (acute kidney injury) HEMOGLOBIN A1C Routine 03/02/2025 3:56 PM CDT Prediabetes COMP METABOLIC PANEL Routine 03/02/2025 3:56 PM CDT Morbid obesity with BMI of 60.0-69.9, adult (HC) Alcohol use disorder CREATININE Early AM 02/24/2025 7:25 AM CDT CREATININE Early AM 02/23/2025 6:59 AM CDT SCAN CORRESP-LABORATORY RESULTS 02/22/2025 12:51 PM CDT URINALYSIS MICROSCOPIC Timed 02/22/2025 9:45 AM CDT UA W/ SEDIMENT EXAM REFLEXED PER CRITERIA Today 02/22/2025 9:45 AM CDT PROTIME-INR Early AM 02/22/2025 7:23 AM CDT BASIC METABOLIC PANEL Early AM 02/22/2025 7:23 AM CDT CBC W PLT NO DIFF Early AM 02/22/2025 7:2 3 AM CDT URINE CULTURE Today 02/21/2025 11:50 PM CDT LACTATE VENOUS Today 02/21/2025 10:[address] ABDOMEN PELVIS STONE PROTOCOL WO Routine 02/21/2025 10:13 PM CDT PLATELET COUNT STAT 02/21/2025 9:25 PM CDT LIPID PANEL W REFLEX MEASURED LDL Routine 11/22/2023 3:38 PM ZINC PLATER Screening for lipid disorders ANTI HIV 1/2 Routine 08/11/2018 5:52 PM CDT Screening for STD (sexually transmitted disease) ANTI HCV Routine 08/11/2018 5:52 PM CDT Screening for STD (sexually transmitted disease) from Last 3 Months or Most Recently Relevant to Health Maintenance Results * HEMOGLOBIN A1C (03/02/2025 3:56 PM CDT) HEMOGLOBIN A1C 5.5 <5.7 % [facility] Comment: For the purpose of screening for the presence of diabetes: <5.7% Consistent with the absence of diabetes 5.7-6.4% Consistent with increased risk for diabetes (prediabetes) > or =6.5% Consistent with diabetes This assay result is consistent with a decreased risk of diabetes. Currently, no consensus exists regarding use of hemoglobin A1c for diagnosis of diabetes in children. According to [place] Diabetes [employer] (ADA) guidelines, hemoglobin A1c <7.0% represents optimal control in non- diabetic patients. Different metrics may apply to specific patient populations. Standards of Medical Care in Diabetes(ADA). Blood BLOOD SPECIMEN / Unknown 03/02/2025 3:56 PM CDT 03/02/2025 3:59 PM CDT us Erna Aubree Morin DO CHEMISTRY Final Result [facility] [address] [place] [address], [facility] [address] [place] [address] * (ABNORMAL) COMP METABOLIC PANEL (03/02/2025 3:56 PM CDT) [facility] GLUCOSE 82 65 - 99 mg/dL [facility] Comment: Fasting reference interval UREA NITROGEN (BUN) 23 7 - 25 mg/dL [facility] CREATININE 1.34(H) 0.60 - 1.26 mg/dL [facility] EGFR 70 > OR = 60 mL/min/1.7 3m2 [facility] BUN/CREATININE RATIO 17 6 - 22 (calc) [facility] SODIUM 139 135 - 146 mmol/L [facility] POTASSIUM 5.3 3.5 - 5.3 mmol/L [facility] CHLORIDE 102 98 - 110 mmol/L [facility] CARBON DIOXIDE 29 20 - 32 mmol/L [facility] CALCIUM 9.3 8.6 - 10.3 mg/dL [facility] PROTEIN, TOTAL 8.3(H) 6.1 - 8.1 g/dL [facility] ALBUMIN 4.1 3.6 - 5.1 g/dL [facility] GLOBULIN 4.2(H) 1.9 - 3.7 g/dL (calc) [facility] ALBUMIN/GLOBULIN RATIO 1.0 1.0 - 2.5 (calc) [facility] BILIRUBIN, TOTAL 0.7 0.2 - 1.2 mg/dL [facility] ALKALINE PHOSPHATASE 63 36 - 130 U/L [facility] AST 13 10 - 40 U/L [facility] ALT 8(L) 9 - 46 U/L [facility] Blood BLOOD SPECIMEN / Unknown 03/02/2025 3:56 PM CDT 03/02/2025 3:59 PM CDT us Erna Morin DO CHEMISTRY Final Result [facility] [address] [place] [address], [address] [address] * (ABNORMAL) BASIC METABOLIC PANEL (03/02/2025 3:56 PM CDT) Only the most recent of2 resultswithin the time period is included. [facility] GLUCOSE 82 65 - 99 mg/dL [facility] Comment: Fasting reference interval UREA NITROGEN (BUN) 23 7 - 25 mg/dL [facility] CREATININE 1.34(H) 0.60 - 1.26 mg/dL [facility] EGFR 70 > OR = 60 mL/min/1.7 3m2 [facility] BUN/CREATININE RATIO 17 6 - 22 (calc) [facility] SODIUM 139 135 - 146 mmol/L [facility] POTASSIUM 5.3 3.5 - 5.3 mmol/L [facility] CHLORIDE 102 98 - 110 mmol/L [facility] CARBON DIOXIDE 29 20 - 32 mmol/L [facility] ELECTROLYTE BALANCE 8 7 - 17 mmol/L (calc) [facility] CALCIUM 9.3 8.6 - 10.3 mg/dL [facility] Blood BLOOD SPECIMEN / Unknown 03/02/2025 3:56 PM CDT 03/02/2025 3:59 PM CDT Erna Morin CHEMISTRY Final Result [facility] [address] [place] [address], [place] [phone] [facility] [address] [place] [address] * (ABNORMAL) Creatinine AM (02/24/2025 7:25 AM CDT) Only the most recent of2 resultswithin the time period is included. eGFR 61(L) >90 mL/min/1.7 3m2 02/24/2025 8:44 AM CDT [facility] TheTake [facility] Comment:As of 2022, eG FR is calculated by the CKD-EPI creatinine equation without race adjustment. eGFR can be influenced by muscle mass, exercise, and diet. The reported eGFR is an estimation only and is only applicable if the renal function is stable. CREATININE 1.50(H) 0.70 - 1.20 mg/dL 02/24/2025 8:44 AM CDT [facility] Blood BLOOD SPECIMEN / Unknown Venipuncture / Unknown 02/24/2025 7:25 AM CDT 02/24/2025 8:22 AM CDT us Janet Meadows MD CHEMISTRY Final Result [facility] [address] [place] [address], [place] * SCAN CORRESP-LABORATORY RESULTS (02/22/2025 12:51 PM CDT) Narrative 02/22/2025 12:51 PM CDT Ordered by an unspecified provider. us Other Clinical Staff OTHER Final Resul t * URINALYSIS MICROSCOPIC (02/22/2025 9:45 AM CDT) RBC 0-2 0-2, None Seen /HPF 02/22/2025 10:10 AM CDT [facility] WBC 0-2 0-2, 3-5, None Seen /HPF 02/22/2025 10:10 AM CDT [facility] BACTERIA None Seen None Seen, Rare, Few Bacteria/ HPF 02/22/2025 10:10 AM CDT [facility] EPITHELIAL CELLS None Seen None Seen, Few Epi/HPF 02/22/2025 10:10 AM CDT [facility] HYALINE CASTS 0-2 0-2, 3-5 /LPF 02/22/2025 10:10 AM CDT [facility] Urine URINE SPECIMEN / Unknown Non-Blood / Unknown 02/22/2025 9:45 AM CDT 02/22/2025 9:53 AM CDT Fanny Pratt MD URINE Final Resu lt [facility] [address] [place] [address], [place] * (ABNORMAL) UA W/ SEDIMENT EXAM REFLEXED PER CRITERIA (02/22/2025 9:45 AM CDT) COLOR [place](A) Yellow Color 02/22/2025 10:10 AM CDT [facility] CLARITY Clear Clear Clarity 02/22/2025 10:10 AM CDT [facility] SPECIFIC GRAVITY,URINE 1.010 1.010, 1.015, 1.020, 1.025 02/22/2025 10:10 AM CDT [facility] PH,URINE 5.5 6.0, 7.0, 8.0, 5.5, 6.5, 7.5, 8.5 02/22/2025 10:10 AM CDT [facility] UROBILINOGEN, QUALITATIVE Normal Normal EU/dl 02/22/2025 10:10 AM CDT [facility] PROTEIN, URINE 100(A) Negative mg/dL 02/22/2025 10:10 AM CDT [facility] GLUCOSE, URINE Negative Negative mg/dL 02/22/2025 10:10 AM CDT [facility] KETONES,URINE Negative Negative mg/dL 02/22/2025 10:10 AM CDT [facility] BILIRUBIN,URI NE Negative Negative 02/22/2025 10:10 AM CDT [facility] OCCULT BLOOD,URINE Trace(A) Negative 02/22/2025 10:10 AM CDT [facility] NITRITE Negative Negative 02/22/2025 10:10 AM CDT [facility] LEUKOCYTE ESTERASE Negative Negative 02/22/2025 10:10 AM CDT [facility] Urine URINE SPECIMEN / Unknown Non-Blood / Unknown 02/22/2025 9:45 AM CDT 02/22/2025 9:53 AM CDT Fanny Pratt MD URINE Final Resu lt [facility] [address] [place] [address], [place] * (ABNORMAL) CBC W PLT NO DIFF (02/22/2025 7:23 AM CDT) WHITE BLOOD COUNT 8.8 4.5 - 11.0 thou/cu mm 02/22/2025 8:33 AM CDT [facility] RED BLOOD COUNT 4.73 4.30 - 5.90 mil/cu mm 02/22/2025 8:33 AM CDT [facility] HEMOGLOBIN 15.4 13.5 - 17.5 g/dL 02/22/2025 8:33 AM CDT [facility] HEMATOCRIT 48.0 37.0 - 53.0 % 02/22/2025 8:33 AM CDT [facility] MCV 102(H) 80 - 100 fL 02/22/2025 8:33 AM CDT [facility] MCH 32.6 26.0 - 34.0 pg 02/22/2025 8:33 AM CDT [facility] MCHC 32.1 32.0 - 36.0 g/dL 02/22/2025 8:33 AM CDT [facility] RDW 14.3 11.5 - 15.5 % 02/22/2025 8:33 AM CDT [facility] PLATELET COUNT 146 140 - 440 thou/cu mm 02/22/2025 8:33 AM CDT [facility] MPV 10.4 6.5 - 11.0 fL 02/22/2025 8:33 AM CDT [facility] NRBC 0.0 % 02/22/2025 8:33 AM CDT [facility] ABS NRBC 0.0 thou /cu mm 02/22/2025 8:33 AM CDT [facility] Blood BLOOD SPECIMEN / Unknown Venipuncture / Unknown 02/22/2025 7:23 AM CDT 02/22/2025 8:16 AM CDT Roshan LARA HEMATOLOGY Liza l Result [facility] [address] [place] [address], * INR AM (02/22/2025 7:23 AM CDT) INR 1.0 <1.3 02/22/2025 8:32 AM CDT [facility] PROTIME 12.0 10.6 - 12.4 sec 02/22/2025 8:32 AM CDT [facility] Blood BLOOD SPECIMEN / Unknown Venipuncture / Unknown 02/22/2025 7:23 AM CDT 02/22/2025 8:16 AM CDT Narrative [facility] - 02/22/2025 8:32 AM CDT Therapeutic Range 2.0-3.0 for most anticoagulated patients 2.5-3.5 or 4.0 for high risk patients The INR is only used for patients on stable oral anticoagulant therapy. It makes no significant contribution to the diagnosis or treatment of patients whose Protime is prolonged for other reasons. INR results are increased when heparin levels exceed 1.0 U/mL, which corresponds to an aPTT >125 seconds if the patient is on UFH. Roshan SANTIAGO HEMATOLOGY Liza l Result Performing Organization Address City/[facility]/ZIP Co de Phone Number [facility] [address] [place] [address], * URINE CULTURE (02/21/2025 11:50 PM CDT) CULTURE No growth (<1,000 CFU/mL) 02/23/2025 8:11 AM CDT [facility] Urine URINE SPECIMEN / Unknown Non-Blood / Unknown 02/21/2025 11:50 PM CDT 02/21/2025 11:56 PM CDT Roshan SANTIAGO MICROBIOLOGY Liza l Result Performing Organization Address City/[facility]/ZIP Co de Phone Number [facility] [address] [place] [address], * LACTATE VENOUS (02/21/2025 10:31 PM CDT) LACTATE,VENOUS 1.9 0.5 - 2.0 mmol/L 02/21/2025 10:55 PM CDT [facility] Blood BLOOD SPECIMEN / Unknown Venipuncture / Unknown 02/21/2025 10:31 PM CDT 02/21/2025 10:36 PM CDT Roshan Grigsby [facility] CHEMISTRY Liza l Result [facility] [address] [place] [address], [place] * CT abdomen/pelvis stone protocol TODAY (02/21/2025 10:13 PM CDT) Anatomical Region Laterality Modality Abdomen, Pelvis, AORTA, LIVER, SPLEEN Computed Tomography 02/22/2025 4:17 AM CDT Impressions 02/22/2025 4:17 AM CDT 1. Asymmetric right perinephric, periureteral, and mild right lower quadrant inflammatory stranding. 2. No urinary tract calculus is seen but sensitivity is limited due to patient`s size. 3. There is not any substantial urinary tract dilatation. 4. The appendix is not discretely identified. Please note that all CT scans at this facility use dose modulation, iterative reconstruction, and/or weight-based dosing when appropriate to reduce radiation dose to as low as reasonably achievable. Dictated by Lis Bailey MD @ 02/22/2025 4:17:47 AM (Electronically Signed) Narrative 02/22/2025 4:17 AM CDT For Patients: As a result of the Century Cures Act, medical imaging exams and procedure reports are released immediately into your electronic medical record. You may view this report before your referring provider. If you have questions, please contact your health care provider. INDICATION: Right flank pain, concern for stone. COMPARISON: None. TECHNIQUE: CT of the abdomen and pelvis without intravenous contrast. Multiplanar axial, coronal, and sagittal reformats were reconstructed. Contrast: None. There is some photon starvation artifact due to the patient`s size. FINDINGS: Lung bases: Normal. Liver: Normal. No mass. Gallbladder and bile ducts: Normal gallbladder. No bile duct dilation. Pancreas: Normal. Spleen: Normal. Adrenal glands: Normal. Kidneys: Asymmetric right perinephric and periureteric stranding. No right urinary tract dilatation seen. There is not a clearly visible urinary tract calculus but there are some limitations due to patient`s size and positioning within the bore of the scanner. No contour deforming cyst or mass. No left-sided urinary tract dilatation. Urinary bladder: Empty. Pelvis: No cyst or mass. Vessels: Normal. Bowel: No dilated or inflamed bowel. The appendix is not discretely identified. There is some inflammatory stranding in the right lower quadrant. Mild stool burden. Lymph nodes: No adenopathy. Peritoneum: No ascites. Abdominal wall: The abdominal wall is not fully included in the field of view. Bones: No fractures. No focal worrisome bone lesions. Procedure Note Lis Bailey MD - 02/22/2025 For Patients: As a result of the Cures Act, medical imagingexams and procedure reports are released immediately into your electronicmedical record. You may view this report before your referring provider.If you have questions, please contact your health care provider. INDICATION: Right flank pain, concern for stone. COMPARISON: None. TECHNIQUE: CT of the abdomen and pelvis without intravenous contrast. Multiplanaraxial, coronal, and sagittal reformats were reconstructed. Contrast: None. There is some photon starvation artifact due to the patient`s size. FINDINGS: Lung bases: Normal. Liver: Normal. No mass. Gallbladder and bile ducts: Normal gallbladder. No bile duct dilation. Pancreas: Normal. Spleen: Normal. Adrenal glands: Normal. Kidneys: Asymmetric right perinephric and periureteric stranding. No righturinary tract dilatation seen. There is not a clearly visible urinarytract calculus but there are some limitations due to patient`s size andpositioning within the bore of the scanner. No contour deforming cyst ormass. No left-sided urinary tract dilatation. Urinary bladder: Empty. Pelvis: No cyst or mass. Vessels: Normal. Bowel: No dilated or inflamed bowel. The appendix is not discretelyidentified. There is some inflammatory stranding in the right lowerquadrant. Mild stool burden. Lymph nodes: No adenopathy. Peritoneum: No ascites. Abdominal wall: The abdominal wall is not fully included in the field ofview. Bones: No fractures. No focal worrisome bone lesions. IMPRESSION: 1. Asymmetric right perinephric, periureteral, and mild right lowerquadrant inflammatory stranding. 2. No urinary tract calculus is seen but sensitivity is limited due topatient`s size. 3. There is not any substantial urinary tract dilatation. 4. The appendix is not discretely identified. Please note that all CT scans at this facility use dose modulation,iterative reconstruction, and/or weight-based dosing when appropriate toreduce radiation dose to as low as reasonably achievable. Dictated by Lis Bailey MD @ 02/22/2025 4:17:47 AM (Electronically Signed) [facility] Liza l Result * PLATELET COUNT (02/21/2025 9:25 PM CDT) [facility] PLATELET COUNT 167 140 - 440 thou/cu mm 02/21/2025 9:35 PM CDT [facility] MPV 10.6 6.5 - 11.0 fL 02/21/2025 9:35 PM CDT [facility] Blood BLOOD SPECIMEN / Unknown Venipuncture / Unknown 02/21/2025 9:25 PM CDT 02/21/2025 9:30 PM CDT [facility] Liza l Result [facility] [address] [place] [id number], * (ABNORMAL) LIPID PANEL W REFLEX MEASURED LDL [[id number]] (11/22/2023 3:38 PM ZINC PLATER) [facility] CHOLESTEROL,TOTAL 169 100 - 199 mg/dL 11/22/2023 9:17 PM ZINC PLATER [facility] Comment: Cholesterol, Total Reference Ranges Desirable <200 mg/dL Borderline 200-239 mg/dL High >=240 mg/dL TRIGLYCERIDES 258(H) <150 mg/dL 11/22/2023 9:17 PM ZINC PLATER [facility] HDL CHOLESTEROL 34(L) >40 mg/dL 9:17 PM ZINC PLATER [facility] NON-HDL CHOLESTEROL 135 <145 mg/dl 11/22/2023 9:17 PM ZINC PLATER [facility] CHOL/HDL RATIO 4.97(H) <4.50 11/22/2023 9:17 PM ZINC PLATER [facility] LDL CHOLESTEROL 83 <=130 mg/dL 11/22/2023 9:17 PM ZINC PLATER [facility] VLDL CHOLESTEROL 52(H) <=30 mg/dL 11/22/2023 9:17 PM ZINC PLATER [facility] PROVIDER ORDERED STATUS RANDOM 11/22/2023 9:17 PM ZINC PLATER [facility] Blood BLOOD SPECIMEN / Unknown Venipuncture / Unknown 11/22/2023 3:38 PM ZINC PLATER 11/22/2023 3:39 PM ZINC PLATER us Erna Aubree Moialvin DO CHEMISTRY Final Result [facility] [address] [place] [address], [place] * ANTI HCV (08/11/2018 5:52 PM CDT) HEPATITIS C ANTIBODY Non-React amisha Non-React amisha 08/11/2018 10:51 PM CDT [facility] Comment:Antibodies to HCV no t detected; does not exclude the possibility of exposure to HCV. Blood BLOOD SPECIMEN / Unknown Venipuncture / Unknown 08/11/2018 5:52 PM CDT 08/11/2018 5:53 PM CDT us Silvano Ortega WOVEN PAPER HAT MENDER SEND OUTS Final Resul t [facility] [address] [place] [address], [place] * ANTI HIV 1/2 (08/11/2018 5:52 PM CDT) HIV-1/HIV-2 ANTIBODY Non-Reacti ve Non-Reacti ve 08/11/2018 10:54 PM CDT [facility] Comment:HIV-1 p24 and HIV-1/ HIV-2 Ab not detected. Blood BLOOD SPECIMEN / Unknown Venipuncture / Unknown 08/11/2018 5:52 PM CDT 08/11/2018 5:53 PM CDT us Silvano Ortega WOVEN PAPER HAT MENDER SEND OUTS Final Resul t [facility] [address] [place] [address], [place] from Last 3 Months or Most Recently Relevant to Health Maintenance Insurance [employer] ACCESSABILITY SOLUTION Advance Directives * Full Code (Latest Code Status on File) Date Activated Date Inactivated Comments 02/21/2025 8:38 PM 02/24/2025 1:52 PM Question Answer Comments Code Status Discussion: Reviewed Preferences * Full Code Date Activated Date Inactivated Comments 01/22/2022 11:48 PM 01/23/2022 1:39 PM Question Answer Comments Code Status Discussion: Reviewed Preferences * Full Code Date Activated Date Inactivated Comments 02/15/2021 1:04 PM 02/16/2021 2:47 PM Question Answer Comments Code Status Discussion: Not Discussed * Full Code Date Activated Date Inactivated Comments 10/01/2018 11:12 AM 10/01/2018 9:31 PM Care Teams Lime Plant Operator Relationship Specialty Start Date End Date Erna Morin DO [address] [place] [address] PCP - General Family Practice 06/30/24 Nuria Monge RN [address] [place] [address] [employer] Care Coordination Systems Program Manager 12/17/24 [facility] - General 01/13/25
[2025-05-18 13:18] VITALS: BP 157/111; PULSE 83; RESP 22; TEMP 37.3; O2SAT 93; BMI 63.7
[2025-05-18] MEDS: ONDANSETRON 2 MG/ML inj 4 MG IVP (13:47)
--- NOTE | 2025-05-18 14:00 | ED.ALCOHOL ---
HPI - Alcohol General Chief Complaint: Alcohol/Intoxication Stated Complaint: Alcohol withdrawal Time Seen by Provider: 05/18/25 13:08 History of Present Illness HPI narrative: This 35-year-old male has a longstanding history of alcohol abuse. He comes in stating that he feels some nausea with headache and blurred vision. He is a bit tremulous and reports history of alcohol related seizures. He has not had any seizures recently. He states that his last drink was at midnight, about 14 hours ago. Related Data Home Medications ?Medication ?Instructions ?Recorded ?Confirmed buspirone 15 mg tablet 15 mg PO BID 01/01/23 05/18/25 metoprolol succinate 50 mg 50 mg PO DAILY 01/01/23 05/18/25 tablet,extended release 24 hr amlodipine 10 mg tablet 10 mg PO DAILY 07/06/23 07/20/24 hydroxyzine HCl 25 mg tablet 25 mg PO DIRECTED 09/27/23 05/18/25 lisinopril 20 1 tab PO DAILY 09/27/23 05/18/25 mg-hydrochlorothiazide 25 mg tablet venlafaxine 75 mg capsule,extended 75 mg PO DAILY 12/21/24 05/18/25 release 24 hr Previous Rx's ?Medication ?Instructions ?Recorded apixaban 5 mg (74 tabs) tablets in See Rx Instructions PO .COMPLEX 07/26/24 a dose pack ([facility] DVT-PE Treat #74 ea 30D Start) magnesium 200 mg tablet 200 mg PO BID #60 tabs 12/21/24 Allergies Allergy/AdvReac Type Severity Reaction Status Date / Time No Known Drug Allergies Allergy Verified 12/21/24 12:33 Review of Systems Status of ROS Reports: 10 or more systems reviewed and unremarkable except as noted in History and below Narrative Constitutional: No fevers, no weight gain or loss. Eyes: No discharge. He reports blurred vision. HENT: No congestion, no sore throat, no ear pain. Cardiovascular: No chest pain, no palpitations. Respiratory: No shortness of breath, no wheezes, no cough. Gastrointestinal: No abdominal pain, no vomiting, no diarrhea. Genitourinary: No dysuria, no hematuria. Musculoskeletal: Normal range of motion. Skin: No rashes, no pruritis. Neurological: No dizziness, weakness, sensory change, speech change. Some mild tremors related to alcohol withdrawal. Endo/Heme/Allergies: No bruising or bleeding. No polydipsia. Pysch: no suicidality, no anxiety, no insomnia. All other systems reviewed and are negative. [facility] Medical History Alcoholism ?F10.20 - Alcohol dependence, uncomplicated (ICD-10) Obstructive sleep apnea ?G47.33 - Obstructive sleep apnea (adult) (pediatric) (ICD-10) Agoraphobia with panic attacks ?F40.01 - Agoraphobia with panic disorder (ICD-10) History of panic attacks ?Z86.59 - Personal history of other mental and behavioral disorders (ICD-10) Anxiety disorder ?F41.9 - Anxiety disorder, unspecified (ICD-10) Major depressive disorder ?F32.9 - Major depressive disorder, single episode, unspecified (ICD-10) Essential hypertension ?I10 - Essential (primary) hypertension (ICD-10) Synovial cyst of popliteal space [Palmer], right knee ?M71.21 - Synovial cyst of popliteal space [Palmer], right knee (ICD-10) Current smoker ?F17.200 - Nicotine dependence, unspecified, uncomplicated (ICD-10) History of seizure due to alcohol withdrawal ?Z87.898 - Personal history of other specified conditions (ICD-10) ?Z86.59 - Personal history of other mental and behavioral disorders (ICD-10) History of alcohol withdrawal syndrome ?Z86.59 - Personal history of other mental and behavioral disorders (ICD-10) Right knee pain ?M25.561 - Pain in right knee (ICD-10) Alcohol dependence, binge pattern ?F10.20 - Alcohol dependence, uncomplicated (ICD-10) Anxiety ?F41.9 - Anxiety disorder, unspecified (ICD-10) Morbidly obese ?E66.01 - Morbid (severe) obesity due to excess calories (ICD-10) Surgical History S/P right knee arthroscopy ?Z98.890 - Other specified postprocedural states (ICD-10) Social History Highest level of school completed/degree received: high school graduate Smoking Status: Current every day smoker What tobacco products do you use: cigarettes Smoking packs per day: 1 Smoking cigarettes per day: 20.0 Do you use any of these nicotine containing products: None Second hand tobacco smoke exposure: No How often do you have a drink containing alcohol: 4 or more times a week Alcohol type: hard liquor How many standard drinks containing alcohol do you have on a typical day: 10 or more How often do you have six or more drinks on one occasion: Daily or almost daily AUDIT-C Alcohol total score: 12 Non-prescribed substance use: denies use Caffeine: Yes (6-10 cans) service: No Exam Narrative: Exam Narrative: Constitutional: Well-developed, well-nourished, no acute distress. HEENT: Normocephalic, atraumatic. Neck: Normal range of motion. Nontender. Supple. Heart: Regular. No murmurs. Normal rate. Intact distal pulses. Lungs: Clear to auscultation. No chest discomfort. No wheezes, rhonchi, or rales. Abdomen: Normal bowel sounds. Nontender. No rebound tenderness. Genitalia: Deferred. Back: No midline tenderness. Normal range of motion. Extremities: Normal range of motion. No injury. Skin: Intact. No rash. Warm. No erythema or pallor. Neurologic: No altered sensation. No weakness. Alert and oriented. With arms extended He is unable to hold his hand still because of tremors from alcohol withdrawal. Psychiatric: No suicidality. No anxiety or depression. No insomnia. Nursing notes and vitals signs are reviewed. Const: Vital Signs, click to edit/add: Vital Signs - 24 hr 05/18/25 13:18 Temperature 99.2 F Pulse Rate [Pulse Oximeter] 83 Respiratory Rate 22 Blood Pressure [Ri ght Upper Arm] 157/111 H Pulse Oximetry 93 Oxygen Delivery Me thod Room Air Course Vital Signs Vital signs: Initial Vital Signs Temperature 99.2 F 05/18/25 13:18 Temperature Source Temporal Artery Scan 05/18/25 13:18 Pulse Rate 83 05/18/25 13:18 Respiratory Rate 22 05/18/25 13:18 Blood Pressure 157/111 H 05/18/25 13:18 Blood Pressure Mean 126 H 05/18/25 13:18 Pulse Oximetry 93 05/18/25 13:18 Oxygen Delivery Method Room Air 05/18/25 13:18 Vital Signs Temperature 99.2 F 05/18/25 13:18 Pulse Rate 83 05/18/25 13:18 Respiratory Rate 22 05/18/25 13:18 Blood Pressure 157/111 H 05/18/25 13:18 Pulse Oximetry 93 05/18/25 13:18 Oxygen Delivery Method Room Air 05/18/25 13:18 Temperature 99.2 F 05/18/25 13:18 Pulse Rate 83 05/18/25 13:18 Respiratory Rate 22 05/18/25 13:18 Blood Pressure 157/111 H 05/18/25 13:18 Pulse Oximetry 93 05/18/25 13:18 Oxygen Delivery Method Room Air 05/18/25 13:18 Medications Administered Medications: Discontinued Medications Generic Name Dose Route Start Last Admin Trade Name Tish PRN Reason Stop Dose Admin Lorazepam 1 mg 05/18/25 13:36 05/18/25 13:47 Lorazepam 1 Mg Tablet PO 05/18/25 13:37 1 mg ONCE ONE Administration Ondansetron HCl 4 mg 05/18/25 13:36 05/18/25 13:47 Ondansetron 2 Mg/Ml Inj IVP 05/18/25 13:37 4 mg ONCE ONE Administration MDM - Alcohol MDM Narrative Medical decision making narrative: This patient comes in with symptoms of withdrawal from alcohol. He arrives with reassuring vital signs and does show some mild tremors. He did receive an oral dose of Ativan 1 mg which brought some relief to his symptoms. I did recommend detox and the patient was interested in doing this if it was in the [facility]. The detox and he stings was contacted and not available for admission at this time. The patient states then that he would rather go home to his mother. He did receive literature for options going forward. Discharge Plan Discharge Clinical Impression: Alcohol withdrawal syndrome Patient Disposition: Home w/ Parent or Adult Condition: Stable Additional Instructions: Continue current medications. Seek help at a detox center or return to an emergency department if symptoms are worsening. Follow up with MD for ongoing management. Prescriptions: No Action amlodipine 10 mg tablet 10 mg PO DAILY lisinopril-hydrochlorothiazide 20-25 mg tablet 1 tab PO DAILY hydroxyzine HCl 25 mg tablet 25 mg PO DIRECTED [facility] DVT-PE Treat 30D Start 5 mg (74 tabs) tablets,dose pack See Rx Instructions .ROUTE .COMPLEX Qty: 74 0RF Rx Instructions: orally per package directions metoprolol succinate 50 mg tablet extended release 24 hr 50 mg PO DAILY buspirone 15 mg tablet 15 mg PO BID venlafaxine 75 mg capsule,extended release 24hr 75 mg PO DAILY magnesium 200 mg tablet 200 mg PO BID Qty: 60 0RF Follow Up/Referrals: Erna Morin DO [Primary Care Provider, Family Practice] Stand Alone Forms: Webtogsth Info Instructions
[2025-05-18 15:18] VITALS: BP 157/91; PULSE 88; RESP 19; TEMP 37.1; O2SAT 95
== END 2025-05-18 15:27 | disposition home or self-care (01) ==
PROVIDERS: Emergency Provider Emergency Medicine Emergency Medical Services; PCP Family Medicine
DX: F10.239 Alcohol dependence with withdrawal, unspecified (principal)
CPT/HCPCS: 96374; 99283; 99284; A9270; J2405

== ENCOUNTER 2025-06-10 15:06 | Outpatient (CLI) | payer OTHER, SELFPAY | END 2025-06-10 15:07 | disposition home or self-care (01) | LOC: AMB 06-14 11:49 | PROVIDERS: PCP Family Medicine; Visit Provider Family Medicine | DX: R20.2 Paresthesia of skin (principal); H53.8 Other visual disturbances | CPT/HCPCS: A0425; A0429 ==

== ENCOUNTER 2025-06-10 15:26 | Emergency (ER) | payer OTHER, SELFPAY ==
--- OUTSIDE RECORDS SUMMARY | 2025-06-10 15:29 | XMS_ITS | Clinical Summary ---
Author Organization [facility] Address [facility] [place] [address] Care Team Providers Care Recoil Spring Winder Name Role Phone Erna Morin Aubree PORTER Primary Care Provider Nuria Monge RN Unavailable [phone] Allergies No known active allergies Medications hydrOXYzine [...] 02/25/20 25 Active tirzepatide (weight loss) (Zepbound) 10 mg/0.5 [...] wheels. Length of need: 99 1 Each 05/27/20 25 Active tirzepatide (weight loss) (Zepbound) 7.5 mg/0.5 mL penIndications:M orbid obesity with BMI of 60.0-69.9, adult (HC),Alcohol use disorder,Prediab etes Inject 7.5 mg subcutaneous once weekly for 28 days. 2 mL 04/27/20 25 025 Walker - 4 wheelsIndication s:Morbid obesity with BMI of 60.0-69.9, adult (HC) Bariatric walker with wheels. Length of need: 99 1 Each 03/10/20 25 025 Discontinu ed(Reorder (E-cancel not sent)) Active Problems Problem Noted Date Diagnosed Date [...] Encounters Date Type Department Care Team Description 05/27/2025 2:35 PM CDT Telemedicine [facility] [address] [place] [address] Erna Morin DO Telehealth; Medication Management (Zepbound, 7.5 mg dose); ER Follow up ([facility]) 05/27/2025 Travel 05/20/2025 Patient Outreach [address] [id number] Nuria Monge RN [facility] Coordination- Medica (ED Visit on 05/18/25) 03/24/2025 Nurse Triage [facility] [address] [place] [address] Erna Morin DO Low Blood Pressure from Last 3 Months Immunizations Immunization Administration [...] 190.5 cm (6' 3) 11/22/2023 2:53 PM UTILITY SYSTEMS REPAIRER OPERATOR Body Mass Index 62.45 11/22/2023 2:53 PM UTILITY SYSTEMS REPAIRER OPERATOR Plan of Treatment Upcoming Encounters Date Type Department Care Team (Late st Contact Info) Description 08/25/2025 3:50 PM UTILITY SYSTEMS REPAIRER OPERATOR Office Visit [facility] [address] [place] [address] Erna Morin Aubree, DO [address] [place] [address] Health Maintenance Due Date Last Done Comments [...] General On track(2024 1:39 PM CDT) No Greyson blackmon, Nuria Bryant RN Note: Health Maintenance Tracking Grid Jus Ronnell will engage in management of preventive needs [...] Other (Bone Density, Preventive Vaccines, etc.) NA [place] [facility] Goals General On track(2024 1:40 PM CDT) Yes Nuria Mo RN Note: Goal Title: [facility] CC - [...] the end of target date. Actions my Agricultural Equipment Salesperson (CC) will take to support me in achieving these goals: CC will monitor goal progress at biannual Support Plan review and record updates in [place]. Nuria Monge RN..........01/13/2025 1:39 PM [place] CC-DME Grid General On track(2024 1:42 PM CDT) No Nuria Mo RN [place] [facility]-Interdisciplinary Care Team (ICT) Communication General On track(2024 1:43 PM CDT) No Nuria Mo RN Note: Interdisciplinary Care Team (ICT) Communication Jus Reynaga will be supported in health and wellness goals as evidenced by interdisciplinary care team (ICT) collaboration and consultation. Goal Creation Date: 01/13/25 Goal End Date: 01/12/26 ICT Members: Member [employer] Agricultural Equipment Salesperson (CC) ICT Actions at HRA: Support Plan provided to ICT members per health plan requirement; see HRA Encounter note for details. Nuria Monge RN..........01/13/2025 1:43 PM Notes on Progress Towards Goal: Contact Type Date Recent ICT Actions Biannual Support Plan Review Year-End Summary Procedures Procedure Name Priority Date/Time Associated Diagnosis Comments LIPID PANEL W REFLEX MEASURED LDL Routine 11/22/2023 3:38 PM UTILITY SYSTEMS REPAIRER OPERATOR Screening for lipid disorders ANTI HIV 1/2 Routine 08/11/2018 5:52 PM CDT Screening for STD (sexually transmitted disease) ANTI HCV Routine 08/11/2018 5:52 PM CDT Screening for STD (sexually transmitted disease) from Last 3 Months or Most Recently Relevant to Health Maintenance Results * (ABNORMAL) LIPID PANEL W REFLEX MEASURED LDL [[id number]] (11/22/2023 3:38 PM UTILITY SYSTEMS REPAIRER OPERATOR) CHOLESTEROL,TOTAL 169 100 - 199 mg/dL 11/22/2023 9:17 PM UTILITY SYSTEMS REPAIRER OPERATOR [facility] Comment: Cholesterol, Total Reference Ranges Desirable <200 mg/dL Borderline 200-239 mg/dL High >=240 mg/dL TRIGLYCERIDES 258(H) <150 mg/dL 11/22/2023 9:17 PM UTILITY SYSTEMS REPAIRER OPERATOR [facility] HDL CHOLESTEROL 34(L) >40 mg/dL 9:17 PM UTILITY SYSTEMS REPAIRER OPERATOR [facility] NON-HDL CHOLESTEROL 135 <145 mg/dl 11/22/2023 9:17 PM UTILITY SYSTEMS REPAIRER OPERATOR [facility] CHOL/HDL RATIO 4.97(H) <4.50 11/22/2023 9:17 PM UTILITY SYSTEMS REPAIRER OPERATOR [facility] LDL CHOLESTEROL 83 <=130 mg/dL 11/22/2023 9:17 PM UTILITY SYSTEMS REPAIRER OPERATOR [facility] VLDL CHOLESTEROL 52(H) <=30 mg/dL 11/22/2023 9:17 PM UTILITY SYSTEMS REPAIRER OPERATOR [facility] PROVIDER ORDERED STATUS RANDOM 11/22/2023 9:17 PM UTILITY SYSTEMS REPAIRER OPERATOR [facility] Blood BLOOD SPECIMEN / Unknown Venipuncture / Unknown 11/22/2023 3:38 PM UTILITY SYSTEMS REPAIRER OPERATOR 11/22/2023 3:39 PM UTILITY SYSTEMS REPAIRER OPERATOR us Erna Morin DO CHEMISTRY Final Result Performing Organization Address [facility] Co de Phone Number [facility] [address] [place] [address], * ANTI HCV (08/11/2018 5:52 PM CDT) HEPATITIS C ANTIBODY Non-React amisha Non-React amisha 08/11/2018 10:51 PM CDT [facility] Comment:Antibodies to HCV no t detected; does not exclude the possibility of exposure to HCV. Blood BLOOD SPECIMEN / Unknown Venipuncture / Unknown 08/11/2018 5:52 PM CDT 08/11/2018 5:53 PM CDT Silvano Ortega NP SEND OUTS Final Resul t Performing Organization Address [facility] Co de Phone Number [facility] [address] [place] [address], * ANTI HIV 1/2 (08/11/2018 5:52 PM CDT) Pathologist [facility] HIV-1/HIV-2 ANTIBODY Non-Reacti ve Non-Reacti ve 08/11/2018 10:54 PM CDT [facility] Comment:HIV-1 p24 and HIV-1/ HIV-2 Ab not detected. Blood BLOOD SPECIMEN / Unknown Venipuncture / Unknown 08/11/2018 5:52 PM CDT 08/11/2018 5:53 PM CDT Silvano Ortega NP SEND OUTS Final Resul t Performing Organization Address City/[facility] Co de Phone Number [facility] [address] [place] [address], from Last 3 Months or Most Recently Relevant to Health Maintenance Insurance [employer] ACCESSABILITY SOLUTION Advance Directives * Full Code [...] 11:12 AM 10/01/2018 9:31 PM Care Teams Recoil Spring Winder Relationship Specialty Start Date End Date [place] [address] PCP - General Family Practice 06/30/24 Nuria Monge RN [address] [place] [address] [employer] Care Coordination Agricultural Equipment Salesperson 12/17/24 [facility] - General 01/13/25
--- OUTSIDE RECORDS SUMMARY | 2025-06-10 15:29 | XMS_ITS | Clinical Summary ---
Author Organization [facility] Address [address] [place] [address] Care Team Providers Care Assistant Scientist Name Role Phone Arlette Conde MD Primary Care Provider [phone] Allergies No known active allergies Medications No [...] age to complete this topic Insurance [id number] 18[facility] [place] [id number] [facility] Care Teams Assistant Scientist Relationship Specialty Start Date End Date Arlette Conde MD [address] [place] [address] PCP - General Student in organized health care education/training program 03/13/22
[2025-06-10 15:35] VITALS: BP 184/129; PULSE 77; RESP 18; TEMP 36.4; O2SAT 96; BMI 62.1
--- NOTE | 2025-06-10 16:30 | ED.GENADULT ---
HPI - General Adult General Date Seen: 06/10/25 Chief complaint: Alcohol/Intoxication Stated complaint: ill Time Seen by Provider: 06/10/25 16:04 Source: patient Mode of arrival: EMS Limitations: no limitations History of Present Illness HPI narrative: Patient is a 35-year-old male with history of obesity, alcoholism, panic attacks presenting to the emergency department for numbness to his arms and face. He states he was sitting on his chair watching TV when he started having tingling to his arms and face. He thought it was related to alcohol withdrawals. States for several years will check a 0.5 gal of alcohol a day. Last drink at midnight last night. Has had symptoms like this before with withdrawals. Was also seen this emergency department before for this numbness. He states now his symptoms fall gone away. Also states he had some left lower quadrant abdominal pain the has also since gone away. Currently he states he feels back to normal. States he is interested in quitting alcohol but does not want to go treatment. Denies fevers, chills, chest pain, shortness of breath, headache, dizziness, weakness, vision changes. No other concerns noted at this time Related Data Home Medications ?Medication ?Instructions ?Recorded ?Confirmed buspirone 15 mg tablet 15 mg PO BID 01/01/23 05/18/25 metoprolol succinate 50 mg 50 mg PO DAILY 01/01/23 05/18/25 tablet,extended release 24 hr amlodipine 10 mg tablet 10 mg PO DAILY 07/06/23 07/20/24 hydroxyzine HCl 25 mg tablet 25 mg PO DIRECTED 09/27/23 05/18/25 lisinopril 20 1 tab PO DAILY 09/27/23 05/18/25 mg-hydrochlorothiazide 25 mg tablet venlafaxine 75 mg capsule,extended 75 mg PO DAILY 12/21/24 05/18/25 release 24 hr Previous Rx's ?Medication ?Instructions ?Recorded apixaban 5 mg (74 tabs) tablets in See Rx Instructions PO .COMPLEX 07/26/24 a dose pack (Eliquis DVT-PE Treat #74 ea 30D Start) magnesium 200 mg tablet 200 mg PO BID #60 tabs 12/21/24 Allergies Allergy/AdvReac Type Severity Reaction Status Date / Time No Known Drug Allergies Allergy Verified 06/10/25 15:40 Review of Systems Status of ROS: Reports: 10 or more systems reviewed and unremarkable except as noted in History and below PFSH PFSH Medical History Alcoholism ?F10.20 - Alcohol dependence, uncomplicated (ICD-10) Obstructive sleep apnea ?G47.33 - Obstructive sleep apnea (adult) (pediatric) (ICD-10) Agoraphobia with panic attacks ?F40.01 - Agoraphobia with panic disorder (ICD-10) History of panic attacks ?Z86.59 - Personal history of other mental and behavioral disorders (ICD-10) Anxiety disorder ?F41.9 - Anxiety disorder, unspecified (ICD-10) Major depressive disorder ?F32.9 - Major depressive disorder, single episode, unspecified (ICD-10) Essential hypertension ?I10 - Essential (primary) hypertension (ICD-10) Synovial cyst of popliteal space [Palmer], right knee ?M71.21 - Synovial cyst of popliteal space [Palmer], right knee (ICD-10) Current smoker ?F17.200 - Nicotine dependence, unspecified, uncomplicated (ICD-10) History of seizure due to alcohol withdrawal ?Z87.898 - Personal history of other specified conditions (ICD-10) ?Z86.59 - Personal history of other mental and behavioral disorders (ICD-10) History of alcohol withdrawal syndrome ?Z86.59 - Personal history of other mental and behavioral disorders (ICD-10) Right knee pain ?M25.561 - Pain in right knee (ICD-10) Alcohol dependence, binge pattern ?F10.20 - Alcohol dependence, uncomplicated (ICD-10) Anxiety ?F41.9 - Anxiety disorder, unspecified (ICD-10) Morbidly obese ?E66.01 - Morbid (severe) obesity due to excess calories (ICD-10) Surgical History S/P right knee arthroscopy ?Z98.890 - Other specified postprocedural states (ICD-10) Social History Highest level of school completed/degree received: high school graduate Smoking Status: Current every day smoker What tobacco products do you use: cigarettes Smoking packs per day: 1 Smoking cigarettes per day: 20.0 Do you use any of these nicotine containing products: None Second hand tobacco smoke exposure: No How often do you have a drink containing alcohol: 4 or more times a week Alcohol type: hard liquor How many standard drinks containing alcohol do you have on a typical day: 10 or more How often do you have six or more drinks on one occasion: Daily or almost daily AUDIT-C Alcohol total score: 12 Non-prescribed substance use: denies use Caffeine: Yes (6-10 cans) service: No Exam Narrative: Exam Narrative: Const: Morbidly obese, in no distress Eyes: PERRL, no conjunctival injection, and symmetrical lids HENT: Atraumatic external nose and ears. Moist mucous membranes. Neck: Symmetric, trachea midline, No thyromegaly. CVS: RRR, No murmurs or gallops. Peripheral pulses 2+ and equal in all extremities RESP: Unlabored respiratory effort. Clear to auscultation bilaterally. GI: Nontender/Nondistended, No rebound or guarding. MSK:Extremities w/o deformity, Normal Active ROM Skin: Warm, Dry. No rashes or lesions. Neuro: Normal Muscle tone, No focal neurological deficits. Psych: Awake, Alert, & Oriented x3. Appropriate mood and affect. Const: Vital Signs, click to edit/add: Vital Signs - 24 hr 06/10/25 15:35 Temperature 97.6 F Pulse Rate [Right Pulse Oximeter] 77 Respiratory Rate 18 Blood Pressure [Ri ght Upper Arm] 184/129 H Pulse Oximetry 96 Oxygen Delivery Me thod Room Air Course Vital Signs Vital signs: Initial Vital Signs Temperature 97.6 F 06/10/25 15:35 Temperature Source Temporal Artery Scan 06/10/25 15:35 Pulse Rate 77 06/10/25 15:35 Pulse Rhythm Regular 06/10/25 15:35 Respiratory Rate 18 06/10/25 15:35 Blood Pressure 184/129 H 06/10/25 15:35 Blood Pressure Mean 147 H 06/10/25 15:35 Blood Pressure Position Sitting 06/10/25 15:35 Pulse Oximetry 96 06/10/25 15:35 Oxygen Delivery Method Room Air 06/10/25 15:35 Vital Signs Temperature 97.6 F 06/10/25 15:35 Pulse Rate 77 06/10/25 15:35 Respiratory Rate 18 06/10/25 15:35 Blood Pressure 184/129 H 06/10/25 15:35 Pulse Oximetry 96 06/10/25 15:35 Oxygen Delivery Method Room Air 06/10/25 15:35 Temperature 97.6 F 06/10/25 15:35 Pulse Rate 77 06/10/25 15:35 Respiratory Rate 18 06/10/25 15:35 Blood Pressure 184/129 H 06/10/25 15:35 Pulse Oximetry 96 06/10/25 15:35 Oxygen Delivery Method Room Air 06/10/25 15:35 Medical Decision Making MDM Narrative Medical decision making narrative: Patient is a 35-year-old male presenting to the emergency department for numbness and tingling of his face and arms. Those symptoms have since resolved. symptoms could be related to alcohol withdrawal could also be related to his anxiety. And sooner and he has had the same symptoms for do not believe head imaging is necessary. Will check some basic labs to look for signs or electrolyte abnormalities as a cause of the symptoms. Was having some abdominal pain that has since resolved. Do not believe further workup of the resolved abdominal pain is necessary. He continues to be asymptomatic in the emergency department. Lab work returned showing no concerning abnormalities. Hemoglobin is around baseline. At this time I believe he is safe for discharge and he is agreeable to this plan Lab Data Labs: Lab Results 06/10/25 Range/Units 16:28 WBC 5.51 (4.50-11.00) K/uL RBC 6.42 H (4.30-5.90) m/uL Hgb 18.3 H (13.5-17.5) gm/dL Hct 57.0 H (37.0-53.0) % MCV 89 (80-100) fL MCH 29 (26-34) pg MCHC 32 (32-36) gm/dL RDW Coeff of Dhara 13.0 (11.5-15.5) % Plt Count 259 (140-440) K/uL Neut % (Auto) 64.9 (42.0-72.0) % Lymph % (Auto) 25.8 (20-44) % [place] % (Auto) 8.2 (0.0-11.0) % Eos % (Auto) 0.7 (0.0-7.0) % Baso % (Auto) 0.4 (0.0-3.0) % Neut # (Auto) 3.58 (1.7-7.0) K/uL Lymph # (Auto) 1.42 (0.90-2.90) K/uL [place] # (Auto) 0.50 (0.00-0.90) K/UL Eos # (Auto) 0.04 (0.00-0.50) K/uL Baso # (Auto) 0.02 (0.00-0.30) K/uL Abs Immat Gran (auto) 0.00 (0.00-0.30) K/uL Imm/Tot Granulo (auto) 0.0 % Sodium 135 (135-149) mmol/L Potassium 3.7 (3.6-5.1) mmol/L Chloride 96 (96-114) mmol/L Carbon Dioxide 31 (20-32) mmol/L Anion Gap 8 (7-15) mEq/L BUN 9 (5-24) mg/dL Creatinine 0.9 (0.5-1.5) mg/dL Estimated Creat Clear 137.97 Estimated GFR 113 ml/min Glucose 104 (60-115) mg/dL Calcium 8.9 (8.4-10.6) mg/dL Magnesium 1.5 (1.5-2.6) mg/dL Discharge Plan Discharge Clinical Impression: Paresthesias Patient Disposition: Home, Self-Care Condition: Stable Instructions: Paresthesia (ED) Additional Instructions: I highly recommend getting help for your alcohol abuse. Return to emergency department for new or worsening symptoms Prescriptions: No Action amlodipine 10 mg tablet 10 mg PO DAILY lisinopril-hydrochlorothiazide 20-25 mg tablet 1 tab PO DAILY hydroxyzine HCl 25 mg tablet 25 mg PO DIRECTED Reilly DVT-PE Treat 30D Start 5 mg (74 tabs) tablets,dose pack See Rx Instructions .ROUTE .COMPLEX Qty: 74 0RF Rx Instructions: orally per package directions metoprolol succinate 50 mg tablet extended release 24 hr 50 mg PO DAILY buspirone 15 mg tablet 15 mg PO BID venlafaxine 75 mg capsule,extended release 24hr 75 mg PO DAILY magnesium 200 mg tablet 200 mg PO BID Qty: 60 0RF Follow Up/Referrals: Erna Morin DO [Primary Care Provider, Family Practice] Stand Alone Forms: MyHealth Info Instructions
[2025-06-10 16:38] LABS: Hematocrit 57.0 % (37.0-53.0); Hemoglobin* 18.3 gm/dL (13.5-17.5); Immature Granulocytes Abs Auto 0.00 K/uL (0.00-0.30); Immature Granulocytes Pct Auto 0.0 %; Lymphocytes Absolute Auto 1.42 K/uL (0.90-2.90); Mean Corpuscular HGB Conc 32 gm/dL (32-36); Mean Corpuscular Hemoglobin 29 pg (26-34); Mean Corpuscular Volume 89 fL (80-100); RDW Coefficient of Variation % 13.0 % (11.5-15.5); Red Blood Count 6.42 m/uL (4.30-5.90); White Blood Count* 5.51 K/uL (4.50-11.00)
[2025-06-10 16:50] LABS: Chloride* 96 mmol/L (96-114); Potassium* 3.7 mmol/L (3.6-5.1); Sodium* 135 mmol/L (135-149)
[2025-06-10 16:53] LABS: Anion Gap 8 mEq/L (7-15); Blood Urea Nitrogen* 9 mg/dL (5-24); Calcium* 8.9 mg/dL (8.4-10.6); Carbon Dioxide* 31 mmol/L (20-32); Creatinine* 0.9 mg/dL (0.5-1.5); Est. Creatinine Clearance* 137.97; Estimated Glomerular Filt Rate 113 ml/min; Glucose* 104 mg/dL (60-115); Slide Review Reflex No
== END 2025-06-10 17:18 | disposition home or self-care (01) ==
PROVIDERS: Emergency Provider Student in an Organized Health Care Education/Training Program; PCP Family Medicine
DX: R20.2 Paresthesia of skin (principal); F10.10 Alcohol abuse, uncomplicated
CPT/HCPCS: 36415; 80048; 83735; 85025; 99283; 99284